=== PATIENT | female | born 1940 | race Caucasian/White ===

== ENCOUNTER 2018-03-22 09:54 | Day surgery (SDC) | payer MEDICARE, SELFPAY ==
--- NOTE | 2018-03-21 18:24 | POEE_ITS ---
History of Present Illness Chief Complaint: Progressive decreased vision, right eye Narrative: Patient is a 77-year-old lady with history of progressive decreased vision in both eyes at both distance and near. On examination she was noted to have significant bilateral nuclear cataracts, right eye worse than left. She also has a significant superior corneal pannus and scarring. The option of cataract surgery was offered to the patient and she wished to proceed. She has a significant amount of pre-existing corneal astigmatism, likely due to her corneal scarring. She understands that postoperative visual acuity would be limited by the presence of her pre-existing corneal astigmatism. NOTE: The Chief Complaint, HPI, Past Medical History, Past Surgical History, Family History, Social History, Medications, and complete Ophthalmic Exam with detailed Assessment and Plan have already been documented in the patient's outpatient ophthalmic record and are not covered again in detail here. [facility] Social History adopted: No marital status details: [place] 1966; moved from [place] 2007 lives independently: Yes number of children: 2 current occupation: Homemaker Smoking and Tabacco status: Never alcohol intake: current alcohol intake frequency: a few times a week substance use type: does not use Seatbelt use: always do you feel safe at home: Yes Meds Home Medications Medication Instructions Recorded Confirmed Type aspirin 81 mg CH DAILY 07/19/12 03/12/18 History Centrum Silver Tablet 1 ea PO DAILY tab 11/15/12 03/18/18 History magnesium gluconate 500 mg PO DAILY #90 tab-cap 10/18/14 03/18/18 History lancets #400 ea 01/17/15 03/12/18 History Blood Glucose Test #100 strip 07/27/17 03/12/18 History Proventil HFA 2 puff INHALATION TID PRN #1 07/27/17 03/18/18 History inhaler MDD 10 inh/24 hr omega-3 fatty acids-fish oil 300 1 cap PO DAILY #90 tab-cap 03/12/18 03/18/18 History mg-1,000 mg capsule cholecalciferol (vitamin D3) 2 - 6 tab PO DAILY 03/18/18 03/18/18 History [Vitamin D3] Allergies Allergy/AdvReac Type Severity Reaction Status Date / Time pantoprazole sodium AdvReac Mild FELT Unverified 03/12/18 14:50 [From Protonix] TERRIBLE Exam OCULAR EXAM:: Most recent ocular examination revealed directed visual acuity of 20/80 OD, 20/30 OS. Intraocular pressure is 10 OD, 11 OS. Slit-lamp examination reveals subepithelial haze superiorly OU involving the superior one third of the cornea. Pupils dilate to 5.5 mm. 3+ brunescent nuclear cataract is present OD. 2+ nuclear cataract is present OS. Dilated funduscopic examination shows disc cupping of 0.1 OU with normal vessels, macula, peripheral retina and vitreous. BRIGHTNESS ACUITY TESTING (BAT):: Brightness acuity testing of the right eye off is 20/80. Low is 20/60. Medium is 20/70. High is 20/125. Assessment and Plan (1) Nuclear sclerotic cataract of right eye: Current visit: No Status: Acute Assessment: Visually significant cataract, right eye. Plan: Cataract extraction with intraocular lens implantation, right eye Note: NOTE:: The details of the planned surgery, including the risks, indications,limitations,expectations,outcome and possible complications were explained to the patient. The patient understands the complications including, but not limited to: infection, hemorrhage, posterior dislocation of the lens or nuclear fragments which may require the intervention of a vitreoretinal surgeon, possible loss of the eye, or from anesthetic complications. The patient has been made aware of the option of not having surgery, that vision following surgery may not be equal to that prior to surgery, and that the planned surgery may not achieve the intended results. Following this discussion, which the patient appeared to understand, the patient wishes to proceed with cataract surgery with lens implantation of the affected eye to improve and maximize vision.
--- NOTE | 2018-03-21 18:32 | W.PM.DSUDISC ---
Discharge Plan Discharge Details Attending Provider: Cal Mc Primary Care Provider: Renetta Limon Home Meds and New Rx's Prescriptions: No Action CENTRUM SILVER TABLET 1 EACH tablet 1 ea PO DAILY RF: 0 magnesium gluconate 27 MG tablet 500 mg PO DAILY Qty: 90 RF: 0 lancets 1 EACH misc 1 ea Miscellaneous TID Qty: 400 RF: 3 Blood Glucose Test 1 EACH strip 1 ea Miscellaneous BID PRNQty: 100 RF: 3 Proventil HFA 6.7 GM HFA aerosol inhaler 2 puff Inhalation TID MDD 10 inh/24 hr PRNQty: 1 RF: 1 omega-3 fatty acids-fish oil [Fish Oil] 300-1,000 mg capsule 1 cap PO DAILY Qty: 90 RF: 3 aspirin 81 MG tablet,chewable 81 mg CH DAILY RF: 0 cholecalciferol (vitamin D3) [Vitamin D3] 2,000 unit Capsule 2 - 6 tab PO DAILY RF: 0 Discharge Instructions Stand Alone Forms: Post-op Topical Cataract, Janny Covington (DSU) DS: Diagnosis Discharge Diagnosis (1) Status post cataract extraction and insertion of intraocular lens of right eye: Status: Chronic
[2018-03-22 10:11] VITALS: BP 135/85; PULSE 73; RESP 18; TEMP 36; O2SAT 93
[2018-03-22] MEDS: Tetracaine 0.5% 4 ML BTL OD ×4 (10:20→12:10)
[2018-03-22] MEDS: Tropicam./Phenyleph. (1/2.5%) 5 ML BTL OD ×3 (10:21→10:30)
[2018-03-22] MEDS: Balanced Salt Soln.-PLUS 500 ML BAG (12:13)
[2018-03-22] MEDS: Lidocaine 2% Jelly 6 ML SYR (12:13)
[2018-03-22] MEDS: Lidocaine 1% Pres-Free 5 ML VIAL (12:13)
[2018-03-22] MEDS: Povidone-Iodine Ophth 30 ML BTL ×2 (12:13→12:46)
--- NOTE | 2018-03-22 12:54 | W.PM.OP ---
Date of service: 03/22/18 Time of Service: 12:54 Operative Note PRE-OP DIAGNOSIS: Cataract, right eye PROCEDURE: Cataract extraction using phacoemulsification with intraocular lens implant, right eye SURGEON: Cal Mc ANESTHESIA: MAC and local (sub-tenon's anesthetic infiltration) ESTIMATED BLOOD LOSS: 0 PATHOLOGY: none sent COMPLICATIONS: None Patient was transported to: same day Patient's condition: stable Implants: [employer] / [employer] Tecnis ZCB00 intraocular lens Indications: Progressive decreased vision due to cataract, right eye Procedure Description: CATARACT SURGERY OPERATIVE REPORT PREOPERATIVE DIAGNOSIS: 1. Nuclear cataract, right eye, symptomatic 2. Superior corneal scarring, right eye POSTOPERATIVE DIAGNOSIS: Same OPERATION: Cataract extraction using phacoemulsification with posterior chamber intraocular lens implant, right eye. IOL: IOL Photocopying Equipment Mechanic/Model: [employer] Vision / HIRAM Tecnis ZCB00 IOL Power: + 19.50 diopters IOL Serial Number: [id number] Optic Diameter: 6.0mm Haptic/Overall Diameter: 13.0mm PHACO INFO: Julio[employer]on Vision System with OZil and Active Fluidics Cumulative Dispersed Energy (CDE): 28.53 seconds SURGEON: Cal Mc MD, ADAM ANESTHESIA: Monitored Anesthesia Care (MAC), with local sub-tenon's anesthetic infiltration COMPLICATIONS: None SPECIMENS: None INDICATIONS FOR PROCEDURE: The patient is a 77-year old lady with history of moderately advanced nuclear cataract in the right eye, with slightly less cataract in the left eye. She notes significant diminished visual acuity. She is also noted to have superior corneal haze/scarring with significant a stigmatism. The option of cataract surgery was offered to the patient and she wished to proceed. PROCEDURE: The correct surgical eye was identified and marked as the right eye and the pupil was dilated in the preoperative area using mydriatics and cycloplegics. The dilated pupil size was 7.0 mm. Oral sedation was administered in the form of an Imprimis MKO Melt (midazolam 3mg/ketamine 25mg/ondansetron 2mg). The patient was brought to the operating room where cardiopulmonary monitoring was instituted and surgical time-out was performed, confirming the correct operative eye and IOL power. Topical anesthesia was administered and ophthalmic povidone-iodine 5% was instilled into the conjunctival fornices. Lidocaine gel was applied to the cornea and the valeria-ocular area was prepped with Betadine 10% solution and draped in the usual sterile fashion for intraocular surgery, including an aperture drape. A Tegaderm transparent film dressing was cut in half and used to cover the lashes and lid margins. Care was taken to sequester the lashes and lid margins under the Tegaderm dressing. A lid speculum was placed between the lids of the operative eye and the Tayler-Andrea operating microscope was maneuvered into position. Trent scissors were then used to make a conjunctival buttonhole approximately 6mm posterior to the limbus in the inferonasal quadrant. Blunt dissection was carried out to expose bare sclera, and a blunt-tipped sub-tenon?s anesthesia cannula was introduced and passed posteriorly along the globe where non-preserved plain lidocaine was injected into posterior sub-Tenon?s space. A sideport knife was used to make a paracentesis port inferiortemporally, and the anterior chamber was filled with Healon GV. A 2.4mm keratome knife was used to create a half-thickness groove at the limbus and then to construct a three-plane near-clear corneal tunnel extending 2.0mm into clear cornea in the superiortemporal position. . A flap was raised on the anterior capsule and capsulorhexis forceps were used to complete a continuous curvilinear capsulorhexis of 5.0 mm. Balanced salt solution was then used to perform cortical cleaving hydrodissection and nuclear hydrodelineation until the lens could be freely rotated within the capsular bag. The lens nucleus was then disassembled and removed within the capsular bag and iris plane using phacoemulsification. Residual cortical material was removed using the I/A handpiece. The posterior capsule was carefully polished to remove as much residual lens epithelial cells as safely possible. The capsular bag was then inflated and the anterior chamber deepened with viscoelastic. The lens implant described above was inserted into the capsular bag using the HIRAM Hamilton Injector. A Kuglen hook was used to dial the IOL into position. Residual viscoelastic was then removed first from posterior to the IOL, then from the anterior chamber using the I/A handpiece. The lens implant was noted to center nicely within the capsular bag. The incisions were stromally hydrated, and the anterior chamber was reformed using BSS. Then 0.4cc of moxifloxacin 1.5mg/ml were injected into the capsular bag and anterior chamber. The incisions were checked with a Weck spear and found to be secure. Several drops of ophthalmic povidone-iodine 5% were then applied to the eye followed by two drops of Imprimis combination moxifloxacin/dexamethasone solution. The drapes were removed and a clear plastic protective eye shield was placed over the eye. The patient was then returned to Same Day Surgery in stable condition.
--- NOTE | 2018-03-22 12:57 | ROE_ITS ---
Date of service: 03/22/18 Time of Service: 12:54 Operative Note PRE-OP DIAGNOSIS: Cataract, right eye PROCEDURE: Cataract extraction using phacoemulsification with intraocular lens implant, right eye SURGEON: Cal Mc ANESTHESIA: MAC and local (sub-tenon's anesthetic infiltration) ESTIMATED BLOOD LOSS: 0 PATHOLOGY: none sent COMPLICATIONS: None Patient was transported to: same day Patient's condition: stable Implants: [employer] / [employer] Tecnis ZCB00 intraocular lens Indications: Progressive decreased vision due to cataract, right eye Procedure Description: CATARACT SURGERY OPERATIVE REPORT PREOPERATIVE DIAGNOSIS: 1. Nuclear cataract, right eye, symptomatic 2. Superior corneal scarring, right eye POSTOPERATIVE DIAGNOSIS: Same OPERATION: Cataract extraction using phacoemulsification with posterior chamber intraocular lens implant, right eye. IOL: IOL Sterilizer Operator/Model: J[employer]J Vision / HIRAM Tecnis ZCB00 IOL Power: + 19.50 diopters IOL Serial Number: [id number] Optic Diameter: 6.0mm Haptic/Overall Diameter: 13.0mm PHACO INFO: Julio[employer] Sainton Vision System with OZil and Active Fluidics Cumulative Dispersed Energy (CDE): 28.53 seconds SURGEON: Cal Mc MD, ADAM ANESTHESIA: Monitored Anesthesia Care (MAC), with local sub-tenon's anesthetic infiltration COMPLICATIONS: None SPECIMENS: None INDICATIONS FOR PROCEDURE: The patient is a 77-year old lady with history of moderately advanced nuclear cataract in the right eye, with slightly less cataract in the left eye. She notes significant diminished visual acuity. She is also noted to have superior corneal haze/scarring with significant a stigmatism. The option of cataract surgery was offered to the patient and she wished to proceed. PROCEDURE: The correct surgical eye was identified and marked as the right eye and the pupil was dilated in the preoperative area using mydriatics and cycloplegics. The dilated pupil size was 7.0 mm. Oral sedation was administered in the form of an Imprimis MKO Melt (midazolam 3mg/ketamine 25mg/ondansetron 2mg). The patient was brought to the operating room where cardiopulmonary monitoring was instituted and surgical time-out was performed, confirming the correct operative eye and IOL power. Topical anesthesia was administered and ophthalmic povidone-iodine 5% was instilled into the conjunctival fornices. Lidocaine gel was applied to the cornea and the valeria-ocular area was prepped with Betadine 10% solution and draped in the usual sterile fashion for intraocular surgery, including an aperture drape. A Tegaderm transparent film dressing was cut in half and used to cover the lashes and lid margins. Care was taken to sequester the lashes and lid margins under the Tegaderm dressing. A lid speculum was placed between the lids of the operative eye and the Tayler-Andrea operating microscope was maneuvered into position. Trent scissors were then used to make a conjunctival buttonhole approximately 6mm posterior to the limbus in the inferonasal quadrant. Blunt dissection was carried out to expose bare sclera, and a blunt-tipped sub-tenon?s anesthesia cannula was introduced and passed posteriorly along the globe where non- preserved plain lidocaine was injected into posterior sub-Tenon?s space. A sideport knife was used to make a paracentesis port inferiortemporally, and the anterior chamber was filled with Healon GV. A 2.4mm keratome knife was used to create a half-thickness groove at the limbus and then to construct a three-plane near-clear corneal tunnel extending 2.0mm into clear cornea in the superiortemporal position. . A flap was raised on the anterior capsule and capsulorhexis forceps were used to complete a continuous curvilinear capsulorhexis of 5.0 mm. Balanced salt solution was then used to perform cortical cleaving hydrodissection and nuclear hydrodelineation until the lens could be freely rotated within the capsular bag. The lens nucleus was then disassembled and removed within the capsular bag and iris plane using phacoemulsification. Residual cortical material was removed using the I/A handpiece. The posterior capsule was carefully polished to remove as much residual lens epithelial cells as safely possible. The capsular bag was then inflated and the anterior chamber deepened with viscoelastic. The lens implant described above was inserted into the capsular bag using the HIRAM Garner Injector. A Kuglen hook was used to dial the IOL into position. Residual viscoelastic was then removed first from posterior to the IOL, then from the anterior chamber using the I/A handpiece. The lens implant was noted to center nicely within the capsular bag. The incisions were stromally hydrated, and the anterior chamber was reformed using BSS. Then 0.4cc of moxifloxacin 1.5mg/ml were injected into the capsular bag and anterior chamber. The incisions were checked with a Weck spear and found to be secure. Several drops of ophthalmic povidone-iodine 5% were then applied to the eye followed by two drops of Imprimis combination moxifloxacin/dexamethasone solution. The drapes were removed and a clear plastic protective eye shield was placed over the eye. The patient was then returned to Same Day Surgery in stable condition.
[2018-03-22 13:08] VITALS: BP 119/80; PULSE 66; RESP 18; TEMP 35.8; O2SAT 94
== END 2018-03-22 13:24 | disposition home or self-care (01) ==
LOC: SUR 09:55
PROVIDERS: PCP Nurse Practitioner Adult Health; Visit Provider Ophthalmology
PROC: (CPT 66984; principal; 2018-03-22 12:30)
DX: H25.11 Age-related nuclear cataract, right eye (principal); H17.9 Unspecified corneal scar and opacity; J44.9 Chronic obstructive pulmonary disease, unspecified; E11.9 Type 2 diabetes mellitus without complications
CPT/HCPCS: 66984; V2632

== ENCOUNTER 2018-04-05 06:30 | Day surgery (SDC) | payer MEDICARE, OTHER, SELFPAY ==
--- NOTE | 2018-04-04 15:47 | W.PIPPEYE ---
History of Present Illness Chief Complaint: Progressive decreased vision, left eye Narrative: Patient is a 77-year old lady with history of superior corneal haze/pannus, right eye worse than left. She has developed symptomatic bilateral nuclear cataracts, right eye greater than left. She underwent cataract surgery in the right eye on 03/22/2018. Postoperatively she has regained best corrected vision of 20/50 in the right eye. She now presents for cataract surgery in the left eye. NOTE: The Chief Complaint, HPI, Past Medical History, Past Surgical History, Family History, Social History, Medications, and complete Ophthalmic Exam with detailed Assessment and Plan have already been documented in the patient's outpatient ophthalmic record and are not covered again in detail here. 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) Vitamin D deficiency (Chronic 11/08/12) Nuclear sclerotic cataract of right eye (Resolved) Surgical History Status post cataract extraction and insertion of intraocular lens of right eye (Chronic 03/22/18) S/P trigger finger release (Resolved) History of tonsillectomy and adenoidectomy (Resolved) Social History adopted: No marital status details: [place] 1966; moved from [place] 2007 lives independently: Yes number of children: 2 current occupation: Homemaker Smoking and Tabacco status: Never alcohol intake: current alcohol intake frequency: a few times a week substance use type: does not use Seatbelt use: always do you feel safe at home: Yes Meds Home Medications Medication Instructions Recorded Confirmed Type aspirin 81 mg CH DAILY 07/19/12 03/22/18 History Centrum Silver Tablet 1 ea PO DAILY tab 11/15/12 03/22/18 History magnesium gluconate 500 mg PO DAILY #90 tab-cap 10/18/14 03/22/18 History lancets #400 ea 01/17/15 03/22/18 History Blood Glucose Test #100 strip 07/27/17 03/22/18 History Proventil HFA 2 puff INHALATION TID PRN #1 07/27/17 03/22/18 History inhaler MDD 10 inh/24 hr omega-3 fatty acids-fish oil 300 1 cap PO DAILY #90 tab-cap 03/12/18 03/22/18 History mg-1,000 mg capsule cholecalciferol (vitamin D3) 2 - 6 tab PO DAILY 03/18/18 03/22/18 History [Vitamin D3] Allergies Allergy/AdvReac Type Severity Reaction Status Date / Time pantoprazole sodium AdvReac Mild FELT Unverified 03/12/18 14:50 [From Protonix] TERRIBLE Exam OCULAR EXAM:: Most recent ocular examination revealed corrected visual acuity of 20/50 in the right eye, 20/25 in the left. Intraocular pressure is 10 OD, 11 OS. Extraocular motility is normal. Pupils equal, round, and reactive without afferent pupillary defect slit-lamp examination is significant for pupils dilating to 5.5 mm OU. In the right eye the superior third of the cornea shows subepithelial haze and pannus PA and NUS. In the left eye there is superior subepithelial haze, but not as large as the right eye. There is a well-positioned PCIOL OD with clear posterior capsule. A 2+ nuclear cataract is present OS. Dilated funduscopic examination shows disc cupping of 0.1 OU with good color. The optic nerves have good perfusion and normal color. The retinal vasculature is normal without significant tortuosity or abnormality. The maculas are normal in appearance with normal contour and foveal reflex appropriate for age. The peripheral retina and vitreous are normal. BRIGHTNESS ACUITY TESTING (BAT):: Brightness acuity testing of the left eye off is 20/20. Low is 20/40. Medium is 20/25. High is 20/40. Assessment and Plan (1) Nuclear sclerotic cataract of left eye: Current visit: No Status: Acute Assessment: Visually significant cataract, left eye. Plan: Cataract extraction with intraocular lens implantation, left eye Note: NOTE:: The details of the planned surgery, including the risks, indications,limitations,expectations,outcome and possible complications were explained to the patient. The patient understands the complications including, but not limited to: infection, hemorrhage, posterior dislocation of the lens or nuclear fragments which may require the intervention of a vitreoretinal surgeon, possible loss of the eye, or from anesthetic complications. The patient has been made aware of the option of not having surgery, that vision following surgery may not be equal to that prior to surgery, and that the planned surgery may not achieve the intended results. Following this discussion, which the patient appeared to understand, the patient wishes to proceed with cataract surgery with lens implantation of the affected eye to improve and maximize vision.
--- NOTE | 2018-04-04 17:18 | W.PM.DSUDISC ---
Discharge Plan Discharge Details Attending Provider: Cal Mc Primary Care Provider: Renetta Limon Home Meds and New Rx's Prescriptions: No Action CENTRUM SILVER TABLET 1 EACH tablet 1 ea PO DAILY RF: 0 magnesium gluconate 27 MG tablet 500 mg PO DAILY Qty: 90 RF: 0 lancets 1 EACH misc 1 ea Miscellaneous TID Qty: 400 RF: 3 Blood Glucose Test 1 EACH strip 1 ea Miscellaneous BID PRNQty: 100 RF: 3 Proventil HFA 6.7 GM HFA aerosol inhaler 2 puff Inhalation TID MDD 10 inh/24 hr PRNQty: 1 RF: 1 omega-3 fatty acids-fish oil [Fish Oil] 300-1,000 mg capsule 1 cap PO DAILY Qty: 90 RF: 3 aspirin 81 MG tablet,chewable 81 mg CH DAILY RF: 0 cholecalciferol (vitamin D3) [Vitamin D3] 2,000 unit Capsule 2 - 6 tab PO DAILY RF: 0 Discharge Instructions Stand Alone Forms: Post-op Topical Cataract, Janny Covington (DSU) DS: Diagnosis Discharge Diagnosis (1) Status post cataract extraction and insertion of intraocular lens of left eye: Status: Chronic
--- NOTE | 2018-04-04 17:19 | W.PM.OP ---
Date of service: 04/05/18 Time of Service: 08:14 Operative Note PRE-OP DIAGNOSIS: Cataract, left eye POST-OP DIAGNOSIS: same PROCEDURE: Cataract extraction using phacoemulsification with intraocular lens implant, left eye SURGEON: Cal Mc ANESTHESIA: MAC and local (sub-tenon's anesthetic infiltration) PATHOLOGY: none sent COMPLICATIONS: None Patient was transported to: same day Patient's condition: stable Implants: [employer] / [employer] Tecnis ZCB00 Indications: Progressive decreased vision due to cataract, left eye Procedure Description: CATARACT SURGERY OPERATIVE REPORT PREOPERATIVE DIAGNOSIS: Nuclear cataract, left eye POSTOPERATIVE DIAGNOSIS: Same OPERATION: Cataract extraction using phacoemulsification with posterior chamber intraocular lens implant, left eye. IOL: IOL Librarian Special Collections/Model: [employer] / HIRAM Tecnis ZCB00 IOL Power: + 17.0 diopters IOL Serial Number: [id number] Optic Diameter: 6.0mm Haptic/Overall Diameter: 13.0mm PHACO INFO: Julio Ge[employer] Vision System with OZil and Active Fluidics Cumulative Dispersed Energy (CDE): 18.76 seconds SURGEON: Cal Mc MD, ADAM ANESTHESIA: Monitored Anesthesia Care (MAC), with local sub-tenon's anesthetic infiltration COMPLICATIONS: None SPECIMENS: None INDICATIONS FOR PROCEDURE: The patient is a 77-year-old lady with history of significant bilateral nuclear cataracts as well as corneal scarring OU, right eye greater than left. She is become increasingly symptomatic from cataract and desires cataract surgery and attempt to improve and maximize her vision. She has already undergone cataract surgery in her right eye. She now presents for cataract surgery in the left eye. PROCEDURE: The correct surgical eye was identified and marked as the left eye and the pupil was dilated in the preoperative area using mydriatics and cycloplegics. The dilated pupil size was 6.5 mm. Oral sedation was administered in the form of an Imprimis MKO Melt (midazolam 3mg/ketamine 25mg/ondansetron 2mg). The patient was brought to the operating room where cardiopulmonary monitoring was instituted and surgical time-out was performed, confirming the correct operative eye and IOL power. Topical anesthesia was administered and ophthalmic povidone-iodine 5% was instilled into the conjunctival fornices. Lidocaine gel was applied to the cornea and the valeria-ocular area was prepped with Betadine 10% solution and draped in the usual sterile fashion for intraocular surgery, including an aperture drape. A Tegaderm transparent film dressing was cut in half and used to cover the lashes and lid margins. Care was taken to sequester the lashes and lid margins under the Tegaderm dressing. A lid speculum was placed between the lids of the operative eye and the Tayler-Andrea operating microscope was maneuvered into position. Trent scissors were then used to make a conjunctival buttonhole approximately 6mm posterior to the limbus in the inferonasal quadrant. Blunt dissection was carried out to expose bare sclera, and a blunt-tipped sub-tenon?s anesthesia cannula was introduced and passed posteriorly along the globe where non-preserved plain lidocaine was injected into posterior sub-Tenon?s space. A sideport knife was used to make a paracentesis port superior/superiortemporal, and the anterior chamber was filled with Healon GV. A 2.4mm keratome knife was used to create a half-thickness groove at the limbus and then to construct a three-plane near-clear corneal tunnel extending 2.0mm into clear cornea in the temporal position. . A flap was raised on the anterior capsule and capsulorhexis forceps were used to complete a continuous curvilinear capsulorhexis of 5.0 mm. Balanced salt solution was then used to perform cortical cleaving hydrodissection and nuclear hydrodelineation until the lens could be freely rotated within the capsular bag. The lens nucleus was then disassembled and removed within the capsular bag and iris plane using phacoemulsification. The pupil constricted to 3 mm during phacoemulsification, making visualization challenging. Residual cortical material was removed using the 45-degree angled silicone I/A tip with 0.3mm port. The posterior capsule was carefully polished to remove as much residual lens epithelial cells as safely possible. The capsular bag was then inflated and the anterior chamber deepened with viscoelastic. The lens implant described above was inserted into the capsular bag using the HIRAM [place] Injector. A Kuglen hook was used to dial the IOL into position. Residual viscoelastic was then removed first from posterior to the IOL, then from the anterior chamber using the I/A handpiece. The lens implant was noted to center nicely within the capsular bag. The incisions were stromally hydrated, and the anterior chamber was reformed using BSS. Then 0.4cc of moxifloxacin 1.5mg/ml were injected into the capsular bag and anterior chamber. The incisions were checked with a Weck spear and found to be secure. Several drops of ophthalmic povidone-iodine 5% were then applied to the eye followed by two drops of Imprimis combination moxifloxacin/dexamethasone solution. The drapes were removed and a clear plastic protective eye shield was placed over the eye. The patient was then returned to Same Day Surgery in stable condition.
[2018-04-05 06:41] VITALS: BP 128/71; PULSE 87; RESP 16; TEMP 36.7; O2SAT 93
[2018-04-05] MEDS: Tropicam./Phenyleph. (1/2.5%) 5 ML BTL OS ×3 (06:49→06:55)
[2018-04-05] MEDS: Tetracaine 0.5% 4 ML BTL OS ×4 (06:49→07:29)
[2018-04-05] MEDS: Lidocaine 2% Jelly 6 ML SYR (07:29)
[2018-04-05] MEDS: Balanced Salt Soln.-PLUS 500 ML BAG (07:35)
[2018-04-05] MEDS: Lidocaine 1% Pres-Free 5 ML VIAL (07:35)
[2018-04-05] MEDS: Povidone-Iodine Ophth 30 ML BTL (07:37)
[2018-04-05 08:35] VITALS: BP 114/72; PULSE 75; RESP 18; TEMP 36.5; O2SAT 92
== END 2018-04-05 08:45 | disposition home or self-care (01) ==
LOC: SUR 06:30
PROVIDERS: PCP Nurse Practitioner Adult Health; Visit Provider Ophthalmology
PROC: (CPT 66984; principal; 2018-04-05 07:30)
DX: H25.12 Age-related nuclear cataract, left eye (principal); H17.9 Unspecified corneal scar and opacity; Z98.41 Cataract extraction status, right eye; Z96.1 Presence of intraocular lens
CPT/HCPCS: 66984; V2632

== ENCOUNTER 2018-08-20 08:14 | Outpatient (CLI) | payer MEDICARE, OTHER, SELFPAY ==
[2018-08-20 09:32] LABS: Hemoglobin A1C 7.1 % (4.5-6.2)
[2018-08-20 09:45] LABS: Anion Gap 9.3 mmol/L (3-11); BUN 15 mg/dL (7-18); CO2 27.7 mmol/L (21.0-32.0); CREATININE 0.77 mg/dL (0.55-1.02); Calcium 9.1 mg/dL (8.5-10.1); Calculated LDL 114 mg/dL; Chloride 106 mmol/L (98-107); Cholesterol 179 mg/dL (50-200); Glucose 148 mg/dL (70-100); HDL Cholesterol 55 mg/dL (40-60); Potassium 4.5 mmol/L (3.5-5.1); Sodium 143 mmol/L (136-145); Triglyceride 54 mg/dL (30-150)
[2018-08-23 07:14] LABS: Vitamin D 25 Total 27.8 ng/ml (30-100)
== END 2018-08-20 08:34 ==
PROVIDERS: PCP Nurse Practitioner Adult Health; Visit Provider Nurse Practitioner Adult Health
DX: D12.6 Benign neoplasm of colon, unspecified (principal); E11.9 Type 2 diabetes mellitus without complications; M85.80 Other specified disorders of bone density and structure, unspecified site; Z13.6 Encounter for screening for cardiovascular disorders; Z80.3 Family history of malignant neoplasm of breast
CPT/HCPCS: 36415; 80048; 80061; 82306; 83721; 83036

== ENCOUNTER 2018-09-13 00:16 | Outpatient (CLI) | payer MEDICARE, OTHER, SELFPAY ==
--- NOTE | 2018-09-13 10:00 | DI.MAMMO_ITS ---
SYMPTOM/DIAGNOSIS: SCREENING MAMMOGRAMS: Mammograms were interpreted according to the usual protocol including computer analysis with CAD system, tomosynthesis and C view imaging. Comparison is made with exams from [id number]. The breasts are composed of scattered fibroglandular densities. Breast density, Category B. No suspicious masses or suspicious microcalcifications are seen. Benign appearing nodules are again noted bilaterally. IMPRESSION: Category 2, negative mammogram with benign findings. Yearly screening mammography is recommended. SA ASSESSMENT OF FINDINGS: Negative with benign findings. Category 2. Patient will receive a letter notifying them of these results. BI-RADS category B. There are scattered areas of fibroglandular density.
== END 2018-09-13 00:36 ==
PROVIDERS: PCP Nurse Practitioner Adult Health; Visit Provider Nurse Practitioner Adult Health
DX: Z12.31 Encounter for screening mammogram for malignant neoplasm of breast (principal)
CPT/HCPCS: 77063; 77067

== ENCOUNTER 2019-07-13 16:46 | Emergency (ER) | payer MEDICARE, OTHER, SELFPAY ==
[2019-07-13] VITALS (18 sets, daily range): BP systolic 118–167; BP diastolic 67–98; PULSE 65–109; RESP 11–21; TEMP 36.4–36.9; O2SAT 91–100
--- NOTE | 2019-07-13 17:04 | W.ED.GENAD ---
Discharge Plan Disposition Patient Disposition: HOME Condition: Improving Discharge Details Chief Complaint: Chest Pain Clinical Impression: Cervical radiculopathy Primary Care Provider: Renetta Limon ED Provider: Dylon Rodríguez Home Meds and New Rx's Prescriptions: New methocarbamol 500 mg tablet 500 mg PO Q6H PRN (Reason: Back pain or spasm) Qty: 14 RF: 0 prednisone 20 mg tablet 40 mg PO DAILY 5 Days Qty: 10 RF: 0 Continued albuterol sulfate [Proventil HFA] 90 mcg/actuation HFA aerosol inhaler 2 puff Inhalation Q4H PRN MDD 10 inh/24 hr Qty: 8.5 RF: 1 (DME) blood sugar diagnostic [Blood Glucose Test] strip 1 ea Miscellaneous BID Qty: 100 RF: 3 CENTRUM SILVER TABLET 1 EACH tablet 1 ea PO DAILY RF: 0 magnesium gluconate 27 MG tablet 500 mg PO DAILY Qty: 90 RF: 0 (DME) lancets 1 EACH misc 1 ea Miscellaneous TID Qty: 400 RF: 3 omega-3 fatty acids-fish oil [Fish Oil] 300-1,000 mg capsule 1 cap PO DAILY Qty: 90 RF: 3 cholecalciferol (vitamin D3) [Vitamin D3] 2,000 unit Capsule 2 - 6 tab PO DAILY RF: 0 Discharge Instructions Instructions: Cervical Radiculopathy (ED) Additional Instructions: Remove Lidoderm patch in 12 hours time. Additional patches are available [id number] and may be used once daily. May use methocarbamol, as prescribed, if needed for pain. Please follow-up with physical therapy as prescribed. Take prednisone as prescribed until finished. Return to the ER if you develop worsening pain, chest discomfort, difficulty breathing, or any other acute concerns. Medical Decision Making Pleasant and delightful 78-year-old female with a history of diabetes and mild COPD. She presents with left-sided neck and scapular pain that radiates down her arm began on July 06 after working in her garden. She denies significant injury or fall. She states the pain is mild to moderate today but given its persistence she seeks evaluation. She arrives with slightly elevated blood pressure, tenderness overlying the left paraspinous thoracic cage and infrascapular region. Differential also includes muscular strain, radiculopathy, must exclude underlying mass. Additionally, given the patient's age and diabetes she is at risk for atypical presentation of acute coronary syndrome. Patient had IV access established, given ketorolac, referred for radiographs of the chest and cervical spine. The patient has unremarkable chest x-ray, there are multilevel degenerative changes of the cervical spine. Laboratory obtained and reveals unremarkable CBC, chemistries reassuring with a negative troponin. Her pain did have some improvement with ketorolac and Lidoderm. I feel this is most consistent with cervical radiculopathy. Will treat with a short burst of prednisone, ongoing use of topical analgesia with Lidoderm patches, and a trial of methocarbamol if needed for discomfort. I will refer her to physical therapy. We discussed that I do not feel further risk stratification of coronary artery disease is indicated at this time. She understands return precautions to the ER. ECG Data Attestation: I personally reviewed and interpreted this ECG (s) as follows: Interpretation: Normal sinus rhythm with a rate of 94, the QRS is narrow, there is nonspecific ST segment flattening in lead aVL, no ST segment elevation, the QTC is 448. HPI General Mode of arrival: ambulatory. Date/Time Provider Initiated Documentation: 07/13/19 16:51. Limitations to Documentation: no limitations. Information obtained by: patient. History of Present Illness 78 year old F presents to the emergency department with the chief complaint of Left neck pain since July 06, described as moderate, Quality is described as dull, and is localized to the neck and left. Patient extremity. Patient started experiencing this day(s) and it has been intermittent. No relieving factors improve symptom(s), No exacerbating factors reported . Patient notes denies shortness of breath, syncope and weakness. Patient did receive the following treatments prior to arrival, none Related Data Home Medications Medication Instructions Recorded Confirmed Centrum Silver Tablet 1 ea PO DAILY tab 11/15/12 07/13/19 magnesium gluconate 500 mg PO DAILY #90 tab-cap 10/18/14 07/13/19 lancets #400 ea 01/17/15 07/13/19 omega-3 fatty acids-fish oil 300 1 cap PO DAILY #90 tab-cap 03/12/18 07/13/19 mg-1,000 mg capsule cholecalciferol (vitamin D3) 2 - 6 tab PO DAILY 03/18/18 07/13/19 [Vitamin D3] albuterol sulfate 90 mcg/actuation 2 puff INHALATION Q4H PRN #8.5 gm 08/16/18 07/13/19 aerosol inhaler MDD 10 inh/24 hr blood sugar diagnostic #100 strip 08/16/18 07/13/19 methocarbamol 500 mg PO Q6H PRN #14 tab 07/13/19 prednisone 40 mg PO DAILY 5 Days #10 tab 07/13/19 Previous Rx's Medication Instructions Recorded albuterol sulfate 90 mcg/actuation 2 puff INHALATION Q4H PRN #8.5 gm 08/16/18 aerosol inhaler MDD 10 inh/24 hr blood sugar diagnostic #100 strip 08/16/18 methocarbamol 500 mg PO Q6H PRN #14 tab 07/13/19 prednisone 40 mg PO DAILY 5 Days #10 tab 07/13/19 Allergies Allergy/AdvReac Type Severity Reaction Status Date / Time pantoprazole sodium AdvReac Mild FELT Verified 12/06/18 09:08 [From Protonix] TERRIBLE Review of Systems Narrative: Discomfort began after working in her garden. No fall or injury. No shortness of breath. No recent illness, no travel. No swelling of the extremities. 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; Dr Lan Turner Right corneal scar with opacity (Inactive) Type 2 diabetes mellitus without complication (Chronic 10/23/14) DX [facility] [place] Adm: A1c 6.5 X 2 in 2014; h/o impaired FBS 2010 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) Rx Mag Gluconate (Dr Oliva) Vitamin D deficiency (Chronic 11/08/12) Surgical History History of tonsillectomy and adenoidectomy (Resolved) S/P trigger finger release (Resolved) R third ~2010 Status post cataract extraction and insertion of intraocular lens of left eye (Inactive 04/05/18) Status post cataract extraction and insertion of intraocular lens of right eye (Inactive 03/22/18) Social History Smoking/Tobacco Use Status: Never Alcohol Intake: current Alcohol Intake frequency: a few times a week Drug use: Never Substance use type: does not use Adopted: No Number of Children: 2 current occupation: Homemaker What type of physical activity do you participate in: walking and other Details: hiking/walking/gardening Duration: 60-90 minutes/day Frequency: other Details: sporadic Seatbelt use: always Do you feel safe at home: Yes Do you feel safe in your relationship?: Yes Exam Narrative Exam Narrative: GEN: awake, alert, oriented 3. Pleasant, well groomed, interactive. HEAD: Normocephalic, atraumatic ENT: Mucous membranes moist, oropharynx unremarkable, External ear exam unremarkable EYES: PERRL, EOMI NECK: Full ROM, no SAMMY, no menigismus. Kyphosis present. No midline tenderness step-off or deformity. Left paraspinous/infrascapular tenderness to palpation. CHEST/RESP: Nontender, clear to auscultation bilateral, no wheeze/rhonchi/rales CARDIOVASCULAR: RRR, no murmur, rub mini. 2+ Rad pulse bilateral ABDOMEN: Soft, nontender, no mass. +Bowel sounds EXT: Full ROM, no edema, no rash. Motor graded 5 out of 5, sensation intact throughout. Neuro: Grossly normal neurologic exam, conversant, interactive. Psych: Speech fluent, thoughts congruent, affect normal
[2019-07-13 17:44] LABS: Absolute Basophil Count 0.01 k/cumm (0.0-0.2); Absolute Eosinophil Count 0.08 k/cumm (0.0-0.7); Absolute Lymphocyte Count 0.87 k/cumm (1.2-3.4); Absolute Monocyte Count 0.38 k/cumm (0.11-0.7); Absolute Neutrophil Count 3.21 k/cumm (1.2-6.7); Basophils % 0.2; Eosinophils % 1.8; HCT 44.6 % (36.0-46.0); HGB 15.2 g/dL (12.0-15.5); Lymphocytes % 19.1; Mean Corp. HGB Concentration 34.1 g/dL (32.0-36.0); Mean Corpuscular Hemoglobin 31.6 pg (27.0-33.0); Mean Corpuscular Volume 92.7 fL (80-95); Monocytes % 8.4; Neutrophils % 70.5; Platelet Count 209 x1000/uL (130-400); RBC 4.81 m/cumm (4.00-5.20); RBC Distribution Width 13.2 % (11.7-14.6); White Blood Cell Count 4.55 k/cumm (4.4-10.8)
[2019-07-13] MEDS: Ketorolac 15 MG/ML VIAL IVP (17:48)
--- NOTE | 2019-07-13 18:00 | DI.RAD_ITS ---
EXAM: XR CHEST 2V PA LATERAL CLINICAL HISTORY: L neck pain TECHNIQUE: COMPARISON: CR CHEST 2 VIEWS PA,LAT from 04/21/2016 FINDINGS: Heart is not enlarged. The lungs are clear and normally expanded. Mediastinal contour is unchanged from prior study. No pleural effusion. There is an old midthoracic vertebral body compression fracture. IMPRESSION: No evidence of acute process.
--- NOTE | 2019-07-13 18:08 | DI.RAD_ITS ---
EXAM: XR CERVICAL SPINE COMP 4-5V CLINICAL HISTORY: L neck pain TECHNIQUE: COMPARISON: No exams were available for comparison FINDINGS: Five views were obtained. There are very prominent hypertrophic changes of the vertebral endplates a nd facet joints through the mid and lower cervical spine. No evidence of acute fracture or dislocati on. Prevertebral soft tissues appear intact. Disc space narrowing noted at C5-6 and C6-7. Neural foramina on the left may be narrowed at C5-6 and C6-7. Neural foramina on the right appear fa irly well maintained. IMPRESSION: Degenerative changes, no acute process.
--- NOTE | 2019-07-13 18:11 | DI.VRAD_ITS ---
PROCEDURE INFORMATION: Exam: XR Chest, 2 Views Exam date and time: 07/13/2019 5:58 PM Age: 78 years old Clinical indication: Other: Left neck pain TECHNIQUE: Imaging protocol: XR of the chest Views: 2 views. COMPARISON: CR CHEST 2 VIEWS PA,LAT 04/21/2016 4:02 PM FINDINGS: Lungs: Clear lungs. Pleural space: No pneumothorax. No sizable pleural effusion. Heart/Mediastinum: No cardiomegaly. Bones/joints: Unremarkable. IMPRESSION: Clear lungs. Dictated and Authenticated by: Leobardo Stock MD. Ordering:JOSEPH Osborne MD
--- NOTE | 2019-07-13 18:13 | DI.VRAD_ITS ---
PROCEDURE INFORMATION: Exam: XR Spine, 1 view; Cervical Exam date and time: 07/13/2019 5:59 PM Age: 78 years old Clinical indication: Patient status: Other: Left sided neck pain TECHNIQUE: Imaging protocol: XR of the spine, 1 view. Exam focused on the cervical spine. COMPARISON: No relevant prior studies available. FINDINGS: Vertebrae: Multilevel degenerative changes of the cervical spine. No acute fracture. Normal alignment. Soft tissues: Normal. IMPRESSION: No acute findings. Dictated and Authenticated by: Leobardo Stock MD. Ordering:JOSEPH Osborne MD
[2019-07-13 18:19] LABS: ALT 25 U/L (14-59); AST 16 U/L (15-37); Albumin 3.7 g/dL (3.4-5.0); Alkaline Phosphatase 75 U/L (46-116); Anion Gap 7.9 mmol/L (3-11); BUN 22 mg/dL (7-18); Bilirubin, Total 0.7 mg/dL (0.2-1.0); CO2 25.1 mmol/L (21.0-32.0); CREATININE 0.89 mg/dL (0.55-1.02); Calcium 8.9 mg/dL (8.5-10.1); Chloride 106 mmol/L (98-107); Glucose 194 mg/dL (74-106); Potassium 3.6 mmol/L (3.5-5.1); Sodium 139 mmol/L (136-145)
[2019-07-13 18:41] LABS: Troponin I < 0.05 ng/mL (<0.06)
[2019-07-13] MEDS: Lidocaine 5% Patch 1 PATCH TP (19:15)
[2019-07-13] MEDS: predniSONE 20 MG TAB 40 MG PO (19:16)
[2019-07-13] MEDS: Methocarbamol 500 MG TAB PO (19:30)
== END 2019-07-13 19:24 | disposition home or self-care (01) ==
PROVIDERS: Emergency Provider Emergency Medicine; PCP Nurse Practitioner Adult Health
DX: M54.12 Radiculopathy, cervical region (principal); E11.9 Type 2 diabetes mellitus without complications; J44.9 Chronic obstructive pulmonary disease, unspecified
CPT/HCPCS: 36415; 80053; 93005; 96374; 99285; 71046; 72050; 84484; 85025; 93010; 99284; J1885; J7512

== ENCOUNTER 2019-10-04 10:19 | Emergency (ER) | payer MEDICARE, OTHER, SELFPAY ==
[2019-10-04] VITALS (30 sets, daily range): BP systolic 121–163; BP diastolic 67–94; PULSE 60–88; RESP 12–23; TEMP 36.5–36.8; O2SAT 91–96
--- NOTE | 2019-10-04 10:24 | RT.EKG_ITS ---
APPROVED REPORT Exam: Resting ECG Patient Location: E HR:84 bpm ECG Measurements Heart Rate 84 AXIS GA 220 P 36 QRSd 106 QRS -9 QT 382 T 32 QTc 455 Conclusion Sinus rhythm...normal P axis, V-rate 60- 99 Multiple ventricular premature complexes...V complexes w/ short R-R intervls Prolonged GA interval...GA >220, V-rate 50- 90
--- NOTE | 2019-10-04 10:30 | DI.RAD_ITS ---
EXAM: XR CHEST 2V PA LATERAL CLINICAL HISTORY: elev BP, back discomfort TECHNIQUE: 2D digital imaging was performed. COMPARISON: CR,XR XR CHEST 2V PA LATERAL from 07/13/2019 FINDINGS: The heart is not enlarged. The lungs are clear and well expanded. No pleural effusion seen. Mediastin al contours appear intact. IMPRESSION: Normal chest RADIATION DOSE DELIVERED: Total DLP
--- NOTE | 2019-10-04 10:40 | W.ED.GENAD ---
Discharge Plan Disposition Patient Disposition: HOME Condition: Improving Discharge Details Chief Complaint: GenMedical Clinical Impression: Elevated blood pressure reading Primary Care Provider: Renetta Limon ED Provider: Dylon Rodríguez Home Meds and New Rx's Prescriptions: Continued albuterol sulfate [Proventil HFA] 90 mcg/actuation HFA aerosol inhaler 2 puff Inhalation Q4H PRN MDD 10 inh/24 hr Qty: 8.5 RF: 1 magnesium gluconate 27 mg magnesium (500 mg) tablet 500 mg PO DAILY PRNQty: 90 RF: 0 cholecalciferol (vitamin D3) [Vitamin D3] 50 mcg (2,000 unit) capsule See Rx Instructions PO DAILY RF: 0 CENTRUM SILVER TABLET 1 EACH tablet 1 ea PO DAILY RF: 0 (DME) lancets 1 EACH misc 1 ea Miscellaneous TID Qty: 400 RF: 3 omega-3 fatty acids-fish oil [Fish Oil] 300-1,000 mg capsule 1 cap PO DAILY Qty: 90 RF: 3 (DME) Contour Test Strips Strip See Rx Instructions .ROUTE .MEDSUPPLY Qty: 100 RF: 3 Discharge Instructions Additional Instructions: Your potassium level slightly low today and you would benefit of increasing dietary potassium rich foods such as bananas, strawberries, almonds or tree nuts. We will ask our care management team to arrange an outpatient follow-up for you in clinic. Please check your blood pressure once or twice daily at the same time each day and record the readings for your office follow-up. Return develop a pounding headache, chest pain or pressure, difficulty breathing, or any other acute concerns. Medical Decision Making 78-year-old female presents from home with elevated blood pressures over weeks time that she is been tracking. They are increased to 150s to 160s last night associated with feeling lousy and some mild upper back tightness. No chest pain, no syncope, no headache. Patient's exam is reassuring. hall monitor, IV access established and screening blood work and chest x-ray obtained. Patient given clonidine 0.1 mg for moderate hypertension. Labs notes discrete hypo-kalemia of 3.3 which is supplemented in the ED. Otherwise reassuring laboratories. Troponin was obtained and negative x2 . Chest x-ray without acute findings. Lab Data Lab results reviewed: Yes I reviewed the patient's lab results. Labs: Laboratory Results - last 24 hr 10/04/19 10/04/19 10/04/19 10:30 10:30 13:35 WBC 4.93 RBC 4.98 Hgb 15.3 Hct 46.4 H MCV 93.2 MCH 30.7 MCHC 33.0 RDW 12.7 Plt Count 206 MPV 11.0 Immature Gran % 0.2 Neutrophils % 71.0 Lymphocytes % 18.1 Monocytes % 9.3 Eosinophils % 1.0 Basophils % 0.4 Nucleated RBC % 0 Absolute Neutrophils 3.50 Absolute Lymphocytes 0.89 L Absolute Monocytes 0.46 Absolute Eosinophils 0.05 Absolute Basophils 0.02 Sodium 141 Potassium 3.3 L Chloride 109 H Carbon Dioxide 29.4 Anion Gap 2.6 L BUN 16 Creatinine 0.73 Estimated GFR/1.73 m2 >= 60.00 Glucose 144 H Calcium 9.4 Magnesium 1.9 Total Bilirubin 1.0 AST 19 ALT 27 Alkaline Phosphatase 83 Troponin I < 0.05 < 0.05 Total Protein 7.2 Albumin 3.8 Urine Color Urine Clarity Urine pH Ur Specific [place] Urine Protein Urine Ketones Urine Blood Urine Nitrite Urine Bilirubin Urine Urobilinogen Ur Leukocyte Esterase Urine Glucose 10/04/19 13:35 WBC RBC Hgb Hct MCV MCH MCHC RDW Plt Count MPV Immature Gran % Neutrophils % Lymphocytes % Monocytes % Eosinophils % Basophils % Nucleated RBC % Absolute Neutrophils Absolute Lymphocytes Absolute Monocytes Absolute Eosinophils Absolute Basophils Sodium Potassium Chloride Carbon Dioxide Anion Gap BUN Creatinine Estimated GFR/1.73 m2 Glucose Calcium Magnesium Total Bilirubin AST ALT Alkaline Phosphatase Troponin I Total Protein Albumin Urine Color Yellow Urine Clarity Clear Urine pH 6.5 Ur Specific [place] 1.015 Urine Protein Negative Urine Ketones Negative Urine Blood Negative Urine Nitrite Negative Urine Bilirubin Negative Urine Urobilinogen 0.2 Ur Leukocyte Esterase Negative Urine Glucose Negative ECG Data Attestation: I personally reviewed and interpreted this ECG (s) as follows: Interpretation: Normal sinus rhythm with a rate of 84, the QRS is narrow and there is no ST segment elevation. HPI General Mode of arrival: ambulatory. Date/Time Provider Initiated Documentation: 10/04/19 10:23. Limitations to Documentation: no limitations. History of Present Illness 78 year old F presents to the emergency department with the chief complaint of Elevated blood pressure, feel lousy, described as moderate, Patient reports no radiation. Patient started experiencing this hour(s) and it has been constant. No relieving factors improve symptom(s), No exacerbating factors reported . Patient notes no other symptoms. and other (Mild back pain); denies chest pain, cough and syncope. Patient did receive the following treatments prior to arrival, none Related Data Home Medications Medication Instructions Recorded Confirmed Centrum Silver Tablet 1 ea PO DAILY tab 11/15/12 10/04/19 lancets #400 ea 01/17/15 07/13/19 omega-3 fatty acids-fish oil 300 1 cap PO DAILY #90 tab-cap 03/12/18 10/04/19 mg-1,000 mg capsule albuterol sulfate 90 mcg/actuation 2 puff INHALATION Q4H PRN #8.5 gm 08/16/18 10/04/19 aerosol inhaler MDD 10 inh/24 hr blood sugar diagnostic #100 each 07/19/19 cholecalciferol (vitamin D3) 50 See Rx Instructions PO DAILY 08/19/19 10/04/19 mcg (2,000 unit) capsule magnesium gluconate 27 mg 500 mg PO DAILY PRN #90 tab-cap 08/19/19 10/04/19 magnesium (500 mg) tablet Previous Rx's Medication Instructions Recorded albuterol sulfate 90 mcg/actuation 2 puff INHALATION Q4H PRN #8.5 gm 08/16/18 aerosol inhaler MDD 10 inh/24 hr blood sugar diagnostic #100 each 07/19/19 Allergies Allergy/AdvReac Type Severity Reaction Status Date / Time pantoprazole sodium AdvReac Mild FELT Verified 10/04/19 10:29 [From Protonix] TERRIBLE General Stated Complaint: GenMedical RHEA: 2 Review of Systems Narrative: 6 systems reviewed and otherwise negative, see HPI [facility] Medical History 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) several polyps (may not even be polyps!), but due to + FH mother colon cancer <60, rec 5 yr interval; 2019: Katie declines further colonoscopy COPD, 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) FEV1 2.07 (78%pred; 61% FVC), mild obstr, else normal 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) Elevated blood pressure reading without diagnosis of hypertension (Acute) Foraminal stenosis of cervical region (Resolved) +Radiculopathy; [place] 07/2019--prednisone + methocarbamol + PT = effective Nuclear sclerotic cataract of left eye (Resolved) Nuclear sclerotic cataract of right eye (Resolved) Osteopenia (Chronic 11/08/12) Declines DXA or treatments for osteoporosis 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; Dr Lan Turner Right corneal scar with opacity (Inactive) Type 2 diabetes mellitus without complication (Chronic 10/23/14) DX [facility] [place] Adm: A1c 6.5 X 2 in 2014; h/o impaired FBS 2010 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 Colon cancer Successfully treated Supranuclear palsy Diabetes Daughter Age: 50 Breast cancer Dx'ed ~44yo s/p mastectomy Hypertension Daughter Bone cancer Sister No problems noted. Father , COD unknown No problems noted. Maternal Grandmother Breast cancer Social History Smoking/Tobacco Use Status: Never Alcohol Intake: current Alcohol Intake frequency: holidays/special occasions only Drug use: Never Substance use type: does not use Adopted: No Number of Children: 2 current occupation: Homemaker What type of physical activity do you participate in: walking and other Details: hiking/walking/gardening Duration: 60-90 minutes/day Frequency: other Details: sporadic Seatbelt use: always Do you feel safe at home: Yes Do you feel safe in your relationship?: Yes Exam Narrative Exam Narrative: GEN: awake, alert, oriented 3. Pleasant, well groomed, interactive. HEAD: Normocephalic, atraumatic ENT: Mucous membranes moist, oropharynx unremarkable, External ear exam unremarkable EYES: PERRL, EOMI NECK: Full ROM, no SAMMY, no menigismus CHEST/RESP: Nontender, clear to auscultation bilateral, no wheeze/rhonchi/rales CARDIOVASCULAR: RRR, no murmur, rub mini. 2+ Rad pulse bilateral ABDOMEN: Soft, nontender, no mass. +Bowel sounds EXT: Full ROM, no edema, no rash Neuro: Grossly normal neurologic exam, conversant, interactive. Psych: Speech fluent, thoughts congruent, affect normal Course Vital Signs Vital signs: Vital Signs Temperature 36.8 C 10/04/19 10:25 Pulse 85 10/04/19 10:25 Respiratory Rate 20 10/04/19 10:25 Blood Pressure 163/94 H 10/04/19 10:25 Pulse Oximetry 96 10/04/19 10:25 Temperature 36.8 C 10/04/19 10:25 Temperature Source Skin 10/04/19 10:25 Pulse 85 10/04/19 10:25 Respiratory Rate 20 10/04/19 10:25 Respiratory Effort 10/04/19 10:30 Blood Pressure 163/94 H 10/04/19 10:25 Blood Pressure Position Sitting 10/04/19 10:25 Pulse Oximetry 96 10/04/19 10:25 Oxygen Delivery Method Room Air 10/04/19 10:25 Oxygen Flow Rate 0 10/04/19 10:25
[2019-10-04] MEDS: Normal Saline Flush 10 ML SYR IVP (10:48)
[2019-10-04] MEDS: cloNIDine 0.1 MG TAB PO (10:48)
[2019-10-04] MEDS: Normal Saline 1,000 ML 150 ML IV (10:50)
[2019-10-04 10:52] LABS: Abs Immature Grans 0.01 10^3/uL (0.0-0.06); Absolute Basophil Count 0.02 10^3/uL (0.0-0.2); Absolute Eosinophil Count 0.05 10^3/uL (0.0-0.7); Absolute Lymphocyte Count 0.89 10^3/uL (1.2-3.4); Absolute Monocyte Count 0.46 10^3/uL (0.1-0.8); Basophils % 0.4; HCT 46.4 % (36.0-46.0); HGB 15.3 g/dL (11.2-15.7); Immature Grans % 0.2; Lymphocytes % 18.1; MCH 30.7 pg (27.0-33.0); MCV 93.2 fL (80-95); Monocytes % 9.3; Nucleated RBC 0 %; Platelet Count 206 10^3/uL (130-400); RBC 4.98 10^6/uL (3.93-5.22); RDW 12.7 % (11.7-14.6); RDW-SD 43.8 fL; WBC 4.93 10^3/uL (4.4-10.8)
[2019-10-04 11:08] LABS: ALT 27 U/L (14-59); AST 19 U/L (15-37); Albumin 3.8 g/dL (3.4-5.0); Alkaline Phosphatase 83 U/L (46-116); Anion Gap 2.6 mmol/L (3-11); BUN 16 mg/dL (7-18); CO2 29.4 mmol/L (21.0-32.0); CREATININE 0.73 mg/dL (0.55-1.02); Calcium 9.4 mg/dL (8.5-10.1); Chloride 109 mmol/L (98-107); Glucose 144 mg/dL (74-106); Magnesium 1.9 mg/dL (1.8-2.4); Potassium 3.3 mmol/L (3.5-5.1); Sodium 141 mmol/L (136-145); Total Protein 7.2 g/dL (6.4-8.2)
[2019-10-04 11:09] LABS: Troponin I < 0.05 ng/mL (<0.06)
[2019-10-04] MEDS: Potassium Chloride 20 MEQ TABCR PO (12:11)
[2019-10-04 13:41] LABS: Bilirubin Negative (Negative); Blood Negative (Negative); Clarity Clear (Clear); Glucose Negative (Negative); Ketones Negative (Negative); Leukocyte Esterase Negative (Negative); Nitrite Negative (Negative); Specific Gravity 1.015 (1.005-1.025); Urobilinogen 0.2 EU/dL (Up TO 0.2); pH 6.5 (5-8)
[2019-10-04 13:59] LABS: Troponin I < 0.05 ng/mL (<0.06)
--- NOTE | 2019-10-04 14:03 | NUR.NOTE ---
Referral faxed to Renetta HERNANDEZ.Nursing Note:
== END 2019-10-04 14:25 | disposition home or self-care (01) ==
PROVIDERS: Emergency Provider Emergency Medicine; PCP Nurse Practitioner Adult Health
DX: R03.0 Elevated blood-pressure reading, without diagnosis of hypertension (principal); E87.6 Hypokalemia; E11.9 Type 2 diabetes mellitus without complications; J44.9 Chronic obstructive pulmonary disease, unspecified
CPT/HCPCS: 36415; 80053; 93005; 99284; 71046; 81003; 83735; 84484; 85025; 93010

== ENCOUNTER 2019-11-14 00:32 | Outpatient (CLI) | payer MEDICARE, OTHER, SELFPAY ==
--- NOTE | 2019-11-14 10:35 | DI.MAMMO_ITS ---
EXAM: MAMMO SCREENING CLINICAL HISTORY: screening,Z12.39 TECHNIQUE: Mammograms were interpreted according to the usual protocol including computer analysis w [employer] CAD system, tomosynthesis and C-view imaging. COMPARISON: FINDINGS: The breasts of moderate density with fairly symmetrical distribution of fibroglandular tissue. Previ ously noted well-circumscribed right breast masses are again seen consistent with stable fibroadenoma s or cysts. There is question of a new somewhat nodular area of focal asymmetric density projected in the central portion of the left breast on CC view measuring about 6 millimeters in diameter with question of irr egular margins. This was not visible on prior studies including September 2018. Additional mammographi c views of the left breast and left breast ultrasound requested to evaluate possible new irregular ma ss. No other significant change seen. IMPRESSION: Additional mammographic views of the left breast and left breast ultrasound requested to evaluate que stionable new irregular radiodensity in the central portion of the breast seen on CC view only. BI-RADS Category 0 - Assessment Incomplete: Need additional imaging evaluation Breast Density - Category B - Scattered areas of fibroglandular density
== END 2019-11-14 00:52 ==
PROVIDERS: PCP Nurse Practitioner Adult Health; Visit Provider Nurse Practitioner Adult Health
DX: Z12.31 Encounter for screening mammogram for malignant neoplasm of breast (principal); R92.8 Other abnormal and inconclusive findings on diagnostic imaging of breast
CPT/HCPCS: 77063; 77067

== ENCOUNTER 2019-11-15 01:29 | Outpatient (CLI) | payer MEDICARE, OTHER, SELFPAY ==
[2019-11-15 11:47] LABS: Anion Gap 6.6 mmol/L (3-11); BUN 14 mg/dL (7-18); CO2 30.4 mmol/L (21.0-32.0); CREATININE 0.83 mg/dL (0.55-1.02); Calcium 9.3 mg/dL (8.5-10.1); Chloride 106 mmol/L (98-107); Glucose 141 mg/dL (74-106); Potassium 4.1 mmol/L (3.5-5.1); Sodium 143 mmol/L (136-145)
== END 2019-11-15 01:49 ==
PROVIDERS: PCP Nurse Practitioner Adult Health; Visit Provider Nurse Practitioner Adult Health
DX: E87.6 Hypokalemia (principal); R03.0 Elevated blood-pressure reading, without diagnosis of hypertension
CPT/HCPCS: 36415; 80048

== ENCOUNTER 2019-11-16 00:44 | Outpatient (CLI) | payer MEDICARE, OTHER, SELFPAY ==
--- NOTE | 2019-11-16 | DI.US_ITS ---
EXAM: MG MAMMO SCREEN CALL BACK UNI CLINICAL HISTORY: NEW SOMEWHAT NODULAR AREA OF FOCAL ASYMMETRIC DENSITY PROJECTED IN CENTRAL TECHNIQUE: Mammograms were interpreted according to the usual protocol including computer analysis w [employer] CAD system, tomosynthesis and C-view imaging. COMPARISON: FINDINGS: Additional mammographic views of the left breast density/nodularity the central portion breast seen C C view of recent. Additional mammographic views fail to show a discrete mass. Breast ultrasound mack ws multiple small cysts in the central portion the breast, largest measuring 8 millimeters in diamete r, no solid mass identified. IMPRESSION: No specific evidence of malignancy at this time. Follow-up unilateral left breast mammogram recommen ded in 6 months. BI-RADS Category 3 - 6 month - Probably Benign Finding: Recommend follow-up mammography in 6 months Breast Density - Category B - Scattered areas of fibroglandular density
--- NOTE | 2019-11-16 14:50 | DI.MAMMO_ITS ---
EXAM: MG MAMMO SCREEN CALL BACK UNI CLINICAL HISTORY: NEW SOMEWHAT NODULAR AREA OF FOCAL ASYMMETRIC DENSITY PROJECTED IN CENTRAL TECHNIQUE: Mammograms were interpreted according to the usual protocol including computer analysis w [employer] CAD system, tomosynthesis and C-view imaging. COMPARISON: FINDINGS: Additional mammographic views of the left breast density/nodularity the central portion breast seen C C view of recent. Additional mammographic views fail to show a discrete mass. Breast ultrasound mack ws multiple small cysts in the central portion the breast, largest measuring 8 millimeters in diamete r, no solid mass identified. IMPRESSION: No specific evidence of malignancy at this time. Follow-up unilateral left breast mammogram recommen ded in 6 months. BI-RADS Category 3 - 6 month - Probably Benign Finding: Recommend follow-up mammography in 6 months Breast Density - Category B - Scattered areas of fibroglandular density
== END 2019-11-16 01:04 ==
PROVIDERS: PCP Nurse Practitioner Adult Health; Visit Provider Nurse Practitioner Adult Health
DX: R92.8 Other abnormal and inconclusive findings on diagnostic imaging of breast (principal); R92.2 Inconclusive mammogram
CPT/HCPCS: 76642; 77063; 77067

== ENCOUNTER 2019-11-29 19:56 | Emergency (ER) | payer MEDICARE, OTHER, SELFPAY ==
[2019-11-29 20:01] VITALS: BP 144/88; PULSE 105; RESP 16; TEMP 36.4; O2SAT 93
--- NOTE | 2019-11-29 20:21 | W.ED.GENAD ---
Discharge Plan Disposition Patient Disposition: HOME Condition: Stable Discharge Details Clinical Impression: Tick bite Primary Care Provider: Renetta Limon ED Provider: Tristen Ledesma Home Meds and New Rx's Prescriptions: New doxycycline hyclate 100 mg tablet 100 mg PO BID Qty: 28 RF: 0 Continued albuterol sulfate [Proventil HFA] 90 mcg/actuation HFA aerosol inhaler 2 puff Inhalation Q4H PRN MDD 10 inh/24 hr Qty: 8.5 RF: 1 magnesium gluconate 27 mg magnesium (500 mg) tablet 500 mg PO DAILY PRNQty: 90 RF: 0 cholecalciferol (vitamin D3) [Vitamin D3] 50 mcg (2,000 unit) capsule See Rx Instructions PO DAILY RF: 0 losartan 25 mg tablet 25 mg PO DAILY Qty: 90 RF: 3 CENTRUM SILVER TABLET 1 EACH tablet 1 ea PO DAILY RF: 0 (DME) lancets 1 EACH misc 1 ea Miscellaneous TID Qty: 400 RF: 3 omega-3 fatty acids-fish oil [Fish Oil] 300-1,000 mg capsule 1 cap PO DAILY Qty: 90 RF: 3 (DME) Contour Test Strips Strip See Rx Instructions .ROUTE .MEDSUPPLY Qty: 100 RF: 3 Discharge Instructions Instructions: Tick Bite (ED) Medical Decision Making 79 yo female comes in after she removed a tick from her left mid neck tonight and was on for at least 24 hours, denies any symptoms such as body aches, fevers, weakness, dyspnea. She has 3cm of surrounding erythema that is not tender and doesn't have appearance of a bulls eye. Head was still attached and removed part of it the rest I advised will fall off. Given the surrounding erythema concern for early possible EM. Will give 200mg doxy orally here and treat for possible early lyme with 2 weeks of doxy. She was advised to return if she develops fevers or feels more ill Differential Diagnosis Differential Diagnosis: tick bite, lyme, cellulitis HPI General Mode of arrival: ambulatory. Date/Time Provider Initiated Documentation: 11/29/19 20:06. Limitations to Documentation: no limitations. Information obtained by: patient. History of Present Illness 79 year old F presents to the emergency department with the chief complaint of tick bite, described as moderate, No relieving factors improve symptom(s), No exacerbating factors reported . Patient notes no other symptoms.. Related Data Home Medications Medication Instructions Recorded Confirmed Centrum Silver Tablet 1 ea PO DAILY tab 11/15/12 11/29/19 lancets #400 ea 01/17/15 11/16/19 omega-3 fatty acids-fish oil 300 1 cap PO DAILY #90 tab-cap 03/12/18 11/29/19 mg-1,000 mg capsule albuterol sulfate 90 mcg/actuation 2 puff INHALATION Q4H PRN #8.5 gm 08/16/18 11/29/19 aerosol inhaler MDD 10 inh/24 hr blood sugar diagnostic #100 each 07/19/19 11/16/19 cholecalciferol (vitamin D3) 50 See Rx Instructions PO DAILY 08/19/19 11/29/19 mcg (2,000 unit) capsule magnesium gluconate 27 mg 500 mg PO DAILY PRN #90 tab-cap 08/19/19 11/29/19 magnesium (500 mg) tablet losartan 25 mg tablet 25 mg PO DAILY #90 tab 11/16/19 11/29/19 doxycycline hyclate 100 mg PO BID #28 tab 11/29/19 Previous Rx's Medication Instructions Recorded albuterol sulfate 90 mcg/actuation 2 puff INHALATION Q4H PRN #8.5 gm 08/16/18 aerosol inhaler MDD 10 inh/24 hr blood sugar diagnostic #100 each 07/19/19 losartan 25 mg tablet 25 mg PO DAILY #90 tab 11/16/19 doxycycline hyclate 100 mg PO BID #28 tab 11/29/19 Allergies Allergy/AdvReac Type Severity Reaction Status Date / Time pantoprazole sodium AdvReac Mild FELT Verified 11/29/19 20:07 [From Protonix] TERRIBLE General Stated Complaint: AnimalBite RHEA: 5 Review of Systems All systems reviewed & are unremarkable except as noted in HPI and below Constitutional Constitutional: Denies chills, Denies fever(s) and Denies weakness Cardiovascular Cardiovascular: Denies chest pain and Denies dyspnea Respiratory Respiratory: Denies cough and Denies dyspnea Gastrointestinal Gastrointestinal: Denies abdominal pain, Denies nausea and Denies vomiting Musculoskeletal Musculoskeletal: Denies joint swelling Neurologic Neurologic: Denies weakness [facility] Medical History (Updated 11/29/19 @ 20:21 by Tristen Ledesma MD) 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 (may not even be polyps!), but due to + FH mother colon cancer <60, rec 5 yr interval; 2020: Katie declines further colonoscopy COPD, mild (05/08/15) FEV1 2.07 (78%pred; 61% FVC), mild obstr, else normal 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) Foraminal stenosis of cervical region +Radiculopathy; [place] ER 07/2019--prednisone + methocarbamol + PT = effective Hypokalemia Resolved with dietary supplementation (bananas, strawberries) Nuclear sclerotic cataract of left eye Nuclear sclerotic cataract of right eye Osteopenia (11/08/12) Declines DXA or treatments for osteoporosis 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; Dr Lan Turner Right corneal scar with opacity Type 2 diabetes mellitus without complication (10/23/14) [place] [facility] [place] Adm: A1c 6.5 X 2 in 2014; h/o impaired FBS 2010 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 Colon cancer Successfully treated Supranuclear palsy Diabetes Daughter Age: 50 Breast cancer Dx'ed ~44yo s/p mastectomy Hypertension Daughter Bone cancer Sister No problems noted. Father , COD unknown No problems noted. Maternal Grandmother Breast cancer Social History Smoking/Tobacco Use Status: Never Alcohol Intake: current Alcohol Intake frequency: 0-2 drinks per day Alcohol type: wine Drug use: Never Substance use type: does not use Adopted: No Number of Children: 2 current occupation: Homemaker What type of physical activity do you participate in: walking and other Details: hiking/walking/gardening Duration: 60-90 minutes/day Frequency: other Details: sporadic Seatbelt use: always Do you feel safe at home: Yes Do you feel safe in your relationship?: Yes Exam Const General: no acute distress Orientation: alert HENMT Head: normal to inspection Ears: external ears normal General nose exam: external nose normal Mouth: moist mucous membranes Eyes General: appearance normal, both eyes and all related structures Neck Neck: full ROM and no lymphadenopathy Resp Effort & Inspection: normal respiratory effort and able to speak in complete sentences Cardio Rate: regular rate Neuro General: patient alert and patient oriented x3 Extrem General: normal to inspection Psych Mental Status: mental status grossly normal Course Vital Signs Vital signs: Vital Signs Temperature 36.4 C L 11/29/19 20:01 Pulse 105 H 11/29/19 20:01 Respiratory Rate 16 11/29/19 20:01 Blood Pressure 144/88 H 11/29/19 20:01 Pulse Oximetry 93 11/29/19 20:01 Temperature 36.4 C L 11/29/19 20:01 Temperature Source Temporal Artery Scan 11/29/19 20:01 Pulse 105 H 11/29/19 20:01 Respiratory Rate 16 11/29/19 20:01 Respiratory Effort Non-Labored 11/29/19 20:05 Blood Pressure 144/88 H 11/29/19 20:01 Pulse Oximetry 93 11/29/19 20:01 Oxygen Delivery Method Room Air 11/29/19 20:01 Oxygen Flow Rate 0 11/29/19 20:01
[2019-11-29] MEDS: Doxycycline Hyclate 100 MG CAP 200 MG PO (20:25)
== END 2019-11-29 20:31 | disposition home or self-care (01) ==
PROVIDERS: Emergency Provider Emergency Medicine; PCP Nurse Practitioner Adult Health
DX: S10.86XA Insect bite of other specified part of neck, initial encounter (principal); W57.XXXA Bitten or stung by nonvenomous insect and other nonvenomous arthropods, initial encounter; E11.9 Type 2 diabetes mellitus without complications; J44.9 Chronic obstructive pulmonary disease, unspecified
CPT/HCPCS: 99283

== ENCOUNTER 2020-09-14 20:53 | Emergency (ER) | payer MEDICARE, OTHER, SELFPAY ==
[2020-09-14 21:04] VITALS: BP 141/70; PULSE 96; RESP 18; TEMP 37.1; O2SAT 93
--- NOTE | 2020-09-14 21:15 | DI.CT_ITS ---
Exam(s) CT ABDOMEN PELVIS W EXAM: CT ABDOMEN PELVIS W INDICATION: LUQ/ Mid epigastric pain. COMPARISON: CT CHEST FOR PULMONARY EMBOLUS from 04/21/2016 TECHNIQUE: FINDINGS: CT examination of the abdomen and pelvis was performed with a bolus infusion of 100 cc of Omnipaque 3 50. Images obtained through the lung bases are unremarkable. The liver is unremarkable in appearance. Gallbladder and bile ducts are CT normal. Pancreas shows fatty replacement, no discrete mass. Spleen is unremarkable in appearance. Adrenals appear normal. The kidneys are unremarkable with no evidence of hydronephrosis, nephrolithiasis, or renal mass excep t for a tiny incidental left renal cyst... Urinary bladder unremarkable. Abdominal aorta is of normal diameter and no major vascular abnormality is seen. No abdominal wall hernia. No abdominal or pelvic adenopathy. SWATCH CUTTER structures appear intact for age.. Appendix is not specifically visualized but there is no evidence of appendicitis or diverticulitis. No evidence of bowel obstruction. IMPRESSION: No evidence of acute intra-abdominal process. RADIATION DOSE DELIVERED: 1,202.79mGy.cm Total DLP 1,202.79mGy.cm Total DLP 21.27mGy CTDIvol RADIATION OPTIMIZATION: All CT scans at this facility use at least one of these dose optimization te chniques: automated exposure control; mA and/or kV adjustment per patient size (includes targeted exa ms where dose is matched to clinical indication); or iterative reconstruction.
--- NOTE | 2020-09-14 21:15 | RT.EKG_ITS ---
APPROVED REPORT Exam: Resting ECG Reason for Exam: Mid epigastic pain Patient Location: E HR:94 bpm ECG Measurements Heart Rate 94 AXIS [place] 224 P 60 QRSd 104 QRS 1 QT 339 T 42 QTc 424 Conclusion Sinus rhythm. Prolonged [place] interval.
--- NOTE | 2020-09-14 21:24 | W.ED.GENAD ---
Discharge Plan Disposition Patient Disposition: HOME Condition: Stable Discharge Details Clinical Impression: Abdominal pain, Schmorl's nodes of the thoracic region Primary Care Provider: Renetta Limon ED Provider: Lisa Elena Home Meds and New Rx's Prescriptions: No Action losartan 25 mg tablet 25 mg PO BID Qty: 180 RF: 3 albuterol sulfate [Proventil HFA] 90 mcg/actuation HFA aerosol inhaler 2 puff Inhalation Q4H PRN MDD 10 inh/24 hr Qty: 8.5 RF: 1 magnesium gluconate 27 mg magnesium (500 mg) tablet 500 mg PO DAILY PRNQty: 90 RF: 0 cholecalciferol (vitamin D3) [Vitamin D3] 50 mcg (2,000 unit) capsule See Rx Instructions PO DAILY RF: 0 CENTRUM SILVER TABLET 1 EACH tablet 1 ea PO DAILY RF: 0 (DME) lancets 1 EACH misc 1 ea Miscellaneous TID Qty: 400 RF: 3 omega-3 fatty acids-fish oil [Fish Oil] 300-1,000 mg capsule 1 cap PO DAILY Qty: 90 RF: 3 (DME) Contour Test Strips Strip See Rx Instructions .ROUTE .MEDSUPPLY Qty: 100 RF: 3 Discharge Instructions Instructions: Abdominal Pain (ED) Additional Instructions: Follow up with primary care provider in 3-5 days. Return to ED sooner if any worsening or concerns. Increase oral fluids. Take nausea medications as directed up to 3 times daily as needed for nausea vomiting. Please take Tylenol with food every 4-6 hours as needed for pain and swelling. Referrals: Renetta Limon, [employer] [Primary Care Provider] - Medical Decision Making 79-year-old female presents to the ER chief complaint of head fullness, nausea, left upper quadrant mid-epigastric abdominal pain which began Thursday night. At this time work-up ordered including basic labs, EKG, troponin CT abdomen pelvis with IV contrast. EKG was reviewed by Dr. Anne JUAREZ ER attending, old EKG available for review no significant change noted by me. CT ABD PELVIS WO CONTRAST 04/21/2016 3:39 PM FINDINGS: Lungs: Mild dependent scarring or atelectasis noted in the lung bases. Trace bilateral pleural effusions. Heart: Trace pericardial effusion. Mediastinal space: Mild hiatal hernia. Liver: Normal. No mass. Gallbladder and bile ducts: Normal. No calcified stones. No ductal dilation. Pancreas: Severe pancreatic atrophy. No inflammatory changes. Spleen: Normal. No splenomegaly. Adrenal glands: Normal. No mass. Kidneys and ureters: Negative for hydronephrosis or renal mass. Kidneys enhance symmetrically. Ureters are not dilated. Stomach and bowel: Small bowel is not dilated. Cecum is mobile and positioned in the right upper quadrant. There are no specific inflammatory changes around the colon. Appendix: The appendix is not well-visualized. Intraperitoneal space: Unremarkable. No free air. No significant fluid collection. Vasculature: Abdominal aorta is normal. Vascular calcifications in the iliac arteries are minimal. Inferior vena cava is patent. Lymph nodes: Unremarkable. No enlarged lymph nodes. Urinary bladder: Unremarkable as visualized. Reproductive: Uterus is unremarkable. Negative for gross adnexal mass or cyst. Large vessels are present in the parametrial/adnexal regions bilaterally. Both ovarian veins are dilated, left greater than right. Negative for ovarian vein thrombosis. Bones/joints: Multilevel degenerative disc disease and facet arthropathy noted in the spine. A large Schmorl's node is noted at the T12 inferior endplate. Soft tissues: Unremarkable. IMPRESSION: 1. Negative for bowel obstruction. No acute inflammatory abnormalities observed. Severe fatty replacement of the pancreas noted. 2. Dilated ovarian veins. Large parametrial venous plexus bilaterally. Correlate for pelvic congestion syndrome/ovarian vein reflux. Thank you for allowing us to participate in the care of your patient. Dictated and Authenticated by: Tristen Richards MD Patient reevaluation she reports that her nausea and pain has subsided at this time. Discussed labs and CT result with patient and who verbalized understanding. Instructed to follow-up with PCP discuss strict return instructions. Patient remained hemodynamically stable throughout stay. This text was generated using [employer] system, please disregard any oddities of phrase or misspellings. HPI General Mode of arrival: ambulatory. Date/Time Provider Initiated Documentation: 09/14/20 20:55. Limitations to Documentation: no limitations. Information obtained by: patient, RN notes reviewed and old records reviewed. HPI Narrative: 79-year-old female presents to the ER chief complaint of head fullness, nausea, left upper quadrant mid-epigastric abdominal pain which began Thursday night. Patient denies dizziness, no fever, no diarrhea. Patient does endorse nausea constipation for the last 4 days. She has a past medical history of hypertension, COPD, osteopenia, type 2 diabetes, hypokalemia. She does not have any history of abdominal surgery. Related Data Home Medications Medication Instructions Recorded Confirmed Centrum Silver Tablet 1 ea PO DAILY tab 11/15/12 09/14/20 lancets #400 ea 01/17/15 11/16/19 omega-3 fatty acids-fish oil 300 1 cap PO DAILY #90 tab-cap 03/12/18 09/14/20 mg-1,000 mg capsule albuterol sulfate 90 mcg/actuation 2 puff INHALATION Q4H PRN #8.5 gm 08/16/18 09/14/20 aerosol inhaler MDD 10 inh/24 hr blood sugar diagnostic #100 each 07/19/19 11/16/19 cholecalciferol (vitamin D3) 50 See Rx Instructions PO DAILY 08/19/19 09/14/20 mcg (2,000 unit) capsule magnesium gluconate 27 mg 500 mg PO DAILY PRN #90 tab-cap 08/19/19 09/14/20 magnesium (500 mg) tablet losartan 25 mg tablet 25 mg PO BID #180 tab 07/11/20 09/14/20 Previous Rx's Medication Instructions Recorded albuterol sulfate 90 mcg/actuation 2 puff INHALATION Q4H PRN #8.5 gm 08/16/18 aerosol inhaler MDD 10 inh/24 hr blood sugar diagnostic #100 each 07/19/19 losartan 25 mg tablet 25 mg PO BID #180 tab 07/11/20 Allergies Allergy/AdvReac Type Severity Reaction Status Date / Time pantoprazole sodium AdvReac Mild FELT Verified 09/14/20 21:09 [From Protonix] TERRIBLE General Stated Complaint: GenMedical RHEA: 3 Review of Systems Narrative: Constitutional: Negative for weight loss, alert and oriented, well groomed, normal body habitus, appears comfortable. HEENT: Denies trauma, headaches, blurry vision, nasal discharge, sore throat, trouble swallowing. She reports head fullness. Chest: Denies chest pain, palpitations, irregular rhythm, hypertension. Respiratory: Denies Shortness of breath, cough, hemoptysis. GI: Denies vomiting, diarrhea. Positive left upper quadrant abdominal pain, nausea, constipation x4 days. : Denies dysuria, hematuria, flank pain, rectal bleeding. Neuro: Denies dizziness, blurry vision, weakness, syncope, headache or facial numbness. Hematologic: Denies easy bruising, intolerance to heat or cold, hair loss. 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 +Radiculopathy; [facility] ER 07/2019--prednisone + methocarbamol + PT = effective Hypokalemia Resolved with dietary supplementation (bananas, strawberries) Nuclear sclerotic cataract of left eye Nuclear sclerotic cataract of right eye Osteopenia (11/08/12) Declines DXA or treatments for osteoporosis 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; Dr Lan Turner Right corneal scar with opacity Type 2 diabetes mellitus without complication (10/23/14) DX [facility]: A1c 6.5 X 2 in 2014; h/o impaired FBS 2010 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 Colon cancer Successfully treated Supranuclear palsy Diabetes Daughter Age: 51 Breast cancer Dx'ed ~44yo s/p mastectomy Hypertension Daughter Bone cancer Sister No problems noted. Father , COD unknown No problems noted. Maternal Grandmother Breast cancer Social History Smoking/Tobacco Use Status: Never Smoking risk assessment performed?: Yes Alcohol Intake: current Alcohol Intake frequency: a few times a week Alcohol type: wine Drug use: Never Substance use type: does not use Adopted: No Number of Children: 2 current occupation: Homemaker What type of physical activity do you participate in: walking and other Details: hiking/walking/gardening Duration: 60-90 minutes/day Frequency: other Details: sporadic Seatbelt use: always Do you feel safe at home: Yes Do you feel safe in your relationship?: Yes Exam Narrative Exam Narrative: Constitutional: Alert and oriented x3. Appears stated age. Normal body habitus. Head: Normocephalic, no trauma. Eyes: Pupils PERRLA, Red reflex noted, EOM's intact. Eyelids symmetrical without lesions, discharge, or swelling. ENT: Bilateral TM's WNL, External ear normal to inspection, no mastoid TTP, swelling, or erythema, Nasal turbinates WNL, no nasal discharge. Normal dentition, Posterior pharynx WNL, no exudate. Dry mucous membranes. Chest: RRR, Normal S1, S2, distal pulses intact. Resp: Lungs clear to auscultation bilaterally, no wheezes, rales, or rhonchi. Abdomen: Soft, nondistended tender to palpation midepigastrium, left upper quadrant. Musculoskeletal: Normal gait, 5/5 strength to all four extremities. Skin: No suspicious rashes or lesions. Capillary refill less than 2 sec. Neurologic: Cranial nerves II-XII intact. Alert and oriented x 3. DTR's intact. Hematologic/Lymphatic: No ecchymosis, no lymphadenopathy. Course Vital Signs Vital signs: Vital Signs Temperature 37.1 C 09/14/20 21:04 Pulse 96 H 09/14/20 21:04 Respiratory Rate 18 09/14/20 21:04 Blood Pressure 141/70 H 09/14/20 21:04 Pulse Oximetry 93 09/14/20 21:04 Temperature 37.1 C 09/14/20 21:04 Temperature Source Temporal Artery Scan 09/14/20 21:04 Pulse 96 H 09/14/20 21:04 Respiratory Rate 18 09/14/20 21:04 Respiratory Effort Non-Labored 09/14/20 21:08 Blood Pressure 141/70 H 09/14/20 21:04 Blood Pressure Position Supine 09/14/20 21:04 Pulse Oximetry 93 09/14/20 21:04 Oxygen Delivery Method Room Air 09/14/20 21:04 Oxygen Flow Rate 0 09/14/20 21:04 Pain Level 8 09/14/20 21:04
[2020-09-14 21:33] LABS: Bilirubin Small (Negative); Blood Trace-intact (Negative); Clarity Sl Cloudy (Clear); Glucose Negative (Negative); Ketones 80 mg/dL (Negative); Leukocyte Esterase Negative (Negative); Nitrite Negative (Negative); Specific Gravity 1.025 (1.005-1.025)
[2020-09-14 21:34] LABS: Abs Immature Grans 0.02 10^3/uL (0.0-0.06); Absolute Basophil Count 0.01 10^3/uL (0.0-0.2); Absolute Lymphocyte Count 0.19 10^3/uL (1.2-3.4); Absolute Monocyte Count 0.34 10^3/uL (0.1-0.8); Absolute Neutrophil Count 3.51 10^3/uL (1.2-6.7); Basophils % 0.2; HCT 46.3 % (36.0-46.0); HGB 15.7 g/dL (11.2-15.7); Immature Grans % 0.5; Lymphocytes % 4.7; MCH 31.3 pg (27.0-33.0); MCHC 33.9 % (32.0-36.0); MCV 92.4 fL (80-95); MPV 10.9 fL (8.0-11.0); Monocytes % 8.4; Neutrophils % 86.2; Nucleated RBC 0 %; Platelet Count 113 10^3/uL (130-400); RBC 5.01 10^6/uL (3.93-5.22); RDW 12.6 % (11.7-14.6); RDW-SD 42.6 fL; WBC 4.07 10^3/uL (4.4-10.8)
[2020-09-14 21:41] LABS: Epithelial Cells Moderate HPF (Negative); RBC 0-2 HPF (0-2)
[2020-09-14 21:42] LABS: Bacteria Few HPF (Negative); C & S Indicated? No/Sq. Contamination; Casts 3-5 Hyaline LPF (Negative); Crystals Negative HPF (Negative); Mucus Moderate (Negative)
[2020-09-14 21:50] LABS: ALT 48 U/L (14-59); AST 56 U/L (15-37); Albumin 3.7 g/dL (3.4-5.0); Alkaline Phosphatase 95 U/L (46-116); Anion Gap 9.2 mmol/L (3-11); BUN 14 mg/dL (7-18); Bilirubin, Total 0.9 mg/dL (0.2-1.0); CO2 25.8 mmol/L (21.0-32.0); CREATININE 0.9 mg/dL (0.55-1.02); Calcium 9.4 mg/dL (8.5-10.1); Chloride 104 mmol/L (98-107); Glucose 199 mg/dL (74-106); Lipase 41 U/L (73-393); Magnesium 1.9 mg/dL (1.8-2.4); Potassium 3.7 mmol/L (3.5-5.1); Sodium 139 mmol/L (136-145); Total Protein 7.4 g/dL (6.4-8.2)
[2020-09-14 21:55] LABS: Troponin I < 0.05 ng/mL (<0.06)
[2020-09-14 22:00] VITALS: BP 136/71; PULSE 92; RESP 18; O2SAT 93
[2020-09-14] MEDS: Omnipaque 350 MG/ML 100 ML BTL IJ (22:00)
[2020-09-14] MEDS: Normal Saline - Diluent 50 ML VIAL IV (22:01)
[2020-09-14] MEDS: Normal Saline Flush 10 ML SYR IVP (22:01)
[2020-09-14] MEDS: Normal Saline 250 ML IV (22:25)
[2020-09-14] MEDS: Ondansetron 4 MG/2 ML VIAL IVP (22:28)
[2020-09-14 22:30] VITALS: BP 136/70; PULSE 92; RESP 18; O2SAT 93
--- NOTE | 2020-09-14 22:55 | DI.VRAD_ITS ---
PROCEDURE INFORMATION: Exam: CT Abdomen And Pelvis With Contrast Exam date and time: 09/14/2020 9:24 PM Age: 79 years old Clinical indication: Abdominal pain; Epigastric TECHNIQUE: Imaging protocol: Computed tomography of the abdomen and pelvis with contrast. Radiation optimization: All CT scans at this facility use at least one of these dose optimization techniques: automated exposure control; mA and/or kV adjustment per patient size (includes targeted exams where dose is matched to clinical indication); or iterative reconstruction. Contrast material: OMNIPAQUE 350; Contrast volume: 100 ml; Contrast route: INTRAVENOUS (IV); COMPARISON: CT ABD PELVIS WO CONTRAST 04/21/2016 3:39 PM FINDINGS: Lungs: Mild dependent scarring or atelectasis noted in the lung bases. Trace bilateral pleural effusions. Heart: Trace pericardial effusion. Mediastinal space: Mild hiatal hernia. Liver: Normal. No mass. Gallbladder and bile ducts: Normal. No calcified stones. No ductal dilation. Pancreas: Severe pancreatic atrophy. No inflammatory changes. Spleen: Normal. No splenomegaly. Adrenal glands: Normal. No mass. Kidneys and ureters: Negative for hydronephrosis or renal mass. Kidneys enhance symmetrically. Ureters are not dilated. Stomach and bowel: Small bowel is not dilated. Cecum is mobile and positioned in the right upper quadrant. There are no specific inflammatory changes around the colon. Appendix: The appendix is not well-visualized. Intraperitoneal space: Unremarkable. No free air. No significant fluid collection. Vasculature: Abdominal aorta is normal. Vascular calcifications in the iliac arteries are minimal. Inferior vena cava is patent. Lymph nodes: Unremarkable. No enlarged lymph nodes. Urinary bladder: Unremarkable as visualized. Reproductive: Uterus is unremarkable. Negative for gross adnexal mass or cyst. Large vessels are present in the parametrial/adnexal regions bilaterally. Both ovarian veins are dilated, left greater than right. Negative for ovarian vein thrombosis. Bones/joints: Multilevel degenerative disc disease and facet arthropathy noted in the spine. A large Schmorl's node is noted at the T12 inferior endplate. Soft tissues: Unremarkable. IMPRESSION: 1. Negative for bowel obstruction. No acute inflammatory abnormalities observed. Severe fatty replacement of the pancreas noted. 2. Dilated ovarian veins. Large parametrial venous plexus bilaterally. Correlate for pelvic congestion syndrome/ovarian vein reflux. Dictated and Authenticated by: Tristen Richards MD. Ordering:STELLA Gonzalez MD
[2020-09-14 23:00] VITALS: BP 132/53; PULSE 85; RESP 16; O2SAT 92
[2020-09-14 23:30] VITALS: BP 126/54; PULSE 88; RESP 17; O2SAT 93
[2020-09-14] MEDS: Ondansetron O.D.T. 4 MG TABEF, 3 TABS/BTL PO (23:36)
== END 2020-09-14 23:45 | disposition home or self-care (01) ==
PROVIDERS: Emergency Provider Registered Nurse Emergency; PCP Nurse Practitioner Adult Health
DX: R10.12 Left upper quadrant pain (principal); R10.13 Epigastric pain; M51.44 Schmorl's nodes, thoracic region
CPT/HCPCS: 36415; 80053; 83690; 93005; 96361; 96374; 99285; 74177; 81003; 81015; 83735; 84484; 85025; 93010; 99284; J2405; J3490

== ENCOUNTER 2020-09-17 14:53 | Outpatient (CLI) | payer MEDICARE, OTHER, SELFPAY ==
[2020-09-17 13:10] LABS: Bilirubin Large (Negative); Blood Negative (Negative); Glucose 250 mg/dL (Negative); Ketones 15 mg/dL (Negative); Leukocyte Esterase Negative (Negative); Nitrite Positive (Negative); Specific Gravity >= 1.030 (1.005-1.025); pH 5.5 (5-8)
[2020-09-17 13:10] LABS: HCT 46.6 % (36.0-46.0); HGB 15.5 g/dL (11.2-15.7); MCH 30.9 pg (27.0-33.0); MCHC 33.3 % (32.0-36.0); MCV 92.8 fL (80-95); MPV 12.7 fL (8.0-11.0); Nucleated RBC 0 %; RBC 5.02 10^6/uL (3.93-5.22); RDW 12.7 % (11.7-14.6); RDW-SD 43.7 fL; WBC 2.41 10^3/uL (4.4-10.8)
[2020-09-17 13:12] LABS: ESR 15 mm/hr (0-30)
[2020-09-17 13:21] LABS: Clarity Cloudy (Clear)
[2020-09-17 13:23] LABS: Bacteria Negative HPF (Negative); C & S Indicated? No; Crystals Moderate Amorphous HPF (Negative); Epithelial Cells Moderate HPF (Negative); Mucus Moderate (Negative); WBC 0-2 HPF (0-5)
[2020-09-17 13:28] LABS: Absolute Lymphocyte Count 0.34 10^3/uL (1.2-3.4); Absolute Monocyte Count 0.07 10^3/uL (0.1-0.8); Atypical Lymphocytes % 4; Bands % 6; Diff Comment Manual Differential; Platelet Count 37 10^3/uL (130-400); RBC Morphology Normal
[2020-09-17 13:33] LABS: ALT 142 U/L (14-59); AST 130 U/L (15-37); Albumin 3.5 g/dL (3.4-5.0); Alkaline Phosphatase 240 U/L (46-116); BUN 20 mg/dL (7-18); Bilirubin, Total 1.8 mg/dL (0.2-1.0); C-Reactive Protein 11.91 mg/dL (0.0-0.3); CREATININE 1.5 mg/dL (0.55-1.02); Calcium 9.1 mg/dL (8.5-10.1); Chloride 99 mmol/L (98-107); Glucose 243 mg/dL (74-106); Potassium 3.6 mmol/L (3.5-5.1); Sodium 137 mmol/L (136-145); Total Protein 6.7 g/dL (6.4-8.2)
[2020-09-18 10:43] LABS: Lyme Ab w Rflx to Lyme Confirm Negative (Negative)
[2020-09-19 22:08] LABS: B. miyamotoi PCR Negative (Negative); Babesia divergens/MO-1 Negative (Negative); Babesia duncani Negative (Negative); Babesia microti Negative (Negative); Ehrlichia chaffeensis Negative (Negative); Ehrlichia ewingii/canis Negative (Negative); Ehrlichia muris eauclairensis Negative (Negative)
[2020-09-20 09:34] LABS: Anaplasma phagocytophilum Positive (Negative)
== END 2020-09-17 14:54 | disposition home or self-care (01) ==
LOC: LBO 14:56
PROVIDERS: PCP Nurse Practitioner Adult Health; Visit Provider Nurse Practitioner Adult Health
DX: D69.6 Thrombocytopenia, unspecified (principal); R11.0 Nausea; R29.898 Other symptoms and signs involving the musculoskeletal system; R53.81 Other malaise; R53.83 Other fatigue; R51.9 Headache, unspecified; R63.0 Anorexia; E55.9 Vitamin D deficiency, unspecified; R74.01 Elevation of levels of liver transaminase levels; E11.9 Type 2 diabetes mellitus without complications; R82.998 Other abnormal findings in urine
CPT/HCPCS: 36415; 80053; 85652; 87798; 81003; 81015; 85025; 86140; 86618

== ENCOUNTER 2020-10-02 05:08 | Outpatient (CLI) | payer MEDICARE, OTHER, SELFPAY ==
[2020-10-02 10:53] LABS: ESR 17 mm/hr (0-30)
[2020-10-02 10:54] LABS: Abs Immature Grans 0.01 10^3/uL (0.0-0.06); Absolute Basophil Count 0.05 10^3/uL (0.0-0.2); Absolute Eosinophil Count 0.03 10^3/uL (0.0-0.7); Absolute Lymphocyte Count 2.11 10^3/uL (1.2-3.4); Absolute Monocyte Count 0.48 10^3/uL (0.1-0.8); Absolute Neutrophil Count 2.35 10^3/uL (1.2-6.7); Eosinophils % 0.6; HCT 41.7 % (36.0-46.0); HGB 13.6 g/dL (11.2-15.7); Immature Grans % 0.2; Lymphocytes % 41.9; MCH 30.8 pg (27.0-33.0); MCHC 32.6 % (32.0-36.0); MCV 94.3 fL (80-95); MPV 10.2 fL (8.0-11.0); Monocytes % 9.5; Neutrophils % 46.8; Nucleated RBC 0 %; RBC 4.42 10^6/uL (3.93-5.22); RDW 12.7 % (11.7-14.6); RDW-SD 43.9 fL; WBC 5.03 10^3/uL (4.4-10.8)
[2020-10-02 11:03] LABS: Platelet Count 247 10^3/uL (130-400)
[2020-10-02 12:19] LABS: ALT 34 U/L (14-59); AST 20 U/L (15-37); Albumin 3.5 g/dL (3.4-5.0); Alkaline Phosphatase 123 U/L (46-116); Anion Gap 6.7 mmol/L (3-11); BUN 15 mg/dL (7-18); Bilirubin, Total 0.9 mg/dL (0.2-1.0); C-Reactive Protein 0.26 mg/dL (0.0-0.3); CO2 28.3 mmol/L (21.0-32.0); CREATININE 0.9 mg/dL (0.55-1.02); Calcium 8.9 mg/dL (8.5-10.1); Chloride 106 mmol/L (98-107); Glucose 143 mg/dL (74-106); Potassium 4.1 mmol/L (3.5-5.1); Sodium 141 mmol/L (136-145); Total Protein 6.8 g/dL (6.4-8.2)
== END 2020-10-02 05:09 | disposition home or self-care (01) ==
LOC: LBO 05:08
PROVIDERS: PCP Nurse Practitioner Adult Health; Visit Provider Nurse Practitioner Adult Health
DX: R11.0 Nausea (principal); D69.6 Thrombocytopenia, unspecified; A77.49 Other ehrlichiosis; R63.0 Anorexia; R74.01 Elevation of levels of liver transaminase levels; R79.89 Other specified abnormal findings of blood chemistry
CPT/HCPCS: 36415; 80053; 85652; 85025; 86140

== ENCOUNTER 2020-11-22 02:00 | Outpatient (CLI) | payer MEDICARE, OTHER, SELFPAY ==
--- NOTE | 2020-11-22 08:00 | DI.MAMMO_ITS ---
Exam(s) MAMMO SCREENING EXAM: MAMMO SCREENING CLINICAL HISTORY: screening,Z12.39 TECHNIQUE: Mammograms were interpreted according to the usual protocol including computer analysis w [employer] CAD system, tomosynthesis and C-view imaging. COMPARISON: FINDINGS: The breasts moderate density with fairly symmetrical distribution of fibroglandular tissue. 12 heather meter well-circumscribed mass is seen in the central portion of the right breast, unchanged from prio r studies including November 2019. No new mass or clumped microcalcification seen. No additional juliette nges noted. IMPRESSION: No specific evidence of malignancy at this time. Routine screening examinations are suggested at yea rly intervals due to the family history of breast carcinoma. BI-RADS Category 2 - Benign Findings Breast Density - Category B - Scattered areas of fibroglandular density
== END 2020-11-22 02:20 ==
PROVIDERS: PCP Nurse Practitioner Adult Health; Visit Provider Nurse Practitioner Adult Health
DX: Z12.31 Encounter for screening mammogram for malignant neoplasm of breast (principal); Z80.3 Family history of malignant neoplasm of breast
CPT/HCPCS: 77063; 77067

== ENCOUNTER 2021-06-22 12:08 | Emergency (ER) | payer MEDICARE, SELFPAY ==
[2021-06-22 12:14] VITALS: BP 132/79; PULSE 107; RESP 16; TEMP 36.1; O2SAT 95
--- NOTE | 2021-06-22 12:45 | W.ED.GENAD ---
Discharge Plan Disposition Patient Disposition: HOME Condition: Stable Discharge Details Clinical Impression: Tick bite Primary Care Provider: Renetta Limon ED Provider: Elen Glass Home Meds and New Rx's Prescriptions: New doxycycline hyclate 100 mg tablet 100 mg PO BID 21 Days Qty: 42 0RF Continued magnesium gluconate 27 mg magnesium (500 mg) tablet 500 mg PO DAILY PRNQty: 90 Label Comments: PRN chest palpitations cholecalciferol (vitamin D3) [Vitamin D3] 50 mcg (2,000 unit) capsule See Rx Instructions PO DAILY PRN Label Comments: Vit D deficiency & bone health Rx Instructions: 2-6 caps PO daily PRN; occuvite 1 tab PO DAILY losartan 25 mg tablet See Rx Instructions PO BID Qty: 270 3RF Rx Instructions: 50mg AM, 25mg PM PO twice a day; For blood pressure (may increase to 100mg daily for goal BP <140/90) CENTRUM SILVER TABLET 1 EACH tablet 1 ea PO DAILY (DME) lancets 1 EACH misc 1 ea Miscellaneous TID Qty: 400 Label Comments: pt .checked blood sugar this AM 125 Rx Instructions: FOR METER. PT USES INSULIN. DIAGNOSIS CODE 250.0__ (DME) Contour Test Strips Strip See Rx Instructions .ROUTE .MEDSUPPLY Qty: 100 3RF Rx Instructions: Test daily to maintain A1C less than 7 dx code E11.9 albuterol sulfate [Proventil HFA] 90 mcg/actuation HFA aerosol inhaler 2 puff Inhalation Q4H PRN MDD 10 inh/24 hr PRN Discharge Instructions Instructions: Tick Bite (ED) Additional Instructions: You can wash the wound area with soap and water and apply topical antibiotic ointment 1-2 times daily if you notice any worsening redness, swelling or pain. A prescription for the antibiotic doxycycline has been sent electronically to [facility]. The prescription duration is for 3 weeks. You can take a prophylactic dose today which would be 200 mg (2 tabs) once today. If you notice any fever, body aches, bull's-eye rash, start the prescription and take as directed until finished. Follow-up with your primary care doctor in 1 week. Return to the emergency department with any worsening or new concerning symptoms. Discharge Data Discharge Physician: Elen Glass Medical Decision Making 80yo F who presents to the ED w/ a c/o tick bite to her right posterior thigh yesterday now presents with area of bruising and redness. Patient appears comfortable and nontoxic. There is a 3 x 5 mm area of ecchymosis with surrounding erythema but no evidence of abscess, drainage or bleeding. There is no evidence of bull's-eye rash. 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 Discussed that as the tick was only present for a short period of time yesterday, was not engorged and she has no other symptoms, can likely hold on treatment for Lyme disease but can provide with prophylactic dose if indicated. Patient states she is very concerned with her history of Anaplasmosis and would rather have a prescription if needed. A prescription for doxycycline was sent electronically to her pharmacy. She was advised to take 200 mg prophylactic doxycycline dose today and if she develops any fever, body aches or bull's-eye rash, to start the prescription. She declined a tick and Lyme panel here. Advised to follow up with the primary care doctor for re-evaluation. Usual and customary return precautions given prior to discharge. Medical Records Medical records reviewed: Yes I reviewed the patient's medical records. HPI General Mode of arrival: ambulatory. Date/Time Provider Initiated Documentation: 06/22/21 12:34. Limitations to Documentation: no limitations. Information obtained by: patient. HPI Narrative: Pt is an 80-year-old female who presents to the emergency department with a complaint of tick bite to her right thigh which she noticed yesterday. Patient states she thinks the tick was present for only a short time yesterday when she noticed it. She states she was able to remove it herself intact. She states the tick was not engorged but was very small consistent with a deer tick. She states since then she has noticed some bruising and swelling and redness around the area. She denies any known bull's-eye rash, fever, body aches or chills. Patient states she is concerned about Lyme disease as she was treated for anaplasmosis related to a tick bite last year. Related Data Home Medications Medication Instructions Recorded Confirmed Centrum Silver Tablet 1 ea PO DAILY 11/15/12 06/22/21 lancets 28 gauge #400 ea 01/17/15 05/13/21 blood sugar diagnostic (Contour #100 ea 07/19/19 05/13/21 Test Strips) magnesium gluconate 27 mg 500 mg PO DAILY PRN #90 tab-caps 08/19/19 06/22/21 magnesium (500 mg) tablet cholecalciferol (vitamin D3) 50 See Rx Instructions PO DAILY PRN 09/17/20 06/22/21 mcg (2,000 unit) capsule (Vitamin D3) losartan 25 mg tablet See Rx Instructions PO BID #270 05/13/21 06/22/21 tabs occuvite 1 tab PO DAILY 05/13/21 06/22/21 albuterol sulfate 90 mcg/actuation 2 puff inhalation Q4H PRN PRN 06/22/21 06/22/21 aerosol inhaler (Proventil HFA) doxycycline hyclate 100 mg tablet 100 mg PO BID 21 days #42 tabs 06/22/21 Previous Rx's Medication Instructions Recorded blood sugar diagnostic (Contour #100 ea 07/19/19 Test Strips) losartan 25 mg tablet See Rx Instructions PO BID #270 05/13/21 tabs doxycycline hyclate 100 mg tablet 100 mg PO BID 21 days #42 tabs 06/22/21 Allergies Allergy/AdvReac Type Severity Reaction Status Date / Time pantoprazole sodium AdvReac Mild FELT Verified 06/22/21 12:20 [From Protonix] TERRIBLE General Stated Complaint: RashLesion RHEA: 4 Review of Systems All systems reviewed & are unremarkable except as noted in HPI and below Constitutional Constitutional: Denies chills, Denies excessive sweating, Denies fatigue, Denies fever(s), Denies weakness and Denies weight loss Eyes Eyes: Reports system reviewed and no additional complaints, except as documented and Denies blurry vision ENT Ears, Nose, Mouth, and Throat: Denies vertigo, Denies dizziness, Denies otalgia, Denies nasal congestion, Denies sore throat and Denies throat swelling Cardiovascular Cardiovascular: Denies chest pain, Denies syncope, Denies rapid heart rate and Denies dyspnea Respiratory Respiratory: Denies chest congestion, Denies cough, Denies pain on inspiration and Denies dyspnea Gastrointestinal Gastrointestinal: Denies abdominal pain, Denies diarrhea and Denies vomiting Genitourinary Genitourinary: Denies hematuria, Denies dysuria and Denies flank pain Musculoskeletal Musculoskeletal: Denies back pain and Denies joint swelling Integumentary/Breasts Skin/Breast: Reports lesions and Denies rash Neurologic Neurologic: Denies behavioral changes, Denies confusion, Denies vertigo, Denies dizziness, Denies syncope, Denies localized weakness and Denies weakness Psychiatric Psychiatric: Denies behavioral changes, Denies confusion and Denies depression Endocrine Endocrine: Denies excessive sweating and Denies fatigue Hematologic/Lymphatic Hematologic/Lymphatic: Denies easy bruising and Denies lymphadenopathy Allergic/Immunologic Allergic/Immunologic: Denies throat swelling PFSH All Active Problems (Updated 06/22/21 @ 12:47 by Elen Glass, ) Tick bite (Acute) Schmorl's nodes of the thoracic region (Acute) Category 3 mammography result with short follow-up interval suggested for probably benign finding (Acute) [facility] second read cat 2, but [facility] cat 3 with repeat imaging in 6 month recommended Hypertension (Chronic ~10/2019) Dx'ed 10/2019--RX Losartan; goal <130/80 ideally (but 140/90 acceptable) Family history of breast cancer (Chronic) Daughter Obesity (Chronic 11/08/12) 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) several polyps (may not even be polyps!), but due to + FH mother colon cancer <60, rec 5 yr interval; 2020: Katie declines further colonoscopy 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, 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) FEV1 2.07 (78%pred; 61% FVC), mild obstr, else normal Osteopenia (Chronic 11/08/12) Declines DXA or treatments for osteoporosis 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; Dr Lan Turner Type 2 diabetes mellitus without complication (Chronic 10/23/14) DX [facility] Adm: A1c 6.5 X 2 in 2015; h/o impaired FBS 2010 Vitamin D deficiency (Chronic 11/08/12) 2014 Medical History 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 Colon cancer Successfully treated Supranuclear palsy Diabetes Daughter Age: 52 Breast cancer Dx'ed ~44yo s/p mastectomy Hypertension Daughter Bone cancer Sister No problems noted. Father , COD unknown No problems noted. Maternal Grandmother Breast cancer Social History Smoking/Tobacco Use Status: Never Smoking risk assessment performed?: Yes Alcohol Intake: current Alcohol Intake frequency: a few times a week Alcohol type: wine Drug use: Never Substance use type: does not use Adopted: No Household members: none Housing: house Number of Children: 2 current occupation: Homemaker What is your relationship status?: Panel score (0-1 are the most socially isolated patients): 0 What type of physical activity do you participate in: walking and other Details: hiking/walking/gardening Duration: 60-90 minutes/day Frequency: other Details: sporadic Seatbelt use: always Do you feel safe at home: Yes Do you feel safe in your relationship?: Yes Exam Const General: cooperative and healthy appearing Orientation: alert and awake [facility] Head: normal to inspection Ears: hearing grossly normal bilaterally, external ears normal and TM's normal bilaterally General nose exam: external nose normal Face and sinus: normal facial exam Mouth: oral mucosae normal Teeth and gingiva: dentition normal Throat: posterior oropharynx normal Eyes General: appearance normal, both eyes and all related structures Eyelids: eyelids normal Pupils: PERRL EOM: EOM intact bilaterally Neck Neck: normal visual inspection Lymphatic: no lymphadenopathy noted Chest Chest: normal inspection of the chest Resp Effort & Inspection: normal respiratory effort and able to speak in complete sentences Auscultation: clear to auscultation bilaterally Cardio Rate: regular rate Rhythm: regular rhythm GI Inspection: normal to inspection Palpation: soft, not firm, no guarding, no hepatosplenomegaly, no masses and nontender Auscultation: normal bowel sounds Back/Spine/Pelvis Back: no CVA tenderness Neuro General: patient alert and patient awake Cognition: normal cognition Speech: speech normal Gait: normal gait Motor: muscle tone normal throughout Sensory Exam: no sensory deficits noted Extrem Upper/lower leg/hip images: 1. [id number] area of ecchymoses surrounded by a 2mm area of erythema noted to R posterior mid thigh. No circular clearing or evidence of bull's-eye rash. There is no significant induration or fluctuance. No drainage or bleeding. Psych Appearance: grossly normal Mental Status: mental status grossly normal Speech and Movement: speech and movement normal Affect: normal affect Thought Process: normal Course Vital Signs Vital signs: Vital Signs Temperature 97.0 F L 06/22/21 12:14 Pulse 107 H 06/22/21 12:14 Respiratory Rate 16 06/22/21 12:14 Blood Pressure 132/79 06/22/21 12:14 Pulse Oximetry 95 06/22/21 12:14 Temperature 97.0 F L 06/22/21 12:14 Temperature Source Skin 06/22/21 12:14 Pulse 107 H 06/22/21 12:14 Respiratory Rate 16 06/22/21 12:14 Respiratory Effort 06/22/21 12:21 Blood Pressure 132/79 06/22/21 12:14 Blood Pressure Position Sitting 06/22/21 12:14 Pulse Oximetry 95 06/22/21 12:14 Oxygen Delivery Method Room Air 06/22/21 12:14 Oxygen Flow Rate 0 06/22/21 12:14 Pain Level 0 06/22/21 12:14
== END 2021-06-22 12:57 | disposition home or self-care (01) ==
PROVIDERS: Emergency Provider Physician Assistant; PCP Nurse Practitioner Adult Health
DX: S70.361A Insect bite (nonvenomous), right thigh, initial encounter (principal); W57.XXXA Bitten or stung by nonvenomous insect and other nonvenomous arthropods, initial encounter
CPT/HCPCS: 99283

== ENCOUNTER 2021-08-02 04:37 | Inpatient (IN) | payer MEDICARE, SELFPAY ==
[2021-08-02] VITALS (80 sets, daily range): BP systolic 116–180; BP diastolic 60–95; PULSE 68–110; RESP 10–27; TEMP 35.9–37.2; O2SAT 82–99
--- NOTE | 2021-08-02 04:45 | DI.CT_ITS ---
Exam(s) CT ABDOMEN PELVIS WO EXAM: CT ABDOMEN PELVIS WO CLINICAL HISTORY: abdominal pain, n/v. TECHNIQUE: Imaging Protocol: Axial computed tomography images with coronal and sagittal reformatted images were created and reviewed. COMPARISON: CT CT ABDOMEN PELVIS W from 09/14/2020 FINDINGS: ABDOMEN: Lung Bases: Normal where visualized. There is a small hiatal hernia. Liver: Normal density. No measurable mass. Gallbladder and biliary tract: No radiodense calculus or biliary ductal dilation. Pancreas: There is diffuse fatty atrophy of the pancreas. Spleen: Normal. Kidneys: Normal size, contour and axis.No radiodense stones or obstructive uropathy. There are stable hepatic cysts. Adrenal glands: No mass is seen. Lymph nodes: Within normal limits. Abdominal Aorta: Abdominal portion non-dilated. Mild atherosclerosis. PELVIS: Bladder:Symmetric distention, no gross wall thickening. Bowel: There are dilated loops of small bowel proximally with a transition seen in the mid abdomen. There is infiltration in the mesentery centrally. The distal small bowel is of normal caliber. No e vidence of appendicitis. Peritoneal cavity: There is a tiny amount of fluid seen in both pericolic gutters and the dependent p ortion of the pelvis. No free air. Reproductive organs: Within normal limits. Bones: Within normal limits. Soft Tissues: There is a fat containing umbilical hernia. IMPRESSION: Findings of a small-bowel obstruction. Transition point is not definitely visualized but the distal half of the small bowel is of normal caliber. RADIATION DOSE DELIVERED: 994.68mGy.cm Total DLP DATA REPOSITORY: All CT scans at this facility are submitted to the National Radiology Data Registry (NRDR) Dose Index Registry (DIR) with the [employer] (A[employer]). RADIATION OPTIMIZATION: All CT scans at this facility use at least one of these dose optimization te chniques: automated exposure control; mA and/or kV adjustment per patient size (includes targeted exa ms where dose is matched to clinical indication); or iterative reconstruction.
--- NOTE | 2021-08-02 05:00 | ED.GENADUL_ITS ---
Discharge Plan Disposition Patient Disposition: [facility] INPATIENT Condition: Stable Discharge Details Clinical Impression: SBO (small bowel obstruction) Primary Care Provider: Renetta Limon ED Provider: Tristen Ledesma Home Meds and New Rx's Prescriptions: No Action magnesium gluconate 27 mg magnesium (500 mg) tablet 500 mg PO DAILY PRNQty: 90 Label Comments: PRN chest palpitations cholecalciferol (vitamin D3) [Vitamin D3] 50 mcg (2,000 unit) capsule See Rx Instructions PO DAILY PRN Label Comments: Vit D deficiency & bone health Rx Instructions: 2-6 caps PO daily PRN; occuvite 1 tab PO DAILY losartan 25 mg tablet See Rx Instructions PO BID Qty: 270 3RF Rx Instructions: 50mg AM, 25mg PM PO twice a day; For blood pressure (may increase to 100mg daily for goal BP <140/90) CENTRUM SILVER TABLET 1 EACH tablet 1 ea PO DAILY (DME) lancets 1 EACH misc 1 ea Miscellaneous TID Qty: 400 Label Comments: pt .checked blood sugar this AM 125 Rx Instructions: FOR METER. PT USES INSULIN. DIAGNOSIS CODE 250.0__ (DME) Contour Test Strips Strip See Rx Instructions .ROUTE .MEDSUPPLY Qty: 100 3RF Rx Instructions: Test daily to maintain A1C less than 7 dx code E11.9 albuterol sulfate [Proventil HFA] 90 mcg/actuation HFA aerosol inhaler 2 puff Inhalation Q4H PRN MDD 10 inh/24 hr PRN Medical Decision Making 80 yo female with hx of t2dm, copd, htn, who comes in with ems with abdominal pain. She states she went to bed feeling well and felt well all day yesterday. She woke up from sleep with severe abdomen pain and has been dry heaving. She denies fevers, chills, chest pain, dyspnea. She has never had pain like this in the past and denies prior surgeries and states has had normal colonoscopies in the past. She appears uncomfortable on exam with stable vitals. She localizes the pain to the mid abdomen and feels distended with tenderness to the mid to lower abdomen. Concern for sbo, pancreatitis, pneumoperitoneum. Will obtain labs and ct without contrast to further evaluate. Given the national IV contrast shortage will defer IV contrast at this time. If negative wokup and continues to have pain will consider cta pt stable, ct confirms sbo. Will consult with general surgery about admission. Pt is still distended and dry heaving, will have nursing place NG tube spoke with Dr. Miguel from general surgery who accepts for admission. Pt updated on plan and is in agreement Differential Diagnosis Differential Diagnosis: sbo, pancreatitis, pneumoperitoneum Medical Records Medical records reviewed: Yes I reviewed the patient's medical records. Imaging Data Radiologic Study: Attestation: I personally reviewed and interpreted this imaging study as follows: Imaging: CT Scan Radiologist's impression: IMPRESSION: 1. Small bowel obstruction. 2. Small hiatal hernia. 3. Anemia suspected. 4. Small pericardial effusion. Lab Data Lab results reviewed: Yes I reviewed the patient's lab results. HPI General Mode of arrival: EMS . Date/Time Provider Initiated Documentation: 08/02/21 04:52 . Limitations to Documentation: no limitations . Information obtained by: patient . History of Present Illness 80 year old F presents to the emergency department with the chief complaint of abdominal pain, described as severe, Quality is described as stabbing, and is localized to the abdomen. Patient reports no radiation. Patient started experiencing this hour(s) (3) and it has been constant. No relieving factors improve symptom(s), No exacerbating factors reported . Patient notes denies chest pain and fever/chills. Related Data Home Medications Medication Instructions Recorded Confirmed Centrum Silver Tablet 1 ea PO DAILY 11/15/12 06/22/21 lancets 28 gauge #400 ea 01/17/15 05/13/21 blood sugar diagnostic (Contour #100 ea 07/19/19 05/13/21 Test Strips) magnesium gluconate 27 mg 500 mg PO DAILY PRN #90 tab-caps 08/19/19 06/22/21 magnesium (500 mg) tablet cholecalciferol (vitamin D3) 50 See Rx Instructions PO DAILY PRN 09/17/20 06/22/21 mcg (2,000 unit) capsule (Vitamin D3) losartan 25 mg tablet See Rx Instructions PO BID #270 05/13/21 06/22/21 tabs occuvite 1 tab PO DAILY 05/13/21 06/22/21 albuterol sulfate 90 mcg/actuation 2 puff inhalation Q4H PRN PRN 06/22/21 06/22/21 aerosol inhaler (Proventil HFA) Previous Rx's Medication Instructions Recorded blood sugar diagnostic (Contour #100 ea 07/19/19 Test Strips) losartan 25 mg tablet See Rx Instructions PO BID #270 05/13/21 tabs Allergies Allergy/AdvReac Type Severity Reaction Status Date / Time pantoprazole sodium AdvReac Mild FELT Verified 08/02/21 04:47 [From Protonix] TERRIBLE General Stated Complaint: Abd Prob RHEA: 2 Review of Systems All systems reviewed & are unremarkable except as noted in HPI and below Constitutional Constitutional: Denies chills, Denies fever(s) and Denies weakness Cardiovascular Cardiovascular: Denies chest pain and Denies dyspnea Respiratory Respiratory: Denies cough and Denies dyspnea Genitourinary Genitourinary: Denies dysuria Musculoskeletal Musculoskeletal: Denies joint swelling Integumentary/Breasts Skin/Breast: Denies rash Neurologic Neurologic: Denies weakness PFSH All Active Problems (Updated 08/02/21 @ 06:19 by Tristen Ledesma MD) SBO (small bowel obstruction) (Acute) Schmorl's nodes of the thoracic region (Acute) Category 3 mammography result with short follow-up interval suggested for probably benign finding (Acute) [facility] second read cat 2, but [facility] cat 3 with repeat imaging in 6 month recommended Hypertension (Chronic ~10/2019) Dx'ed 10/2019--RX Losartan; goal <130/80 ideally (but 140/90 acceptable) Family history of breast cancer (Chronic) Daughter Obesity (Chronic 11/08/12) 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) several polyps (may not even be polyps!), but due to + FH mother colon cancer <60, rec 5 yr interval; 2020: Katie declines further colonoscopy 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, 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) FEV1 2.07 (78%pred; 61% FVC), mild obstr, else normal Osteopenia (Chronic 11/08/12) Declines DXA or treatments for osteoporosis 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; Dr Lan Turner Type 2 diabetes mellitus without complication (Chronic 10/23/14) DX [facility] Adm: A1c 6.5 X 2 in 2014; h/o impaired FBS 2010 Vitamin D deficiency (Chronic 11/08/12) 2015 Medical History 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 Colon cancer Successfully treated Supranuclear palsy Diabetes Daughter Age: 52 Breast cancer Dx'ed ~44yo s/p mastectomy Hypertension Daughter Bone cancer Sister No problems noted. Father , COD unknown No problems noted. Maternal Grandmother Breast cancer Social History Smoking/Tobacco Use Status: Never Smoking risk assessment performed?: Yes Alcohol Intake: current Alcohol Intake frequency: a few times a week Alcohol type: wine Drug use: Never Substance use type: does not use Adopted: No Household members: none Housing: house Number of Children: 2 current occupation: Homemaker What is your relationship status?: Panel score (0-1 are the most socially isolated patients): 0 What type of physical activity do you participate in: walking and other Details: hiking/walking/gardening Duration: 60-90 minutes/day Frequency: other Details: sporadic Seatbelt use: always Do you feel safe at home: Yes Do you feel safe in your relationship?: Yes Exam Const General: other (appears in pain) Orientation: alert HENMT Head: normal to inspection Ears: external ears normal General nose exam: external nose normal Mouth: moist mucous membranes Eyes General: appearance normal, both eyes and all related structures Neck Neck: normal visual inspection Resp Effort & Inspection: normal respiratory effort and able to speak in complete sentences Cardio Rate: regular rate GI Palpation: tender Skin General skin exam: no rashes or lesions noted Neuro General: patient alert and patient oriented x3 Extrem General: normal to inspection Psych Mental Status: mental status grossly normal Course Vital Signs Vital signs: Vital Signs Temperature 36.5 C 08/02/21 04:41 Pulse 82 08/02/21 04:41 Respiratory Rate 17 08/02/21 04:41 Blood Pressure 164/78 H 08/02/21 04:41 Pulse Oximetry 97 08/02/21 04:41 Temperature 36.5 C 08/02/21 04:41 Pulse 82 08/02/21 04:41 Respiratory Rate 17 08/02/21 04:41 Respiratory Effort 08/02/21 04:46 Blood Pressure 164/78 H 08/02/21 04:41 Blood Pressure Position Sitting 08/02/21 04:41 Pulse Oximetry 97 08/02/21 04:41 Oxygen Delivery Method Room Air 08/02/21 04:41 Oxygen Flow Rate 0 08/02/21 04:41 Pain Level 10 08/02/21 04:41 PAWSS Have you Been Recently Intoxicated or Drunk Within the Last 30 days?: No Have you Ever Experienced Previous Episodes of Alcohol Withdrawal?: No Have you ever Experienced Withdrawal Seizures?: No Have you ever Experienced Delirium Tremens(DT)s?: No Have you ever undergone Alcohol Rehabilitation Treatment (i.e, inpt ot outpatient treatment programs)?: No Have you ever Experienced Blackouts?: No Have you ever Combined Alcohol with other Downers within the last 90 days?: No Have you ever Combined Alcohol with any other Substance of Abuse during the last 90 days?: No Positive Blood Alcohol level on Presentation? [PCS.BAL]: No Evidence of Increased Autonomic Activity (i.e. HR>120, tremor, sweating, agitation, nausea)?: No Result: 0
[2021-08-02 05:08] LABS: Source Nasal/Nares
[2021-08-02 05:09] LABS: BE (Venous) 2 mmol/L (-2-3); HCO3 (Venous) 26 mmol/L (23-28); O2 Sat (Venous) 91 %; TCO2 (Venous) 22 mmol/L (24-29); pCO2 (Venous) 33 mmHg (41-51); pO2 (Venous) 53 mmHg
[2021-08-02] MEDS: HYDROmorphone 2 MG/ML VIAL 0.5 MG IVP ×2 (05:09→06:35)
[2021-08-02 05:10] LABS: Abs Immature Grans 0.03 10^3/uL (0.0-0.06); Absolute Basophil Count 0.04 10^3/uL (0.0-0.2); Absolute Lymphocyte Count 1.38 10^3/uL (1.2-3.4); Absolute Monocyte Count 0.57 10^3/uL (0.1-0.8); Absolute Neutrophil Count 10.95 10^3/uL (1.2-6.7); Basophils % 0.3; Eosinophils % 0.2; HCT 44.3 % (36.0-46.0); HGB 14.9 g/dL (11.2-15.7); Immature Grans % 0.2; Lymphocytes % 10.6; MCHC 33.6 % (32.0-36.0); MCV 92 fL (80-95); MPV 10.7 fL (8.0-11.0); Monocytes % 4.4; Neutrophils % 84.3; Platelet Count 196 10^3/uL (130-400); RBC 4.81 10^6/uL (3.93-5.22); RDW 12.5 % (11.7-14.6); RDW-SD 42.5 fL; WBC 12.99 10^3/uL (4.4-10.8)
[2021-08-02] MEDS: Normal Saline 1,000 ML 1000 ML IV (05:10)
[2021-08-02 05:15] LABS: Absolute Eosinophil Count 0.03 10^3/uL (0.0-0.7)
[2021-08-02 05:26] LABS: ALT 21 U/L (14-59); AST 18 U/L (15-37); Albumin 3.7 g/dL (3.4-5.0); Alkaline Phosphatase 90 U/L (46-116); BUN 26 mg/dL (7-18); Bilirubin, Total 0.8 mg/dL (0.2-1.0); CREATININE 1.1 mg/dL (0.55-1.02); Calcium 9.7 mg/dL (8.5-10.1); Chloride 104 mmol/L (98-107); Estimated GFR 47.79 (mL/min/1.73m2); Glucose 254 mg/dL (74-106); Magnesium 1.9 mg/dL (1.8-2.4); Sodium 140 mmol/L (136-145); Total Protein 7.3 g/dL (6.4-8.2); Troponin I < 50 ng/L (<or=60)
[2021-08-02 05:36] LABS: Bilirubin, Direct 0.2 mg/dL (0.0-0.2); Lipase 43 U/L (73-393)
[2021-08-02 05:59] LABS: COVID-19 PCR Negative (Negative)
--- NOTE | 2021-08-02 06:15 | DI.VRAD_ITS ---
PROCEDURE INFORMATION: Exam: CT Abdomen And Pelvis Without Contrast Exam date and time: 08/02/2021 5:39 AM Age: 80 years old Clinical indication: Nausea and vomiting; Abdominal pain; Localized; Lower; Additional info: Abd pain, n/v TECHNIQUE: Imaging protocol: Computed tomography of the abdomen and pelvis without contrast. Radiation optimization: All CT scans at this facility use at least one of these dose optimization techniques: automated exposure control; mA and/or kV adjustment per patient size (includes targeted exams where dose is matched to clinical indication); or iterative reconstruction. COMPARISON: CT ABDOMEN PELVIS W 09/14/2020 10:06 PM FINDINGS: Heart: Small pericardial effusion. Diminished attenuation of cardiac chambers in comparison to myocardium which can be seen with anemia. Correlate clinically. Heart normal in size. Diaphragm: Small hiatal hernia. Liver: Normal. No mass. Gallbladder and bile ducts: Normal. No calcified stones. No ductal dilation. Pancreas: Fatty infiltration of pancreas. No ductal dilatation. Spleen: Normal. No splenomegaly. Adrenal glands: Normal. No mass. Kidneys and ureters: 12 mm simple cyst left kidney. No hydronephrosis. Too small to characterize approximately 11 mm lesion extends exophytically from right interpolar cortex, increased in size from 2020 and favored to be a complex cyst. Stomach and bowel: Multiple dilated loops of small bowel with air-fluid levels. Transition point to normal caliber small bowel not demonstrated with certainty. No colonic dilatation. Appendix: Normal appendix. Intraperitoneal space: No free intraperitoneal gas. Trace abdominopelvic ascites. Vasculature: Unremarkable. No abdominal aortic aneurysm. Lymph nodes: Unremarkable. No enlarged lymph nodes. Urinary bladder: Unremarkable as visualized. Reproductive: Anteverted uterus. Bones/joints: The spine demonstrates mild degenerative changes at multiple levels. Soft tissues: There is an uncomplicated fat-containing umbilical hernia. IMPRESSION: 1. Small bowel obstruction. 2. Small hiatal hernia. 3. Anemia suspected. 4. Small pericardial effusion. Dictated and Authenticated by: Gopi Segundo MD. Ordering:CORNELIO Ramon MD
--- NOTE | 2021-08-02 06:49 | HPE_ITS ---
Date of service: 08/02/21 Time of Service: Assessment and Plan Assessment and plan (1) SBO (small bowel obstruction): Status: Acute Assessment and plan: -Conservative management, will check TSH -NG tube, NPO, bowel rest, IVF -PRN analgesics -Lovenox for DVT ppx -Encouraged ambulation (2) Hypertension: Status: Chronic Qualifiers: Hypertension type: essential hypertension Qualified Code(s): I10 - Essential (primary) hypertension (3) Benign neoplasm of colon: Status: Chronic (4) COPD, mild: Status: Chronic (5) Osteopenia: Status: Chronic (6) Vitamin D deficiency: Status: Chronic History of Present Illness Narrative: 80 year old female with no previous abdominal surgeries presented to the ER complaining of abdominal pain that woke her up from sleep with associated nausea and vomiting. CT done in the ER showed proximal small bowel obstruction. An NG tube was placed in the ER and I was asked to see the patient based on the above findings. Her last bowel movement was this morning. Review of Systems All systems reviewed & are unremarkable except as noted in HPI and below Gastrointestinal Gastrointestinal: Reports bloating, Reports nausea and Reports vomiting PFSH All Active Problems (Updated 08/02/21 @ 06:19 by Tristen Ledesma MD) SBO (small bowel obstruction) (Acute) Schmorl's nodes of the thoracic region (Acute) Category 3 mammography result with short follow-up interval suggested for probably benign finding (Acute) [facility] second read cat 2, but [facility] cat 3 with repeat imaging in 6 month recommended Hypertension (Chronic ~10/2019) Dx'ed 10/2019--RX Losartan; goal <130/80 ideally (but 140/90 acceptable) Family history of breast cancer (Chronic) Daughter Obesity (Chronic 11/08/12) 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) several polyps (may not even be polyps!), but due to + FH mother colon cancer <60, rec 5 yr interval; 2020: Katie declines further colonoscopy 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, 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) FEV1 2.07 (78%pred; 61% FVC), mild obstr, else normal Osteopenia (Chronic 11/08/12) Declines DXA or treatments for osteoporosis 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; Dr Lan Turner Type 2 diabetes mellitus without complication (Chronic 10/23/14) DX [facility] Adm: A1c 6.5 X 2 in 2014; h/o impaired FBS 2010 Vitamin D deficiency (Chronic 11/08/12) 2014 Medical History 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 Colon cancer Successfully treated Supranuclear palsy Diabetes Daughter Age: 52 Breast cancer Dx'ed ~44yo s/p mastectomy Hypertension Daughter Bone cancer Sister No problems noted. Father , COD unknown No problems noted. Maternal Grandmother Breast cancer Social History Smoking/Tobacco Use Status: Never Smoking risk assessment performed?: Yes Alcohol Intake: current Alcohol Intake frequency: a few times a week Alcohol type: wine Drug use: Never Substance use type: does not use Adopted: No Household members: none Housing: house Number of Children: 2 current occupation: Homemaker What is your relationship status?: Panel score (0-1 are the most socially isolated patients): 0 What type of physical activity do you participate in: walking and other Details: hiking/walking/gardening Duration: 60-90 minutes/day Frequency: other Details: sporadic Seatbelt use: always Do you feel safe at home: Yes Do you feel safe in your relationship?: Yes Meds Allergies and Home Medications Allergies Allergy/AdvReac Type Severity Reaction Status Date / Time pantoprazole sodium AdvReac Mild FELT Verified 08/02/21 04:47 [From Protonix] TERRIBLE Home Medications Medication Instructions Recorded Confirmed Type Centrum Silver Tablet 1 ea PO DAILY 11/15/12 08/02/21 History lancets 28 gauge #400 ea 01/17/15 05/13/21 History blood sugar diagnostic (Contour #100 ea 07/19/19 05/13/21 Rx Test Strips) magnesium gluconate 27 mg 500 mg PO DAILY PRN #90 tab-caps 08/19/19 08/02/21 History magnesium (500 mg) tablet cholecalciferol (vitamin D3) 50 See Rx Instructions PO DAILY PRN 09/17/20 08/02/21 History mcg (2,000 unit) capsule (Vitamin D3) occuvite 1 tab PO DAILY 05/13/21 08/02/21 History albuterol sulfate 90 mcg/actuation 2 puff inhalation Q4H PRN PRN 06/22/2107/11 History aerosol inhaler (Proventil HFA) losartan 25 mg tablet 50 mg PO DAILY 08/02/21 08/02/21 History losartan 25 mg tablet PO DAILY 08/02/21 History Exam Const General: cooperative, healthy appearing and acute distress mild Nutritional Appearance: average body habitus Resp Effort & Inspection: normal respiratory effort, able to speak in complete sentences, no audible wheezes, not labored and no respiratory distress Cardio Rate: regular rate and tachycardic Rhythm: regular rhythm GI Inspection: normal to inspection and distended Palpation: soft, not firm, no guarding, not rigid and tender in the LLQ and in the RLQ Percussion: tympanic to percussion Skin General skin exam: no rashes or lesions noted Results Labs Result diagrams: 08/02/21 05:00 08/02/21 05:00 Labs: Laboratory Results - last 24 hr 08/02/21 08/02/21 08/02/21 05:00 05:00 05:00 WBC 12.99 H RBC 4.81 Hgb 14.9 Hct 44.3 MCV 92 MCH 31.0 MCHC 33.6 RDW 12.5 Plt Count 196 MPV 10.7 Immature Gran % 0.2 Neutrophils % 84.3 Lymphocytes % 10.6 Monocytes % 4.4 Eosinophils % 0.2 Basophils % 0.3 Nucleated RBC % 0.0 Absolute Neutrophils 10.95 H Absolute Lymphocytes 1.38 Absolute Monocytes 0.57 Absolute Eosinophils 0.03 Absolute Basophils 0.04 VBG pH VBG pCO2 VBG pO2 VBG HCO3 VBG Total CO2 VBG O2 Saturation VBG Base Excess Sodium 140 Potassium 4.0 Chloride 104 Carbon Dioxide 27.0 Anion Gap 9.0 BUN 26 H Creatinine 1.1 H Estimated GFR/1.73 m2 47.79 Glucose 254 H Calcium 9.7 Magnesium 1.9 Total Bilirubin 0.8 Conjugated Bilirubin 0.2 AST 18 ALT 21 Alkaline Phosphatase 90 Troponin I < 50 Total Protein 7.3 Albumin 3.7 Lipase 43 COVID-19 Source Nasal/Nares SARS-CoV-2 (PCR) Negative 08/02/21 05:00 WBC RBC Hgb Hct MCV MCH MCHC RDW Plt Count MPV Immature Gran % Neutrophils % Lymphocytes % Monocytes % Eosinophils % Basophils % Nucleated RBC % Absolute Neutrophils Absolute Lymphocytes Absolute Monocytes Absolute Eosinophils Absolute Basophils VBG pH 7.50 H VBG pCO2 33 L VBG pO2 53 VBG HCO3 26 VBG Total CO2 22 L VBG O2 Saturation 91 VBG Base Excess 2 Sodium Potassium Chloride Carbon Dioxide Anion Gap BUN Creatinine Estimated GFR/1.73 m2 Glucose Calcium Magnesium Total Bilirubin Conjugated Bilirubin AST ALT Alkaline Phosphatase Troponin I Total Protein Albumin Lipase COVID-19 Source SARS-CoV-2 (PCR) Last Vital Signs Temp 97.7 F 08/02/21 04:41 Pulse 78 08/02/21 05:31 Resp 14 08/02/21 06:06 BP 160/81 H 08/02/21 05:31 Pulse Ox 92 08/02/21 06:24 PAWSS Have you Been Recently Intoxicated or Drunk Within the Last 30 days?: No Have you Ever Experienced Previous Episodes of Alcohol Withdrawal?: No Have you ever Experienced Withdrawal Seizures?: No Have you ever Experienced Delirium Tremens(DT)s?: No Have you ever undergone Alcohol Rehabilitation Treatment (i.e, inpt ot outpatient treatment programs)?: No Have you ever Experienced Blackouts?: No Have you ever Combined Alcohol with other Downers within the last 90 days?: No Have you ever Combined Alcohol with any other Substance of Abuse during the last 90 days?: No Positive Blood Alcohol level on Presentation? [PCS.BAL]: No Evidence of Increased Autonomic Activity (i.e. HR>120, tremor, sweating, agitation, nausea)?: No Result: 0
[2021-08-02 07:34] LABS: Bilirubin Negative (Negative); Blood Negative (Negative); Clarity Clear (Clear); Glucose 250 mg/dL (Negative); Ketones 40 mg/dL (Negative); Leukocyte Esterase Negative (Negative); Nitrite Negative (Negative); Specific Gravity >= 1.030 (1.005-1.025); Urobilinogen 0.2 EU/dL (Up TO 0.2)
[2021-08-02] MEDS: Ondansetron 4 MG/2 ML VIAL IVP (07:52)
--- NOTE | 2021-08-02 08:09 | NUR.NOTE ---
Nursing Note: Assumed care for patient at 0700, 20 gauge IV placed in the left anticubital, patient states EMS placed this.
[2021-08-02] MEDS: MORPHine 4 MG/ML SYR 2 MG IVP (08:24)
--- NOTE | 2021-08-02 08:30 | DI.RAD_ITS ---
Exam(s) XR PORTABLE CHEST AP EXAM: XR PORTABLE CHEST AP CLINICAL HISTORY: confirm NG tube placement TECHNIQUE: 2D digital imaging was performed of the chest. One image was obtained. An AP view was ob tained. COMPARISON: No exams were available for comparison FINDINGS: MEDIASTINUM: Normal. HEART: Normal. PULMONARY VASCULATURE: Normal. LUNGS: Clear. PLEURAL SPACE: No pleural effusion or pneumothorax. BONE:Within normal limits for the patient's age. OTHER FINDINGS:The tip of the nasogastric tube is in the stomach. IMPRESSION: The tip of the nasogastric tube is in position in the stomach. DATA REPOSITORY: RADIATION DOSE DELIVERED:
[2021-08-02] MEDS: Normal Saline 1,000 ML 75 ML IV ×2 (09:22→23:47)
[2021-08-02] MEDS: Enoxaparin 40 MG/0.4 ML SYR SC (09:48)
[2021-08-02] MEDS: ACETAMINOPHEN 1,000 MG/100 ML BTL 400 MG IVPB ×2 (09:48→19:25)
--- NOTE | 2021-08-02 10:48 | DI.RAD_ITS ---
Exam(s) XR ABDOMEN FLAT UPRIGHT EXAM: 2D digital imaging was performed. CLINICAL HISTORY: SBO. COMPARISON: No exams were available for comparison TECHNIQUE: Supine and upright views of the abdomen was performed. Three images were obtained. FINDINGS: LUNG BASES: Clear. BOWEL GAS PATTERN: Mildly dilated loops of small bowel in the central abdomen on the supine views. N onspecific air-fluid levels are seen on the upright views. There is a small amount of stool in the c olon, predominantly the right colon. FREE AIR: None. CALCIFICATIONS: No radiopaque calcifications. OSSEOUS STRUCTURES: Normal for age. Mild left convex scoliosis of the lumbar spine. OTHER FINDINGS: The tip of the nasogastric tube is in the stomach. The side port is just distal to t he gastroesophageal junction. IMPRESSION: Mildly dilated loops of small bowel in the central abdomen. Small bowel obstruction versus ileus.. DATA REPOSITORY: RADIATION DOSE DELIVERED:
[2021-08-02 13:20] LABS: Troponin I < 50 ng/L (<or=60)
[2021-08-02] MEDS: Metoclopramide 10 MG/2 ML VIAL 5 MG IVP (15:02)
[2021-08-02] MEDS: Ketorolac 15 MG/ML VIAL IVP ×2 (15:03→21:47)
[2021-08-02] MEDS: HYDROmorphone 2 MG/ML SYR 0.5 MG IVP (19:24)
[2021-08-02] MEDS: Normal Saline Flush 10 ML SYR IVP (21:48)
[2021-08-02] MEDS: HYDROmorphone 2 MG/ML SYR 1 MG IVP (23:20)
[2021-08-03] MEDS: HYDROmorphone 2 MG/ML SYR 1 MG IVP ×3 (06:10→23:20)
[2021-08-03 06:18] LABS: Abs Immature Grans 0.06 10^3/uL (0.0-0.06); Absolute Basophil Count 0.02 10^3/uL (0.0-0.2); Absolute Lymphocyte Count 1.09 10^3/uL (1.2-3.4); Basophils % 0.1; Eosinophils % 0.1; HCT 46.9 % (36.0-46.0); HGB 15.5 g/dL (11.2-15.7); Immature Grans % 0.4; Lymphocytes % 7.1; MCH 30.9 pg (27.0-33.0); MCV 94 fL (80-95); MPV 10.7 fL (8.0-11.0); Monocytes % 9.1; Neutrophils % 83.2; Platelet Count 216 10^3/uL (130-400); RBC 5.01 10^6/uL (3.93-5.22); RDW 13.5 % (11.7-14.6); RDW-SD 46.5 fL; WBC 15.31 10^3/uL (4.4-10.8)
[2021-08-03 06:20] LABS: Absolute Eosinophil Count 0.02 10^3/uL (0.0-0.7); Absolute Monocyte Count 1.39 10^3/uL (0.1-0.8); Absolute Neutrophil Count 12.74 10^3/uL (1.2-6.7)
[2021-08-03 06:58] LABS: ALT 18 U/L (14-59); AST 14 U/L (15-37); Albumin 2.9 g/dL (3.4-5.0); Alkaline Phosphatase 72 U/L (46-116); BUN 36 mg/dL (7-18); Bilirubin, Total 1.1 mg/dL (0.2-1.0); CREATININE 1.5 mg/dL (0.55-1.02); Calcium 8.8 mg/dL (8.5-10.1); Chloride 108 mmol/L (98-107); Estimated GFR 33.41 (mL/min/1.73m2); Glucose 208 mg/dL (74-106); Lipase 29 U/L (73-393); Magnesium 1.9 mg/dL (1.8-2.4); PHOSPHORUS 4.3 mg/dL (2.6-4.7); Sodium 140 mmol/L (136-145); TSH (W/Ref FT4) 1.58 uIU/mL (0.36-3.74); Total Protein 6.1 g/dL (6.4-8.2)
[2021-08-03] MEDS: Metoclopramide 10 MG/2 ML VIAL 5 MG IVP ×2 (07:52→17:01)
[2021-08-03] MEDS: Ketorolac 15 MG/ML VIAL IVP (07:53)
[2021-08-03] MEDS: Normal Saline Flush 10 ML SYR IVP (07:53)
[2021-08-03 07:56] VITALS: BP 111/60; PULSE 95; RESP 18; TEMP 36.3; O2SAT 92
--- NOTE | 2021-08-03 09:25 | W.PM.PROGNOT ---
Date of Service Date of service: 08/03/21 Time of Service: 09:25 Assessment and Plan Assessment and plan (1) SBO (small bowel obstruction): Status: Acute Assessment and plan: -Continue conservative management with NG tube, NPO, bowel rest, increase IVF to 125cc/hr given slight rise in Cr -PRN analgesics, d/c toradol -Lovenox for DVT ppx -Encourage ambulation, sitting at the side of the bed and in the chair -Abdominal x-ray and chest x-ray pending (2) Hypertension: Status: Chronic Qualifiers: Hypertension type: essential hypertension Qualified Code(s): I10 - Essential (primary) hypertension (3) Benign neoplasm of colon: Status: Chronic (4) COPD, mild: Status: Chronic (5) Osteopenia: Status: Chronic (6) Vitamin D deficiency: Status: Chronic Subjective Subjective Patient reports: no new complaints, feels better, no flatus, no bowel movement and afebrile; denies nausea or vomiting Exam Const General: cooperative, healthy appearing and acute distress mild Nutritional Appearance: average body habitus Resp Effort & Inspection: normal respiratory effort, able to speak in complete sentences, no audible wheezes, not labored and no respiratory distress Cardio Rate: regular rate and tachycardic Rhythm: regular rhythm GI Inspection: normal to inspection and distended Palpation: soft, not firm, no guarding, not rigid and tender (mild, improved) Percussion: tympanic to percussion (improved) Skin General skin exam: no rashes or lesions noted Objective Last Vital Signs Temp 97.3 F L 08/03/21 07:56 Pulse 95 H 08/03/21 07:56 Resp 18 08/03/21 07:56 BP 111/60 08/03/21 07:56 Pulse Ox 92 08/03/21 07:56 Laboratory Results - last 24 hr 08/02/21 08/03/21 08/03/21 12:55 06:02 06:02 WBC 15.31 H RBC 5.01 Hgb 15.5 Hct 46.9 H MCV 94 MCH 30.9 MCHC 33.0 RDW 13.5 Plt Count 216 MPV 10.7 Immature Gran % 0.4 Neutrophils % 83.2 Lymphocytes % 7.1 Monocytes % 9.1 Eosinophils % 0.1 Basophils % 0.1 Nucleated RBC % 0.0 Absolute Neutrophils 12.74 H Absolute Lymphocytes 1.09 L Absolute Monocytes 1.39 H Absolute Eosinophils 0.02 Absolute Basophils 0.02 Sodium 140 Potassium 5.0 D Chloride 108 H Carbon Dioxide 26.0 Anion Gap 6.0 BUN 36 H Creatinine 1.5 H Estimated GFR/1.73 m2 33.41 Glucose 208 H Calcium 8.8 Phosphorus 4.3 Magnesium 1.9 Total Bilirubin 1.1 H AST 14 L ALT 18 Alkaline Phosphatase 72 Troponin I < 50 Total Protein 6.1 L Albumin 2.9 L Lipase 29 TSH 1.58 PAWSS Have you Been Recently Intoxicated or Drunk Within the Last 30 days?: No Have you Ever Experienced Previous Episodes of Alcohol Withdrawal?: No Have you ever Experienced Withdrawal Seizures?: No Have you ever Experienced Delirium Tremens(DT)s?: No Have you ever undergone Alcohol Rehabilitation Treatment (i.e, inpt ot outpatient treatment programs)?: No Have you ever Experienced Blackouts?: No Have you ever Combined Alcohol with other Downers within the last 90 days?: No Have you ever Combined Alcohol with any other Substance of Abuse during the last 90 days?: No Positive Blood Alcohol level on Presentation? [PCS.BAL]: No Evidence of Increased Autonomic Activity (i.e. HR>120, tremor, sweating, agitation, nausea)?: No Result: 0
--- NOTE | 2021-08-03 09:30 | PDOC.CMIN ---
- If Service Date Differs Date of service: 08/03/21 Time of Service: 09:30 Care Management Initial Assess REASON FOR HOSPITALIZATION:: Small bowel obstruction PAST MEDICAL HISTORY/PAST SURGICAL HISTORY:: All Active Problems: SBO (small bowel obstruction) (Acute), Schmorl's nodes of the thoracic region (Acute), Category 3 mammography result with short follow-up interval suggested for probably benign finding (Acute) - [facility] second read cat 2, but [facility] cat 3 with repeat imaging in 6 month recommended, Hypertension (Chronic ~10/2019) - Dx'ed 10/2019--RX Losartan; goal <130/80 ideally (but 140/90 acceptable), Family history of breast cancer (Chronic) - Daughter, Obesity (Chronic 11/08/12), 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) - several polyps (may not even be polyps!), but due to + FH mother colon cancer <60, rec 5 yr interval; 2020: Katie declines further colonoscopy, 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 Rx Mag Gluconate (Dr Oliva). Surgical History: History of tonsillectomy and adenoidectomy, S/P trigger finger release - R third ~2009, Status post cataract extraction and insertion of intraocular lens of left eye (04/05/18), and Status post cataract extraction and insertion of intraocular lens of right eye (03/22/18). PREVIOUS FUNCTIONAL STATUS/SOCIAL/FAMILY SUPPORTS:: Katie lives alone in [place], [place]. She has 2 daughters, both of whom are supportive but reside out of state ([place], [place] and [place], [place]). 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 She enjoys gardening, rug hooking, knitting, and swimming. Katie is independent with her ADLs at baseline. CURRENT FUNCTIONAL STATUS:: Katie is lying down when CM enters her room. She has an NG tube in place and is visibly uncomfortable, rubbing her abdomen with one hand and fidgeting in the bed. She shares she is feeling a little bit better but is still having some pain. Katie states her nurse is taking good care of her and is ensuring she gets pain medication as ordered. ADVANCE DIRECTIVES:: None on file at [facility] but Katie states she has Advance Directives and her daughters are appointed as Health Care Agents. Has patient been provided with info about the portal/API?: Yes Did the patient sign up for the portal?: Yes (Previously enrolled) CODE STATUS:: Full Code INSURANCE COVERAGE / FINANCIAL ISSUES:: Medicare. CURRENT HOME/COMMUNITY SERVICES/EQUIPMENT:: No services. Katie has a cane and a walker available but does not use either. PRIMARY CARE PHYSICIAN:: LETICIA Lai ([facility]). POTENTIAL DISCHARGE NEEDS:: Follow up appointments with PCP and surgeon. PATIENT/FAMILY EDUCATION NEEDS:: Review of discharge instructions and discuss Ask Me Three. ANTICIPATED BARRIERS TO DISCHARGE:: No anticipated barriers to discharge at this time. TRANSPORTATION:: Via private vehicle with daughter or friend. PLAN:: Katie will likely return home with no new services when medically cleared by provider. She will follow up with her PCP, surgeon, and discharge plan of care as prescribed. She will be driven home via private vehicle by either one of her daughters or a friend when ready. CM will continue to follow.
[2021-08-03] MEDS: Normal Saline 1,000 ML 125 ML IV ×3 (10:41→19:56)
[2021-08-03] MEDS: Enoxaparin 40 MG/0.4 ML SYR SC (11:20)
[2021-08-03] MEDS: ACETAMINOPHEN 1,000 MG/100 ML BTL 400 MG IVPB (11:21)
--- NOTE | 2021-08-03 11:45 | DI.RAD_ITS ---
Exam(s) XR ABDOMEN FLAT UPRIGHT EXAM: XR ABDOMEN FLAT UPRIGHT CLINICAL HISTORY: SBO. TECHNIQUE: 2D digital imaging was performed. COMPARISON: CR XR ABDOMEN FLAT UPRIGHT from 08/02/2021 FINDINGS: 3 views NG tube is in the stomach and the stomach appears decompressed. However, there air-filled dilated sm all bowel loops consistent with significant small-bowel obstruction, this despite some air seen in th e right-side of the colon. There is no free air seen on the upright view. IMPRESSION: Significant small-bowel obstruction. Appearance is worse than yesterday (08/02/2021). DATA REPOSITORY: RADIATION DOSE DELIVERED:
--- NOTE | 2021-08-03 11:50 | DI.RAD_ITS ---
Exam(s) XR CHEST 1V IN DI DEPT EXAM: XR CHEST 1V IN DI DEPT CLINICAL HISTORY: SBO, pleuritic chest pain. TECHNIQUE: 2D digital imaging was performed. COMPARISON: CR XR PORTABLE CHEST AP from 08/02/[address] ABDOMEN PELVIS WO from 08/02/2021 FINDINGS: Single AP portable view. Heart size is upper normal. The mediastinum is not widened. Right lung is clear. Mild increased markings in left lower lobe retrocardiac region but these may be vascular. There are no obvious pleural effusions. NG tube is noted in the stomach. Dilated air-fi lled small bowel loops noted in the left upper quadrant of the abdomen consistent with element of sma ll bowel obstruction, as evident on yesterday's CT scan. IMPRESSION: NG tube in place. Mild increased markings in the left lower lobe. These may represent vascular mabel ings. Small bowel obstruction. DATA REPOSITORY: RADIATION DOSE DELIVERED: All CT scans at this facility use at least one of these dose optimization techniques: automated exposure control; mA and/or kV adjustment per patient size (includes targeted e xams where dose is matched to clinical indication); or iterative reconstruction.
--- NOTE | 2021-08-03 12:32 | DI.VRAD_ITS ---
PROCEDURE INFORMATION: Exam: XR Abdomen Exam date and time: 08/03/2021 11:41 AM Age: 80 years old Clinical indication: Abdominal pain; Other: Sbo TECHNIQUE: Imaging protocol: Radiologic exam of the abdomen. Views: 2 Views. Upright and supine views. COMPARISON: CR XR ABDOMEN FLAT UPRIGHT 08/02/2021 10:31 AM FINDINGS: Tubes, catheters and devices: An enteric feeding tube is present, with its tip located in the stomach in good position. Gastrointestinal tract: Multiple loops of dilated small bowel most consistent with significant small bowel obstruction. Overall exacerbation of the appearance of the abdomen since the prior study.. Intraperitoneal space: See Gastrointestinal tract finding. Bones/joints: Unremarkable for age. IMPRESSION: Multiple loops of dilated small bowel most consistent with significant small bowel obstruction. Overall exacerbation of the appearance of the abdomen since the prior study.. Dictated and Authenticated by: Rohan Daigle MD. Ordering:TAMI Laird MD
--- NOTE | 2021-08-03 12:33 | DI.VRAD_ITS ---
PROCEDURE INFORMATION: Exam: XR Chest Exam date and time: 08/03/2021 11:40 AM Age: 80 years old Clinical indication: Other: Sbo, pleurtic chest pain TECHNIQUE: Imaging protocol: Radiologic exam of the chest. Views: 1 view. COMPARISON: CR XR PORTABLE CHEST AP 08/02/2021 8:25 AM FINDINGS: Tubes, catheters and devices: An enteric feeding tube is present, with its tip located in the stomach in good position. Lungs: Mild opacities in the left base may represent atelectasis or pneumonia.. Pleural spaces: Unremarkable. No pleural effusion. No pneumothorax. Heart/Mediastinum: Unremarkable. No cardiomegaly. Bones/joints: Unremarkable. Gastrointestinal tract: Dilated loops of bowel in the upper abdomen may reflect small bowel obstruction IMPRESSION: Mild opacities in the left base may represent atelectasis or pneumonia.. Dictated and Authenticated by: Rohan Daigle MD. Ordering:TAMI Laird MD
[2021-08-03 15:32] VITALS: BP 110/71; PULSE 96; RESP 20; TEMP 37.2; O2SAT 92
[2021-08-03] MEDS: Ondansetron 4 MG/2 ML VIAL IVP ×2 (17:20→23:19)
[2021-08-03 19:55] VITALS: O2SAT 92
[2021-08-03 23:18] VITALS: BP 136/77; PULSE 100; RESP 16; TEMP 37.5; O2SAT 94
[2021-08-04] MEDS: Normal Saline 1,000 ML 125 ML IV ×2 (03:51→21:00)
[2021-08-04 06:57] LABS: Abs Immature Grans 0.03 10^3/uL (0.0-0.06); Absolute Basophil Count 0.03 10^3/uL (0.0-0.2); Absolute Lymphocyte Count 0.77 10^3/uL (1.2-3.4); Absolute Monocyte Count 1.02 10^3/uL (0.1-0.8); Absolute Neutrophil Count 7.83 10^3/uL (1.2-6.7); Basophils % 0.3; HCT 43.7 % (36.0-46.0); HGB 14.6 g/dL (11.2-15.7); Immature Grans % 0.3; MCH 31.5 pg (27.0-33.0); MCHC 33.4 % (32.0-36.0); MCV 94 fL (80-95); MPV 10.9 fL (8.0-11.0); Monocytes % 10.5; Neutrophils % 80.9; Platelet Count 187 10^3/uL (130-400); RBC 4.63 10^6/uL (3.93-5.22); RDW 13.7 % (11.7-14.6); RDW-SD 47.4 fL; WBC 9.68 10^3/uL (4.4-10.8)
[2021-08-04 07:11] LABS: Anion Gap 5.6 mmol/L (3-11); BUN 28 mg/dL (7-18); CO2 26.4 mmol/L (21.0-32.0); Calcium 8.4 mg/dL (8.5-10.1); Chloride 110 mmol/L (98-107); Estimated GFR 53.35 (mL/min/1.73m2); Glucose 184 mg/dL (74-106); Potassium 4.8 mmol/L (3.5-5.1); Sodium 142 mmol/L (136-145)
--- NOTE | 2021-08-04 07:19 | W.PM.PROGNOT ---
Date of Service Date of service: 08/04/21 Time of Service: 07:37 Assessment and Plan Assessment and plan (1) SBO (small bowel obstruction): Status: Acute Assessment and plan: -Continue conservative management with NG tube, NPO, bowel rest -Labs improved today -PRN analgesics, d/c toradol -Lovenox for DVT ppx -Encourage ambulation, sitting at the side of the bed and in the chair -Abdominal x-ray and chest x-ray pending (2) Hypertension: Status: Chronic Qualifiers: Hypertension type: essential hypertension Qualified Code(s): I10 - Essential (primary) hypertension (3) Benign neoplasm of colon: Status: Chronic (4) COPD, mild: Status: Chronic (5) Osteopenia: Status: Chronic (6) Vitamin D deficiency: Status: Chronic (7) Anaplasmosis: Status: Acute Assessment and plan: -Hx of; patient is concerned her symptoms may be related to the infection she had last year -Will check PCR and Ab titers -Check tick & lyme panel as well Subjective Subjective Patient reports: no new complaints, feels better, no flatus, no bowel movement and afebrile; denies nausea or vomiting Interval history since last seen: Patient is concerned this is related to the anaplasmosis she had last year where she suffered similar problems Exam Const General: cooperative, healthy appearing and acute distress mild Nutritional Appearance: average body habitus Resp Effort & Inspection: normal respiratory effort, able to speak in complete sentences, no audible wheezes, not labored and no respiratory distress Cardio Rate: regular rate and tachycardic Rhythm: regular rhythm GI Inspection: normal to inspection and distended (slightly worse than yesterday) Palpation: soft, not firm, no guarding, not rigid and nontender Percussion: tympanic to percussion (improved) Skin General skin exam: no rashes or lesions noted Objective Last Vital Signs Temp 99.5 F 08/03/21 23:18 Pulse 100 H 08/03/21 23:18 Resp 16 08/03/21 23:18 BP 136/77 08/03/21 23:18 Pulse Ox 94 08/03/21 23:18 Laboratory Results - last 24 hr 08/04/21 08/04/21 06:22 06:22 WBC 9.68 RBC 4.63 Hgb 14.6 Hct 43.7 MCV 94 MCH 31.5 MCHC 33.4 RDW 13.7 Plt Count 187 MPV 10.9 Immature Gran % 0.3 Neutrophils % 80.9 Lymphocytes % 8.0 Monocytes % 10.5 Eosinophils % 0.0 Basophils % 0.3 Nucleated RBC % 0.0 Absolute Neutrophils 7.83 H Absolute Lymphocytes 0.77 L Absolute Monocytes 1.02 H Absolute Eosinophils 0.00 Absolute Basophils 0.03 Sodium 142 Potassium 4.8 Chloride 110 H Carbon Dioxide 26.4 Anion Gap 5.6 BUN 28 H Creatinine 1.0 Estimated GFR/1.73 m2 53.35 Glucose 184 H Calcium 8.4 L PAWSS Have you Been Recently Intoxicated or Drunk Within the Last 30 days?: No Have you Ever Experienced Previous Episodes of Alcohol Withdrawal?: No Have you ever Experienced Withdrawal Seizures?: No Have you ever Experienced Delirium Tremens(DT)s?: No Have you ever undergone Alcohol Rehabilitation Treatment (i.e, inpt ot outpatient treatment programs)?: No Have you ever Experienced Blackouts?: No Have you ever Combined Alcohol with other Downers within the last 90 days?: No Have you ever Combined Alcohol with any other Substance of Abuse during the last 90 days?: No Positive Blood Alcohol level on Presentation? [PCS.BAL]: No Evidence of Increased Autonomic Activity (i.e. HR>120, tremor, sweating, agitation, nausea)?: No Result: 0
[2021-08-04 07:50] VITALS: BP 124/74; PULSE 95; RESP 16; TEMP 37.3; O2SAT 94
[2021-08-04] MEDS: Enoxaparin 40 MG/0.4 ML SYR SC (09:34)
[2021-08-04] MEDS: Normal Saline Flush 10 ML SYR IVP (09:34)
[2021-08-04] MEDS: Ondansetron 4 MG/2 ML VIAL IVP (09:36)
[2021-08-04] MEDS: Metoclopramide 10 MG/2 ML VIAL 5 MG IVP (09:36)
[2021-08-04] MEDS: HYDROmorphone 2 MG/ML SYR 1 MG IVP ×2 (10:02→21:22)
[2021-08-04 15:48] VITALS: BP 124/63; PULSE 108; RESP 19; TEMP 37.7; O2SAT 90
[2021-08-04] MEDS: ACETAMINOPHEN 1,000 MG/100 ML BTL 400 MG IVPB (16:27)
[2021-08-04 20:45] VITALS: O2SAT 90
[2021-08-04 23:16] VITALS: BP 124/68; PULSE 84; RESP 15; TEMP 37.2; O2SAT 94
[2021-08-05] VITALS (14 sets, daily range): BP systolic 108–170; BP diastolic 61–84; PULSE 86–91; RESP 12–27; TEMP 36.4–37.3; O2SAT 89–95; BMI 31.9
--- NOTE | 2021-08-05 | DI.RAD_ITS ---
Exam(s) XR ABDOMEN FLAT UPRIGHT EXAM: XR ABDOMEN FLAT UPRIGHT CLINICAL HISTORY: SBO. TECHNIQUE: 2D digital imaging was performed. COMPARISON: CR,XR XR ABDOMEN FLAT UPRIGHT from 08/03/2021 FINDINGS: 3 views NG tube remains in the proximal stomach and the stomach is not distended.. However, there is still air-filled dilated small bowel loops with multiple air-fluid levels noted, co nsistent with significant obstructive pattern. No improvement. No obvious free air although the upp ermost aspect of the right hemidiaphragm on the upright view is not included in the field of view of this study. IMPRESSION: Mild worsening of the small distal small bowel obstruction. DATA REPOSITORY: RADIATION DOSE DELIVERED:
[2021-08-05] MEDS: Normal Saline 1,000 ML 125 ML IV ×2 (03:49→12:17)
[2021-08-05 07:02] LABS: Abs Immature Grans 0.02 10^3/uL (0.0-0.06); Absolute Basophil Count 0.02 10^3/uL (0.0-0.2); Absolute Eosinophil Count 0.01 10^3/uL (0.0-0.7); Absolute Lymphocyte Count 0.65 10^3/uL (1.2-3.4); Absolute Monocyte Count 0.61 10^3/uL (0.1-0.8); Absolute Neutrophil Count 4.31 10^3/uL (1.2-6.7); Basophils % 0.4; Eosinophils % 0.2; HCT 40.8 % (36.0-46.0); HGB 13.6 g/dL (11.2-15.7); Immature Grans % 0.4; Lymphocytes % 11.6; MCH 31.6 pg (27.0-33.0); MCHC 33.3 % (32.0-36.0); MCV 95 fL (80-95); Monocytes % 10.9; Neutrophils % 76.5; Platelet Count 166 10^3/uL (130-400); RBC 4.31 10^6/uL (3.93-5.22); RDW 13.2 % (11.7-14.6); RDW-SD 46.5 fL; WBC 5.62 10^3/uL (4.4-10.8)
[2021-08-05 07:14] LABS: Anion Gap 6.1 mmol/L (3-11); BUN 18 mg/dL (7-18); CO2 27.9 mmol/L (21.0-32.0); CREATININE 0.8 mg/dL (0.55-1.02); Calcium 8.3 mg/dL (8.5-10.1); Chloride 111 mmol/L (98-107); Glucose 161 mg/dL (74-106); Magnesium 1.9 mg/dL (1.8-2.4); PHOSPHORUS 2.5 mg/dL (2.6-4.7); Sodium 145 mmol/L (136-145)
[2021-08-05] MEDS: Ondansetron 4 MG/2 ML VIAL IVP (07:15)
[2021-08-05] MEDS: HYDROmorphone 2 MG/ML SYR 1 MG IVP ×2 (07:15→22:10)
[2021-08-05] MEDS: Normal Saline Flush 10 ML SYR IVP ×4 (07:16→23:48)
--- NOTE | 2021-08-05 08:05 | W.PM.PROGNOT ---
Date of Service Date of service: 08/05/21 Time of Service: 13:04 Assessment and Plan Assessment and plan (1) SBO (small bowel obstruction): Status: Acute Assessment and plan: Continue NPO status, NG tube in place. This was checked to ensure this is working properly. 350cc's out from NG Abdominal is distented and tender, no bowel sounds Will order abdominal xray Continue IV fluids Await Abdominal Xray results and labs. Given the lack of improvement, patient may require exploratory laparotomy. (2) Anaplasmosis: Status: Acute Subjective Subjective Interval history since last seen: Arrived with patient laying in bed comfortably visiting with her daughter. Patient states that her pain has been well controlled since admission. However she has not passing any flatus or bowel movements. She states that they had some issues and challenges with the NG tube over the weekend. Both the patient and her daughter are eager to find answers for they feel there has been no change in her symptoms. Exam Const General: cooperative, healthy appearing and comfortable Orientation: alert and oriented x3 Resp Effort & Inspection: normal respiratory effort, no audible wheezes and no cough GI Inspection: distended Palpation: soft, no guarding and tender with no rebound tenderness Percussion: tympanic to percussion Auscultation: absent bowel sounds Objective Last Vital Signs Temp 37.0 C 08/05/21 07:05 Pulse 87 08/05/21 07:05 Resp 14 08/05/21 07:05 BP 143/73 H 08/05/21 07:05 Pulse Ox 93 08/05/21 08:00 Laboratory Results - last 24 hr 08/05/21 08/05/21 06:28 06:28 WBC 5.62 RBC 4.31 Hgb 13.6 Hct 40.8 MCV 95 MCH 31.6 MCHC 33.3 RDW 13.2 Plt Count 166 MPV 11.0 Immature Gran % 0.4 Neutrophils % 76.5 Lymphocytes % 11.6 Monocytes % 10.9 Eosinophils % 0.2 Basophils % 0.4 Nucleated RBC % 0.0 Absolute Neutrophils 4.31 Absolute Lymphocytes 0.65 L Absolute Monocytes 0.61 Absolute Eosinophils 0.01 Absolute Basophils 0.02 Sodium 145 Potassium 4.0 Chloride 111 H Carbon Dioxide 27.9 Anion Gap 6.1 BUN 18 Creatinine 0.8 Estimated GFR/1.73 m2 >= 60.00 Glucose 161 H Calcium 8.3 L Phosphorus 2.5 L Magnesium 1.9 PAWSS Have you Been Recently Intoxicated or Drunk Within the Last 30 days?: No Have you Ever Experienced Previous Episodes of Alcohol Withdrawal?: No Have you ever Experienced Withdrawal Seizures?: No Have you ever Experienced Delirium Tremens(DT)s?: No Have you ever undergone Alcohol Rehabilitation Treatment (i.e, inpt ot outpatient treatment programs)?: No Have you ever Experienced Blackouts?: No Have you ever Combined Alcohol with other Downers within the last 90 days?: No Have you ever Combined Alcohol with any other Substance of Abuse during the last 90 days?: No Positive Blood Alcohol level on Presentation? [PCS.BAL]: No Evidence of Increased Autonomic Activity (i.e. HR>120, tremor, sweating, agitation, nausea)?: No Result: 0
[2021-08-05] MEDS: Enoxaparin 40 MG/0.4 ML SYR SC (10:27)
--- NOTE | 2021-08-05 15:18 | ANES.PREOP_ITS ---
General Info Date of Service Date Performed: 08/05/21 Height: 5 ft 8 in Weight: 95.254 kg Body Mass Index (BMI): 31.9 Surgical Procedure: Operation Date: 08/05/21 15:35 Proposed Procedure Side Surgeon p Exploratory Laparotomy possible Small Bowel Chanell Nails MD Meds Allergies and Home Medications Allergies Allergy/AdvReac Type Severity Reaction Status Date / Time pantoprazole sodium AdvReac Mild FELT Verified 08/02/21 04:47 [From Protonix] TERRIBLE Home Medication Medication Instructions Recorded Centrum Silver Tablet 1 ea PO DAILY 11/15/12 lancets 28 gauge #400 ea 01/17/15 blood sugar diagnostic (Contour #100 ea 07/19/19 Test Strips) magnesium gluconate 27 mg 500 mg PO DAILY PRN #90 tab-caps 08/19/19 magnesium (500 mg) tablet cholecalciferol (vitamin D3) 50 See Rx Instructions PO DAILY PRN 09/17/20 mcg (2,000 unit) capsule (Vitamin D3) occuvite 1 tab PO DAILY 05/13/21 albuterol sulfate 90 mcg/actuation 2 puff inhalation Q4H PRN PRN 06/22/21 aerosol inhaler (Proventil HFA) losartan 25 mg tablet 50 mg PO DAILY 08/02/21 losartan 25 mg tablet PO DAILY 08/02/21 Current Visit Medications: Current Medications Generic Name Dose Route Start Last Admin Trade Name Freq PRN Reason Stop Dose Admin Albuterol Sulfate 2 puff 08/03/21 10:04 Albuterol Hfa 8 Gm 60 Puff Inh IH Q4H PRN PRN Device 1 each 08/03/21 11:00 Inhaler, Assist Device DIRECTED SERGE Enoxaparin Sodium 40 mg 08/02/21 10:00 08/05/21 10:27 Enoxaparin 40 Mg/0.4 Ml Syr SC 40 mg Q24H SERGE Administration Hydromorphone HCl 1 mg 08/02/21 21:54 08/05/21 07:15 Hydromorphone 2 Mg/Ml Syr IVP 1 mg Q4H PRN PRN Administration Sodium Chloride 500 mls @ 0 mls/hr 08/02/21 06:49 Saline 500ml Bag IV PRN PRN As Directed Sodium Chloride 1,000 mls @ 125 mls/hr 08/02/21 07:00 08/05/21 12:17 Saline 1000ml Bag IV 125 mls/hr INFUSION SERGE Administration Acetaminophen 1,000 mg in 100 mls @ 400 mls/hr 08/02/21 06:51 08/04/21 16:42 Ofirmev IVPB Infused Q8H PRN PRN Infusion IV Miscellaneous Supplies 1 each 08/02/21 05:00 Iv Access IV DIRECTED SERGE Metoclopramide HCl 5 mg 08/02/21 14:48 08/04/21 09:36 Metoclopramide 10 Mg/2 Ml Vial IVP 5 mg Q6H PRN PRN Administration Ondansetron HCl 4 mg 08/02/21 06:49 08/05/21 07:15 Ondansetron 4 Mg/2 Ml Vial IVP 4 mg Q4H PRN PRN Administration Sodium Chloride 0 ml 08/02/21 04:53 08/05/21 07:16 Normal Saline Flush 10 Ml Syr IVP 20 ml PRN PRN Administration PFSH Active Problems Active Problems: Problem Status Onset Code Anaplasmosis A77.49 SBO (small bowel obstruction) K56.609 Schmorl's nodes of the thoracic region M51.44 Category 3 mammography result with short follow-up interval suggested for pr obably benign finding R92.8 Hypertension ~10/2019 I10 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 Family history of breast cancer Z80.3 Obesity 11/08/12 E66.9 Benign neoplasm of colon 11/08/13 D12.6 Degenerative joint disease of hand 11/08/12 COPD, mild 05/08/15 J44.9 Osteopenia 11/08/12 M85.80 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 Type 2 diabetes mellitus without complication 10/23/14 E11.9 Vitamin D deficiency 11/08/12 E55.9 Medical History Medical History 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 Hypokalemia Resolved with dietary supplementation (bananas, strawberries) Nuclear sclerotic cataract of left eye Nuclear sclerotic cataract of right eye 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/12) Rx Mag Gluconate (Dr Oliva) Surgical History Surgical History History of tonsillectomy and adenoidectomy S/P trigger finger release R third ~2010 Status post cataract extraction and insertion of intraocular lens of left eye (04/05/18) Status post cataract extraction and insertion of intraocular lens of right eye (03/22/18) Tobacco Smoking/Tobacco Use Status: Never Alcohol Alcohol Intake: current Alcohol intake frequency: a few times a week Alcohol type: wine Substance Use Substance use: Never Substance use type: does not use Vital Signs and Lab Results Vital Signs Most Recent Vital Signs in EMR: Most Recent Vital Signs Temp Pulse Resp BP Pulse Ox 37.2 C 90 18 108/75 92 08/05/21 14:56 08/05/21 14:56 08/05/21 14:56 08/05/21 14:56 08/05/21 14:56 Lab Results Result Diagrams: 08/05/21 06:28 08/05/21 06:28 Blood Type / Crossmatch: No Data to Display Complete Blood Count: White Blood Count 5.62 10^3/uL (4.4-10.8) 08/05/21 06:28 Red Blood Count 4.31 10^6/uL (3.93-5.22) 08/05/21 06:28 Hemoglobin 13.6 g/dL (11.2-15.7) 08/05/21 06:28 Hematocrit 40.8 % (36.0-46.0) 08/05/21 06:28 Platelet Count 166 10^3/uL (130-400) 08/05/21 06:28 Complete Metabolic Panel: Sodium Level 145 mmol/L (136-145) 08/05/21 06:28 Potassium Level 4.0 mmol/L (3.5-5.1) 08/05/21 06:28 Chloride Level 111 mmol/L (98-107) H 08/05/21 06:28 Carbon Dioxide Level 27.9 mmol/L (21.0-32.0) 08/05/21 06:28 Blood Urea Nitrogen 18 mg/dL (7-18) 08/05/21 06:28 Creatinine 0.8 mg/dL (0.55-1.02) 08/05/21 06:28 Estimated GFR/1.73 m2 >= 60.00 (mL/min/1.73m2) 08/05/21 06:28 Magnesium Level 1.9 mg/dL (1.8-2.4) 08/05/21 06:28 Calcium Level 8.3 mg/dL (8.5-10.1) L 08/05/21 06:28 Albumin 2.9 g/dL (3.4-5.0) L 08/03/21 06:02 Glucose Level 161 mg/dL (74-106) H 08/05/21 06:28 Liver Function Panel: Alanine Aminotransferase (ALT/SGPT) 18 U/L (14-59) 08/03/21 06: 02 Aspartate Amino Transf (AST/SGOT) 14 U/L (15-37) L 08/03/21 06: 02 Coagulation Panel: No Data to Display Cardiac Panel: Troponin I < 50 ng/L (<or=60) 08/02/21 Arterial Blood Gas: No Data to Display Venous Blood Gas: Venous Blood pH 7.50 (7.31-7.41) H 08/02/21 05:00 Venous Blood Partial Pressure O2 53 mmHg 08/02/21 05:00 Venous Blood Partial Pressure CO2 33 mmHg (41-51) L 08/02/21 05 :00 Venous Blood Oxygen Saturation 91 % 08/02/21 05:00 Venous Blood HCO3 26 mmol/L (23-28) 08/02/21 05:00 Venous Blood Base Excess 2 mmol/L (-2-3) 08/02/21 05:00 Venous Blood Total Carbon Dioxide 22 mmol/L (24-29) L 08/02/21 05:00 Pancreas Panel: Lipase 29 U/L (73-393) 08/03/21 06:02 Thyroid Panel: Thyroid Stimulating Hormone (TSH) 1.58 uIU/mL (0.36-3.74) 08/03 06:02 Infectious Disease: Coronavirus (COVID-19)(PCR) Negative (Negative) 08/02/21 05:00 Coronavirus 2019 Source Nasal/Nares 08/02/21 05:00 Blood Cultures: No Data to Display Toxicology Panel: No Data to Display Imaging and Studies Imaging and Studies Study information below may be from another EMR and interpreted by another provider. Please see original notes in EMR for more complete details. EKG Summary: Sinus rhythm. Prolonged MD interval. 09/14/20 Pulmonary Function Summary: IMPRESSION: Overall mild obstructive airway disease with no significant bronchodilator response. Clinical correlation recommended. 04/27/15 Anesthesia Assessment and Plan Anesthesia History Personal History: No History of Anesthesia Complications Family History: No Family History of Anesthesia Complications Exercise Tolerance Exercise Tolerance: Metabolic Equivalents>4 Pertinent Negatives Pertinent Negatives: No Symptoms of GERD, No Major Cardiovascular Symptoms or Complaints, No Major Pulmonary Symptoms or Complaints and No History of CVA/TIA Cardiac & Pulmonary Exam Cardiac Exam: Normal S1/S2 Heart Sounds Pulmonary Exam: Clear Bilateral Breath Sounds Implantable Cardiac Device Does patient have a Pacemaker or an ICD?: No Airway Exam Known Difficult Airway: No Mallampati Class: 3 Mouth Opening: Normal (> 3cm) Thyromental Distance: Greater than 3 cm Neck Range of Motion: Full ROM Neck Circumference: Normal Teeth Condition: Loose or Chipped (Chipped in half 14 ) ASA Classification ASA Score: ASA 2 Emergency Case?: Yes NPO Status NPO Status: NPO Clears >2 hours, Solids >8 hours Anesthesia Plan Resuscitation Status: Full Code Anesthesia Technique: General Anesthesia Airway Planned: Endotracheal Tube Monitors Used: Standard Monitors
[2021-08-05] MEDS: Lactated Ringers 1,000 ML 125 ML IV ×2 (16:00→21:26)
--- NOTE | 2021-08-05 16:14 | PDOC.CMPRO ---
- If Service Date Differs Date of service: 08/05/21 Time of Service: 16:14 Care Management Progress Note S/O: Katie remains inpatient, no change to overall plan. CM continues to follow. A: 80 year old female admitted to [facility] 07/30/21 SBO P: Katie will likely return home with no new services when medically cleared by provider. She will follow up with her PCP, surgeon, and discharge plan of care as prescribed. She will be driven home via private vehicle by either one of her daughters or a friend when ready. CM will continue to follow.
[2021-08-05] MEDS: Lidocaine 2% Multi-Dose 50 ML VIAL (17:00)
[2021-08-05] MEDS: fentaNYL 100 MCG/2 ML VIAL IVP ×2 (17:37→17:44)
--- NOTE | 2021-08-05 17:41 | W.PM.OP ---
Date of service: 08/05/21 Time of Service: 17:41 Operative Note Operative Note DATE OF PROCEDURE: 08/05/21 PRE-OP DIAGNOSIS: small bowel obstruction POST-OP DIAGNOSIS: same PROCEDURE: Exploratory laparotomy and lysis of band SURGEON: Chanell Nails [employer]URAL [employer] ASSOCIATE: Veronica Landa ANESTHESIA TYPE: Local By Surgeon and General LMA/ETT Refer to Anesthesia Record ESTIMATED BLOOD LOSS: 50 PATHOLOGY: none sent COMPLICATIONS: None Patient was transported to: PACU Patient's condition: stable Implants: None Indications: Patient seen and examined prior to surgery ABDO: soft, distended and tender to palpation. No BS XRAY mild worsening of the small bowel dilatation A: 80 year old female PAD #4 with SBO. Therre was been no improvement in her symptoms and her XRAY has shown worsening diilatation. I am worried that she may end up perforatioing or with bowel necrosis. ? ? Explained to patient my worries and that I would recommend surgery to releave the obstruction ?? ? Risks, benefits and complications, including ID, Stroke and were reviwed.? Her questions were answered to her satisfaction and she wished to proceed. P: Ex-lap, possible bowel resection Findings: small band of tissue which was tethering the small bowel in 2 areas. This created a closed loop obstruction. There was marked edema and venous stasis in the mesentery. The bowel did pink up once the band was severed. Large intesting with soft stool throughout Procedure Description: After informed consent was obtained the patient was taken to the Operating room and placed in a supine position on the operating room table. Monitors were applied and the patient was placed under anesthesia and intubated without complications. A lanza catheter was placed in a standard fashion. Next her abdomen was prepped and draped in a standard fashion. A time out was done and the patient's name, date of , procedure to be done, site, allergies to medications, antibiotics given and DVT prophilaxis were reviewed. Fire risk was assessed. 2 % Lidocaine was injected in the midline dermis and subcutaneous tissue from just below the xiphoid process to just above the umbilicus. Using a 10 blade an incision was made. Dissection was done with cautery down to the fascia. The fascia was carefully opened. Blunt dissection with my finger was done to get through the peritoneum. Once in the abdominal cavity the peritoneum was opened with cautery the entire length of the skin incision. There was serosanguinous fluid noted within the abdomen which was suctioned. Next the small intestine was inspected at the ligament of treitz and followed all the way to the distal jejunum. There was fluid and air within the bowel. I the reached my hand down into the pelvis and felt some thickening. I then lengthened my midline incision to below the umbilicus with a ten blade. The subcutaneous tissue and fascia were cut using cautery. I was then able to gently bring up the dilated small bowel and noted venous congestion of the mesentary. The bowel looked dark purple. A band of tissue was noted to be laying over the small bowel acting like a tourniquet. The band was cut. I waited for a few minutes. While waiting the air and fluid was gently massaged to the stomach to be evacuated by the NG tube. Once the small bowel was decompressed I took another look at the small intestine. The bowel was now pink. There was peristalsis noted. The small intestine was placed back into her abdomen and the abdomen was irrigated with 3 L of warm saline. At the end the effluent was clear. The oemntum was placed back over the small bowel and 2 sheets of interseed were placed under the incision. At this point the midline incision was closed with 0 looped PDS. The fascia was infiltrated with 40 cc of exparel and 0.25% Bupivocaine plain. The skin was then closed with shaina. The skin was cleaned and dried and a ANGELINA dressing (35 cm long) was placed over the midline incision. Sponge instrument and needle counts were correct at the end of the case. The patient was woken up, extubated and taken back to [facility] in stable condition. There were no immediate complications.
[2021-08-05] MEDS: fentaNYL 100 MCG/2 ML VIAL (17:43)
[2021-08-05] MEDS: HYDROmorphone 2 MG/ML VIAL IVP ×3 (17:56→18:17)
[2021-08-05] MEDS: Ketorolac 15 MG/ML VIAL IVP ×2 (18:29→23:48)
--- NOTE | 2021-08-05 18:56 | W.ANESPOSTOP ---
Postoperative Evaluation Date, Time and Location Date Performed: 08/05/21 Time Performed: 18:30 Patient Location: PACU Vital Signs Most Recent Imported Vital Signs: Most Recent Vital Signs Temp Pulse Resp BP Pulse Ox 36.4 C L 87 19 159/67 H 93 08/05/21 17:49 08/05/21 18:31 08/05/21 18:31 08/05/21 18:31 08/05/21 18:31 Pain Score Most Recent Pain Score: Most Recent Pain Score Pain Level 5 08/05/21 18:31 Assessment Mental Status: Awake (Alert & Oriented to Patient Baseline) Airway and Respiratory Function: Patent airway with normal (patient baseline) respiratory exam Cardiovascular Function: Hemodynamically Stable Hydration Status: Adequately Hydrated Nausea & Vomiting: No Nausea or Vomiting Pain: Pain is Moderate or Severe Postoperative Pain Management: Ongoing pain, patient will be managed as an inpatient Peripheral Nerve Block: Patient did not receive a nerve block
[2021-08-05] MEDS: ACETAMINOPHEN 1,000 MG/100 ML BTL 400 MG IVPB (20:26)
--- NOTE | 2021-08-05 20:42 | NUR.NOTE ---
Nursing Note: Pt brought down to OR/PACU by this [facility]IE[facility]NT at 1530. Patient arrived back from PACU to her room in 211 and arrived at 1850. Patient had an open exploratory abdominal surgery. Anesthesia reports poor post op pain control, pt now reporting pain at a 2-3/10 while she is not moving. Patient has IV access x2 in the left wrist. ANGELINA dressing/vac to midline abdomen, minimal bloody drainage noted. Vital signs stable.
[2021-08-05] MEDS: Nystatin CREAM 15 GM TUBE TP (22:12)
[2021-08-06] VITALS (7 sets, daily range): BP systolic 124–156; BP diastolic 64–78; PULSE 77–94; RESP 18–19; TEMP 36.9–37.6; O2SAT 90–95
[2021-08-06] MEDS: ACETAMINOPHEN 1,000 MG/100 ML BTL 400 MG IVPB ×3 (04:25→20:13)
[2021-08-06] MEDS: Lactated Ringers 1,000 ML 125 ML IV ×3 (05:16→21:12)
[2021-08-06] MEDS: Ketorolac 15 MG/ML VIAL IVP ×3 (05:56→17:54)
--- NOTE | 2021-08-06 06:36 | W.PM.PROGNOT ---
Date of Service Date of service: 08/06/21 Time of Service: 06:36 Assessment and Plan Assessment and plan (1) SBO (small bowel obstruction): Status: Acute Assessment and plan: POD #1 s/p ex-lap and resection of band causing SBO. P: 1. continue with ice chips and popsicles 2. OOB walking and to chair at least TID 3. Continue with NG to suction 4. Await return of GI function before advancing to a clear liquid diet 5. Pain seems well controlled. Continue with Dilauded, Tylenol and Toradol (2) COPD, mild: Status: Chronic Subjective Subjective Interval history since last seen: Madi is doing well this morning. She only required Dilauded once last night. She has not passed any flatus. Patient states she has heard some grumbling in her belly. NG is in place. She had >800 cc out since surgery. It still looks dark brown. Nursing staff had no concerns this am Exam Const General: comfortable and no acute distress HENMT Head: normocephalic and atraumatic Resp Effort & Inspection: normal respiratory effort Auscultation: clear to auscultation bilaterally Cardio Rate: regular rate Rhythm: regular rhythm GI Palpation: soft, no hepatosplenomegaly and tender (appropriatly tender aloing the incision) Auscultation: hypoactive bowel sounds Objective Last Vital Signs Temp 98.8 F 08/06/21 04:23 Pulse 77 08/06/21 04:23 Resp 19 08/06/21 04:23 BP 124/66 08/06/21 04:23 Pulse Ox 94 08/06/21 04:23 Laboratory Results - last 24 hr 08/05/21 08/05/21 06:28 06:28 WBC 5.62 RBC 4.31 Hgb 13.6 Hct 40.8 MCV 95 MCH 31.6 MCHC 33.3 RDW 13.2 Plt Count 166 MPV 11.0 Immature Gran % 0.4 Neutrophils % 76.5 Lymphocytes % 11.6 Monocytes % 10.9 Eosinophils % 0.2 Basophils % 0.4 Nucleated RBC % 0.0 Absolute Neutrophils 4.31 Absolute Lymphocytes 0.65 L Absolute Monocytes 0.61 Absolute Eosinophils 0.01 Absolute Basophils 0.02 Sodium 145 Potassium 4.0 Chloride 111 H Carbon Dioxide 27.9 Anion Gap 6.1 BUN 18 Creatinine 0.8 Estimated GFR/1.73 m2 >= 60.00 Glucose 161 H Calcium 8.3 L Phosphorus 2.5 L Magnesium 1.9 PAWSS Have you Been Recently Intoxicated or Drunk Within the Last 30 days?: No Have you Ever Experienced Previous Episodes of Alcohol Withdrawal?: No Have you ever Experienced Withdrawal Seizures?: No Have you ever Experienced Delirium Tremens(DT)s?: No Have you ever undergone Alcohol Rehabilitation Treatment (i.e, inpt ot outpatient treatment programs)?: No Have you ever Experienced Blackouts?: No Have you ever Combined Alcohol with other Downers within the last 90 days?: No Have you ever Combined Alcohol with any other Substance of Abuse during the last 90 days?: No Positive Blood Alcohol level on Presentation? [PCS.BAL]: No Evidence of Increased Autonomic Activity (i.e. HR>120, tremor, sweating, agitation, nausea)?: No Result: 0
--- NOTE | 2021-08-06 07:07 | W.ANESPOSTOP ---
Postoperative Evaluation Date, Time and Location Date Performed: 08/06/21 Time Performed: 07:07 Patient Location: Med/Surg Vital Signs Most Recent Imported Vital Signs: Most Recent Vital Signs Temp Pulse Resp BP Pulse Ox 37.1 C 77 19 124/66 94 08/06/21 04:23 08/06/21 04:23 08/06/21 04:23 08/06/21 04:23 08/06/21 04:23 Most Recent Vital Signs Temp Pulse Resp BP Pulse Ox 36.4 C L 87 19 159/67 H 93 08/05/21 17:49 08/05/21 18:31 08/05/21 18:31 08/05/21 18:31 08/05/21 18:31 Pain Score Most Recent Pain Score: Most Recent Pain Score Pain Level 0 08/06/21 05:56 Assessment Mental Status: Awake (Alert & Oriented to Patient Baseline) Airway and Respiratory Function: Patent airway with normal (patient baseline) respiratory exam Cardiovascular Function: Hemodynamically Stable Hydration Status: Adequately Hydrated Nausea & Vomiting: No Nausea or Vomiting Pain: Pain is tolerable per patient Peripheral Nerve Block: Patient did not receive a nerve block
[2021-08-06 07:22] LABS: Abs Immature Grans 0.02 10^3/uL (0.0-0.06); Absolute Basophil Count 0.02 10^3/uL (0.0-0.2); Absolute Eosinophil Count 0.01 10^3/uL (0.0-0.7); Absolute Lymphocyte Count 0.71 10^3/uL (1.2-3.4); Absolute Monocyte Count 0.86 10^3/uL (0.1-0.8); Absolute Neutrophil Count 5.51 10^3/uL (1.2-6.7); Basophils % 0.3; Eosinophils % 0.1; HCT 37.1 % (36.0-46.0); HGB 12.5 g/dL (11.2-15.7); Immature Grans % 0.3; MCH 31.5 pg (27.0-33.0); MCHC 33.7 % (32.0-36.0); MCV 94 fL (80-95); MPV 10.8 fL (8.0-11.0); Monocytes % 12.1; Neutrophils % 77.2; Platelet Count 163 10^3/uL (130-400); RBC 3.97 10^6/uL (3.93-5.22); RDW 12.8 % (11.7-14.6); RDW-SD 44.1 fL; WBC 7.13 10^3/uL (4.4-10.8)
[2021-08-06 07:34] LABS: Anion Gap 6.5 mmol/L (3-11); BUN 22 mg/dL (7-18); CO2 28.5 mmol/L (21.0-32.0); CREATININE 0.9 mg/dL (0.55-1.02); Calcium 8.6 mg/dL (8.5-10.1); Chloride 110 mmol/L (98-107); Glucose 142 mg/dL (74-106); Potassium 3.9 mmol/L (3.5-5.1); Sodium 145 mmol/L (136-145)
[2021-08-06] MEDS: Nystatin CREAM 15 GM TUBE TP (09:10)
[2021-08-06 11:33] LABS: Lyme Ab w Rflx to Lyme Confirm Negative (Negative)
[2021-08-06] MEDS: Normal Saline 500 ML IV (16:20)
--- NOTE | 2021-08-06 16:27 | PDOC.CMPRO ---
- If Service Date Differs Date of service: 08/06/21 Time of Service: 16:27 Care Management Progress Note S/O: Katie continues to be closely monitored and treated; her pain is currently controlled and she is ambulating in the hallways. CM continues to follow. A: 80 year old female admitted to [facility] 07/30/21 SBO P: Katie will likely return home with no new services when medically cleared by provider. She will follow up with her PCP, surgeon, and discharge plan of care as prescribed. She will be driven home via private vehicle by either one of her daughters or a friend when ready. CM will continue to follow.
[2021-08-06] MEDS: Normal Saline Flush 10 ML SYR IVP (17:54)
--- NOTE | 2021-08-06 20:11 | PGE_ITS ---
Date of Service Date of service: 08/06/21 Time of Service: 20:12 Assessment and Plan Assessment and plan (1) SBO (small bowel obstruction): Status: Acute Assessment and plan: POD#1 Ex lap and lysis of adhesions cont ngt to LIS walk pulm toilet fluid bolus local wound care/supportive care (2) Hypertension: Status: Chronic Qualifiers: Hypertension type: essential hypertension Qualified Code(s): I10 - Essential (primary) hypertension (3) Foraminal stenosis of cervical region: Status: Resolved (4) COPD, mild: Status: Chronic (5) Osteopenia: Status: Chronic (6) Type 2 diabetes mellitus without complication: Status: Chronic Qualifiers: Diabetes mellitus marine oil terminal superintendent insulin use: without marine oil terminal superintendent use Qualified Code(s): E11.9 - Type 2 diabetes mellitus without complications Subjective Subjective Interval history since last seen: pt has been up walking. Pain is controlled. She notes it is significantly better today. Urine output has been low over the afternoon. Not passing any flatus. 600cc output in the last 4hrs. Exam Resp Effort & Inspection: normal respiratory effort and able to speak in complete sentences Auscultation: clear to auscultation bilaterally Cardio Rate: regular rate Rhythm: regular rhythm GI Other: no BS. nl postOp pain. Extrem General: no clubbing, cyanosis or edema Objective Last Vital Signs Temp 37.6 C H 08/06/21 19:00 Pulse 84 08/06/21 19:00 Resp 19 08/06/21 19:00 BP 151/78 H 08/06/21 19:00 Pulse Ox 92 08/06/21 19:00 Laboratory Results - last 24 hr 08/05/21 08/06/21 08/06/21 06:28 07:05 07:05 WBC 7.13 RBC 3.97 Hgb 12.5 Hct 37.1 MCV 94 MCH 31.5 MCHC 33.7 RDW 12.8 Plt Count 163 MPV 10.8 Immature Gran % 0.3 Neutrophils % 77.2 Lymphocytes % 10.0 Monocytes % 12.1 Eosinophils % 0.1 Basophils % 0.3 Nucleated RBC % 0.0 Absolute Neutrophils 5.51 Absolute Lymphocytes 0.71 L Absolute Monocytes 0.86 H Absolute Eosinophils 0.01 Absolute Basophils 0.02 Sodium 145 Potassium 3.9 Chloride 110 H Carbon Dioxide 28.5 Anion Gap 6.5 BUN 22 H Creatinine 0.9 Estimated GFR/1.73 m2 >= 60.00 Glucose 142 H Calcium 8.6 Magnesium 2.0 Lyme Disease Antibody Negative PAWSS Have you Been Recently Intoxicated or Drunk Within the Last 30 days?: No Have you Ever Experienced Previous Episodes of Alcohol Withdrawal?: No Have you ever Experienced Withdrawal Seizures?: No Have you ever Experienced Delirium Tremens(DT)s?: No Have you ever undergone Alcohol Rehabilitation Treatment (i.e, inpt ot outpatient treatment programs)?: No Have you ever Experienced Blackouts?: No Have you ever Combined Alcohol with other Downers within the last 90 days?: No Have you ever Combined Alcohol with any other Substance of Abuse during the last 90 days?: No Positive Blood Alcohol level on Presentation? [PCS.BAL]: No Evidence of Increased Autonomic Activity (i.e. HR>120, tremor, sweating, agitation, nausea)?: No Result: 0
[2021-08-07] VITALS (11 sets, daily range): BP systolic 131–154; BP diastolic 61–78; PULSE 71–87; RESP 16–20; TEMP 37–37.7; O2SAT 88–92
[2021-08-07] MEDS: Normal Saline Flush 10 ML SYR IVP ×4 (00:58→17:42)
[2021-08-07] MEDS: Ketorolac 15 MG/ML VIAL IVP ×4 (00:58→17:42)
[2021-08-07] MEDS: ACETAMINOPHEN 1,000 MG/100 ML BTL 400 MG IVPB ×3 (03:45→20:01)
[2021-08-07 07:49] LABS: BUN 23 mg/dL (7-18); CREATININE 0.7 mg/dL (0.55-1.02); Calcium 8.3 mg/dL (8.5-10.1); Chloride 107 mmol/L (98-107); Glucose 104 mg/dL (74-106); Magnesium 1.9 mg/dL (1.8-2.4); Potassium 3.3 mmol/L (3.5-5.1); Sodium 145 mmol/L (136-145)
--- NOTE | 2021-08-07 09:02 | PDOC.CMPRO ---
- If Service Date Differs Date of service: 08/07/21 Time of Service: 09:02 Care Management Progress Note S/O: Katie was sitting up in a chair when CM met with her. She has an NG tube and admits to being uncomfortable but stated she is much improved from admission. Katie lives alone but has 2 daughters who have come to help her and will stay with her when she is discharged. She verbalized that she does not believe that she will need any services at home.Per Dr. Quinones, Katie will likely be discharged by the end of the week. She has good bowel soubnds but has not had a BM yet. A: 80 year old female admitted to [facility] 07/30/21 with a SBO P: Katie will likely return home with no new services when medically cleared by provider. She will follow up with her PCP, surgeon, and discharge plan of care as prescribed. She will be driven home via private vehicle by either one of her daughters or a friend when ready. CM will continue to follow.
--- NOTE | 2021-08-07 09:24 | W.PM.PROGNOT ---
Date of Service Date of service: 08/07/21 Time of Service: 07:01 Assessment and Plan Assessment and plan (1) SBO (small bowel obstruction): Status: Acute Assessment and plan: POD #2 s/p ex-lap and resection of band causing SBO. Continue with ice chips and popsicles. Will track I&Os closely OOB walking and to chair at least TID Continue with NG to suction (+) Bowel sounds, no flatus or BM. Last BM was 08/02 Pain Continues to be well controlled. Continue with Dilauded, Tylenol and Toradol Ordered replacement for potassium. Benzocaine lozenges for throat irritation. (2) COPD, mild: Status: Chronic Subjective Subjective Interval history since last seen: Arrived with patient resting comfortably in bed. Patient reports that she continues to have muscle soreness and tightness postoperatively. She denies any nausea or vomiting. She has not passed any flatus or stool. She states that she is hungry and daydreaming about food. Exam Const General: cooperative and comfortable Nutritional Appearance: average body habitus Orientation: alert and oriented x3 Resp Effort & Inspection: normal respiratory effort, no audible wheezes and no cough GI Inspection: distended Palpation: soft, no guarding and tender Auscultation: normal bowel sounds Other: ANGELINA dressing in place. No change in drainage. No surrounding erythema, swelling or induration noted on exam. Objective Last Vital Signs Temp 37.3 C 08/07/21 07:00 Pulse 71 08/07/21 07:00 Resp 19 08/07/21 07:00 BP 138/71 08/07/21 07:00 Pulse Ox 92 08/07/21 07:00 Laboratory Results - last 24 hr 08/05/21 08/07/21 06:28 06:35 Sodium 145 Potassium 3.3 L Chloride 107 Carbon Dioxide 33.0 H Anion Gap 5.0 BUN 23 H Creatinine 0.7 Estimated GFR/1.73 m2 >= 60.00 Glucose 104 Calcium 8.3 L Magnesium 1.9 Lyme Disease Antibody Negative PAWSS Have you Been Recently Intoxicated or Drunk Within the Last 30 days?: No Have you Ever Experienced Previous Episodes of Alcohol Withdrawal?: No Have you ever Experienced Withdrawal Seizures?: No Have you ever Experienced Delirium Tremens(DT)s?: No Have you ever undergone Alcohol Rehabilitation Treatment (i.e, inpt ot outpatient treatment programs)?: No Have you ever Experienced Blackouts?: No Have you ever Combined Alcohol with other Downers within the last 90 days?: No Have you ever Combined Alcohol with any other Substance of Abuse during the last 90 days?: No Positive Blood Alcohol level on Presentation? [PCS.BAL]: No Evidence of Increased Autonomic Activity (i.e. HR>120, tremor, sweating, agitation, nausea)?: No Result: 0
[2021-08-07] MEDS: POTASSIUM CHLORIDE 10 MEQ/100 ML BAG 100 MEQ IVPB (10:03)
[2021-08-07] MEDS: Normal Saline 500 ML 30 ML IV (13:18)
[2021-08-07] MEDS: Lactated Ringers 1,000 ML 125 ML IV (14:40)
[2021-08-07 17:04] LABS: Anaplasma phagocytophilum Ab <1:64 titer (<1:64)
[2021-08-07] MEDS: Metoclopramide 10 MG/2 ML VIAL IVP (17:41)
[2021-08-07] MEDS: Bisacodyl 10 MG SUPP PR (18:05)
[2021-08-07] MEDS: Metoprolol 5 MG/5 ML VIAL 2.5 MG IVP (20:01)
[2021-08-08] VITALS (14 sets, daily range): BP systolic 117–143; BP diastolic 47–82; PULSE 58–92; RESP 14–19; TEMP 36.8–37.7; O2SAT 90–98
[2021-08-08] MEDS: Metoprolol 5 MG/5 ML VIAL 2.5 MG IVP ×3 (00:57→12:28)
[2021-08-08] MEDS: Ketorolac 15 MG/ML VIAL IVP ×3 (00:57→12:27)
[2021-08-08] MEDS: Metoclopramide 10 MG/2 ML VIAL IVP ×5 (00:57→23:57)
[2021-08-08] MEDS: ACETAMINOPHEN 1,000 MG/100 ML BTL 400 MG IVPB ×2 (04:34→12:27)
[2021-08-08 06:10] LABS: Anaplasma phagocytophilum Negative (Negative); Ehrlichia chaffeensis Negative (Negative); Ehrlichia ewingii/canis Negative (Negative); Ehrlichia muris eauclairensis Negative (Negative)
[2021-08-08 06:54] LABS: Anion Gap 10.6 mmol/L (3-11); BUN 18 mg/dL (7-18); CO2 29.4 mmol/L (21.0-32.0); CREATININE 0.8 mg/dL (0.55-1.02); Calcium 8.4 mg/dL (8.5-10.1); Chloride 105 mmol/L (98-107); Glucose 97 mg/dL (74-106); Magnesium 1.8 mg/dL (1.8-2.4); Potassium 3.2 mmol/L (3.5-5.1); Sodium 145 mmol/L (136-145)
--- NOTE | 2021-08-08 08:27 | DI.RAD_ITS ---
Exam(s) XR ABDOMEN FLAT UPRIGHT EXAM: 2D digital imaging was performed. CLINICAL HISTORY: check NG tube placement. COMPARISON: CR,XR XR CHEST 1V IN DI DEPT from 08/03/2021 CR XR ABDOMEN FLAT UPRIGHT from 08/05/2021 TECHNIQUE: Supine and upright views of the abdomen was performed. Four images were obtained. FINDINGS: LUNG BASES: There are small bilateral pleural effusions. BOWEL GAS PATTERN: There are persistent dilated loops of small bowel with air-fluid levels consistent with small-bowel obstruction. It does not appear to be significantly changed compared to the prior examination. FREE AIR: None. CALCIFICATIONS: No radiopaque calcifications. OSSEOUS STRUCTURES: Normal for age. OTHER FINDINGS: The tip of the nasogastric tube is again seen in the body of the stomach. Surgical s taples are seen in the midline of the abdomen. IMPRESSION: 1. Stable small-bowel obstruction. 2. Tip of the NG tube is seen in the body of the stomach. DATA REPOSITORY: RADIATION DOSE DELIVERED:
[2021-08-08] MEDS: Nystatin CREAM 15 GM TUBE TP ×2 (08:42→20:28)
--- NOTE | 2021-08-08 10:18 | CMPROGNOTE_ITS ---
- If Service Date Differs Date of service: 08/08/21 Time of Service: 10:19 Care Management Progress Note S/O: Katie continues to be closely monitored and treated: NG tube removed and Katie encouraged to ambulate. CM continues to follow. A: 80 year old female admitted to [facility] 07/30/21 with a SBO P: Katie will likely return home with no new services when medically cleared by provider, she has two supportive daughters to help her at home. She will follow up with her PCP, surgeon, and discharge plan of care as prescribed. She will be driven home via private vehicle by either one of her daughters or a friend when ready. CM will continue to follow.
--- NOTE | 2021-08-08 12:05 | W.NUTCONSULT ---
Date of service: 08/08/21 Time of Service: 12:05 Nutritional Consult ASSESSMENT: 80 year old female admitted on 08/02/21 with SBO, s/p ex lap with lysis of adhensions on 08/05/21. Has been NPO x 7 days. Katie was well nourished prior to hospitalization with BMI indicating class 1 obesity. Estimated Needs: 6896-7080 kcal, 75-85 g protein At high nutritional risk in view of extended NPO status. Continues to tolerate ice chips, receiving IV fluids, awaiting flatus to advance diet. NUTRITIONAL DIAGNOSIS: Inadequate macronutrient intake due to extended NPO status INTERVENTION: consider TPN if unable to advance diet in next 48 hours. MONITORING AND EVALUATION: diet, po intake, labs Time Spent in Nutritional Counseling and Treatment: 5
[2021-08-08] MEDS: Normal Saline Flush 10 ML SYR IVP ×3 (12:33→23:57)
--- NOTE | 2021-08-08 17:54 | W.PM.PROGNOT ---
Date of Service Date of service: 08/08/21 Time of Service: 17:54 Assessment and Plan Assessment and plan (1) SBO (small bowel obstruction): Status: Acute Assessment and plan: POD #3 s/p ex-lap and resection of band causing SBO. Clear liquids OOB walking and to chair at least TID Pain Continues to be well controlled. Continue with Dilauded, Tylenol and Toradol Ordered replacement for potassium. Benzocaine lozenges for throat irritation. (2) COPD, mild: Status: Chronic Subjective Subjective Interval history since last seen: Katie is doing well. The NG tube is out. She has had no N/V. She has had 3 BM's. She is passing flatus. Exam Resp Effort & Inspection: normal respiratory effort Auscultation: clear to auscultation bilaterally Cardio Rate: regular rate Rhythm: regular rhythm GI Palpation: soft and tender (appropriatly tender along the midline incision) Auscultation: normal bowel sounds Objective Last Vital Signs Temp 98.2 F 08/08/21 16:47 Pulse 62 08/08/21 16:47 Resp 18 08/08/21 16:47 BP 117/75 08/08/21 16:47 Pulse Ox 92 08/08/21 16:47 Laboratory Results - last 24 hr 08/05/21 08/05/21 08/08/21 06:28 06:28 06:23 Sodium 145 Potassium 3.2 L Chloride 105 Carbon Dioxide 29.4 Anion Gap 10.6 BUN 18 Creatinine 0.8 Estimated GFR/1.73 m2 >= 60.00 Glucose 97 Calcium 8.4 L Magnesium 1.8 A. phagocytophilum IgG <1:64 A.phagocytophil DNA PCR Negative E.chaffeensis DNA (PCR) Negative E.ewingii/canis DNA PCR Negative E. muris-like DNA (PCR) Negative PAWSS Have you Been Recently Intoxicated or Drunk Within the Last 30 days?: No Have you Ever Experienced Previous Episodes of Alcohol Withdrawal?: No Have you ever Experienced Withdrawal Seizures?: No Have you ever Experienced Delirium Tremens(DT)s?: No Have you ever undergone Alcohol Rehabilitation Treatment (i.e, inpt ot outpatient treatment programs)?: No Have you ever Experienced Blackouts?: No Have you ever Combined Alcohol with other Downers within the last 90 days?: No Have you ever Combined Alcohol with any other Substance of Abuse during the last 90 days?: No Positive Blood Alcohol level on Presentation? [PCS.BAL]: No Evidence of Increased Autonomic Activity (i.e. HR>120, tremor, sweating, agitation, nausea)?: No Result: 0
[2021-08-08] MEDS: Potassium Chloride Liquid 20 MEQ PKT PO (18:46)
[2021-08-08] MEDS: Losartan 25 MG TAB PO (21:23)
[2021-08-08 23:01] LABS: Anaplasma phagocytophilum Negative (Negative); B. miyamotoi PCR Negative (Negative); Babesia divergens/MO-1 Negative (Negative); Babesia duncani Negative (Negative); Babesia microti Negative (Negative); Ehrlichia chaffeensis Negative (Negative); Ehrlichia ewingii/canis Negative (Negative); Ehrlichia muris eauclairensis Negative (Negative)
[2021-08-09] MEDS: Metoclopramide 10 MG/2 ML VIAL IVP ×3 (05:42→18:02)
[2021-08-09] MEDS: Normal Saline Flush 10 ML SYR IVP ×4 (05:43→18:03)
[2021-08-09 06:28] LABS: HCT 38.8 % (36.0-46.0); HGB 12.8 g/dL (11.2-15.7); MCH 30.9 pg (27.0-33.0); MCV 94 fL (80-95); MPV 10.5 fL (8.0-11.0); Platelet Count 181 10^3/uL (130-400); RBC 4.14 10^6/uL (3.93-5.22); RDW 12.5 % (11.7-14.6); RDW-SD 43.5 fL; WBC 5.34 10^3/uL (4.4-10.8)
[2021-08-09 06:46] LABS: Anion Gap 11.9 mmol/L (3-11); BUN 13 mg/dL (7-18); CO2 26.1 mmol/L (21.0-32.0); CREATININE 0.8 mg/dL (0.55-1.02); Calcium 8.4 mg/dL (8.5-10.1); Chloride 103 mmol/L (98-107); Glucose 104 mg/dL (74-106); Magnesium 1.7 mg/dL (1.8-2.4); Potassium 3.4 mmol/L (3.5-5.1); Sodium 141 mmol/L (136-145)
[2021-08-09 07:00] VITALS: PULSE 83
[2021-08-09 07:32] VITALS: BP 131/67; PULSE 85; RESP 18; TEMP 37.5; O2SAT 90
[2021-08-09] MEDS: Losartan 25 MG TAB 50 MG PO (08:18)
[2021-08-09] MEDS: Nystatin CREAM 15 GM TUBE TP (08:39)
[2021-08-09] MEDS: Enoxaparin 40 MG/0.4 ML SYR SC (10:19)
[2021-08-09 10:49] VITALS: BP 161/81; PULSE 73; RESP 16; TEMP 36.8; O2SAT 93
[2021-08-09] MEDS: Acetaminophen 325 MG TAB 650 MG PO ×2 (15:31→23:01)
[2021-08-09 15:35] VITALS: BP 162/87; PULSE 85; RESP 18; TEMP 37.4; O2SAT 92
--- NOTE | 2021-08-09 17:34 | CMPROGNOTE_ITS ---
- If Service Date Differs Date of service: 08/09/21 Time of Service: 17:34 Care Management Progress Note S/O: Katie was sitting up in a chair when CM met with her. She had been napping earlier and shared that she did not get much sleep last night. Katie stated that she is feeling much better. Her NG tube was removed yesterday and she has been able to move her bowels. She indicated that she anticipates being discharged tomorrow. A: 80 year old female admitted to [facility] 07/30/21 with a SBO P: Katie will likely return home with no new services when medically cleared by provider, she has two supportive daughters to help her at home. She will follow up with her PCP, surgeon, and discharge plan of care as prescribed. She will be driven home via private vehicle by either one of her daughters or a friend when ready. CM will continue to follow.
[2021-08-09 20:10] VITALS: BP 157/70; PULSE 75; RESP 20; TEMP 37.6; O2SAT 91
[2021-08-09] MEDS: Losartan 25 MG TAB PO (20:10)
--- NOTE | 2021-08-09 21:21 | W.PM.PROGNOT ---
Date of Service Date of service: 08/09/21 Time of Service: 08:00 Assessment and Plan Assessment and plan (1) S/P laparotomy: Status: Acute Assessment and plan: POD #4 tolerated clears. advance to fulls -We will change PICOS in a.m. -DC telemetry -Change meds to oral -Continue walking -I discussed with the patient diet, wound care, and expectations for home. Hopefully DC home on Thursday. (2) Hypertension: Status: Chronic Qualifiers: Hypertension type: essential hypertension Qualified Code(s): I10 - Essential (primary) hypertension (3) COPD, mild: Status: Chronic (4) Osteopenia: Status: Chronic Subjective Subjective Interval history since last seen: Pt is doing well. no headaches. No CP or SOB. no productive cough. no dysuria. no leg pain or swelling. She is tolerating clears. She is having small liquid bowel movements. She has control. There is no blood. She still feels very bloated. She still is belching. She has a very small appetite. I assured her obviously is a very normal. Her appetite is going to be small for a while. There was extensive swelling at the time of surgery which she is going to limit her bowel activity for a while. And she will need to be on a soft diet for the next 10 days. She did get a good night sleep last night and feels much better. Exam Narrative Exam Narrative: PHYSICAL EXAM GENERAL APPEARANCE: Alert, healthy appearance, oriented, in no acute distress SKIN: No rashes.? No breakdown HYDRATION: Well hydrated HEAD, EYES, EARS, NECK, AND THROAT: Head is normocephalic, pupils equal, round, reactive to light and accommodation, ocular movement intact, sclera clear Yes [place] and no jaundice. Dentition intact.? No thrush NECK: Supple,? Trachea midline.? No JVD LUNGS: normal respiration, clear to auscultation HEART: Regular rate and rhythm, EXTREMITY: No edema or cyanosis? no redness or calf pain ABDOMEN: Normal bowel sounds this in place with minimal strikethrough. NEURO: no focal neuro deficits. Objective Last Vital Signs Temp 37.4 C 08/09/21 15:35 Pulse 85 08/09/21 15:35 Resp 18 08/09/21 15:35 BP 162/87 H 08/09/21 15:35 Pulse Ox 92 08/09/21 15:35 Laboratory Results - last 24 hr 08/05/21 08/09/21 08/09/21 06:28 06:12 06:12 WBC 5.34 RBC 4.14 Hgb 12.8 Hct 38.8 MCV 94 MCH 30.9 MCHC 33.0 D RDW 12.5 Plt Count 181 MPV 10.5 Sodium 141 Potassium 3.4 L Chloride 103 Carbon Dioxide 26.1 Anion Gap 11.9 H BUN 13 Creatinine 0.8 Estimated GFR/1.73 m2 >= 60.00 Glucose 104 Calcium 8.4 L Magnesium 1.7 L A.phagocytophil DNA PCR Negative B. divergens/MO-1 PCR Negative Babesia duncani (PCR) Negative Babesia microti DNA PCR Negative Borrelia (PCR) Negative E.chaffeensis DNA (PCR) Negative E.ewingii/canis DNA PCR Negative E. muris-like DNA (PCR) Negative PAWSS Have you Been Recently Intoxicated or Drunk Within the Last 30 days?: No Have you Ever Experienced Previous Episodes of Alcohol Withdrawal?: No Have you ever Experienced Withdrawal Seizures?: No Have you ever Experienced Delirium Tremens(DT)s?: No Have you ever undergone Alcohol Rehabilitation Treatment (i.e, inpt ot outpatient treatment programs)?: No Have you ever Experienced Blackouts?: No Have you ever Combined Alcohol with other Downers within the last 90 days?: No Have you ever Combined Alcohol with any other Substance of Abuse during the last 90 days?: No Positive Blood Alcohol level on Presentation? [PCS.BAL]: No Evidence of Increased Autonomic Activity (i.e. HR>120, tremor, sweating, agitation, nausea)?: No Result: 0
[2021-08-09 23:15] VITALS: BP 160/83; PULSE 83; RESP 20; TEMP 37; O2SAT 91
[2021-08-10] VITALS (10 sets, daily range): BP systolic 126–171; BP diastolic 60–82; PULSE 77–102; RESP 16–20; TEMP 37.1–37.7; O2SAT 91–94
[2021-08-10] MEDS: Normal Saline Flush 10 ML SYR IVP ×4 (02:35→20:07)
[2021-08-10] MEDS: Ondansetron 4 MG/2 ML VIAL IVP (02:36)
[2021-08-10] MEDS: Losartan 25 MG TAB 50 MG PO (08:36)
[2021-08-10] MEDS: Nystatin CREAM 15 GM TUBE TP (08:37)
[2021-08-10] MEDS: Enoxaparin 40 MG/0.4 ML SYR SC (11:00)
--- NOTE | 2021-08-10 14:06 | W.PM.PROGNOT ---
Date of Service Date of service: 08/10/21 Time of Service: 14:06 Assessment and Plan Assessment and plan (1) S/P laparotomy: Status: Acute (2) Ileus following gastrointestinal surgery: Status: Acute Assessment and plan: Ileus versus re- obstruction I do feel that it is going to take several days for the ileus or obstruction to resolve. She has not been eating for over a week now. We will have the PICC team place a line and probably start TPN on Thursday. PCOS was changed and the incision looks good. Continue to monitor. Electrolyte Patient is urged to continue walking Continue supportive care No signs of any ischemia or need for repeat operation at this time Subjective Subjective Interval history since last seen: PT feels very bloated and full today She did have a BM today. Liquid. no headaches. No CP or SOB. no productive cough. no dysuria. no leg pain or swelling. Exam HENMT Other: No jaundice. No eye pain or swelling. Hearing intact. No depression. No dental issues. No sinus pain. No pain or difficulty swallowing. Resp Effort & Inspection: normal respiratory effort and able to speak in complete sentences Auscultation: clear to auscultation bilaterally Cardio Rate: regular rate Rhythm: regular rhythm GI Auscultation: high-pitched sounds and hyperactive bowel sounds Other: Incision is clean dry and intact. Abdomen is diffusely distended. Extrem General: no clubbing, cyanosis or edema Objective Last Vital Signs Temp 37.3 C 08/10/21 12:00 Pulse 85 08/10/21 12:00 Resp 18 08/10/21 12:00 BP 161/81 H 08/10/21 12:00 Pulse Ox 93 08/10/21 12:00 PAWSS Have you Been Recently Intoxicated or Drunk Within the Last 30 days?: No Have you Ever Experienced Previous Episodes of Alcohol Withdrawal?: No Have you ever Experienced Withdrawal Seizures?: No Have you ever Experienced Delirium Tremens(DT)s?: No Have you ever undergone Alcohol Rehabilitation Treatment (i.e, inpt ot outpatient treatment programs)?: No Have you ever Experienced Blackouts?: No Have you ever Combined Alcohol with other Downers within the last 90 days?: No Have you ever Combined Alcohol with any other Substance of Abuse during the last 90 days?: No Positive Blood Alcohol level on Presentation? [PCS.BAL]: No Evidence of Increased Autonomic Activity (i.e. HR>120, tremor, sweating, agitation, nausea)?: No Result: 0
[2021-08-10] MEDS: Metoprolol 5 MG/5 ML VIAL IVP ×2 (15:22→19:54)
[2021-08-10] MEDS: Metoclopramide 10 MG/2 ML VIAL 5 MG IVP ×2 (15:23→20:06)
[2021-08-10] MEDS: Lactated Ringers 1,000 ML 80 ML IV (15:23)
[2021-08-10] MEDS: Simethicone 80 MG CHEW PO ×2 (16:06→20:01)
[2021-08-10] MEDS: ACETAMINOPHEN 1,000 MG/100 ML BTL 400 MG IVPB (20:16)
[2021-08-11] VITALS (15 sets, daily range): BP systolic 130–166; BP diastolic 60–85; PULSE 35–93; RESP 18; TEMP 36.6–37.5; O2SAT 92–95
[2021-08-11] MEDS: Normal Saline Flush 10 ML SYR IVP ×3 (02:09→13:37)
[2021-08-11] MEDS: Metoprolol 5 MG/5 ML VIAL IVP ×3 (02:09→13:36)
[2021-08-11] MEDS: Metoclopramide 10 MG/2 ML VIAL 5 MG IVP ×4 (02:12→20:20)
[2021-08-11] MEDS: Lactated Ringers 1,000 ML 80 ML IV (05:05)
[2021-08-11 06:36] LABS: HCT 35.2 % (36.0-46.0); HGB 11.8 g/dL (11.2-15.7); MCH 31.1 pg (27.0-33.0); MCHC 33.5 % (32.0-36.0); MCV 93 fL (80-95); MPV 10.4 fL (8.0-11.0); Platelet Count 213 10^3/uL (130-400); RBC 3.79 10^6/uL (3.93-5.22); RDW 12.4 % (11.7-14.6); RDW-SD 42.1 fL
[2021-08-11 07:01] LABS: BUN 9 mg/dL (7-18); CREATININE 0.6 mg/dL (0.55-1.02); Calcium 8.2 mg/dL (8.5-10.1); Chloride 104 mmol/L (98-107); Ferritin 375 ng/mL (8-252); Glucose 106 mg/dL (74-106); Magnesium 1.6 mg/dL (1.8-2.4); Potassium 3.2 mmol/L (3.5-5.1); Sodium 139 mmol/L (136-145)
[2021-08-11 07:08] LABS: C-Reactive Protein 6.26 mg/dL (0.0-0.3)
--- NOTE | 2021-08-11 08:00 | DI.RAD_ITS ---
Exam(s) XR ABDOMEN FLAT UPRIGHT EXAM: XR ABDOMEN FLAT UPRIGHT CLINICAL HISTORY: SBO. TECHNIQUE: 2D digital imaging was performed. COMPARISON: CR XR ABDOMEN FLAT UPRIGHT from 08/08/2021 FINDINGS: Two views-supine and upright: Compared to 08/08/2021 the NG tube is been removed. However, there is still air-filled dilated small bowel loops with air-fluid levels consistent with persistent small-bowel obstruction. No obvious fr ee air. There is, however, some air seen with in the left side of the colon. IMPRESSION: Persistent small-bowel obstruction. There is, however, some air seen in the left side of the colon o n the present study. NG tube has been removed. DATA REPOSITORY: RADIATION DOSE DELIVERED:
--- NOTE | 2021-08-11 08:52 | DI.VRAD_ITS ---
PROCEDURE INFORMATION: Exam: XR Abdomen Exam date and time: 08/11/2021 8:22 AM Age: 80 years old Clinical indication: Condition or disease; Intestinal condition; Obstruction; Patient HX: Sbo TECHNIQUE: Imaging protocol: Radiologic exam of the abdomen. Views: 2 Views. Upright and supine views. COMPARISON: CR XR ABDOMEN FLAT UPRIGHT 08/08/2021 8:11 AM FINDINGS: Gastrointestinal tract: There is re-demonstration of multiple dilated segments of small bowel as also seen on the prior study. There are multiple air-fluid levels on the upright view. Mild scattered gas is noted in the colon. No evidence of free intraperitoneal air. No obvious mass effect is seen. Surgical skin shaina are again seen along the midline of the abdomen. Intraperitoneal space: No free air. Bones/joints: No significant osseous abnormality. IMPRESSION: Findings compatible with small-bowel obstruction, similar since the recent study. Dictated and Authenticated by: Vincent Medina MD. Ordering:JACQUI Hines MD
[2021-08-11] MEDS: Simethicone 80 MG CHEW PO ×4 (08:57→20:20)
[2021-08-11] MEDS: Enoxaparin 40 MG/0.4 ML SYR SC (09:48)
--- NOTE | 2021-08-11 09:55 | W.NUTCONSULT ---
Date of service: 08/11/21 Time of Service: 09:55 Nutritional Consult ASSESSMENT: Ms. Garcia has had poor PO intake for over one week. Per surgeon is not anticipated that she will resume adequate nutritional intake within the next few days. She was 95.5 kg on 08/05/21. She has maintained her weight steadily over the past two years looking back at her weight history. TPN recommendations to follow in the intervention section. Estimated energy needs: 1600 kcal-1750 kcal/day (REE x 1.1-1.2) Estimated protein needs: 95 g/day (1.0g/kg/day) Estimated fluid needs: 1800 ml/day (1.0 ml/kcal provided per day) NUTRITIONAL DIAGNOSIS: Inadequate intake of oral foods and fluids related to prolonged ileus as evidenced by percent meal consumed documentation in flowsheets. INTERVENTION: Would recommend the following TPN regiment: 1.8L/day of Clinimix 5/15 to provide 1278 kcal/day (run continuously at 75 ml/hr). In addition, run 250 ml of 20% lipid solution daily over 8 hours to provide 500 kcal/day. This regimen in total will provide 1920 kcals and 90 grams of protein per day which meets 100% of her estimated energy and protein needs. MVI, trace minerals, electrolytes and other additives per MD. Would recommend continuing to encourage regular clear liquids to pt. along with TPN. Would suggest Ensure Clear supplements at the very least. MONITORING AND EVALUATION: 1. Will monitor weight, any advance of PO, tolerance to TPN. 2. Will evaluate nutrition care plan ongoing and adjust as needed. Time Spent in Nutritional Counseling and Treatment: 0
[2021-08-11 12:37] LABS: Anion Gap 8.3 mmol/L (3-11); BUN 8 mg/dL (7-18); CO2 27.7 mmol/L (21.0-32.0); CREATININE 0.6 mg/dL (0.55-1.02); Calcium 8.4 mg/dL (8.5-10.1); Chloride 103 mmol/L (98-107); Glucose 105 mg/dL (74-106); Potassium 3.2 mmol/L (3.5-5.1); Sodium 139 mmol/L (136-145)
--- NOTE | 2021-08-11 12:44 | W.PM.PROGNOT ---
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 Patient still has an ongoing ileus versus obstruction. Her x-rays look unchanged. However clinically she feels much better she is tolerating clears she is passing gas and had a bowel movement last evening. Reglan restarted Continue clears Continue walking Start TPN and check blood sugars Electrolyte replacement (2) S/P laparotomy: Status: Acute (3) Hypertension: Status: Chronic Qualifiers: Hypertension type: essential hypertension Qualified Code(s): I10 - Essential (primary) hypertension (4) Family history of breast cancer: Status: Chronic (5) COPD, mild: Status: Chronic (6) Type 2 diabetes mellitus without complication: Status: Chronic Qualifiers: Diabetes mellitus penitentiary insulin use: without penitentiary use Qualified Code(s): E11.9 - Type 2 diabetes mellitus without complications Subjective Subjective Interval history since last seen: Patient notes she feels significant really better than yesterday. She is passing gas and had a bowel movement last p.m. She is up walking around. Tolerating clears no headaches. No CP or SOB. no productive cough. no dysuria. no leg pain or swelling. Exam HENMT Other: No jaundice/eye pain/pressure Resp Effort & Inspection: normal respiratory effort and able to speak in complete sentences Auscultation: clear to auscultation bilaterally Other: No rales rhonchi or wheezing No productive cough No shortness of breath Cardio Rate: regular rate Rhythm: regular rhythm Other: No chest pain GI Other: Incision is clean dry and intact. She still is somewhat distended. But not to the to the degree she was yesterday. I do not hear any bowel sounds today. She does not feel tender today except immediately under the incision Extrem General: no clubbing, cyanosis or edema Other: Skin integrity is intact without breakdown. PICC site is clean dry and intact Objective Last Vital Signs Temp 37.4 C 08/11/21 11:37 Pulse 79 08/11/21 11:37 Resp 18 08/11/21 11:37 BP 153/85 H 08/11/21 11:37 Pulse Ox 93 08/11/21 11:37 Laboratory Results - last 24 hr 08/11/21 08/11/21 08/11/21 06:04 06:04 12:15 WBC 5.90 RBC 3.79 L Hgb 11.8 Hct 35.2 L MCV 93 MCH 31.1 MCHC 33.5 RDW 12.4 Plt Count 213 MPV 10.4 Sodium 139 139 Potassium 3.2 L 3.2 L Chloride 104 103 Carbon Dioxide 28.0 27.7 Anion Gap 7.0 8.3 BUN 9 8 Creatinine 0.6 0.6 Estimated GFR/1.73 m2 >= 60.00 >= 60.00 Glucose 106 105 Calcium 8.2 L 8.4 L Magnesium 1.6 L Ferritin 375 H C-Reactive Protein 6.26 H PAWSS Have you Been Recently Intoxicated or Drunk Within the Last 30 days?: No Have you Ever Experienced Previous Episodes of Alcohol Withdrawal?: No Have you ever Experienced Withdrawal Seizures?: No Have you ever Experienced Delirium Tremens(DT)s?: No Have you ever undergone Alcohol Rehabilitation Treatment (i.e, inpt ot outpatient treatment programs)?: No Have you ever Experienced Blackouts?: No Have you ever Combined Alcohol with other Downers within the last 90 days?: No Have you ever Combined Alcohol with any other Substance of Abuse during the last 90 days?: No Positive Blood Alcohol level on Presentation? [PCS.BAL]: No Evidence of Increased Autonomic Activity (i.e. HR>120, tremor, sweating, agitation, nausea)?: No Result: 0
[2021-08-11] MEDS: POTASSIUM CHLORIDE 10 MEQ/100 ML BAG 100 MEQ IVPB ×2 (13:36→14:55)
[2021-08-11] MEDS: MAGNESIUM SULFATE 2 GM/50 ML BAG IVPB (13:36)
[2021-08-11] MEDS: ACETAMINOPHEN 1,000 MG/100 ML BTL 400 MG IVPB (21:14)
[2021-08-12] VITALS (11 sets, daily range): BP systolic 132–139; BP diastolic 73–82; PULSE 76–885; RESP 18–19; TEMP 36.8–37.6; O2SAT 92–94
--- NOTE | 2021-08-12 | DI.RAD_ITS ---
Exam(s) XR ABDOMEN FLAT PLATE EXAM: XR ABDOMEN FLAT PLATE CLINICAL HISTORY: SBO- 4 HR IMAGE. TECHNIQUE: 2D digital imaging was performed. COMPARISON: CR,XR XR ABDOMEN FLAT PLATE from 08/12/2021 FINDINGS: Four views Continue dilated bowel loops. Previously present Gastrografin appears to have progressed somewhat mo re distally but there is still known to small-bowel obstruction here. IMPRESSION: DATA REPOSITORY: RADIATION DOSE DELIVERED:
--- NOTE | 2021-08-12 | DI.RAD_ITS ---
Exam(s) XR ABDOMEN FLAT PLATE EXAM: XR ABDOMEN FLAT PLATE CLINICAL HISTORY: sbo. TECHNIQUE: 2D digital imaging was performed. COMPARISON: CR,XR XR ABDOMEN FLAT UPRIGHT from 08/11/2021 FINDINGS: Views from the Gastrografin challenge study continue to reveal dilated small bowel loops consistent w ith element of bowel obstruction. IMPRESSION: DATA REPOSITORY: RADIATION DOSE DELIVERED:
[2021-08-12] MEDS: Insulin Aspart 300 UNITS/3 ML PEN SC ×4 (00:21→17:59)
[2021-08-12] MEDS: Metoclopramide 10 MG/2 ML VIAL 5 MG IVP ×2 (02:35→07:48)
[2021-08-12 06:50] LABS: HCT 39.1 % (36.0-46.0); HGB 13.2 g/dL (11.2-15.7); MCH 31.2 pg (27.0-33.0); MCHC 33.8 % (32.0-36.0); MCV 92 fL (80-95); MPV 11.9 fL (8.0-11.0); Platelet Count 189 10^3/uL (130-400); RBC 4.23 10^6/uL (3.93-5.22); RDW 12.5 % (11.7-14.6); RDW-SD 42.6 fL; WBC 6.88 10^3/uL (4.4-10.8)
[2021-08-12 07:01] LABS: INR 1.1 (0.9-1.1); Prothrombin Time 11.4 sec (9.3-11.0)
[2021-08-12 07:07] LABS: PHOSPHORUS 2.2 mg/dL (2.6-4.7)
[2021-08-12 07:09] LABS: ALT 31 U/L (14-59); AST 19 U/L (15-37); Albumin 2.8 g/dL (3.4-5.0); Alkaline Phosphatase 58 U/L (46-116); Anion Gap 6.4 mmol/L (3-11); BUN 9 mg/dL (7-18); Bilirubin, Total 0.6 mg/dL (0.2-1.0); CO2 29.6 mmol/L (21.0-32.0); CREATININE 0.6 mg/dL (0.55-1.02); Calcium 8.5 mg/dL (8.5-10.1); Chloride 103 mmol/L (98-107); Glucose 197 mg/dL (74-106); Sodium 139 mmol/L (136-145); Total Protein 6.1 g/dL (6.4-8.2)
[2021-08-12] MEDS: Simethicone 80 MG CHEW PO ×3 (07:48→20:00)
[2021-08-12] MEDS: Normal Saline Flush 10 ML SYR IVP ×3 (07:49→20:04)
[2021-08-12] MEDS: Enoxaparin 40 MG/0.4 ML SYR SC (09:54)
--- NOTE | 2021-08-12 11:05 | W.PM.PROGNOT ---
Date of Service Date of service: 08/12/21 Time of Service: 11:05 Assessment and Plan Assessment and plan (1) Ileus following gastrointestinal surgery: Status: Acute (2) S/P laparotomy: Status: Acute Assessment and plan: pod#7 continued ileus. Tolerating clears cont TPN try some gastrografin nad plain films increase reglan cont supportive care (3) Hypertension: Status: Chronic Qualifiers: Hypertension type: essential hypertension Qualified Code(s): I10 - Essential (primary) hypertension (4) Hypokalemia: Subjective Subjective Interval history since last seen: Pt is doing ok. no headaches. No CP or SOB. no productive cough. no dysuria. no leg pain or swelling. She is tolerating clears and passing gas. She is still sore and feels blaoted. She is tolerating clears. Exam Resp Effort & Inspection: normal respiratory effort and able to speak in complete sentences Auscultation: clear to auscultation bilaterally Cardio Rate: regular rate Rhythm: regular rhythm GI Other: + distention. incision is dressed. BS are present but diminished. Extrem General: no clubbing, cyanosis or edema Other: line site is c/d/i. no breakdown Objective Last Vital Signs Temp 37.4 C 08/12/21 07:53 Pulse 78 08/12/21 08:03 Resp 18 08/12/21 07:53 BP 132/73 08/12/21 07:53 Pulse Ox 92 08/12/21 07:53 Laboratory Results - last 24 hr 08/11/21 08/12/21 08/12/21 12:15 06:05 06:05 WBC RBC Hgb Hct MCV MCH MCHC RDW Plt Count MPV PT INR Sodium 139 Cancelled Potassium 3.2 L Cancelled Chloride 103 Cancelled Carbon Dioxide 27.7 Cancelled Anion Gap 8.3 Cancelled BUN 8 Cancelled Creatinine 0.6 Cancelled Estimated GFR/1.73 m2 >= 60.00 Cancelled Glucose 105 Cancelled Calcium 8.4 L Cancelled Phosphorus 2.2 L Magnesium 2.0 Total Bilirubin AST ALT Alkaline Phosphatase C-Reactive Protein 5.80 H Total Protein Albumin 08/12/21 08/12/21 08/12/21 06:05 06:05 06:05 WBC 6.88 RBC 4.23 Hgb 13.2 Hct 39.1 MCV 92 MCH 31.2 MCHC 33.8 RDW 12.5 Plt Count 189 MPV 11.9 H PT 11.4 H INR 1.1 Sodium 139 Potassium 3.0 L Chloride 103 Carbon Dioxide 29.6 Anion Gap 6.4 BUN 9 Creatinine 0.6 Estimated GFR/1.73 m2 >= 60.00 Glucose 197 H Calcium 8.5 Phosphorus Magnesium Total Bilirubin 0.6 AST 19 ALT 31 Alkaline Phosphatase 58 C-Reactive Protein Total Protein 6.1 L Albumin 2.8 L PAWSS Have you Been Recently Intoxicated or Drunk Within the Last 30 days?: No Have you Ever Experienced Previous Episodes of Alcohol Withdrawal?: No Have you ever Experienced Withdrawal Seizures?: No Have you ever Experienced Delirium Tremens(DT)s?: No Have you ever undergone Alcohol Rehabilitation Treatment (i.e, inpt ot outpatient treatment programs)?: No Have you ever Experienced Blackouts?: No Have you ever Combined Alcohol with other Downers within the last 90 days?: No Have you ever Combined Alcohol with any other Substance of Abuse during the last 90 days?: No Positive Blood Alcohol level on Presentation? [PCS.BAL]: No Evidence of Increased Autonomic Activity (i.e. HR>120, tremor, sweating, agitation, nausea)?: No Result: 0
[2021-08-12] MEDS: Metoclopramide 10 MG/2 ML VIAL IVP ×2 (12:01→16:59)
[2021-08-12] MEDS: Gastrografin 120 ML BTL PO (12:01)
[2021-08-12] MEDS: Metoprolol 5 MG/5 ML VIAL IVP ×2 (13:13→20:01)
--- NOTE | 2021-08-12 14:44 | DI.VRAD_ITS ---
PROCEDURE INFORMATION: Exam: XR Abdomen Exam date and time: 08/12/2021 2:01 PM Age: 80 years old Clinical indication: Condition or disease; Other: Sbo; Prior surgery; Surgery date: 3-7 days post-operative TECHNIQUE: Imaging protocol: Radiologic exam of the abdomen. Views: Frontal supine view of the abdomen. 1 View. COMPARISON: CR XR ABDOMEN FLAT UPRIGHT 08/11/2021 8:22 AM FINDINGS: Gastrointestinal tract: Markedly dilated fluid and contrast opacified small bowel loops. The contrast present within the stomach. No definite contrast within the colon. Bones/joints: Unremarkable. Soft tissues: Midline skin shaina. IMPRESSION: Findings consistent with small bowel obstruction. No significant change from prior study. Dictated and Authenticated by: Fredrick Mosher MD. Ordering:JACQUI Hines MD
--- NOTE | 2021-08-12 16:58 | DI.VRAD_ITS ---
PROCEDURE INFORMATION: Exam: XR Abdomen Exam date and time: 08/12/2021 4:49 PM Age: 80 years old Clinical indication: Patient HX: Sbo- PT drank 25 ml gastrograffin-4 hr film 1650 TECHNIQUE: Imaging protocol: Radiologic exam of the abdomen. Views: Frontal supine view of the abdomen. 1 View. COMPARISON: CR XR ABDOMEN FLAT PLATE 08/12/2021 2:01 PM FINDINGS: Gastrointestinal tract: Contrast remains in dilated loops of small bowel. Contrast has extended into the ascending , transverse and descending colon. Bones/joints: Unremarkable. IMPRESSION: Findings consistent with either severe postoperative ileus or partial small bowel obstruction. Dictated and Authenticated by: Fredrick Mosher MD. Ordering:JACQUI Hines MD
[2021-08-13] VITALS (14 sets, daily range): BP systolic 130–154; BP diastolic 67–88; PULSE 72–94; RESP 16–19; TEMP 36–37.7; O2SAT 91–96
[2021-08-13] MEDS: Insulin Aspart 300 UNITS/3 ML PEN SC ×5 (00:12→23:45)
[2021-08-13] MEDS: Metoclopramide 10 MG/2 ML VIAL IVP ×5 (00:12→23:46)
[2021-08-13] MEDS: Normal Saline Flush 10 ML SYR IVP ×10 (00:12→23:46)
[2021-08-13] MEDS: Metoprolol 5 MG/5 ML VIAL IVP ×4 (01:27→19:22)
[2021-08-13 06:31] LABS: Abs Immature Grans 0.05 10^3/uL (0.0-0.06); Absolute Basophil Count 0.03 10^3/uL (0.0-0.2); Absolute Eosinophil Count 0.13 10^3/uL (0.0-0.7); Absolute Lymphocyte Count 0.97 10^3/uL (1.2-3.4); Absolute Monocyte Count 0.79 10^3/uL (0.1-0.8); Absolute Neutrophil Count 4.96 10^3/uL (1.2-6.7); Basophils % 0.4; Eosinophils % 1.9; HCT 36.9 % (36.0-46.0); Immature Grans % 0.7; MCH 30.6 pg (27.0-33.0); MCHC 32.5 % (32.0-36.0); MCV 94 fL (80-95); MPV 11.1 fL (8.0-11.0); Monocytes % 11.4; Neutrophils % 71.6; Platelet Count 223 10^3/uL (130-400); RBC 3.92 10^6/uL (3.93-5.22); RDW 12.7 % (11.7-14.6); RDW-SD 43.3 fL; WBC 6.93 10^3/uL (4.4-10.8)
[2021-08-13 06:46] LABS: Anion Gap 6.8 mmol/L (3-11); BUN 11 mg/dL (7-18); CO2 28.2 mmol/L (21.0-32.0); CREATININE 0.7 mg/dL (0.55-1.02); Calcium 8.3 mg/dL (8.5-10.1); Chloride 106 mmol/L (98-107); Glucose 168 mg/dL (74-106); Potassium 3.4 mmol/L (3.5-5.1); Sodium 141 mmol/L (136-145)
[2021-08-13 06:49] LABS: PHOSPHORUS < 2.0 mg/dL (2.6-4.7)
[2021-08-13] MEDS: Simethicone 80 MG CHEW PO ×4 (07:48→19:22)
--- NOTE | 2021-08-13 08:00 | DI.RAD_ITS ---
Exam(s) XR ABDOMEN FLAT PLATE EXAM: XR ABDOMEN FLAT PLATE CLINICAL HISTORY: sbo. TECHNIQUE: 2D digital imaging was performed. COMPARISON: CR,XR XR ABDOMEN FLAT PLATE from 08/12/2021 FINDINGS: Single view There are persistent dilated abnormal appearing bowel loops consistent with small-bowel obstruction. Some air seen in the transverse colon. Stomach is mildly distended. IMPRESSION: DATA REPOSITORY: RADIATION DOSE DELIVERED:
[2021-08-13] MEDS: Enoxaparin 40 MG/0.4 ML SYR SC (10:05)
--- NOTE | 2021-08-13 11:03 | W.PM.PROGNOT ---
Date of Service Date of service: 08/13/21 Time of Service: 11:03 Assessment and Plan Assessment and plan (1) Ileus following gastrointestinal surgery: Status: Acute (2) S/P laparotomy: Status: Acute Assessment and plan: pod#8 Tolerating clear liquid diet (+) BMs cont TPN Continue reglan Encouraged continued ambulation and activity OOB as tolerated. Continue supportive care (3) Hypertension: Status: Chronic Qualifiers: Hypertension type: essential hypertension Qualified Code(s): I10 - Essential (primary) hypertension (4) Hypokalemia: Subjective Subjective Interval history since last seen: Arrived with the patient sleeping soundly in bed. Upon waking patient states she feels about the same, very bloated and sore. He denies any nausea or vomiting. Patient reports she had numerous bowel movements yesterday. Exam Const General: cooperative, healthy appearing and comfortable Orientation: oriented x3 Resp Effort & Inspection: normal respiratory effort, no audible wheezes and no cough GI Inspection: distended Palpation: soft, no guarding and nontender Percussion: tympanic to percussion Objective Last Vital Signs Temp 36.0 C L 08/13/21 07:40 Pulse 88 08/13/21 07:51 Resp 16 08/13/21 07:40 BP 130/77 08/13/21 07:51 Pulse Ox 96 08/13/21 07:40 Laboratory Results - last 24 hr 08/12/21 08/13/21 08/13/21 13:57 07:15 07:15 WBC RBC Hgb Hct MCV MCH MCHC RDW Plt Count MPV Immature Gran % Neutrophils % Lymphocytes % Monocytes % Eosinophils % Basophils % Nucleated RBC % Absolute Neutrophils Absolute Lymphocytes Absolute Monocytes Absolute Eosinophils Absolute Basophils PT Cancelled INR Cancelled Sodium 141 Potassium 3.4 L Chloride 106 Carbon Dioxide 28.2 Anion Gap 6.8 BUN 11 Creatinine 0.7 Estimated GFR/1.73 m2 >= 60.00 Glucose 168 H Calcium 8.3 L Phosphorus < 2.0 L Magnesium 2.0 C-Reactive Protein 4.00 H 08/13/21 07:15 WBC 6.93 RBC 3.92 L Hgb 12.0 Hct 36.9 MCV 94 MCH 30.6 MCHC 32.5 D RDW 12.7 Plt Count 223 MPV 11.1 H Immature Gran % 0.7 Neutrophils % 71.6 Lymphocytes % 14.0 Monocytes % 11.4 Eosinophils % 1.9 Basophils % 0.4 Nucleated RBC % 0.0 Absolute Neutrophils 4.96 Absolute Lymphocytes 0.97 L Absolute Monocytes 0.79 Absolute Eosinophils 0.13 Absolute Basophils 0.03 PT INR Sodium Potassium Chloride Carbon Dioxide Anion Gap BUN Creatinine Estimated GFR/1.73 m2 Glucose Calcium Phosphorus Magnesium C-Reactive Protein PAWSS Have you Been Recently Intoxicated or Drunk Within the Last 30 days?: No Have you Ever Experienced Previous Episodes of Alcohol Withdrawal?: No Have you ever Experienced Withdrawal Seizures?: No Have you ever Experienced Delirium Tremens(DT)s?: No Have you ever undergone Alcohol Rehabilitation Treatment (i.e, inpt ot outpatient treatment programs)?: No Have you ever Experienced Blackouts?: No Have you ever Combined Alcohol with other Downers within the last 90 days?: No Have you ever Combined Alcohol with any other Substance of Abuse during the last 90 days?: No Positive Blood Alcohol level on Presentation? [PCS.BAL]: No Evidence of Increased Autonomic Activity (i.e. HR>120, tremor, sweating, agitation, nausea)?: No Result: 0
--- NOTE | 2021-08-13 12:33 | CMPROGNOTE_ITS ---
- If Service Date Differs Date of service: 08/13/21 Time of Service: 12:33 Care Management Progress Note S/O: Katie was sitting up in a chair when CM met with her. She stated that she is fine and denied the need for any assistance. Katie's abdomen remains distended, although she is passing flatus and having BMs. She is tolerating a clear liquid diet but has not advanced to full liquids or solid food yet. She ambulates frequently in the hallways and visited with one of her daughters this afternoon. A: 80 year old female admitted to [facility] 07/30/21 with a SBO P: Katie will likely return home with no new services when medically cleared by provider, she has two supportive daughters to help her at home. She will follow up with her PCP, surgeon, and discharge plan of care as prescribed. She will be driven home via private vehicle by either one of her daughters or a friend when ready. CM will continue to follow and assess for discharge concerns.
[2021-08-13] MEDS: POTASSIUM CHLORIDE 10 MEQ/100 ML BAG 100 MEQ IVPB (16:11)
[2021-08-13] MEDS: Normal Saline 500 ML 30 ML IV (20:25)
[2021-08-13] MEDS: ACETAMINOPHEN 1,000 MG/100 ML BTL 400 MG IVPB (20:25)
[2021-08-14] VITALS (15 sets, daily range): BP systolic 138–165; BP diastolic 77–90; PULSE 74–102; RESP 18–19; TEMP 36.4–37.5; O2SAT 92–99
[2021-08-14] MEDS: Normal Saline Flush 10 ML SYR IVP ×6 (02:20→23:55)
[2021-08-14] MEDS: Metoprolol 5 MG/5 ML VIAL IVP ×4 (02:20→19:45)
[2021-08-14] MEDS: Metoclopramide 10 MG/2 ML VIAL IVP ×4 (05:10→23:55)
[2021-08-14] MEDS: Insulin Aspart 300 UNITS/3 ML PEN SC ×4 (05:26→23:55)
[2021-08-14 06:00] LABS: Abs Immature Grans 0.06 10^3/uL (0.0-0.06); Absolute Basophil Count 0.02 10^3/uL (0.0-0.2); Absolute Eosinophil Count 0.14 10^3/uL (0.0-0.7); Absolute Lymphocyte Count 0.98 10^3/uL (1.2-3.4); Absolute Monocyte Count 0.72 10^3/uL (0.1-0.8); Absolute Neutrophil Count 5.28 10^3/uL (1.2-6.7); Basophils % 0.3; Eosinophils % 1.9; HCT 39.4 % (36.0-46.0); HGB 12.8 g/dL (11.2-15.7); Immature Grans % 0.8; Lymphocytes % 13.6; MCH 30.7 pg (27.0-33.0); MCHC 32.5 % (32.0-36.0); MCV 95 fL (80-95); MPV 11.2 fL (8.0-11.0); Neutrophils % 73.4; Platelet Count 201 10^3/uL (130-400); RBC 4.17 10^6/uL (3.93-5.22); RDW 12.7 % (11.7-14.6); RDW-SD 43.6 fL
[2021-08-14 06:18] LABS: Anion Gap 6.4 mmol/L (3-11); BUN 12 mg/dL (7-18); CO2 27.6 mmol/L (21.0-32.0); CREATININE 0.6 mg/dL (0.55-1.02); Calcium 8.5 mg/dL (8.5-10.1); Chloride 106 mmol/L (98-107); Glucose 166 mg/dL (74-106); PHOSPHORUS 2.3 mg/dL (2.6-4.7); Potassium 3.8 mmol/L (3.5-5.1); Sodium 140 mmol/L (136-145)
[2021-08-14] MEDS: Simethicone 80 MG CHEW PO ×4 (08:18→19:43)
--- NOTE | 2021-08-14 08:36 | W.PM.PROGNOT ---
Date of Service Date of service: 08/14/21 Time of Service: 08:37 Assessment and Plan Assessment and plan (1) Ileus following gastrointestinal surgery: Status: Acute (2) S/P laparotomy: Status: Acute Assessment and plan: POD #9 s/p exploratory laparotomy. Tolerating clear liquid diet (+) BMs cont TPN Continue reglan Encouraged continued ambulation and activity OOB as tolerated. Order PT for exercise recommendations Continue supportive care Addendum by Pj Garcia: She did well through the early portion of the afternoon, and was ambulating with physical therapy. She said she had another small bowel movement. She says her abdomen feels a little better. But on exam, she does seem a little more distended to me. She is not tender. The wound looks clean. Hopefully, in the next day or so, we can work towards removing the TPN and slowly advancing her diet. (3) Hypertension: Status: Chronic Qualifiers: Hypertension type: essential hypertension Qualified Code(s): I10 - Essential (primary) hypertension (4) Hypokalemia: Subjective Subjective Interval history since last seen: Patient reports she is feeling better today. She states she has been ambulating intermittently throughout the day. Denies any nausea or vomiting. Exam Const General: cooperative and comfortable Orientation: alert and oriented x3 Resp Effort & Inspection: normal respiratory effort, no audible wheezes and no cough GI Inspection: distended Palpation: soft, no guarding and nontender Percussion: tympanic to percussion Other: ANGELINA dressing was removed. Midline incision is well approximated, shaina in place. Mild ecchymosis noted along the incision site. No erythema, swelling or induration noted. Objective Last Vital Signs Temp 36.4 C L 08/14/21 02:36 Pulse 79 08/14/21 08:18 Resp 18 08/14/21 02:36 BP 149/79 H 08/14/21 08:18 Pulse Ox 94 08/14/21 02:36 Laboratory Results - last 24 hr 08/14/21 08/14/21 05:00 05:00 WBC 7.20 RBC 4.17 Hgb 12.8 Hct 39.4 MCV 95 MCH 30.7 MCHC 32.5 RDW 12.7 Plt Count 201 MPV 11.2 H Immature Gran % 0.8 Neutrophils % 73.4 Lymphocytes % 13.6 Monocytes % 10.0 Eosinophils % 1.9 Basophils % 0.3 Nucleated RBC % 0.0 Absolute Neutrophils 5.28 Absolute Lymphocytes 0.98 L Absolute Monocytes 0.72 Absolute Eosinophils 0.14 Absolute Basophils 0.02 Sodium 140 Potassium 3.8 Chloride 106 Carbon Dioxide 27.6 Anion Gap 6.4 BUN 12 Creatinine 0.6 Estimated GFR/1.73 m2 >= 60.00 Glucose 166 H Calcium 8.5 Phosphorus 2.3 L Magnesium 2.0 PAWSS Have you Been Recently Intoxicated or Drunk Within the Last 30 days?: No Have you Ever Experienced Previous Episodes of Alcohol Withdrawal?: No Have you ever Experienced Withdrawal Seizures?: No Have you ever Experienced Delirium Tremens(DT)s?: No Have you ever undergone Alcohol Rehabilitation Treatment (i.e, inpt ot outpatient treatment programs)?: No Have you ever Experienced Blackouts?: No Have you ever Combined Alcohol with other Downers within the last 90 days?: No Have you ever Combined Alcohol with any other Substance of Abuse during the last 90 days?: No Positive Blood Alcohol level on Presentation? [PCS.BAL]: No Evidence of Increased Autonomic Activity (i.e. HR>120, tremor, sweating, agitation, nausea)?: No Result: 0
--- NOTE | 2021-08-14 08:46 | CMPROGNOTE_ITS ---
- If Service Date Differs Date of service: 08/14/21 Time of Service: 08:46 Care Management Progress Note S/O: Katie was sitting up in a chair when CM met with her. She was polite but was disinclined to converse at this time. Katie explained that her protracted hospital stay is a challenge and she prefers not to have any social interactions. The only people she wishes to speak with are her daughters. She has requested that friends and other family not call or visit. She also asked CM not to visit until she is closer to discharge. This was all explained in a very respectful manner. CM will honor her wishes. Katie has not made significant progress. She is 9 days post-op and has an u nresolving ileus. She remains on TPN and is only having sips of clears which she has tolerated. Her incision appears to be healing well. The wound vac was removed this morning and her incision is open to the air without redness, swelling or drainage. Thirty three shaina remain in place. A: 80 year old female admitted to [facility] 07/30/21 with a SBO P: Katie will likely return home with no new services when medically cleared by provider. She has two supportive daughters to help her at home. She will follow up with her PCP, surgeon, and discharge plan of care as prescribed. She will be driven home via private vehicle by either one of her daughters or a friend when ready. CM will continue to follow and assess for discharge concerns.
[2021-08-14] MEDS: Enoxaparin 40 MG/0.4 ML SYR SC (09:36)
--- NOTE | 2021-08-14 09:40 | IN_ITS ---
PT Notes Visit Reasons: Small Bowel Obstruction Inpatient Physical Therapy Evaluation Date: 08/14/2021 Referring Doctor: Veronica Landa PT Orders: PT CONSULT: Extended Stay?weakness Precautions: Fall Patient Profile/Admitting Diagnosis: 80-year-old female who was recently admitted with small bowel obstruction status post laparotomy postop day #9 PMHX: All Active Problems?(Updated 08/02/21 @ 06:19 by Tristen Ledesma MD) SBO (small bowel obstruction) (Acute) Schmorl's nodes of the thoracic region (Acute) Category 3 mammography result with short follow-up interval suggested for probably benign finding (Acute) [facility] [place] read cat 2, but NV cat 3 with repeat imaging in 6 month recommendedHypertension (Chronic ~10/2019) Dx'ed 10/2019--RX Losartan; goal <130/80 ideally (but 140/90 acceptable)Family history of breast cancer (Chronic) DaughterObesity (Chronic 11/08/12) 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) several polyps (may not even be polyps!), but due to + FH mother colon cancer <60, rec 5 yr interval; 2020: Katie declines further colonoscopy 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 History of tonsillectomy and adenoidectomy S/P trigger finger release R third ~2009Status post cataract extraction and insertion of intraocular lens of left eye (04/05/18) Status post cataract extraction and insertion of intraocular lens of right eye (03/22/18) Social History/Home Situation: Lives in a two-story home in [place] with no steps entering the home but 14 steps to the second floor where her bedroom is located. She is a walk-in shower in the first floor with shower chair, grab bars and flexible hose. She is retired and lost her this past November Current Functional Limitations: Independent with all ADLs Equipment Owned/DME: Adaptive bathroom equipment Subjective: Pleasant and cooperative complaining of being bloated with occasional abdominal discomfort Objective: General Observation: Talkative, and anxious to remain active Mental Status: Alert and oriented x3 Pain: 3/10 on a VAS Vital Signs: Her O2 sat and pulse are unchanged activity which consist of the examination. ROM: She is nonpainful functional range of motion throughout her articular structures without pain on movement Strength: Her strength is generally rated -5/5 throughout Neuro: Has full motor control, sensations intact to light touch as well as proprioception. Fingertips to nose is accurate without ataxia, and rapid repetitive arm movements are unimpaired Bed Mobility/Transfers: Independent with assuming a supine to sitting to standing positions with minimal effort Gait: Ambulated into room holding onto the IV pole with a stable gait. She is able to walk on her heels and toes without weakness or loss of balance Balance: Dudley balance test was performed and she scored a 55/56. Score 45 or less indicates a fall risk and need for an assistive device Static Sitting: Stable Dynamic Sitting: Stable Static Standing: Stable Dynamic Standing: Stable, her unilateral standing balance is greater than 10 seconds Special Tests: Mobility Limitations Standardized Measure [facility] AM-PAC 6 clicks Basic Mobility Inpatient Short Form: Raw Score: 23 standardized Score: 6.22 CMS Score: 11.2% Informed Consent/Education: Patient instructed in purpose of PT consult and plan of care. Assessment: Patient is a 80year old female referred to physical therapy services with the diagnosis of small bowel obstruction status post laparotomy. Patient presents with clinical signs and symptoms consistent with this diagnosis, as demonstrated by the following impairment level findings: Generalized weakness from immobilization. Impairments are contributing to the following functional limitations: Decreased exercise tolerance Patient is assessed as a Moderate 31360 complexity based on the following: History: See comorbidities and social history Examination: See above for functional limitations and impairments Presentation: Evolving Decision Making: Moderate complexity based on her medical and surgical history Goals: Goals X1 week Improve exercise tolerance to minimize deconditioning, unable to climb 14 steps independently Plan of Care/Treatment Plan: 1-2x/day, 7 days/week x 1 week. Plan of care has been reviewed with the W[employer]LE TENDER providing the service under Physical Therapy direction. Initiate Physical Therapy intervention for strengthening, , stairs, cardiopulmonary conditioning exercises on the NuStep, etc. while monitoring her vitals DISCHARGE RECOMMENDATIONS: Home with no services TREATMENT CODE/TIME: 9716 2/30 minutes Disclaimer: This note was created using [employer] voice recognition software. It was reviewed for major content. However, there may be multiple small discrepancies and errors due to the voice recognition aspects of the software.
--- NOTE | 2021-08-14 15:08 | CHAPLAIN ---
Katie was up in the chair when I visited. She said things were moving along slowly. I introduced myself and explained my role. Katie was polite but not interested in further conversation. According to Care Management notes Katie has asked that she not have visitors except her daughters at this point.
[2021-08-15] VITALS (18 sets, daily range): BP systolic 124–152; BP diastolic 68–87; PULSE 74–96; RESP 17–24; TEMP 36.1–37.6; O2SAT 90–94
[2021-08-15] MEDS: Metoprolol 5 MG/5 ML VIAL IVP ×4 (02:33→21:11)
[2021-08-15] MEDS: Normal Saline Flush 10 ML SYR IVP ×6 (02:33→21:12)
[2021-08-15] MEDS: Metoclopramide 10 MG/2 ML VIAL IVP ×3 (05:32→17:47)
[2021-08-15] MEDS: Insulin Aspart 300 UNITS/3 ML PEN SC ×3 (05:33→18:10)
[2021-08-15 06:46] LABS: Abs Immature Grans 0.06 10^3/uL (0.0-0.06); Absolute Basophil Count 0.02 10^3/uL (0.0-0.2); Absolute Eosinophil Count 0.11 10^3/uL (0.0-0.7); Absolute Monocyte Count 0.69 10^3/uL (0.1-0.8); Absolute Neutrophil Count 5.55 10^3/uL (1.2-6.7); Basophils % 0.3; Eosinophils % 1.5; HCT 38.4 % (36.0-46.0); HGB 12.7 g/dL (11.2-15.7); Immature Grans % 0.8; Lymphocytes % 13.5; MCHC 33.1 % (32.0-36.0); MCV 94 fL (80-95); Monocytes % 9.3; Neutrophils % 74.6; Platelet Count 245 10^3/uL (130-400); RDW-SD 44.3 fL; WBC 7.43 10^3/uL (4.4-10.8)
[2021-08-15 06:58] LABS: Anion Gap 4.6 mmol/L (3-11); BUN 14 mg/dL (7-18); CO2 28.4 mmol/L (21.0-32.0); CREATININE 0.7 mg/dL (0.55-1.02); Calcium 8.6 mg/dL (8.5-10.1); Chloride 105 mmol/L (98-107); Glucose 155 mg/dL (74-106); PHOSPHORUS 2.3 mg/dL (2.6-4.7); Potassium 3.8 mmol/L (3.5-5.1); Sodium 138 mmol/L (136-145)
[2021-08-15] MEDS: Simethicone 80 MG CHEW PO ×3 (08:02→17:46)
--- NOTE | 2021-08-15 08:58 | PDOC.CMPRO ---
- If Service Date Differs Date of service: 08/15/21 Time of Service: 08:58 Care Management Progress Note S/O: Katie has started on a clear liquid diet and, so far, seems to be tolerating it well. She will advance to soft later today. When she is able to consume 50% of her meals, the liquor store manager has recommended that TPN be discontinued. Katie has been ambulating in the halls frequently and is passing flatus and having bowel movements. She remains afebrile and has no signs of infection. A: 80 year old female admitted to [facility] 07/30/21 with a SBO P: Katie will likely return home with no new services when medically cleared by provider. She has two supportive daughters to help her at home. She will follow up with her PCP, surgeon, and discharge plan of care as prescribed. She will be driven home via private vehicle by either one of her daughters or a friend when ready. CM will continue to follow and assess for discharge concerns.
--- NOTE | 2021-08-15 09:27 | PGE_ITS ---
Date of Service Date of service: 08/15/21 Time of Service: 07:01 Assessment and Plan Assessment and plan (1) Ileus following gastrointestinal surgery: Status: Acute (2) S/P laparotomy: Status: Acute Assessment and plan: POD #10 s/p exploratory laparotomy. Tolerating clear liquid diet, will advance to soft, regular diet (+) BMs cont TPN Continue reglan Encouraged continued ambulation and activity OOB as tolerated. PT eval has been ordered. Addendum by Pj Garcia: She did quite well this morning, and has been working with physical therapy. She is tolerated a regular diet without any new abdominal complaints. She does still feel distended, but not much different than yesterday. She has had a bowel movement overnight. Her abdomen soft, still a bit distended, and nontender. The midline incision is clean, there is no erythema, and there is no tenderness. I do not appreciate any hernias. I think we can continue the TPN through tonight and reassess her dietary consumption tomorrow morning. Hopefully, we can transition away from parenteral nutrition and work towards getting her discharged home. (3) Hypertension: Status: Chronic Qualifiers: Hypertension type: essential hypertension Qualified Code(s): I10 - Essential (primary) hypertension (4) Hypokalemia: Subjective Subjective Interval history since last seen: Arrived with patient sitting in her chair, she reports that she is feeling about the same compared to yesterday and the day prior. Patient states she is feeling hungry. She continues to loose stools. She denies any fevers, chills or night sweats. Exam Const General: cooperative and comfortable Orientation: alert and oriented x3 Resp Effort & Inspection: normal respiratory effort, no audible wheezes and no cough GI Inspection: normal to inspection and non-distended Palpation: soft, no guarding and nontender Objective Last Vital Signs Temp 37.0 C 08/15/21 07:45 Pulse 81 08/15/21 08:03 Resp 18 08/15/21 07:45 BP 134/77 08/15/21 08:03 Pulse Ox 92 08/15/21 07:45 Laboratory Results - last 24 hr 08/15/21 08/15/21 05:30 05:30 WBC 7.43 RBC 4.10 Hgb 12.7 Hct 38.4 MCV 94 MCH 31.0 MCHC 33.1 RDW 13.0 Plt Count 245 MPV 11.0 Immature Gran % 0.8 Neutrophils % 74.6 Lymphocytes % 13.5 Monocytes % 9.3 Eosinophils % 1.5 Basophils % 0.3 Nucleated RBC % 0.0 Absolute Neutrophils 5.55 Absolute Lymphocytes 1.00 L Absolute Monocytes 0.69 Absolute Eosinophils 0.11 Absolute Basophils 0.02 Sodium 138 Potassium 3.8 Chloride 105 Carbon Dioxide 28.4 Anion Gap 4.6 BUN 14 Creatinine 0.7 Estimated GFR/1.73 m2 >= 60.00 Glucose 155 H Calcium 8.6 Phosphorus 2.3 L Magnesium 2.0 PAWSS Have you Been Recently Intoxicated or Drunk Within the Last 30 days?: No Have you Ever Experienced Previous Episodes of Alcohol Withdrawal?: No Have you ever Experienced Withdrawal Seizures?: No Have you ever Experienced Delirium Tremens(DT)s?: No Have you ever undergone Alcohol Rehabilitation Treatment (i.e, inpt ot outpatient treatment programs)?: No Have you ever Experienced Blackouts?: No Have you ever Combined Alcohol with other Downers within the last 90 days?: No Have you ever Combined Alcohol with any other Substance of Abuse during the last 90 days?: No Positive Blood Alcohol level on Presentation? [PCS.BAL]: No Evidence of Increased Autonomic Activity (i.e. HR>120, tremor, sweating, agitati on, nausea)?: No Result: 0
[2021-08-15] MEDS: Enoxaparin 40 MG/0.4 ML SYR SC (10:33)
--- NOTE | 2021-08-15 12:17 | W.NUTRFU ---
Date of service: 08/15/21 Time of Service: 12:17 Nutrition Note NOTE: Katie is tolerating clear liquid diet and passing stool. Diet advanced to soft with ensure clears in between meals. Recommend d/c TPN when able to consume at least 50% of meals. WIll continue to follow. Time Spent in Nutritional Counseling and Treatment: 5
--- NOTE | 2021-08-15 13:34 | PT.INTREAT ---
Date of service: 08/15/21 Time of Service: 09:58 PT Notes Visit Reasons: Small Bowel Obstruction Inpatient Physical Therapy Treatment Note [facility] Date: 08/15/2021 SUBJECTIVE: Katie is pleasant and agreeable to participating in PT. She reports that she has been independently ambulating in the hallways and within her room without an assitive device. She states that she does not feel that she requires PT while in the hospital, but that she is hoping to get a HEP to keep her moving while she is here. OBJECTIVE: PAIN: No c/o pain BED MOBILITY/TRANSFERS Supine-sit: I Sit-supine: I Sit-stand: I Stand-sit: I Bed-Chair: I Chair-bed: I GAIT Assistive Device: No AD Weight bearing: Full Assist: I Distance: 400' Deviation: None THEREX: Patient was issued and instructed in a global strengthening HEP, to include: unilateral heel raises, hip flexion, hip abduction, hip extension, squats, lunges, lateral lunges, 6 step ups, all completed in a standing position, with good understanding and exercise mechanics. Patient also completes NuStep biking x8 minutes on with close supervision. ASSESSMENT: Patient tolerated session well, with some c/o increased fatigue following ther ex completion. She demonstrates good exercise mechanics and good understanding of her I HEP. She demonstrates independence with all gait, transfers, and bed mobility at this time. PLAN: Follow up with patient on Thursday, progress HEP as tolerated. Recommend OP PT follow up once discharged to home. TREATMENT CODE/TIME: 38 minutes; [id number] x3 (09:58)
--- NOTE | 2021-08-15 18:30 | PT.INDS ---
Date of service: 08/15/21 PT Notes Visit Reasons: Small Bowel Obstruction Physical Therapy Inpatient Discharge Summary Date: 08/15/2021 Dates of Service: 08/14/2021 through 08/15/2021 This is a clinical summary of care provided for the duration of dates listed above. No charge was made in the completion of this documentation. Referring Doctor: Veronica Landa PT Orders: PT CONSULT: Extended Stay?weakness Precautions: Fall Patient Profile/Admitting Diagnosis: 80-year-old female?who was recently admitted with small bowel obstruction status post laparotomy postop day 10. PMHX:? All Active Problems?(Updated 08/02/21 @ 06:19 by Tristen Ledesma MD) SBO (small bowel obstruction) (Acute) Schmorl's nodes of the thoracic region (Acute) Category 3 mammography result with short follow-up interval suggested for probably benign finding (Acute[place] [facility] [place], but [place] cat 3 with repeat imaging in 6 month recommendedHypertension (Chronic ~10/2019) Dx'ed 10/2019--RX Losartan; goal <130/80 ideally (but 140/90 acceptable) Family history of breast cancer (Chronic) Daughter Obesity (Chronic 11/08/12) 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) several polyps (may not even be polyps!), but due to + FH mother colon cancer <60, rec 5 yr interval; 2020: Katie declines further colonoscopy 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 History of tonsillectomy and adenoidectomy S/P trigger finger release R third ~2010 Status post cataract extraction and insertion of intraocular lens of left eye (04/05/18) Status post cataract extraction and insertion of intraocular lens of right eye (03/22/18) Social History/Home Situation: Lives in a two-story home in [place] with no steps entering the home but 14 steps to the second floor where her bedroom is located.? She is a walk-in shower in the first floor with shower chair, grab bars and flexible hose.? She is retired and lost her this past November Current Functional Limitations: Independent with all ADLs Equipment Owned/DME: Adaptive bathroom equipment Subjective:?NT. See most recent [employer] notes. Objective:? General Observation: NT. See most recent [employer] notes. Mental Status: NT. See most recent [employer] notes. Pain: NT. See most recent [employer] notes. Vital Signs: NT. See most recent [employer] notes. ROM: Not re-assessed Strength: Not re-assessed Bed Mobility/Transfers:? Rolling independent Supine to sit independent Sit to supine independent Sit to stand independent Stand to sit independent Bed to chair independent Gait:? Chair to bed up to 400 feet of level surface ambulation without an assistive device independently. Balance:? Static Sitting: Normal Dynamic Sitting: Normal Static Standing: Normal Dynamic Standing: Good Assessment:?? Patient is made independent as of 08/15/2021 using no assistive device and is therefore discharged from PT services at highest functional level. Goals: Goals X1 week Improve exercise tolerance to minimize deconditioning, unable to climb 14 steps independently MET DISCHARGE RECOMMENDATIONS: Home with no services Thank you for the opportunity to participate in the care of this patient. Radha Ledbetter PT, DPT, CLT [facility] [place], [place]
[2021-08-15] MEDS: traMADol 50 MG TAB PO (18:56)
[2021-08-15] MEDS: Ondansetron 4 MG/2 ML VIAL IVP (18:56)
[2021-08-16] VITALS (24 sets, daily range): BP systolic 109–159; BP diastolic 65–81; PULSE 73–111; RESP 16–29; TEMP 36.7–37.3; O2SAT 89–99; BMI 31.9
--- NOTE | 2021-08-16 00:45 | DI.RAD_ITS ---
Exam(s) XR ABDOMEN FLAT PLATE EXAM: 2D digital imaging was performed. CLINICAL HISTORY: NG Placement. COMPARISON: CR XR ABDOMEN FLAT PLATE from 08/13/2021 TECHNIQUE: Upright views of the upper abdomen performed. FINDINGS: A nasogastric tube has been inserted which projects in the region of the stomach. Midline surgical s kin shaina are again noted. There has been no significant change of bowel dilatation. IMPRESSION: Satisfactory placement of NG tube. DATA REPOSITORY: RADIATION DOSE DELIVERED:
[2021-08-16] MEDS: Insulin Aspart 300 UNITS/3 ML PEN SC ×5 (01:16→23:50)
[2021-08-16] MEDS: Metoprolol 5 MG/5 ML VIAL IVP ×4 (01:17→20:25)
--- NOTE | 2021-08-16 02:26 | DI.VRAD_ITS ---
PROCEDURE INFORMATION: Exam: XR Abdomen Exam date and time: 08/16/2021 12:49 AM Age: 80 years old Clinical indication: Device placement; Gi device; Nasogastric tube; Additional info: Ng tube placement TECHNIQUE: Imaging protocol: Radiologic exam of the abdomen. Views: Frontal supine view of the abdomen. 1 View. COMPARISON: CR XR ABDOMEN FLAT PLATE 08/13/2021 8:37 AM FINDINGS: Tubes, catheters and devices: Distal portion of enteric tube projects over left upper quadrant Gastrointestinal tract: Multiple dilated loops of bowel with air-fluid levels again demonstrated. Bones/joints: Unremarkable. Soft tissues: Multiple skin shaina project over abdomen just to the left of midline. IMPRESSION: Distal portion of NG tube in gastric lumen. Dictated and Authenticated by: Gopi Segundo MD. Ordering:GERHARD Jade MD
[2021-08-16] MEDS: Normal Saline Flush 10 ML SYR IVP ×7 (05:26→21:03)
[2021-08-16 06:55] LABS: Abs Immature Grans 0.05 10^3/uL (0.0-0.06); Absolute Basophil Count 0.02 10^3/uL (0.0-0.2); Absolute Eosinophil Count 0.08 10^3/uL (0.0-0.7); Absolute Lymphocyte Count 0.99 10^3/uL (1.2-3.4); Absolute Monocyte Count 0.63 10^3/uL (0.1-0.8); Absolute Neutrophil Count 6.59 10^3/uL (1.2-6.7); Basophils % 0.2; HCT 38.4 % (36.0-46.0); HGB 12.7 g/dL (11.2-15.7); Immature Grans % 0.6; Lymphocytes % 11.8; MCH 31.1 pg (27.0-33.0); MCHC 33.1 % (32.0-36.0); MCV 94 fL (80-95); Monocytes % 7.5; Neutrophils % 78.9; Platelet Count 209 10^3/uL (130-400); RBC 4.08 10^6/uL (3.93-5.22); RDW 12.9 % (11.7-14.6); RDW-SD 44.2 fL; WBC 8.36 10^3/uL (4.4-10.8)
[2021-08-16 07:10] LABS: INR 1.1 (0.9-1.1)
[2021-08-16 07:20] LABS: ALT 24 U/L (14-59); AST 19 U/L (15-37); Albumin 2.9 g/dL (3.4-5.0); Alkaline Phosphatase 67 U/L (46-116); Anion Gap 5.9 mmol/L (3-11); BUN 18 mg/dL (7-18); Bilirubin, Total 0.6 mg/dL (0.2-1.0); CO2 31.1 mmol/L (21.0-32.0); CREATININE 0.7 mg/dL (0.55-1.02); Chloride 103 mmol/L (98-107); Glucose 185 mg/dL (74-106); Magnesium 2.2 mg/dL (1.8-2.4); Potassium 4.3 mmol/L (3.5-5.1); Sodium 140 mmol/L (136-145); Total Protein 6.5 g/dL (6.4-8.2)
--- NOTE | 2021-08-16 10:51 | PDOC.CMPRO ---
- If Service Date Differs Date of service: 08/16/21 Time of Service: 10:51 Care Management Progress Note S/O: Last evening Katie began vomiting again and the NG tube was re-inserted. She has gone to the OR today for an exploratory laparotomy with a possible small bowel resection. She is afebrile and her vital signs are stable. Her oxygen saturation levels have been in the low to mid 90's, unchanged from previous days. CM will continue to follow. A: 80 year old female admitted to [facility] 07/30/21 with a SBO P: Katie will likely return home with no new services when medically cleared by provider. She has two supportive daughters to help her at home. She will follow up with her PCP, surgeon, and discharge plan of care as prescribed. She will be driven home via private vehicle by either one of her daughters or a friend when ready. CM will continue to follow and assess for discharge concerns.
--- NOTE | 2021-08-16 11:44 | ANES.PREOP_ITS ---
General Info Date of Service Date Performed: 08/16/21 Height: 5 ft 8 in Weight: 95.254 kg Body Mass Index (BMI): 31.9 Surgical Procedure: Operation Date: 08/05/21 15:35 Proposed Procedure Side Surgeon p Exploratory Laparotomy possible Small Bowel Chanell Nails MD Actual Procedure Side Surgeon p Exploratory Laparotomy Not Applicable Chanell Nails MD Pre-Op Diagnosis Post-Op Diagnosis SMALL BOWEL OBSTRUCTION SMALL BOWEL OBSTRUCTION Operation Date: 08/16/21 10:20 Proposed Procedure Side Surgeon p Exploratory Laparotomy possible small bowel Pj Garcia MD Meds Allergies and Home Medications Allergies Allergy/AdvReac Type Severity Reaction Status Date / Time pantoprazole sodium AdvReac Mild FELT Verified 08/02/21 04:47 [From Protonix] TERRIBLE Home Medication Medication Instructions Recorded Centrum Silver Tablet 1 ea PO DAILY 11/15/12 lancets 28 gauge #400 ea 01/17/15 blood sugar diagnostic (Contour #100 ea 07/19/19 Test Strips) magnesium gluconate 27 mg 500 mg PO DAILY PRN #90 tab-caps 08/19/19 magnesium (500 mg) tablet cholecalciferol (vitamin D3) 50 See Rx Instructions PO DAILY PRN 09/17/20 mcg (2,000 unit) capsule (Vitamin D3) occuvite 1 tab PO DAILY 05/13/21 albuterol sulfate 90 mcg/actuation 2 puff inhalation Q4H PRN PRN 06/22/21 aerosol inhaler (Proventil HFA) losartan 25 mg tablet 50 mg PO DAILY 08/02/21 losartan 25 mg tablet PO DAILY 08/02/21 Current Visit Medications: Current Medications Generic Name Dose Route Start Last Admin Trade Name Freq PRN Reason Stop Dose Admin Albuterol Sulfate 2 puff 08/03/21 10:04 Albuterol Hfa 8 Gm 60 Puff Inh IH Q4H PRN PRN Benzocaine/Menthol 0 each 08/07/21 09:16 08/16/21 01:35 Benzocaine/Menthol Lozg 18/Box SUC 1 each Q6H PRN PRN Administration Device 1 each 08/03/21 11:00 Inhaler, Assist Device MC DIRECTED SERGE Dextrose 0 gm 08/11/21 12:36 Glucose 40% Oral Solution 15 Gm/37.5 Gm Tube PO DIRECTED PRN Dextrose/Water 0 gm 08/11/21 12:36 Dextrose 50%-Water 25 Gm/50 Ml Syr IVP DIRECTED PRN Enoxaparin Sodium 40 mg 08/02/21 10:00 08/16/21 08:54 Enoxaparin 40 Mg/0.4 Ml Syr SC Not Given Q24H [facility] Hydromorphone HCl 1 mg 08/05/21 18:33 08/05/21 22:10 Hydromorphone 2 Mg/Ml Syr IVP 1 mg Q3H PRN PRN Administration Sodium Chloride 500 mls @ 0 mls/hr 08/02/21 06:49 08/13/21 21:14 Saline 500ml Bag IV 0 mls/hr PRN PRN Infusion As Directed Acetaminophen 1,000 mg in 100 mls @ 400 mls/hr 08/10/21 14:16 08/13/21 21:13 Ofirmev IVPB Infused Q8H PRN PRN Infusion Fat Emulsion 50 gm in 250 mls @ 31.25 mls/hr 08/12/21 08:30 08/16/21 08:26 Intralipid 20% IVPB 31.25 mls/hr DAILY SERGE Administration Sodium/Potass/Mag/Jerel/Chlor/ 1,046 mls @ 85.917 mls/hr 08/13/21 17:00 08/16/21 05:36 Acetate 20 ml/ Multivitamins IV 08/13/22 16:59 0 mls/hr 10 ml/ Zinc/Copper/Manganese/ .BY DURATION SERGE Infusion Selenium 1 ml/ Potassium Chloride 30 meq/ Amino Acids/ Dextrose Sodium/Potass/Mag/Jerel/Chlor/ 1,020 mls @ 85 mls/hr 08/13/21 17:00 08/16/21 05:24 Acetate 20 ml/ Amino Acids/ IV 08/13/22 16:59 85 mls/hr Dextrose .BY DURATION SERGE Administration IV Miscellaneous Supplies 1 each 08/02/21 05:00 Iv Access IV DIRECTED [facility] Insulin Aspart 0 units 08/11/21 18:00 08/16/21 06:33 Insulin Aspart 300 Units/3 Ml Pen SC 1 unit Q6H SERGE Administration Protocol Metoclopramide HCl 10 mg 08/12/21 12:00 08/16/21 05:37 Metoclopramide 10 Mg/2 Ml Vial IVP Not Given Q6H [facility] Metoprolol Tartrate 5 mg 08/10/21 14:00 08/16/21 08:26 Metoprolol 5 Mg/5 Ml Vial IVP 5 mg Q6H SERGE Administration Nystatin 0 gm 08/05/21 20:00 08/16/21 08:53 Nystatin Cream 15 Gm Tube TP Not Given BID SERGE Ondansetron HCl 4 mg 08/02/21 06:49 08/15/21 18:56 Ondansetron 4 Mg/2 Ml Vial IVP 4 mg Q4H PRN PRN Administration Simethicone 80 mg 08/10/21 16:00 08/16/21 08:54 Simethicone 80 Mg Chew PO Not Given QID SERGE Sodium Chloride 0 ml 08/02/21 04:53 08/16/21 08:52 Normal Saline Flush 10 Ml Syr IVP 30 ml PRN PRN Administration Tramadol HCl 50 mg 08/08/21 18:00 08/15/21 18:56 Tramadol 50 Mg Tab PO 50 mg Q6H PRN PRN Administration Vit C/Vit E/Zinc/Copper/Lutein 1 tab 08/09/21 08:30 08/16/21 08:54 Preservision Tablet PO Not Given DAILY SERGE PFSH Active Problems Active Problems: Problem Status Onset Code Ileus following gastrointestinal surgery K91.89, K56.7 S/P laparotomy Z98.890 Anaplasmosis A77.49 Schmorl's nodes of the thoracic region M51.44 Category 3 mammography result with short follow-up interval suggested for probably benign finding R92.8 Hypertension ~10/2019 I10 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 Family history of breast cancer Z80.3 Obesity 11/08/12 E66.9 Benign neoplasm of colon 11/08/13 D12.6 Degenerative joint disease of hand 11/08/12 COPD, mild 05/08/15 J44.9 Osteopenia 11/08/12 M85.80 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 Type 2 diabetes mellitus without complication 10/23/14 E11.9 Vitamin D deficiency 11/08/12 E55.9 Medical History Medical History 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 Hypokalemia Resolved with dietary supplementation (bananas, strawberries) Nuclear sclerotic cataract of left eye Nuclear sclerotic cataract of right eye 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/12) Rx Mag Gluconate (Dr Oliva) Surgical History Surgical History History of tonsillectomy and adenoidectomy S/P trigger finger release R third ~2010 Status post cataract extraction and insertion of intraocular lens of left eye (04/05/18) Status post cataract extraction and insertion of intraocular lens of right eye (03/22/18) Tobacco Smoking/Tobacco Use Status: Never Alcohol Alcohol Intake: current Alcohol intake frequency: a few times a week Alcohol type: wine Substance Use Substance use: Never Substance use type: does not use Vital Signs and Lab Results Vital Signs Most Recent Vital Signs in EMR: Most Recent Vital Signs Temp Pulse Resp BP Pulse Ox 37.1 C 78 18 120/70 91 L 08/16/21 11:29 08/16/21 11:29 08/16/21 11:29 08/16/21 11:29 08/16/21 11:29 Point of Care Results Point of Care Results: Finger Stick Blood Glucose 198 08/16/21 11:40 Lab Results Result Diagrams: 08/16/21 06:30 08/16/21 06:30 Blood Type / Crossmatch: Patient ABO/Rh O Positive 08/16/21 Antibody Screen NEGATIVE 08/16/21 Complete Blood Count: White Blood Count 8.36 10^3/uL (4.4-10.8) 08/16/21 06:30 Red Blood Count 4.08 10^6/uL (3.93-5.22) 08/16/21 06:30 Hemoglobin 12.7 g/dL (11.2-15.7) 08/16/21 06:30 Hematocrit 38.4 % (36.0-46.0) 08/16/21 06:30 Platelet Count 209 10^3/uL (130-400) 08/16/21 06:30 Complete Metabolic Panel: Sodium Level 140 mmol/L (136-145) 08/16/21 06:30 Potassium Level 4.3 mmol/L (3.5-5.1) 08/16/21 06:30 Chloride Level 103 mmol/L (98-107) 08/16/21 06:30 Carbon Dioxide Level 31.1 mmol/L (21.0-32.0) 08/16/21 06:30 Blood Urea Nitrogen 18 mg/dL (7-18) 08/16/21 06:30 Creatinine 0.7 mg/dL (0.55-1.02) 08/16/21 06:30 Estimated GFR/1.73 m2 >= 60.00 (mL/min/1.73m2) 08/16/21 06:30 Magnesium Level 2.2 mg/dL (1.8-2.4) 08/16/21 06:30 Calcium Level 9.0 mg/dL (8.5-10.1) 08/16/21 06:30 Albumin 2.9 g/dL (3.4-5.0) L 08/16/21 06:30 Glucose Level 185 mg/dL (74-106) H 08/16/21 06:30 C-Reactive Protein 4.00 mg/dL (0.0-0.3) H 08/13/21 07:15 Liver Function Panel: Alanine Aminotransferase (ALT/SGPT) 24 U/L (14-59) 08/16/21 06: 30 Aspartate Amino Transf (AST/SGOT) 19 U/L (15-37) 08/16/21 06:30 Coagulation Panel: INR International Normalized Ratio 1.1 (0.9-1.1) 08/16/21 06:3 0 Prothrombin Time 11.0 sec (9.3-11.0) 08/16/21 06:30 Cardiac Panel: Troponin I < 50 ng/L (<or=60) 08/02/21 Arterial Blood Gas: No Data to Display Venous Blood Gas: Venous Blood pH 7.50 (7.31-7.41) H 08/02/21 05:00 Venous Blood Partial Pressure O2 53 mmHg 08/02/21 05:00 Venous Blood Partial Pressure CO2 33 mmHg (41-51) L 08/02/21 05 :00 Venous Blood Oxygen Saturation 91 % 08/02/21 05:00 Venous Blood HCO3 26 mmol/L (23-28) 08/02/21 05:00 Venous Blood Base Excess 2 mmol/L (-2-3) 08/02/21 05:00 Venous Blood Total Carbon Dioxide 22 mmol/L (24-29) L 08/02/21 05:00 Pancreas Panel: Lipase 29 U/L (73-393) 08/03/21 06:02 Thyroid Panel: Thyroid Stimulating Hormone (TSH) 1.58 uIU/mL (0.36-3.74) 08/03 06:02 Infectious Disease: Coronavirus (COVID-19)(PCR) Negative (Negative) 08/02/21 05:00 Coronavirus 2019 Source Nasal/Nares 08/02/21 05:00 Blood Cultures: No Data to Display Toxicology Panel: No Data to Display Imaging and Studies Imaging and Studies Study information below may be from another EMR and interpreted by another provider. Please see original notes in EMR for more complete details. EKG Summary: 09/14/20: Sinus rhythm. Prolonged SC interval. Pulmonary Function Summary: IMPRESSION: Overall mild obstructive airway disease with no significant bronchodilator response. Clinical correlation recommended. 04/27/15 Anesthesia Assessment and Plan Anesthesia History Personal History: No History of Anesthesia Complications Family History: No Family History of Anesthesia Complications Exercise Tolerance Exercise Tolerance: Metabolic Equivalents>4 Cardiac & Pulmonary Exam Cardiac Exam: Normal S1/S2 Heart Sounds Pulmonary Exam: Clear Bilateral Breath Sounds Implantable Cardiac Device Does patient have a Pacemaker or an ICD?: No Airway Exam Known Difficult Airway: No Mallampati Class: 3 Mouth Opening: Normal (> 3cm) Thyromental Distance: Greater than 3 cm Neck Range of Motion: Full ROM Neck Circumference: Normal Teeth Condition: Loose or Chipped (Chipped in half 14 ) ASA Classification ASA Score: ASA 2 Emergency Case?: No NPO Status NPO Status: Full Stomach Anesthesia Plan Resuscitation Status: Full Code Anesthesia Technique: General Anesthesia Airway Planned: Endotracheal Tube Pain Management: Surgeon and patient request nerve block Monitors Used: Standard Monitors Preoperative Comments:: 80 yo female with bowel obstruction. was operated on 08/05/21, but has not been getting better. Sig PMHx: COPD, DM2, neck pain, Previous Anes: glide 3 grade 1, intermittent phenyl bolus/gtt.
[2021-08-16] MEDS: ceFAZolin 1,000 MG VIAL 1000 MG (12:40)
[2021-08-16] MEDS: Bupivacaine LIPOSOME/PF 133 MG/10 ML VIAL IJ (13:20)
[2021-08-16] MEDS: Bupivacaine 0.25% Pres-Free 30 ML VIAL (13:20)
[2021-08-16] MEDS: fentaNYL 100 MCG/2 ML VIAL IVP ×2 (13:55→14:00)
[2021-08-16] MEDS: HYDROmorphone 2 MG/ML SYR IVP ×2 (14:15→14:55)
[2021-08-16] MEDS: ACETAMINOPHEN 1,000 MG/100 ML BTL 400 MG IVPB (14:39)
--- NOTE | 2021-08-16 14:51 | W.ANESPOSTOP ---
Postoperative Evaluation Date, Time and Location Date Performed: 08/16/21 Time Performed: 14:51 Patient Location: PACU Vital Signs Most Recent Imported Vital Signs: Most Recent Vital Signs Temp Pulse Resp BP Pulse Ox 36.7 C 86 21 159/67 H 98 08/16/21 14:40 08/16/21 14:40 08/16/21 14:40 08/16/21 14:40 08/16/21 14:40 Most Recent Vital Signs Temp Pulse Resp BP Pulse Ox 37.1 C 77 19 124/66 94 08/06/21 04:23 08/06/21 04:23 08/06/21 04:23 08/06/21 04:23 08/06/21 04:23 Most Recent Vital Signs Temp Pulse Resp BP Pulse Ox 36.4 C L 87 19 159/67 H 93 08/05/21 17:49 08/05/21 18:31 08/05/21 18:31 08/05/21 18:31 08/05/21 18:31 Pain Score Most Recent Pain Score: Most Recent Pain Score Pain Level 0 08/16/21 11:29 Assessment Mental Status: Awake (Alert & Oriented to Patient Baseline) Airway and Respiratory Function: Patent airway with normal (patient baseline) respiratory exam Cardiovascular Function: Hemodynamically Stable Hydration Status: Adequately Hydrated Nausea & Vomiting: No Nausea or Vomiting Pain: Pain is Moderate or Severe Postoperative Pain Management: Pain being addressed with medication Peripheral Nerve Block: Patient did not receive a nerve block
[2021-08-16] MEDS: Normal Saline 10 ML VIAL (14:57)
--- NOTE | 2021-08-16 15:03 | PHA.REVIEW ---
Pharmacy Admission Review - Admission Clinical Review (Last Reviewed 05/13/21 @ 09:54 by Renetta Limon NP) Ileus following gastrointestinal surgery (Acute) S/P laparotomy (Acute) Anaplasmosis (Acute) pantoprazole sodium [From Protonix] Adverse Reaction (Mild, Verified 08/02/21 04:47) FELT TERRIBLE Resuscitation Status Full Code Height 5 ft 8 in Weight 95.254 kg - Renal Dosing Renal Dosing: BUN 18 mg/dL (7-18) 08/16/21 06:30 Creatinine 0.7 mg/dL (0.55-1.02) 08/16/21 06:30 Medications needing adjustments: Reviewed (Crcl ~77.4 mL/min current meds okay) - Anticoagulation Anticoagulation: Hgb 12.7 g/dL (11.2-15.7) 08/16/21 06:30 Hct 38.4 % (36.0-46.0) 08/16/21 06:30 Plt Count 209 10^3/uL (130-400) 08/16/21 06:30 INR 1.1 (0.9-1.1) 08/16/21 06:30 Creatinine 0.7 mg/dL (0.55-1.02) 08/16/21 06:30 DVT Prophylaxis: Reviewed Medications: Enoxaparin Therapeutic Anticoagulation: N/A - Opiate Usage Evaluate Pain Scale/Pains Meds: Reviewed Scheduled Bowel Reg ordered if on Opiates?: No (pt has SBO) - Relevant Labs Sodium 140 mmol/L (136-145) 08/16/21 06:30 Potassium 4.3 mmol/L (3.5-5.1) 08/16/21 06:30 Chloride 103 mmol/L (98-107) 08/16/21 06:30 Phosphorus 3.0 mg/dL (2.6-4.7) 08/16/21 06:30 Magnesium 2.2 mg/dL (1.8-2.4) 08/16/21 06:30 C-Reactive Protein 4.00 mg/dL (0.0-0.3) H 08/13/21 07:15 Electrolytes, C-Reactive P, ESR: Intervened (K+ up to 4.3. Additional potassium was added to the TPN when the pt's K+ was low, mentioned this to the provider and she said to stop adding the additional potassium.) - DM Control DM Control: Glucose 185 mg/dL (74-106) H 08/16/21 06:30 Finger Stick Blood Glucose 198 Finger Stick Blood Glucose 198 Finger Stick Blood Glucose 198 Insulin Dosing: Reviewed (sliding scale asparted ordered Q6H) - Heart Failure/MN Heart Failure/MN: Troponin I < 50 ng/L (<or=60) 08/02/21 12:55 EF%, CAMDEN's, B-Blockers, Diuretics: Reviewed - BP Control BP Control: Blood Pressure 138/73 Blood Pressure 159/67 Blood Pressure 150/75 Blood Pressure 150/75 Blood Pressure 148/73 Blood Pressure 141/80 Blood Pressure 149/78 Blood Pressure 120/70 Blood Pressure 123/70 Blood Pressure 125/71 If elevated: Reviewed (BP has been normal to high so far this admission; IV metoprolol order Q6H scheduled.) - Qtc Review If Elevated: N/A - IV to PO Switch IV Medications: Reviewed (pt currently NPO) - Home Meds Home Med List reviewed: Reviewed Relevent Home Meds Not ordered & why?: pt's PO home meds not currently ordered as pt is NPO - Current meds Current Medication Order Review: Reviewed - Comments Comments/Follow Ups: Watch BP, BG, SCr, labs and for med changes (IV to PO and home meds once no longer NPO).
--- NOTE | 2021-08-16 16:47 | W.PM.OP ---
Date of service: 08/16/21 Time of Service: 12:30 Operative Note Operative Note DATE OF PROCEDURE: 08/05/21 PRE-OP DIAGNOSIS: SBO/Ileus POST-OP DIAGNOSIS: other (partial SBO) PROCEDURE: Exploratory Laparotomy with small bowel resection SURGEON: Chanell Nails ASSISTING SURGEON: Pj Garcia ENGINEERING GROUP MANAGER: Veronica Landa ANESTHESIA TYPE: General LMA/ETT Refer to Anesthesia Record ESTIMATED BLOOD LOSS: 50 PATHOLOGY: none sent COMPLICATIONS: None Patient was transported to: PACU Patient's condition: stable Implants: None Findings: Katie is 11 days s/p exploratory laparotomy with lysis of adhesions for a small bowel obstruction due to a band of tissue. POst-operatively she seemed to be doing OK but then started to develop distention and nausea once we attempted to advance her diet. Her XRays continued to show marketly dilated small bowel. At this point it was recommended to Katie that we go back to surgery to see what was going on. Discussed risks and benefits and complications and she wished to proceed. Procedure Description: After informed consent was obtained the patient was taken to the Operating room and placed in a supine position on the operating room table. Monitors were applied and the patient was placed under anesthesia and intubated without complications. A lanza catheter was placed in a standard fashion. ? The shaina were removed from her incision. Next her abdomen was prepped and draped in a standard fashion.? A time out was done and the patient's name, date of , procedure to be done, site, allergies to medications, antibiotics given and DVT prophilaxis were reviewed. Fire risk was assessed. 0.5 % Lidocaine was injected along her scar into the dermis and subcutaneous tissue ? Using a 10 blade an incision was made along the healing scar. Dissection was done with cautery down to the fascia.? The proline sutures were removed sharply and the fascia was carefully opened.? ?Next the small intestine was inspected from the ligament of treitz and followed all the way to the distal jejunum. There was fluid and air within the bowel.?At the distal ileum, were the band had been in her first surgery, there was circumferential scarring noted. There was partial obstruction of the small intestine at this time. There was no necrosis. A window was created in the mesentery just distal and proximal to the narrowed section with a hemostst. The small intestine was transected with 80 KEEGAN stapler distal and proximal to the narrowing. The mesentery was then clamped cut and suture ligated. The resected small bowel was removed from the operating field. The 2 stapled ends were placed side to side and using the 80 KEEGAN an anastamosis was created between the two bowel ends. The enterotomy was then closed with 2-0 vicryl. A second layer was applied over the vicryl with interrupted silk sutures. The mesenteric defect was then closed with 2-0 silk suture. There was peristalsis observed of the small intestine both proximal and distal to the resection. The small intestine was placed back into her abdomen and the abdomen was irrigated with 1 L of warm saline. At the end the effluent was clear.? The omentum was placed back over the small bowel and 4 sheets of interseed were placed under the incision. At this point the midline incision was closed with 0 looped PDS.?? The skin was then closed with shaina. The skin was cleaned and dried and a ANGELINA dressing (25 cm long) was placed over the midline incision.? Sponge, instrument and needle counts were correct at the end of the case. The patient was woken up, extubated and taken back to [facility] in stable condition.? There were no immediate complications.
[2021-08-16] MEDS: Ketorolac 15 MG/ML VIAL IVP ×2 (18:15→23:49)
[2021-08-16] MEDS: HYDROmorphone 2 MG/ML SYR 1 MG IVP (21:02)
[2021-08-17] VITALS (16 sets, daily range): BP systolic 94–139; BP diastolic 55–77; PULSE 64–100; RESP 16–18; TEMP 36.9–37.6; O2SAT 91–95
[2021-08-17] MEDS: Metoprolol 5 MG/5 ML VIAL IVP ×4 (03:09→21:00)
[2021-08-17] MEDS: Ketorolac 15 MG/ML VIAL IVP ×4 (06:14→23:22)
[2021-08-17] MEDS: Insulin Aspart 300 UNITS/3 ML PEN SC ×4 (06:14→23:23)
[2021-08-17 06:53] LABS: Abs Immature Grans 0.07 10^3/uL (0.0-0.06); Absolute Eosinophil Count 0.01 10^3/uL (0.0-0.7); Absolute Lymphocyte Count 0.85 10^3/uL (1.2-3.4); Absolute Monocyte Count 1.09 10^3/uL (0.1-0.8); Basophils % 0.2; Eosinophils % 0.1; HCT 38.2 % (36.0-46.0); HGB 12.7 g/dL (11.2-15.7); Immature Grans % 0.6; MCH 31.2 pg (27.0-33.0); MCHC 33.2 % (32.0-36.0); MCV 94 fL (80-95); MPV 11.7 fL (8.0-11.0); Neutrophils % 83.1; Platelet Count 206 10^3/uL (130-400); RBC 4.07 10^6/uL (3.93-5.22); RDW 13.1 % (11.7-14.6); RDW-SD 44.2 fL
[2021-08-17 06:56] LABS: Absolute Basophil Count 0.02 10^3/uL (0.0-0.2); Absolute Neutrophil Count 10.06 10^3/uL (1.2-6.7)
[2021-08-17 07:19] LABS: Anion Gap 4.5 mmol/L (3-11); BUN 26 mg/dL (7-18); CO2 29.5 mmol/L (21.0-32.0); CREATININE 0.8 mg/dL (0.55-1.02); Calcium 8.8 mg/dL (8.5-10.1); Chloride 102 mmol/L (98-107); Glucose 198 mg/dL (74-106); PHOSPHORUS 2.7 mg/dL (2.6-4.7); Potassium 4.3 mmol/L (3.5-5.1); Sodium 136 mmol/L (136-145)
[2021-08-17] MEDS: Simethicone 80 MG CHEW PO ×2 (07:58→11:30)
[2021-08-17] MEDS: Normal Saline Flush 10 ML SYR IVP ×6 (08:02→21:00)
[2021-08-17] MEDS: Enoxaparin 40 MG/0.4 ML SYR SC (09:56)
[2021-08-17] MEDS: HYDROmorphone 2 MG/ML SYR 1 MG IVP ×3 (10:43→23:23)
--- NOTE | 2021-08-17 11:03 | W.PM.PROGNOT ---
Date of Service Date of service: 08/17/21 Time of Service: 11:03 Assessment and Plan Assessment and plan (1) Ileus following gastrointestinal surgery: Status: Acute (2) S/P laparotomy: Status: Acute Assessment and plan: POD #12 and 1 s/p exploratory laparotomy. Plan: cont TPN Continue reglan Encouraged continued ambulation and activity OOB as tolerated. PT eval has been ordered. Monitor WBC count (3) Hypertension: Status: Chronic Qualifiers: Hypertension type: essential hypertension Qualified Code(s): I10 - Essential (primary) hypertension (4) Hypokalemia: Assessment and plan: resolved Subjective Subjective Interval history since last seen: Katie is having some pain in her upper abdomen this am. She feels like she has a lot of gas trapped. No flatus yet. Low grade fever at 8 am. Tachycardia this am which improved with pain medications. Exam Const General: cooperative, in distress and frail appearing HENMT Head: normocephalic and atraumatic Eyes Pupils: PERRL Resp Auscultation: clear to auscultation bilaterally Cardio Rate: regular rate Rhythm: regular rhythm GI Inspection: incision (ANGELINA in place) Palpation: soft and tender (along the incision. Appropriately tender) Auscultation: hypoactive bowel sounds Objective Last Vital Signs Temp 99.7 F H 08/17/21 08:20 Pulse 64 08/17/21 08:25 Resp 17 08/17/21 08:20 BP 139/73 08/17/21 08:25 Pulse Ox 94 08/17/21 08:20 Laboratory Results - last 24 hr 08/17/21 08/17/21 06:00 06:00 WBC 12.10 H RBC 4.07 Hgb 12.7 Hct 38.2 MCV 94 MCH 31.2 MCHC 33.2 RDW 13.1 Plt Count 206 MPV 11.7 H Immature Gran % 0.6 Neutrophils % 83.1 Lymphocytes % 7.0 Monocytes % 9.0 Eosinophils % 0.1 Basophils % 0.2 Nucleated RBC % 0.0 Absolute Neutrophils 10.06 H Absolute Lymphocytes 0.85 L Absolute Monocytes 1.09 H Absolute Eosinophils 0.01 Absolute Basophils 0.02 Sodium 136 Potassium 4.3 Chloride 102 Carbon Dioxide 29.5 Anion Gap 4.5 BUN 26 H Creatinine 0.8 Estimated GFR/1.73 m2 >= 60.00 Glucose 198 H Calcium 8.8 Phosphorus 2.7 Magnesium 2.0 PAWSS Have you Been Recently Intoxicated or Drunk Within the Last 30 days?: No Have you Ever Experienced Previous Episodes of Alcohol Withdrawal?: No Have you ever Experienced Withdrawal Seizures?: No Have you ever Experienced Delirium Tremens(DT)s?: No Have you ever undergone Alcohol Rehabilitation Treatment (i.e, inpt ot outpatient treatment programs)?: No Have you ever Experienced Blackouts?: No Have you ever Combined Alcohol with other Downers within the last 90 days?: No Have you ever Combined Alcohol with any other Substance of Abuse during the last 90 days?: No Positive Blood Alcohol level on Presentation? [PCS.BAL]: No Evidence of Increased Autonomic Activity (i.e. HR>120, tremor, sweating, agitation, nausea)?: No Result: 0
[2021-08-17] MEDS: Metoclopramide 10 MG/2 ML VIAL IVP ×2 (11:30→17:43)
[2021-08-18] VITALS (18 sets, daily range): BP systolic 97–130; BP diastolic 60–70; PULSE 80–102; RESP 16–24; TEMP 36.6–37.6; O2SAT 92–93
--- NOTE | 2021-08-18 | DI.RAD_ITS ---
Exam(s) XR ABDOMEN FLAT PLATE EXAM: 2D digital imaging was performed. CLINICAL HISTORY: NG tube placement. COMPARISON: CR,XR XR ABDOMEN FLAT PLATE from 08/16/2021 TECHNIQUE: Supine views of the abdomen performed. One view is obtained. FINDINGS: BOWEL GAS PATTERN: There are dilated loops of small bowel present. The findings are suspicious small -bowel obstruction versus ileus. CALCIFICATIONS: No radiopaque calcifications. OSSEOUS STRUCTURES: Normal for age. OTHER FINDINGS: Skin shaina are seen in the midline. IMPRESSION: Small-bowel obstruction versus ileus. DATA REPOSITORY: RADIATION DOSE DELIVERED:
[2021-08-18] MEDS: Normal Saline Flush 10 ML SYR IVP ×9 (02:04→19:44)
[2021-08-18] MEDS: Metoprolol 5 MG/5 ML VIAL IVP ×3 (02:04→19:44)
[2021-08-18] MEDS: HYDROmorphone 2 MG/ML SYR 1 MG IVP ×3 (05:34→21:55)
[2021-08-18] MEDS: Insulin Aspart 300 UNITS/3 ML PEN SC ×3 (06:10→17:46)
[2021-08-18 07:03] LABS: Anion Gap 4.9 mmol/L (3-11); BUN 37 mg/dL (7-18); CO2 31.1 mmol/L (21.0-32.0); Calcium 8.9 mg/dL (8.5-10.1); Chloride 102 mmol/L (98-107); Estimated GFR 53.35 (mL/min/1.73m2); Glucose 203 mg/dL (74-106); Magnesium 2.2 mg/dL (1.8-2.4); PHOSPHORUS 3.5 mg/dL (2.6-4.7); Potassium 4.2 mmol/L (3.5-5.1); Sodium 138 mmol/L (136-145)
[2021-08-18] MEDS: Simethicone 80 MG CHEW PO ×3 (08:12→15:46)
[2021-08-18 08:19] LABS: Abs Immature Grans 0.07 10^3/uL (0.0-0.06); Absolute Basophil Count 0.02 10^3/uL (0.0-0.2); Absolute Eosinophil Count 0.15 10^3/uL (0.0-0.7); Absolute Lymphocyte Count 0.86 10^3/uL (1.2-3.4); Basophils % 0.2; Eosinophils % 1.6; HCT 36.2 % (36.0-46.0); HGB 11.7 g/dL (11.2-15.7); Immature Grans % 0.7; Lymphocytes % 9.1; MCHC 32.3 % (32.0-36.0); MCV 96 fL (80-95); Monocytes % 11.6; Neutrophils % 76.8; RBC 3.77 10^6/uL (3.93-5.22); RDW 13.2 % (11.7-14.6); RDW-SD 46.7 fL
[2021-08-18 09:10] LABS: Basophilic Stippling Present; Diff Comment Diff Reviewed; Polychromasia Present
[2021-08-18] MEDS: Enoxaparin 40 MG/0.4 ML SYR SC (09:32)
[2021-08-18] MEDS: Ketorolac 15 MG/ML VIAL IVP ×2 (10:38→16:34)
--- NOTE | 2021-08-18 11:15 | DI.RAD_ITS ---
Exam(s) XR PORTABLE CHEST AP EXAM: XR PORTABLE CHEST AP CLINICAL HISTORY: NG placement TECHNIQUE: 2D digital imaging was performed of the chest. Two images were obtained. AP views were obtained. COMPARISON: CR XR PORTABLE CHEST AP from 08/02/2021 FINDINGS: MEDIASTINUM: Normal. HEART: Normal. PULMONARY VASCULATURE: Normal. LUNGS: Clear. PLEURAL SPACE: No pleural effusion or pneumothorax. BONE:Within normal limits for the patient's age. OTHER FINDINGS:There is unchanged elevation of the right hemidiaphragm. The tip of the orogastric tu be is in the stomach. The tip of the left PICC line is in good position in the superior vena cava. IMPRESSION: The tip of the nasogastric tube is in good position within the body of the stomach. DATA REPOSITORY: RADIATION DOSE DELIVERED:
[2021-08-18] MEDS: Metoclopramide 10 MG/2 ML VIAL IVP ×2 (11:51→17:46)
--- NOTE | 2021-08-18 12:56 | W.PM.PROGNOT ---
Date of Service Date of service: 08/18/21 Time of Service: 12:56 Assessment and Plan Assessment and plan (1) Ileus following gastrointestinal surgery: Status: Acute (2) S/P laparotomy: Status: Acute Assessment and plan: POD #13 and 2 s/p exploratory laparotomy and isha and ex-lap and small bowel resection Continues with an ileus. CXR showed NG tube just barely in the stomach- advanced 5 cm ABDO XRay- dialted loops of bowel but improved from prior to surgery. Plan: cont TPN Continue reglan Encouraged continued ambulation and activity OOB as tolerated. PT eval has been ordered. Leukocytosis has resolved Electrolytes are normal (3) Hypertension: Status: Chronic Assessment and plan: controlled Qualifiers: Hypertension type: essential hypertension Qualified Code(s): I10 - Essential (primary) hypertension (4) Hypokalemia: Assessment and plan: resolved Subjective Subjective Interval history since last seen: Katie is doing OK. Having some gas pain. No flatus. Had 700 cc out of her NG tube overnight. Only 100 cc since 6 am. Its bilious. She is discouraged but still trying to be positive. Exam Const General: cooperative, comfortable and no acute distress HENMT Head: normocephalic and atraumatic Resp Effort & Inspection: normal respiratory effort Auscultation: clear to auscultation bilaterally Cardio Rate: regular rate Rhythm: regular rhythm GI Inspection: incision (ANGELINA is in place) Palpation: soft and nontender Auscultation: hypoactive bowel sounds Objective Last Vital Signs Temp 98.1 F 08/18/21 11:42 Pulse 97 H 08/18/21 11:42 Resp 18 08/18/21 11:42 BP 104/67 08/18/21 11:42 Pulse Ox 93 08/18/21 11:42 Laboratory Results - last 24 hr 08/18/21 08/18/21 06:15 06:15 WBC 9.50 RBC 3.77 L Hgb 11.7 Hct 36.2 MCV 96 H MCH 31.0 MCHC 32.3 RDW 13.2 Plt Count MPV Immature Gran % 0.7 Neutrophils % 76.8 Lymphocytes % 9.1 Monocytes % 11.6 Eosinophils % 1.6 Basophils % 0.2 Nucleated RBC % 0.0 Absolute Neutrophils 7.30 H Absolute Lymphocytes 0.86 L Absolute Monocytes 1.10 H Absolute Eosinophils 0.15 Absolute Basophils 0.02 RBC Morphology See Below Polychromasia Present Basophilic Stippling Present Sodium 138 Potassium 4.2 Chloride 102 Carbon Dioxide 31.1 Anion Gap 4.9 BUN 37 H Creatinine 1.0 Estimated GFR/1.73 m2 53.35 Glucose 203 H Calcium 8.9 Phosphorus 3.5 Magnesium 2.2 PAWSS Have you Been Recently Intoxicated or Drunk Within the Last 30 days?: No Have you Ever Experienced Previous Episodes of Alcohol Withdrawal?: No Have you ever Experienced Withdrawal Seizures?: No Have you ever Experienced Delirium Tremens(DT)s?: No Have you ever undergone Alcohol Rehabilitation Treatment (i.e, inpt ot outpatient treatment programs)?: No Have you ever Experienced Blackouts?: No Have you ever Combined Alcohol with other Downers within the last 90 days?: No Have you ever Combined Alcohol with any other Substance of Abuse during the last 90 days?: No Positive Blood Alcohol level on Presentation? [PCS.BAL]: No Evidence of Increased Autonomic Activity (i.e. HR>120, tremor, sweating, agitation, nausea)?: No Result: 0
--- NOTE | 2021-08-18 13:25 | DI.VRAD_ITS ---
PROCEDURE INFORMATION: Exam: XR Chest Exam date and time: 08/18/2021 12:22 PM Age: 80 years old Clinical indication: Other: Ng tube placement TECHNIQUE: Imaging protocol: Radiologic exam of the chest. Views: 1 view. COMPARISON: XR CHEST 1V IN DI DEPT 08/03/2021 11:40 AM FINDINGS: Tubes, catheters and devices: left-sided PICC terminates over the SVC. esophagogastric tube terminates over an expected location of the gastric lumen. Lungs: no consolidation. Pleural spaces: no pneumothorax. suspected small left-sided pleural effusion. Heart/Mediastinum: cardiomediastinal silhouette within normal limits allowing for rotation. Bones/joints: No acute displaced fracture or dislocation. Other findings: redemonstrated right hemidiaphragmatic elevation. IMPRESSION: Esophagogastric tube terminates over an expected location of the gastric lumen. Dictated and Authenticated by: Don Silva MD. Ordering:JONE Lua MD
--- NOTE | 2021-08-18 13:35 | DI.VRAD_ITS ---
PROCEDURE INFORMATION: Exam: XR Abdomen Exam date and time: 08/18/2021 12:32 PM Age: 80 years old Clinical indication: Other: Sbo TECHNIQUE: Imaging protocol: Radiologic exam of the abdomen. Views: Frontal supine view of the abdomen. 1 View. COMPARISON: XR ABDOMEN FLAT PLATE 08/16/2021 12:49 AM FINDINGS: Gastrointestinal tract: Dilated loops of bowel redemonstrated. Increased in prominence compared to prior examination. Bones/joints: no acute displaced fracture. Soft tissues: Midline skin shaina. IMPRESSION: Increased prominence of dilated loops of bowel compatible with obstruction and/or ileus. Dictated and Authenticated by: Don Silva MD. Ordering:JONE Lua MD
[2021-08-18] MEDS: Bisacodyl 10 MG SUPP PR (13:40)
[2021-08-19] VITALS (17 sets, daily range): BP systolic 111–142; BP diastolic 63–78; PULSE 68–92; RESP 12–18; TEMP 36.6–37.7; O2SAT 92–98
[2021-08-19] MEDS: Metoclopramide 10 MG/2 ML VIAL IVP ×3 (00:41→18:06)
[2021-08-19] MEDS: Insulin Aspart 300 UNITS/3 ML PEN SC ×4 (00:41→18:27)
[2021-08-19] MEDS: Ketorolac 15 MG/ML VIAL IVP ×4 (00:41→18:05)
[2021-08-19] MEDS: Metoprolol 5 MG/5 ML VIAL IVP ×4 (02:31→20:38)
[2021-08-19 07:24] LABS: HCT 35.5 % (36.0-46.0); HGB 11.8 g/dL (11.2-15.7); MCH 31.6 pg (27.0-33.0); MCHC 33.2 % (32.0-36.0); MCV 95 fL (80-95); MPV 11.6 fL (8.0-11.0); Platelet Count 261 10^3/uL (130-400); RBC 3.74 10^6/uL (3.93-5.22); RDW 12.8 % (11.7-14.6); RDW-SD 44.3 fL; WBC 8.87 10^3/uL (4.4-10.8)
[2021-08-19 07:39] LABS: ALT 23 U/L (14-59); AST 24 U/L (15-37); Albumin 2.7 g/dL (3.4-5.0); Alkaline Phosphatase 95 U/L (46-116); Anion Gap 6.9 mmol/L (3-11); BUN 36 mg/dL (7-18); Bilirubin, Total 1.5 mg/dL (0.2-1.0); CO2 30.1 mmol/L (21.0-32.0); CREATININE 0.9 mg/dL (0.55-1.02); Calcium 9.2 mg/dL (8.5-10.1); Chloride 102 mmol/L (98-107); Glucose 155 mg/dL (74-106); Sodium 139 mmol/L (136-145); Total Protein 6.4 g/dL (6.4-8.2)
--- NOTE | 2021-08-19 08:07 | PGE_ITS ---
Date of Service Date of service: 08/19/21 Time of Service: 08:07 Assessment and Plan Assessment and plan (1) Ileus following gastrointestinal surgery: Status: Acute (2) S/P laparotomy: Status: Acute Assessment and plan: POD #14 and 3 s/p exploratory laparotomy and isha and ex-lap and small bowel resection Continues with an ileus. Patient denies having pain, however appears uncomfortable. Plan: cont TPN Continue reglan Encouraged continued ambulation and activity OOB as tolerated. Encouraged use of benzocaine lozenges to reduce NG tube discomfort. clamp NGT. return to Low continuos suction if nausea and bloating. hopefully d/c NGT in am pt seen and examined. Agree w/ above findings. (3) Hypertension: Status: Chronic Assessment and plan: controlled Qualifiers: Hypertension type: essential hypertension Qualified Code(s): I10 - Essential (primary) hypertension (4) Hypokalemia: Assessment and plan: resolved Subjective Subjective Interval history since last seen: Arrived with patient resting comfortably in chair. Patient states she is feeling slightly better than preop. She denies any pain at this time however describes significant discomfort associated with NG tube placement. She states that this is really causing nose discomfort. She denies any fevers, chills or night sweats. She reports that she had a BM this morning. pt reports more pain than w/ last surgery. +passing flatus. no headaches. No CP or SOB. no productive cough. no dysuria. no leg pain or swelling. Exam Const General: cooperative, healthy appearing and comfortable Orientation: alert and oriented x3 Resp Effort & Inspection: normal respiratory effort, no audible wheezes and no cough GI Inspection: normal to inspection Palpation: soft, no guarding and nontender Auscultation: hypoactive bowel sounds Objective Last Vital Signs Temp 37.7 C H 08/19/21 00:04 Pulse 80 08/19/21 02:37 Resp 17 08/19/21 00:04 BP 111/65 08/19/21 02:37 Pulse Ox 94 08/19/21 00:04 Laboratory Results - last 24 hr 08/18/21 08/19/21 08/19/21 06:15 06:50 06:50 WBC 9.50 8.87 RBC 3.77 L 3.74 L Hgb 11.7 11.8 Hct 36.2 35.5 L MCV 96 H 95 MCH 31.0 31.6 MCHC 32.3 33.2 RDW 13.2 12.8 Plt Count 261 MPV 11.6 H Immature Gran % 0.7 Neutrophils % 76.8 Lymphocytes % 9.1 Monocytes % 11.6 Eosinophils % 1.6 Basophils % 0.2 Nucleated RBC % 0.0 Absolute Neutrophils 7.30 H Absolute Lymphocytes 0.86 L Absolute Monocytes 1.10 H Absolute Eosinophils 0.15 Absolute Basophils 0.02 RBC Morphology See Below Polychromasia Present Basophilic Stippling Present Sodium 139 Potassium 4.0 Chloride 102 Carbon Dioxide 30.1 Anion Gap 6.9 BUN 36 H Creatinine 0.9 Estimated GFR/1.73 m2 >= 60.00 Glucose 155 H Calcium 9.2 Total Bilirubin 1.5 H AST 24 ALT 23 Alkaline Phosphatase 95 Total Protein 6.4 Albumin 2.7 L PAWSS Have you Been Recently Intoxicated or Drunk Within the Last 30 days?: No Have you Ever Experienced Previous Episodes of Alcohol Withdrawal?: No Have you ever Experienced Withdrawal Seizures?: No Have you ever Experienced Delirium Tremens(DT)s?: No Have you ever undergone Alcohol Rehabilitation Treatment (i.e, inpt ot outpatient treatment programs)?: No Have you ever Experienced Blackouts?: No Have you ever Combined Alcohol with other Downers within the last 90 days?: No Have you ever Combined Alcohol with any other Substance of Abuse during the last 90 days?: No Positive Blood Alcohol level on Presentation? [PCS.BAL]: No Evidence of Increased Autonomic Activity (i.e. HR>120, tremor, sweating, agitat ion, nausea)?: No Result: 0
[2021-08-19] MEDS: Normal Saline Flush 10 ML SYR IVP ×7 (08:18→20:38)
[2021-08-19 08:32] LABS: Magnesium 2.3 mg/dL (1.8-2.4)
[2021-08-19 08:35] LABS: PHOSPHORUS 3.9 mg/dL (2.6-4.7)
[2021-08-19 08:47] LABS: INR 1.1 (0.9-1.1); Prothrombin Time 10.7 sec (9.3-11.0)
[2021-08-19] MEDS: Water,Injection,Sterile 10 ML VIAL (08:48)
[2021-08-19] MEDS: Alteplase 2 MG VIAL (08:49)
[2021-08-19] MEDS: HYDROmorphone 2 MG/ML SYR 1 MG IVP ×2 (10:16→20:38)
--- NOTE | 2021-08-19 10:20 | W.NUTRFU ---
Date of service: 08/19/21 Time of Service: 10:21 Nutrition Note NOTE: Katie did not tolerate diet advancement on 08/15/21. Back NPO, s/p ex lap 08/16/21 with SBO resection and ileus. Continues on TPN as ordered and meeting 100% nutrients via picc line. Will continue to follow. Time Spent in Nutritional Counseling and Treatment: 0
[2021-08-19] MEDS: Enoxaparin 40 MG/0.4 ML SYR SC (10:41)
--- NOTE | 2021-08-19 10:56 | PDOC.CMPRO ---
- If Service Date Differs Date of service: 08/19/21 Time of Service: 10:56 Care Management Progress Note S/O:Katie went to the OR on Thursday for an exploratory lap and bowel resection. She still has an NG tube and remains NPO. Per radiology reports, Katie still has an intestinal obstruction vs ileus.She is afebrile and her vital signs are stable. Katie continues to ambulate frequently in the hallways but otherwise tends to remain alone in her room with the door closed. A: 80 year old female admitted to [facility] 07/30/21 with a SBO P: Katie will likely return home with no new services when medically cleared by provider. She has two supportive daughters to help her at home. She will follow up with her PCP, surgeon, and discharge plan of care as prescribed. She will be driven home via private vehicle by either one of her daughters or a friend when ready. CM will continue to follow and assess for discharge concerns.
[2021-08-19] MEDS: Simethicone 80 MG CHEW PO (18:28)
[2021-08-20] VITALS (14 sets, daily range): BP systolic 112–154; BP diastolic 67–86; PULSE 75–88; RESP 14–19; TEMP 36.9–37.3; O2SAT 91–94
[2021-08-20] MEDS: Metoclopramide 10 MG/2 ML VIAL IVP ×4 (00:45→18:24)
[2021-08-20] MEDS: Ketorolac 15 MG/ML VIAL IVP ×4 (00:45→16:44)
[2021-08-20] MEDS: Insulin Aspart 300 UNITS/3 ML PEN SC ×4 (00:45→18:24)
[2021-08-20] MEDS: Metoprolol 5 MG/5 ML VIAL IVP ×4 (02:56→20:03)
[2021-08-20] MEDS: Normal Saline Flush 10 ML SYR IVP ×9 (02:57→21:52)
[2021-08-20] MEDS: Simethicone 80 MG CHEW PO ×5 (03:36→20:07)
[2021-08-20] MEDS: HYDROmorphone 2 MG/ML SYR 1 MG IVP ×2 (07:17→21:51)
--- NOTE | 2021-08-20 07:20 | W.PM.PROGNOT ---
Date of Service Date of service: 08/20/21 Time of Service: 07:20 Assessment and Plan Assessment and plan (1) Ileus following gastrointestinal surgery: Status: Acute (2) S/P laparotomy: Status: Acute Assessment and plan: POD #15 and 4 s/p exploratory laparotomy and isha and ex-lap and small bowel resection NG tube clamped over night. No nausea and vomiting. Causing the patient discomfort. D/C NG tube this morning. cont TPN Continue reglan, discussed the rationale for the GI motility benefits. Patient is agreeable to continue with it's use Encouraged continued ambulation and activity OOB as tolerated. Encouraged use of benzocaine lozenges to reduce NG tube discomfort. Patient seen and examined. Agree with above. NG tube has been removed and patient is tolerating clear liquids. She is passing flatus for stool. no headaches. No CP or SOB. no productive cough. no dysuria. no leg pain or swelling. Advanced to full dose for breakfast on Thursday. Hopefully start TPN weaning and DC home Thursday. She will need her phuc's dressing change prior to discharge (3) Hypertension: Status: Chronic Assessment and plan: controlled Qualifiers: Hypertension type: essential hypertension Qualified Code(s): I10 - Essential (primary) hypertension (4) Hypokalemia: Assessment and plan: resolved Subjective Subjective Interval history since last seen: Patient reports that she did not have any nausea or vomiting through the night with the NG tube clamped. She states the NG tube continues to by extremely painful 5-6/10PL. She would like to have this removed. She states that she has been declining the [place], for she wanted to be aware if she was nauseous with the NG tube clamped. Denies any abdominal pain at this time. (+) BM this morning, which was loose. Exam Const General: cooperative, healthy appearing and comfortable Orientation: alert and oriented x3 Resp Effort & Inspection: normal respiratory effort, no audible wheezes and no cough GI Inspection: normal to inspection Palpation: soft, no guarding and nontender Objective Last Vital Signs Temp 36.9 C 08/19/21 22:51 Pulse 83 08/20/21 02:56 Resp 18 08/20/21 02:55 BP 137/76 08/20/21 02:56 Pulse Ox 92 08/20/21 02:55 Laboratory Results - last 24 hr 08/19/21 08/19/21 08/19/21 06:50 06:50 06:50 WBC 8.87 RBC 3.74 L Hgb 11.8 Hct 35.5 L MCV 95 MCH 31.6 MCHC 33.2 RDW 12.8 Plt Count 261 MPV 11.6 H PT INR Sodium 139 Potassium 4.0 Chloride 102 Carbon Dioxide 30.1 Anion Gap 6.9 BUN 36 H Creatinine 0.9 Estimated GFR/1.73 m2 >= 60.00 Glucose 155 H Calcium 9.2 Phosphorus 3.9 Magnesium Total Bilirubin 1.5 H AST 24 ALT 23 Alkaline Phosphatase 95 Total Protein 6.4 Albumin 2.7 L 08/19/21 08/19/21 06:50 08:32 WBC RBC Hgb Hct MCV MCH MCHC RDW Plt Count MPV PT 10.7 INR 1.1 Sodium Potassium Chloride Carbon Dioxide Anion Gap BUN Creatinine Estimated GFR/1.73 m2 Glucose Calcium Phosphorus Magnesium 2.3 Total Bilirubin AST ALT Alkaline Phosphatase Total Protein Albumin PAWSS Have you Been Recently Intoxicated or Drunk Within the Last 30 days?: No Have you Ever Experienced Previous Episodes of Alcohol Withdrawal?: No Have you ever Experienced Withdrawal Seizures?: No Have you ever Experienced Delirium Tremens(DT)s?: No Have you ever undergone Alcohol Rehabilitation Treatment (i.e, inpt ot outpatient treatment programs)?: No Have you ever Experienced Blackouts?: No Have you ever Combined Alcohol with other Downers within the last 90 days?: No Have you ever Combined Alcohol with any other Substance of Abuse during the last 90 days?: No Positive Blood Alcohol level on Presentation? [PCS.BAL]: No Evidence of Increased Autonomic Activity (i.e. HR>120, tremor, sweating, agitation, nausea)?: No Result: 0
--- NOTE | 2021-08-20 10:55 | CMPROGNOTE_ITS ---
- If Service Date Differs Date of service: 08/20/21 Time of Service: 10:56 Care Management Progress Note S/O:Katie was sitting up in a chair visiting with her daughter when CM met with her. She was smiling and volunteered that she is feeling much better today. She was able to have her NG tube removed and is much more comfortable. Katie has been ambulating in the halls independently. She again assured CM that she will need no services at discharge as she has two daughters who will provide all of the support she needs. A: 80 year old female admitted to [facility] 07/30/21 with a SBO P: Katie will likely return home with no new services when medically cleared by provider. She has two supportive daughters to help her at home. She will follow up with her PCP, surgeon, and discharge plan of care as prescribed. She will be driven home via private vehicle by either one of her daughters or a friend when ready. CM will continue to follow and assess for discharge concerns.
[2021-08-20] MEDS: Enoxaparin 40 MG/0.4 ML SYR SC (11:03)
[2021-08-20] MEDS: Ondansetron 4 MG/2 ML VIAL IVP (21:45)
[2021-08-21] VITALS (10 sets, daily range): BP systolic 138–159; BP diastolic 72–81; PULSE 68–88; RESP 14–18; TEMP 36.6–37.6; O2SAT 92–95
[2021-08-21] MEDS: Normal Saline Flush 10 ML SYR IVP ×4 (00:22→19:33)
[2021-08-21] MEDS: Metoclopramide 10 MG/2 ML VIAL IVP ×4 (00:22→17:33)
[2021-08-21] MEDS: Ketorolac 15 MG/ML VIAL IVP ×3 (00:22→11:40)
[2021-08-21] MEDS: Insulin Aspart 300 UNITS/3 ML PEN SC ×4 (00:25→18:36)
[2021-08-21] MEDS: Metoprolol 5 MG/5 ML VIAL IVP (02:31)
[2021-08-21 06:02] LABS: Anion Gap 5.1 mmol/L (3-11); BUN 23 mg/dL (7-18); CO2 28.9 mmol/L (21.0-32.0); CREATININE 0.8 mg/dL (0.55-1.02); Calcium 8.8 mg/dL (8.5-10.1); Chloride 105 mmol/L (98-107); Glucose 148 mg/dL (74-106); PHOSPHORUS 4.4 mg/dL (2.6-4.7); Potassium 4.4 mmol/L (3.5-5.1); Sodium 139 mmol/L (136-145)
[2021-08-21 06:33] LABS: HCT 33.4 % (36.0-46.0); MCHC 32.9 % (32.0-36.0); MCV 94 fL (80-95); MPV 10.9 fL (8.0-11.0); Platelet Count 260 10^3/uL (130-400); RBC 3.55 10^6/uL (3.93-5.22); RDW 12.4 % (11.7-14.6); RDW-SD 43.2 fL; WBC 5.72 10^3/uL (4.4-10.8)
[2021-08-21] MEDS: Metoprolol 12.5 MG TAB PO ×2 (07:44→19:33)
[2021-08-21] MEDS: Simethicone 80 MG CHEW PO ×4 (07:44→19:33)
--- NOTE | 2021-08-21 08:57 | CMPROGNOTE_ITS ---
- If Service Date Differs Date of service: 08/21/21 Time of Service: 08:57 Care Management Progress Note S/O Katie was sitting up in bed visiting with her daughter when CM met with her. She is alert, oriented and easy to engage in conversation. Katie has been in the hospital for 19 days and is looking forward to being medically ready for discharge at some point. Until then, Katie shares that she is keeping herself busy with activity books and looks forward to her daily visits from her daughter. Per patient, she will need no services at discharge as she has two daughters who will provide all of the support she needs. A: 80 year old female admitted to [facility] 07/30/21 with a SBO P: Katie will likely return home with no new services when medically cleared by provider. She has two supportive daughters to help her at home. She will follow up with her PCP, surgeon, and discharge plan of care as prescribed. She will be driven home via private vehicle by either one of her daughters or a friend when ready. CM will continue to follow and assess for discharge concerns.
--- NOTE | 2021-08-21 09:34 | W.NUTRFU ---
Date of service: 08/21/21 Time of Service: 09:34 Nutrition Note NOTE: Diet advanced to Post op soft diet yesterday for dinner. Tolerating well as of last night. Recommend d/c TPN once able to complete > 50% of meals x24 hours. Will continue to follow. Time Spent in Nutritional Counseling and Treatment: 10
[2021-08-21] MEDS: Enoxaparin 40 MG/0.4 ML SYR SC (09:49)
[2021-08-21] MEDS: HYDROmorphone 2 MG/ML SYR 1 MG IVP (21:05)
[2021-08-22] VITALS (9 sets, daily range): BP systolic 132–154; BP diastolic 74–84; PULSE 74–87; RESP 14–20; TEMP 37.1–38; O2SAT 93–95
[2021-08-22] MEDS: Metoclopramide 10 MG/2 ML VIAL IVP ×4 (02:39→23:22)
[2021-08-22] MEDS: Insulin Aspart 300 UNITS/3 ML PEN SC ×5 (02:39→23:20)
[2021-08-22] MEDS: Normal Saline Flush 10 ML SYR IVP ×8 (02:40→23:22)
[2021-08-22 06:51] LABS: HCT 34.5 % (36.0-46.0); HGB 11.2 g/dL (11.2-15.7); MCH 30.8 pg (27.0-33.0); MCHC 32.5 % (32.0-36.0); MCV 95 fL (80-95); MPV 11.1 fL (8.0-11.0); Platelet Count 242 10^3/uL (130-400); RBC 3.64 10^6/uL (3.93-5.22); RDW 12.4 % (11.7-14.6); RDW-SD 43.4 fL; WBC 6.73 10^3/uL (4.4-10.8)
--- NOTE | 2021-08-22 06:59 | W.PM.PROGNOT ---
Date of Service Date of service: 08/21/21 Time of Service: 07:01 Assessment and Plan Assessment and plan (1) Ileus following gastrointestinal surgery: Status: Acute (2) S/P laparotomy: Status: Acute Assessment and plan: POD #16 and 5 s/p exploratory laparotomy and isha and ex-lap and small bowel resection Will start weaning off TPN Patient tolerating regular diet Encouraged continued ambulation and activity OOB as tolerated. Denies having any pain (3) Hypertension: Status: Chronic Assessment and plan: controlled Qualifiers: Hypertension type: essential hypertension Qualified Code(s): I10 - Essential (primary) hypertension (4) Hypokalemia: Assessment and plan: resolved Subjective Subjective Interval history since last seen: Patient was resting comfortably in the chair. She expresses she continues to feel tired. But denies any pain. Exam Const General: cooperative, healthy appearing and comfortable Orientation: alert and oriented x3 Resp Effort & Inspection: normal respiratory effort, no audible wheezes and no cough GI Inspection: normal to inspection Palpation: soft, no guarding and nontender Objective Last Vital Signs Temp 37.3 C 08/22/21 02:58 Pulse 74 08/22/21 02:58 Resp 16 08/22/21 02:58 BP 132/75 08/22/21 02:58 Pulse Ox 93 08/22/21 02:58 Laboratory Results - last 24 hr 08/22/21 06:45 WBC 6.73 RBC 3.64 L Hgb 11.2 Hct 34.5 L MCV 95 MCH 30.8 MCHC 32.5 RDW 12.4 Plt Count 242 MPV 11.1 H PAWSS Have you Been Recently Intoxicated or Drunk Within the Last 30 days?: No Have you Ever Experienced Previous Episodes of Alcohol Withdrawal?: No Have you ever Experienced Withdrawal Seizures?: No Have you ever Experienced Delirium Tremens(DT)s?: No Have you ever undergone Alcohol Rehabilitation Treatment (i.e, inpt ot outpatient treatment programs)?: No Have you ever Experienced Blackouts?: No Have you ever Combined Alcohol with other Downers within the last 90 days?: No Have you ever Combined Alcohol with any other Substance of Abuse during the last 90 days?: No Positive Blood Alcohol level on Presentation? [PCS.BAL]: No Evidence of Increased Autonomic Activity (i.e. HR>120, tremor, sweating, agitation, nausea)?: No Result: 0
[2021-08-22 07:03] LABS: Anion Gap 7.4 mmol/L (3-11); BUN 19 mg/dL (7-18); CO2 28.6 mmol/L (21.0-32.0); CREATININE 0.7 mg/dL (0.55-1.02); Calcium 8.7 mg/dL (8.5-10.1); Chloride 104 mmol/L (98-107); Glucose 166 mg/dL (74-106); Magnesium 1.9 mg/dL (1.8-2.4); PHOSPHORUS 3.6 mg/dL (2.6-4.7); Potassium 4.3 mmol/L (3.5-5.1); Sodium 140 mmol/L (136-145)
[2021-08-22] MEDS: Metoprolol 12.5 MG TAB PO ×2 (08:24→19:31)
[2021-08-22] MEDS: Simethicone 80 MG CHEW PO ×4 (08:25→19:32)
--- NOTE | 2021-08-22 08:29 | PDOC.CMPRO ---
- If Service Date Differs Date of service: 08/22/21 Time of Service: 08:29 Care Management Progress Note S/O: Katie is being followed by Gen. Surgery and is POD #17 and 6 s/p exploratory laparotomy and ex-lap and small bowel resection. She is tolerating a regular diet, and her TPN is being weaned. Anticipate she will discharge home on Thursday. At this time, Katie does not feel that she will need Home Health services. A: 80 year old female admitted to [facility] 07/30/21 with a SBO P: Katie will likely return home with no new services when medically cleared by provider. She has two supportive daughters to help her at home. She will follow up with her PCP, surgeon, and discharge plan of care as prescribed. She will be driven home via private vehicle by either one of her daughters or a friend when ready. CM will continue to follow and assess for discharge concerns.
--- NOTE | 2021-08-22 09:26 | W.PM.PROGNOT ---
Date of Service Date of service: 08/22/21 Time of Service: 09:26 Assessment and Plan Assessment and plan (1) Ileus following gastrointestinal surgery: Status: Resolved (2) S/P laparotomy: Status: Acute Assessment and plan: POD #17 and 6 s/p exploratory laparotomy and isha and ex-lap and small bowel resection Will start weaning off TPN: Discussed with pharmacy, will cut rate in half. then d/c TPN Patient tolerating regular diet Encouraged continued ambulation and activity OOB as tolerated. Denies having any pain (3) Hypertension: Status: Chronic Assessment and plan: controlled Qualifiers: Hypertension type: essential hypertension Qualified Code(s): I10 - Essential (primary) hypertension (4) Hypokalemia: Assessment and plan: resolved (5) S/P small bowel resection: Status: Acute Assessment and plan: pt seen and examined. agree w/ above wean TPN. stopped glucose checks and insulin coverage probiotcs walk oral pain meds plan d/c Thursday protein supplements Subjective Subjective Interval history since last seen: Patient reports that he went for a walk this morning. She is feeling well. She is tolerating a regular diet. She denies any nausea or vomiting. She states that she continues to have bowel movements and already has had 2 this morning. Exam Const General: cooperative, healthy appearing and comfortable Orientation: alert and oriented x3 Resp Effort & Inspection: normal respiratory effort, no audible wheezes and no cough GI Inspection: normal to inspection Palpation: soft, no guarding and nontender Objective Last Vital Signs Temp 37.5 C 08/22/21 07:26 Pulse 80 08/22/21 07:26 Resp 14 08/22/21 07:26 BP 151/79 H 08/22/21 07:26 Pulse Ox 95 08/22/21 07:26 Laboratory Results - last 24 hr 08/22/21 08/22/21 06:45 06:45 WBC 6.73 RBC 3.64 L Hgb 11.2 Hct 34.5 L MCV 95 MCH 30.8 MCHC 32.5 RDW 12.4 Plt Count 242 MPV 11.1 H Sodium 140 Potassium 4.3 Chloride 104 Carbon Dioxide 28.6 Anion Gap 7.4 BUN 19 H Creatinine 0.7 Estimated GFR/1.73 m2 >= 60.00 Glucose 166 H Calcium 8.7 Phosphorus 3.6 Magnesium 1.9 PAWSS Have you Been Recently Intoxicated or Drunk Within the Last 30 days?: No Have you Ever Experienced Previous Episodes of Alcohol Withdrawal?: No Have you ever Experienced Withdrawal Seizures?: No Have you ever Experienced Delirium Tremens(DT)s?: No Have you ever undergone Alcohol Rehabilitation Treatment (i.e, inpt ot outpatient treatment programs)?: No Have you ever Experienced Blackouts?: No Have you ever Combined Alcohol with other Downers within the last 90 days?: No Have you ever Combined Alcohol with any other Substance of Abuse during the last 90 days?: No Positive Blood Alcohol level on Presentation? [PCS.BAL]: No Evidence of Increased Autonomic Activity (i.e. HR>120, tremor, sweating, agitation, nausea)?: No Result: 0
[2021-08-22] MEDS: Enoxaparin 40 MG/0.4 ML SYR SC (10:32)
[2021-08-22] MEDS: Acetaminophen 500 MG TAB 1000 MG PO (19:32)
[2021-08-22] MEDS: Melatonin 3 MG TAB 6 MG PO (22:14)
[2021-08-22] MEDS: HYDROmorphone 2 MG/ML SYR 1 MG IVP (23:22)
[2021-08-23 03:15] VITALS: BP 114/66; PULSE 75; RESP 18; TEMP 36.9; O2SAT 92
[2021-08-23] MEDS: Metoclopramide 10 MG/2 ML VIAL IVP ×3 (06:08→17:19)
[2021-08-23] MEDS: Normal Saline Flush 10 ML SYR IVP ×4 (06:16→17:19)
[2021-08-23 07:01] LABS: HGB 11.8 g/dL (11.2-15.7); MCHC 32.8 % (32.0-36.0); MCV 95 fL (80-95); MPV 11.3 fL (8.0-11.0); Platelet Count 243 10^3/uL (130-400); RBC 3.81 10^6/uL (3.93-5.22); RDW 12.6 % (11.7-14.6); RDW-SD 43.7 fL; WBC 6.62 10^3/uL (4.4-10.8)
[2021-08-23 07:16] LABS: Anion Gap 8.6 mmol/L (3-11); BUN 17 mg/dL (7-18); CO2 27.4 mmol/L (21.0-32.0); CREATININE 0.7 mg/dL (0.55-1.02); Calcium 9.2 mg/dL (8.5-10.1); Chloride 104 mmol/L (98-107); Glucose 127 mg/dL (74-106); Magnesium 1.9 mg/dL (1.8-2.4); Potassium 4.2 mmol/L (3.5-5.1); Sodium 140 mmol/L (136-145)
[2021-08-23 07:22] VITALS: BP 106/46; PULSE 76; RESP 18; TEMP 36.7; O2SAT 91
--- NOTE | 2021-08-23 07:51 | W.PM.PROGNOT ---
Date of Service Date of service: 08/23/21 Time of Service: 07:51 Assessment and Plan Assessment and plan (1) Ileus following gastrointestinal surgery: Status: Resolved (2) S/P laparotomy: Status: Acute Assessment and plan: POD #18 and 7 s/p exploratory laparotomy and isha and ex-lap and small bowel resection TPN has been d/c'd Patient tolerating regular diet Encouraged continued ambulation and activity OOB as tolerated. Denies pain D/C home Thursday Addendum by Pj Garcia: She is up in the chair again and looks very good. Appetite is increased mildly. She still lacks any desire for sweet foods. Otherwise, she seems to be feeling fine. Her abdomen is soft and nondistended. I removed the phuc dressing. The incision looks great. I do not see any erythema. I do not appreciate any fascial defects. We will wean the TPN off tonight, and plan to discharge her home tomorrow. She would like to try a low-dose of Benadryl to help initiate sleep at night. Since she will be here in the hospital I think that is a safe plan. (3) Hypertension: Status: Chronic Assessment and plan: controlled Qualifiers: Hypertension type: essential hypertension Qualified Code(s): I10 - Essential (primary) hypertension (4) Hypokalemia: Assessment and plan: resolved (5) S/P small bowel resection: Status: Acute Subjective Subjective Interval history since last seen: Patient reports that she slept very well last night. She is feeling well and getting very eager to discharge home. She denies any abdominal pain. Exam Const General: cooperative, healthy appearing and comfortable Orientation: alert and oriented x3 Resp Effort & Inspection: normal respiratory effort, no audible wheezes and no cough GI Inspection: normal to inspection Palpation: soft, no guarding and nontender Objective Last Vital Signs Temp 36.7 C 08/23/21 07:22 Pulse 76 08/23/21 07:22 Resp 18 08/23/21 07:22 BP 106/46 L 08/23/21 07:22 Pulse Ox 91 L 08/23/21 07:22 Laboratory Results - last 24 hr 08/23/21 08/23/21 06:05 06:05 WBC 6.62 RBC 3.81 L Hgb 11.8 Hct 36.0 MCV 95 MCH 31.0 MCHC 32.8 RDW 12.6 Plt Count 243 MPV 11.3 H Sodium 140 Potassium 4.2 Chloride 104 Carbon Dioxide 27.4 Anion Gap 8.6 BUN 17 Creatinine 0.7 Estimated GFR/1.73 m2 >= 60.00 Glucose 127 H Calcium 9.2 Phosphorus 5.0 H Magnesium 1.9 PAWSS Have you Been Recently Intoxicated or Drunk Within the Last 30 days?: No Have you Ever Experienced Previous Episodes of Alcohol Withdrawal?: No Have you ever Experienced Withdrawal Seizures?: No Have you ever Experienced Delirium Tremens(DT)s?: No Have you ever undergone Alcohol Rehabilitation Treatment (i.e, inpt ot outpatient treatment programs)?: No Have you ever Experienced Blackouts?: No Have you ever Combined Alcohol with other Downers within the last 90 days?: No Have you ever Combined Alcohol with any other Substance of Abuse during the last 90 days?: No Positive Blood Alcohol level on Presentation? [PCS.BAL]: No Evidence of Increased Autonomic Activity (i.e. HR>120, tremor, sweating, agitation, nausea)?: No Result: 0
[2021-08-23] MEDS: Metoprolol 12.5 MG TAB PO ×2 (08:07→20:47)
[2021-08-23] MEDS: Simethicone 80 MG CHEW PO ×4 (08:07→20:47)
--- NOTE | 2021-08-23 09:39 | PDOC.CMPRO ---
- If Service Date Differs Date of service: 08/23/21 Time of Service: 09:39 Care Management Progress Note S/O: Katie was sitting up in her chair when CM met with her. She is alert, oriented and easy to engage in conversation. She is anticipating discharging home tomorrow. She continues to decline [facility] services, stating that her daughters are going to be staying with her for awhile. Katie is being followed by Gen. Surgery and is POD #18 and 7 s/p exploratory laparotomy and ex-lap and small bowel resection. Katie is tolerating a regular diet. TPN is D/C'd. A: 80 year old female admitted to [facility] 07/30/21 with a SBO P: Katie will likely return home with no new H services (per pt) when medically cleared by provider. She has two supportive daughters to help her at home. She will follow up with her PCP, surgeon, and discharge plan of care as prescribed. She will be driven home via private vehicle by either one of her daughters or a friend when ready. CM will continue to follow and assess for discharge concerns.
[2021-08-23] MEDS: Enoxaparin 40 MG/0.4 ML SYR SC (10:25)
[2021-08-23 11:20] VITALS: BP 115/71; PULSE 85; RESP 18; TEMP 37.3; O2SAT 91
[2021-08-23] MEDS: Insulin Aspart 300 UNITS/3 ML PEN SC (11:58)
[2021-08-23 14:27] VITALS: BP 124/74; PULSE 83; RESP 18; TEMP 37.7; O2SAT 94
[2021-08-23 19:20] VITALS: BP 134/71; PULSE 91; RESP 18; TEMP 37.6; O2SAT 92
[2021-08-23 20:47] VITALS: BP 142/70; PULSE 89; RESP 18; TEMP 37.2; O2SAT 92
[2021-08-23] MEDS: diphenhydrAMINE 25 MG CAP PO (22:08)
[2021-08-23] MEDS: Melatonin 3 MG TAB 6 MG PO (22:08)
[2021-08-24] MEDS: Metoclopramide 10 MG/2 ML VIAL IVP ×2 (00:57→05:29)
[2021-08-24] MEDS: Normal Saline Flush 10 ML SYR IVP (00:58)
[2021-08-24 05:36] VITALS: BP 150/80; PULSE 96; RESP 18; TEMP 36.9; O2SAT 91
[2021-08-24 06:25] LABS: Abs Immature Grans 0.05 10^3/uL (0.0-0.06); Absolute Basophil Count 0.04 10^3/uL (0.0-0.2); Absolute Eosinophil Count 0.11 10^3/uL (0.0-0.7); Absolute Lymphocyte Count 1.04 10^3/uL (1.2-3.4); Absolute Neutrophil Count 5.83 10^3/uL (1.2-6.7); Basophils % 0.5; Eosinophils % 1.4; HCT 36.6 % (36.0-46.0); Immature Grans % 0.6; Lymphocytes % 13.4; MCH 30.5 pg (27.0-33.0); MCHC 32.8 % (32.0-36.0); MCV 93 fL (80-95); MPV 11.2 fL (8.0-11.0); Neutrophils % 75.1; Platelet Count 285 10^3/uL (130-400); RBC 3.94 10^6/uL (3.93-5.22); RDW 12.5 % (11.7-14.6); RDW-SD 42.6 fL; WBC 7.77 10^3/uL (4.4-10.8)
[2021-08-24 06:47] LABS: Anion Gap 9.6 mmol/L (3-11); BUN 16 mg/dL (7-18); CO2 27.4 mmol/L (21.0-32.0); CREATININE 0.8 mg/dL (0.55-1.02); Calcium 9.6 mg/dL (8.5-10.1); Chloride 103 mmol/L (98-107); Glucose 140 mg/dL (74-106); Magnesium 1.9 mg/dL (1.8-2.4); PHOSPHORUS 4.6 mg/dL (2.6-4.7); Potassium 4.1 mmol/L (3.5-5.1); Sodium 140 mmol/L (136-145)
[2021-08-24 07:53] VITALS: BP 115/67; PULSE 88; RESP 16; TEMP 36.6; O2SAT 92
[2021-08-24] MEDS: Metoprolol 12.5 MG TAB PO (07:55)
[2021-08-24] MEDS: Simethicone 80 MG CHEW PO (07:55)
[2021-08-24] MEDS: Enoxaparin 40 MG/0.4 ML SYR SC (09:54)
--- NOTE | 2021-08-24 09:58 | W.PM.DS.N ---
DS: Diagnosis Discharge Diagnosis (1) S/P small bowel resection: Status: Acute Asessment and Plan: She is done quite well since her last laparotomy with enteroenterostomy. Tolerating most foods today. Labs are normal. The wound is clean. There is no erythema or dehiscence. (2) Ileus following gastrointestinal surgery: Status: Resolved Asessment and Plan: She is having bowel function and tolerating a diet and this seems to be resolved. Discharge Plan Disposition Patient Disposition: HOME Condition: Stable Discharge Details Reason For Visit: Small Bowel Obstruction Admit Date/Time: 08/02/21 06:50 Admit Provider: Sisi Morillo Attending Provider: Sisi Morillo Primary Care Provider: Renetta Limon Hospital Course Hospital Course: Katie Garcia is an 80-year-old woman who presented to the hospital on August 02, 2021 with a chief complaint of abdominal pain with nausea and vomiting. She underwent a CAT scan of the abdomen and pelvis that demonstrated a small bowel obstruction. Nasogastric tube was placed, however she had no improvement of her symptoms by her fourth hospital day. Therefore, she was brought to the operating room for an exploratory laparotomy. Adhesiolysis was performed. In the acute obstruction was released. Generally, the bowel appeared perfused and there was evidence of peristalsis. There was an area of narrowing associated with the adhesive band that did not require resection at that time. She was recovered on the floor, and despite several days of nasogastric tube decompression she never regained appropriate bowel function. Furthermore, her obstructive symptoms increased during her postoperative recovery up until August 16 when she had worsening nausea and vomiting. At that time, we brought her back to the operating room for repeat laparotomy. We performed a small segmental enterectomy with a primary enteroenterostomy. By August 24, she was tolerating a regular diet with no pain. Her complete blood count and basic metabolic panel had normalized. She was able to tolerate most types of food, I discharged her home with follow-up instructions. Home Meds and New Rx's Prescriptions: No Action magnesium gluconate 27 mg magnesium (500 mg) tablet 500 mg PO DAILY PRNQty: 90 Label Comments: PRN chest palpitations cholecalciferol (vitamin D3) [Vitamin D3] 50 mcg (2,000 unit) capsule See Rx Instructions PO DAILY PRN Label Comments: Vit D deficiency & bone health Rx Instructions: 2-6 caps PO daily PRN; occuvite 1 tab PO DAILY CENTRUM SILVER TABLET 1 EACH tablet 1 ea PO DAILY (DME) lancets 1 EACH misc 1 ea Miscellaneous TID Qty: 400 Label Comments: pt .checked blood sugar this AM 125 Rx Instructions: FOR METER. PT USES INSULIN. DIAGNOSIS CODE 250.0__ (DME) Contour Test Strips Strip See Rx Instructions .ROUTE .MEDSUPPLY Qty: 100 3RF Rx Instructions: Test daily to maintain A1C less than 7 dx code E11.9 albuterol sulfate [Proventil HFA] 90 mcg/actuation HFA aerosol inhaler 2 puff Inhalation Q4H PRN MDD 10 inh/24 hr PRN losartan 25 mg tablet 50 mg PO DAILY Label Comments: TAKE 2 TABLETS IN THE MORNING AND 1 TABLET IN THE EVENING. MAY INCREASE TO 100 MG DAILY FOR GOAL BLOOD PRESSURE LESS THAN 140/90 Discharge Instructions Instructions: Bowel Obstruction (GEN), Ileus (GEN), Exploratory Laparotomy (DC) Additional Instructions: 1. Schedule visit with [facility] in 2 weeks. 2. No lifting greater than 10 pounds until seen in the office. 3. Wash surgical incision with warm soapy water every day. It is okay to shower. No soaking or tub baths. 4. Notify the office (or on-call surgeon for after hours) for any fevers, nausea or vomiting, redness at the surgical site, or general worsening in symptoms. 5. Okay to eat or drink any kind of food that you desire. I would expect some general loss of appetite or disinterest in some food groups for the next week or 2. Referrals: Pj Garcia MD [ [facility] STAFF PHYSICIAN] - Activity:: Go for a short walk at Equipment/Supplies:: No Equipment Needed Diet:: As Tolerated Discharge Data Discharge Comment: Please schedule visit with Surgery 2 weeks DS: Summary Time Spent with Patient providing and/or coordinating discharge services: Greater than 30 minutes Status at Discharge Functional status at discharge: independent ambulation Overall status at discharge: patient is progressing back to baseline Mental Status: mental status grossly normal Speech and Movement: speech and movement normal Mood: congruent mood Affect: normal affect Exam Const General: cooperative, healthy appearing and comfortable Nutritional Appearance: overweight Orientation: alert, awake and oriented x3 HENMT Head: normal to inspection Eyes General: appearance normal, both eyes and all related structures Neck Neck: full ROM and supple Resp Effort & Inspection: normal respiratory effort Auscultation: clear to auscultation bilaterally and diminished lung sounds Cardio Rate: regular rate Rhythm: regular rhythm Heart Sounds: S1 normal and S2 normal GI Inspection: distended Palpation: soft and nontender Percussion: normal to percussion Auscultation: normal bowel sounds Skin General skin exam: no rashes or lesions noted Neuro General: patient alert, patient awake and patient oriented x3 Psych Mental Status: mental status grossly normal Speech and Movement: speech and movement normal Mood: congruent mood Affect: normal affect DS: Data Vitals/I&O Vitals and I&O: Vital Signs Temperature 97.9 F 08/24/21 07:53 Temperature Source Tympanic 08/24/21 07:53 Pulse 88 08/24/21 07:53 Pulse Rhythm Regular 08/23/21 22:01 Pulse 86 08/02/21 08:30 Respiratory Rate 16 08/24/21 07:53 Respiratory Effort 08/23/21 22:01 Respiratory Depth Normal 08/23/21 22:01 Respiratory Pattern Normal 08/23/21 22:01 Blood Pressure 115/67 08/24/21 07:53 Blood Pressure Mean 97 08/02/21 07:53 Blood Pressure Position Sitting 08/02/21 04:41 Pulse Oximetry 92 08/24/21 07:53 Respiratory End-tidal CO2 16 08/05/21 18:31 Oxygen Delivery Method Room Air 08/24/21 07:53 Oxygen Flow Rate 0 08/24/21 07:53 Pain Level 0 08/24/21 07:53 Comment 08/23/21 19:20 Intake & Output 08/23/21 08/23/21 08/24/21 11:59 23:59 11:59 Intake Total 640.333 / 760.333 120 / 760.333 Balance 640.333 / 760.333 120 / 760.333 Intake: IV 640.333 / 640.333 Oral 120 / 120 Other: Comment pT used bathroom before washing hair. pT uses the bathroom independently. Voiding Methods Toilet Toilet Data Completed and Pending Labs on day of discharge: Labs from last 24 hours 08/24/21 08/24/21 05:25 05:25 WBC 7.77 RBC 3.94 Hgb 12.0 Hct 36.6 MCV 93 MCH 30.5 MCHC 32.8 RDW 12.5 Plt Count 285 MPV 11.2 H Immature Gran % 0.6 Neutrophils % 75.1 Lymphocytes % 13.4 Monocytes % 9.0 Eosinophils % 1.4 Basophils % 0.5 Nucleated RBC % 0.0 Absolute Neutrophils 5.83 Absolute Lymphocytes 1.04 L Absolute Monocytes 0.70 Absolute Eosinophils 0.11 Absolute Basophils 0.04 Sodium 140 Potassium 4.1 Chloride 103 Carbon Dioxide 27.4 Anion Gap 9.6 BUN 16 Creatinine 0.8 Estimated GFR/1.73 m2 >= 60.00 Glucose 140 H Calcium 9.6 Phosphorus 4.6 Magnesium 1.9 PFSH All Active Problems S/P small bowel resection (Acute) S/P laparotomy (Acute) 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 (Acute) Category 3 mammography result with short follow-up interval suggested for probably benign finding (Acute) [facility] second read cat 2, but NV cat 3 with repeat imaging in 6 month recommended Hypertension (Chronic ~10/2019) Dx'ed 10/2019--RX Losartan; goal <130/80 ideally (but 140/90 acceptable) Family history of breast cancer (Chronic) Daughter Obesity (Chronic 11/08/12) 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) several polyps (may not even be polyps!), but due to + FH mother colon cancer <60, rec 5 yr interval; 2020: Katie declines further colonoscopy 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, 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) FEV1 2.07 (78%pred; 61% FVC), mild obstr, else normal Osteopenia (Chronic 11/08/12) Declines DXA or treatments for osteoporosis 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; Dr Lan Turner Type 2 diabetes mellitus without complication (Chronic 10/23/14) DX [facility] Adm: A1c 6.5 X 2 in 2014; h/o impaired FBS 2010 Vitamin D deficiency (Chronic 11/08/12) 2014 Medical History 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 Colon cancer Successfully treated Supranuclear palsy Diabetes Daughter Age: 52 Breast cancer Dx'ed ~44yo s/p mastectomy Hypertension Daughter Bone cancer Sister No problems noted. Father , COD unknown No problems noted. Maternal Grandmother Breast cancer Social History Smoking/Tobacco Use Status: Never Smoking risk assessment performed?: Yes Alcohol Intake: current Alcohol Intake frequency: a few times a week Alcohol type: wine Drug use: Never Substance use type: does not use Adopted: No Household members: none Housing: house Number of Children: 2 current occupation: Homemaker What is your relationship status?: Panel score (0-1 are the most socially isolated patients): 0 What type of physical activity do you participate in: walking and other Details: hiking/walking/gardening Duration: 60-90 minutes/day Frequency: other Details: sporadic Seatbelt use: always Do you feel safe at home: Yes Do you feel safe in your relationship?: Yes
[2021-08-24 11:26] VITALS: BP 125/68; PULSE 79; RESP 16; TEMP 37.5; O2SAT 92
[2021-08-24] MEDS: Bacitracin 1 PACKET TP (12:10)
--- NOTE | 2021-08-24 13:50 | PDOC.CMDIS ---
- If Service Date Differs Date of service: 08/24/21 Time of Service: 11:40 LACE Index Scoring Tool - Questions: Length of Stay (in days): 14 or more Acuity (Admit via E.D.?): Yes Comorbidities: Diabetes w/o Complication, Chronic Pulmonary Disease E.D. Visits: 3 - Answers: Total Score: 16 Risk of Readmission: High Risk Care Management Discharge Reason for Hospitalization: Small bowel obstruction Discharge Plan: Katie is discharged home via private vehicle with family. No new [facility] services are ordered at the time of Katie's discharge, at her request. Katie will call the PCP and Surgical Office's on Thursday to schedule follow up appointments, in the next 2 weeks. Katie will follow up with community providers and discharge plan of care as prescribed. Patient/Family Education Needs: Review discharge instructions, limitations, medications and plan to follow up with community providers. ask me three.
== END 2021-08-24 13:04 | disposition home or self-care (01) | DRG 330 ==
LOC: ER 06:22 → MS 09:16
PROVIDERS: Surgery; Admitting Provider Surgery; Emergency Provider Emergency Medicine; PCP Nurse Practitioner Adult Health; Visit Provider Surgery
PROC: 0DNB0ZZ Release Ileum, Open Approach (ICD-10-PCS; CPT 49000; principal; 2021-08-05 15:15)
PROC: 0DBB0ZZ Excision of Ileum, Open Approach (ICD-10-PCS; CPT 49000; principal; 2021-08-16 10:00)
DX: K56.609 Unspecified intestinal obstruction, unspecified as to partial versus complete obstruction (principal); K91.89 Other postprocedural complications and disorders of digestive system; I10 Essential (primary) hypertension; J44.9 Chronic obstructive pulmonary disease, unspecified; E11.9 Type 2 diabetes mellitus without complications; E55.9 Vitamin D deficiency, unspecified; M48.02 Spinal stenosis, cervical region; M54.12 Radiculopathy, cervical region; E66.9 Obesity, unspecified; J38.7 Other diseases of larynx; Z80.0 Family history of malignant neoplasm of digestive organs; Z86.010 Personal history of colon polyps; Z80.3 Family history of malignant neoplasm of breast; Z68.31 Body mass index [BMI] 31.0-31.9, adult; M85.80 Other specified disorders of bone density and structure, unspecified site; M51.44 Schmorl's nodes, thoracic region; K56.7 Ileus, unspecified; E87.6 Hypokalemia
CPT/HCPCS: 44005; 44120; 36415; 36569; 80048; 80053; 82805; 83690; 85027; 86666; 86850; 86900; 86901; 87635; 87798; 96374; 97110; 97162; 99222; 99232; 99285; J1650; 71045; 74018; 74019; 74176; 81003; 82248; 82728; 83735; 84100; 84443; 84484; 85025; 85610; 86140; 86618; J0131; J0690; J1100; J1170; J1885; J2270; J2370; J2405; J2704; J2765; J2997; J3010; J3480; J3490

== ENCOUNTER → 2021-09-02 10:43 | Outpatient (BNVA) | payer MEDICARE, SELFPAY | PROVIDERS: PCP Nurse Practitioner Adult Health; Referring Provider Nurse Practitioner Adult Health; Visit Provider Surgery | DX: Z98.890 Other specified postprocedural states (principal); Z90.49 Acquired absence of other specified parts of digestive tract | CPT/HCPCS: 99215 ==

== ENCOUNTER → 2021-12-11 02:42 | Outpatient (CLI) | payer MEDICARE, SELFPAY ==
--- NOTE | 2021-12-11 06:45 | DI.MAMMO_ITS ---
Exam(s) MAMMO SCREENING EXAM: MAMMO SCREENING CLINICAL HISTORY: screening,Z12.39 TECHNIQUE: Mammograms were interpreted according to the usual protocol including computer analysis w [employer] CAD system, tomosynthesis and C-view imaging. COMPARISON: 2012 through 2020 FINDINGS: The breasts are composed of scattered fibroglandular densities, Breast Density category B. No suspicious masses or suspicious microcalcifications are seen. Stable bilateral areas of nodularit y. No skin thickening or abnormal axillary lymph nodes are seen. There has been no significant change from prior exams. IMPRESSION: BI-RADS Cat 2 - Benign Findings Yearly screening mammography is recommended. Breast Density - Category B, scattered fibroglandular densities. A negative radiographic report should not delay biopsy if a dominant or clinically suspicious mass is present. Up to ten percent of cancers are not identified on mammography. A negative report may reinforce clinical impression. Adenosis and dense breasts may obscure an underlying neoplasm. False positive reports average 6 to 10%. Patient will receive a letter notifying them of these results.
== END ==
PROVIDERS: PCP Nurse Practitioner Adult Health; Visit Provider Nurse Practitioner Adult Health
DX: Z12.31 Encounter for screening mammogram for malignant neoplasm of breast (principal)
CPT/HCPCS: 77063; 77067

== ENCOUNTER 2021-12-29 09:21 | Emergency (ER) | payer MEDICARE, SELFPAY ==
[2021-12-29] VITALS (20 sets, daily range): BP systolic 132–172; BP diastolic 78–110; PULSE 68–102; RESP 12–22; TEMP 36.7; O2SAT 96
--- NOTE | 2021-12-29 09:30 | RT.EKG_ITS ---
APPROVED REPORT Exam: Resting ECG Reason for Exam: HIGH BP Patient Location: E HR:91 bpm ECG Measurements Heart Rate 91 AXIS UT 262 P 60 QRSd 107 QRS -33 QT 368 T 51 QTc 453 Conclusion Sinus rhythm...normal P axis, V-rate 60- 99 Prolonged UT interval...UT >215, V-rate 91-120 Left axis deviation...QRS axis (-30,-90)
--- NOTE | 2021-12-29 09:44 | DI.CT_ITS ---
Exam(s) CT THORAX ABD/PEL CTA EXAM: CT THORAX ABD/PEL CTA TECHNIQUE: CT angiography of the chest, abdomen and pelvis was performed with bolus infusion of 125 cc of Omnipaque 350. Axial CT angiography was performed with multi-slice acquisition and multi-planar and/or 3D reconstruc tions. COMPARISON: CT CT ABDOMEN PELVIS WO from 08/02/2021 FINDINGS: The lungs are clear. No pleural effusion. No evidence of pulmonary embolic disease. No thoracic aort ic dissection or aneurysm. Major branches of the thoracic aorta appear normal. No pleural effusion. No mediastinal or hilar adenopathy. Tracheobronchial tree appears intact. No focal hepatic abnormality seen. No evidence of hydronephrosis or nephrolithiasis. Gallbladder and bile ducts are CT normal. Pancreas is unremarkable. Spleen is unremarkable. Prior small bowel anastomosis noted, no evidence of obstruction or perforation. No abdominal aortic aneurysm or dissection. Major branches of the abdominal aorta appear normal. No a bdominal or pelvic adenopathy. Normal appendix. No significant abdominal wall hernia. No focal bowel pathology. IMPRESSION: No evidence of acute vascular abnormality of the chest, abdomen or pelvis. No other acute abnormaliti es are seen. RADIATION DOSE DELIVERED: 1,156.05mGy.cm Total DLP 1,156.05mGy.cm Total DLP DATA REPOSITORY: All CT scans at this facility are submitted to the National Radiology Data Registry (NRDR) Dose Index Registry (DIR) with the [employer] [place] [employer] (ACR). RADIATION OPTIMIZATION: All CT scans at this facility use at least one of these dose optimization te chniques: automated exposure control; mA and/or kV adjustment per patient size (includes targeted exa ms where dose is matched to clinical indication); or iterative reconstruction.
[2021-12-29 10:04] LABS: Abs Immature Grans 0.01 10^3/uL (0.0-0.06); Absolute Basophil Count 0.02 10^3/uL (0.0-0.2); Absolute Eosinophil Count 0.03 10^3/uL (0.0-0.7); Absolute Lymphocyte Count 1.13 10^3/uL (1.2-3.4); Absolute Monocyte Count 0.36 10^3/uL (0.1-0.8); Absolute Neutrophil Count 3.48 10^3/uL (1.2-6.7); Basophils % 0.4; Eosinophils % 0.6; HCT 43.8 % (36.0-46.0); HGB 14.6 g/dL (11.2-15.7); Immature Grans % 0.2; Lymphocytes % 22.5; MCH 30.5 pg (27.0-33.0); MCHC 33.3 % (32.0-36.0); MCV 91 fL (80-95); MPV 10.9 fL (8.0-11.0); Monocytes % 7.2; Neutrophils % 69.1; Platelet Count 178 10^3/uL (130-400); RBC 4.79 10^6/uL (3.93-5.22); RDW 12.6 % (11.7-14.6); RDW-SD 42.6 fL; WBC 5.03 10^3/uL (4.4-10.8)
[2021-12-29 10:20] LABS: PTT Activated 25.2 sec (21.0-27.5)
[2021-12-29 10:25] LABS: ALT 16 U/L (14-59); AST 13 U/L (15-37); Albumin 3.9 g/dL (3.4-5.0); Alkaline Phosphatase 80 U/L (46-116); Anion Gap 6.8 mmol/L (3-11); BUN 18 mg/dL (7-18); Bilirubin, Total 0.9 mg/dL (0.2-1.0); CO2 29.2 mmol/L (21.0-32.0); CREATININE 0.9 mg/dL (0.55-1.02); Calcium 9.3 mg/dL (8.5-10.1); Chloride 104 mmol/L (98-107); Estimated GFR 64.23 (mL/min/1.73m2); Glucose 157 mg/dL (74-106); Magnesium 1.9 mg/dL (1.8-2.4); Potassium 3.5 mmol/L (3.5-5.1); Sodium 140 mmol/L (136-145); Total Protein 7.5 g/dL (6.4-8.2); Troponin I < 50 ng/L (<or=60)
--- NOTE | 2021-12-29 11:26 | DI.VRAD_ITS ---
PROCEDURE INFORMATION: Exam: CTA Chest With Contrast CTA Abdomen and Pelvis With Contrast Exam date and time: 12/29/2021 10:37 AM Age: 81 years old Clinical indication: Other: HTN, chest pain radiating to back TECHNIQUE: Imaging protocol: Computed tomographic angiography of the chest with contrast. Computed tomographic angiography of the abdomen and pelvis with contrast. 3D rendering (Not supervised by radiologist): MIP and/or 3D reconstructed images were created by the technologist. Radiation optimization: All CT scans at this facility use at least one of these dose optimization techniques: automated exposure control; mA and/or kV adjustment per patient size (includes targeted exams where dose is matched to clinical indication); or iterative reconstruction. Contrast material: OMNIPAQUE 350; Contrast volume: 125 ml; Contrast route: INTRAVENOUS (IV); COMPARISON: CT CHEST FOR PULMONARY EMBOLUS 04/21/2016 4:42 PM FINDINGS: VASCULATURE: Pulmonary arteries: Normal. No pulmonary emboli. Aorta: No aortic aneurysm. No aortic dissection. Celiac trunk and mesenteric arteries: No occlusion or significant stenosis. Renal arteries: No occlusion or significant stenosis. Right iliac arteries: No occlusion or significant stenosis. Left iliac arteries: No occlusion or significant stenosis. Thyroid: 8 mm complex cyst right thyroid lobe CHEST: Lungs: Scarring in the right upper lobe, unchanged. left basilar atelectasis or scarring. Mild right basilar atelectasis or scarring. No acute consolidation Pleural spaces: Unremarkable. No pneumothorax. No pleural effusion. Heart: Left ventricular and right ventricular enlargement Diaphragm: Moderate hiatal hernia ABDOMEN AND PELVIS: Liver: No mass. Gallbladder and bile ducts: Unremarkable. No calcified stones. No ductal dilation. Pancreas: Unremarkable. No mass. No ductal dilation. Spleen: Unremarkable. No splenomegaly. Adrenal glands: Unremarkable. No mass. Kidneys and ureters: Unremarkable. No solid mass. No hydronephrosis. Stomach and bowel: Surgical suture line in the right mid small bowel. Adjacent loops are mildly dilated, possible mild obstruction or ileus Appendix: No evidence of appendicitis. Intraperitoneal space: Unremarkable. No free air. No significant fluid collection. Urinary bladder: Unremarkable. No mass. Reproductive: Unremarkable as visualized. Lymph nodes: Unremarkable. No enlarged lymph nodes. Bones/joints: Chronic compression fractures within the thoracic spine. Multilevel degenerative disc disease Soft tissues: Nodules in the inferior right breast unchanged IMPRESSION: 1. No evidence of acute pulmonary embolism 2. Dilated small bowel loops adjacent to previous resection, possible focal ileus or partial small bowel obstruction Dictated and Authenticated by: Queenie Dexter MD. Ordering:MARGY Vivas MD
--- NOTE | 2021-12-29 11:45 | W.ED.GENAD ---
Discharge Plan Disposition Patient Disposition: Home Condition: Stable Discharge Details Clinical Impression: Hypertensive urgency, Ileus Primary Care Provider: Renetta Limon ED Provider: Ortega Diaz Home Meds and New Rx's Prescriptions: New amlodipine [Norvasc] 5 mg tablet 5 mg PO DAILY Qty: 30 0RF Continued cholecalciferol (vitamin D3) [Vitamin D3] 50 mcg (2,000 unit) capsule See Rx Instructions PO DAILY Label Comments: Vit D deficiency & bone health Rx Instructions: 2 caps orally daily occuvite 1 tab PO DAILY CENTRUM SILVER TABLET 1 EACH tablet 1 ea PO DAILY (DME) lancets 1 EACH misc 1 ea Miscellaneous TID Qty: 400 Label Comments: pt .checked blood sugar this AM 125 Rx Instructions: FOR METER. PT USES INSULIN. DIAGNOSIS CODE 250.0__ (DME) Contour Test Strips Strip See Rx Instructions .ROUTE .MEDSUPPLY Qty: 100 3RF Rx Instructions: Test daily to maintain A1C less than 7 dx code E11.9 albuterol sulfate [Proventil HFA] 90 mcg/actuation HFA aerosol inhaler 2 puff Inhalation Q4H PRN MDD 10 inh/24 hr PRN losartan 25 mg tablet 75 mg PO DAILY Label Comments: TAKE 2 TABLETS IN THE MORNING AND 1 TABLET IN THE EVENING. MAY INCREASE TO 100 MG DAILY FOR GOAL BLOOD PRESSURE LESS THAN 140/90 Discharge Instructions Instructions: Amlodipine (By mouth), Hypertension (ED), Ileus (ED) Additional Instructions: Maintain bowel rest today. Clear liquid diet only. Advance your diet to soft bland foods like rice tomorrow as tolerated. Please contact your primary care physician to arrange follow-up. Please follow-up with general surgery. Return to the ER immediately for any worsening or new concerning symptoms. Referrals: [facility] [Provider Group] Renetta Limon, COMPLETIONS MANAGER [Primary Care Provider] - Medical Decision Making 81-year-old female here with chest and neck discomfort, elevated blood pressure, generally not feeling well over the past couple days. Patient hypertensive. She did take her losartan today as prescribed 75 mg. I initiated second antihypertensive, amlodipine 5 mg PO. Considered ACS. EKG was reviewed and interpreted by me: Please see report, sinus rhythm 91 bpm, GA interval 262 which is prolonged. I compared to prior EKG from 09/14/2020 and patient had prolonged GA interval at that time as well. Labs reviewed and nondiagnostic. Troponin and delta troponin negative. CTA of the chest, abd, pelv to assess for pulmonary embolism was interpreted by radiology: IMPRESSION: 1. No evidence of acute pulmonary embolism 2. Dilated small bowel loops adjacent to previous resection, possible focal ileus or partial small bowel obstruction Patient was reassessed after prolonged ED observation and blood pressure significantly improved. Patient has no abdominal pain or nausea/vomiting. She notes she is feeling much better. I contacted Dr. Garcia and reviewed ED presentation and course including diagnostics. He reviewed CT imaging. He feels dilatation is appropriate and presentation not consistent with acute surgical process. He will follow-up with patient this week. Presentation consistent with hypertensive urgency. I will prescribe amlodipine as a second antihypertensive agent. All results were discussed with the patient. She understood the importance of timely follow-up. Disposition decision was made weighing the risks and benefits of hospitalization versus outpatient treatment, the risk for further decompensation, and the patient's wishes. The patient was stable and requested discharge. Prior to discharge, my usual and customary return precautions were reviewed with the patient - this included follow-up instructions and reason to return to the emergency department if condition worsens, does not improve as expected, or other new concerns arise. Lab Data Lab results reviewed: Yes I reviewed the patient's lab results. Labs: Laboratory Tests Range/Units 12/29/21 12/29/21 12/29/21 09:56 09:56 09:56 WBC (4.4-10.8) 10^3/uL 5.03 RBC (3.93-5.22) 10^6/uL 4.79 Hgb (11.2-15.7) g/dL 14.6 Hct (36.0-46.0) % 43.8 MCV (80-95) fL 91 MCH (27.0-33.0) pg 30.5 MCHC (32.0-36.0) % 33.3 RDW (11.7-14.6) % 12.6 Plt Count (130-400) 10^3/uL 178 MPV (8.0-11.0) fL 10.9 Immature Gran % 0.2 Neutrophils % 69.1 Lymphocytes % 22.5 Monocytes % 7.2 Eosinophils % 0.6 Basophils % 0.4 Nucleated RBC % (0.0-0.3) % 0.0 Absolute Neutrophils (1.2-6.7) 10^3/uL 3.48 Absolute Lymphocytes (1.2-3.4) 10^3/uL 1.13 L Absolute Monocytes (0.1-0.8) 10^3/uL 0.36 Absolute Eosinophils (0.0-0.7) 10^3/uL 0.03 Absolute Basophils (0.0-0.2) 10^3/uL 0.02 APTT (21.0-27.5) sec 25.2 Sodium (136-145) mmol/L 140 Potassium (3.5-5.1) mmol/L 3.5 Chloride (98-107) mmol/L 104 Carbon Dioxide (21.0-32.0) mmol/L 29.2 Anion Gap (3-11) mmol/L 6.8 BUN (7-18) mg/dL 18 Creatinine (0.55-1.02) mg/dL 0.9 Est GFR (CKD-EPI 2020) (mL/min/1.73m2) 64.23 Glucose (74-106) mg/dL 157 H Calcium (8.5-10.1) mg/dL 9.3 Magnesium (1.8-2.4) mg/dL 1.9 Total Bilirubin (0.2-1.0) mg/dL 0.9 AST (15-37) U/L 13 L ALT (14-59) U/L 16 Alkaline Phosphatase (46-116) U/L 80 Troponin I (<or=60) ng/L < 50 Total Protein (6.4-8.2) g/dL 7.5 Albumin (3.4-5.0) g/dL 3.9 Range/Units 12/29/21 12:55 WBC (4.4-10.8) 10^3/uL RBC (3.93-5.22) 10^6/uL Hgb (11.2-15.7) g/dL Hct (36.0-46.0) % MCV (80-95) fL MCH (27.0-33.0) pg MCHC (32.0-36.0) % RDW (11.7-14.6) % Plt Count (130-400) 10^3/uL MPV (8.0-11.0) fL Immature Gran % Neutrophils % Lymphocytes % Monocytes % Eosinophils % Basophils % Nucleated RBC % (0.0-0.3) % Absolute Neutrophils (1.2-6.7) 10^3/uL Absolute Lymphocytes (1.2-3.4) 10^3/uL Absolute Monocytes (0.1-0.8) 10^3/uL Absolute Eosinophils (0.0-0.7) 10^3/uL Absolute Basophils (0.0-0.2) 10^3/uL APTT (21.0-27.5) sec Sodium (136-145) mmol/L Potassium (3.5-5.1) mmol/L Chloride (98-107) mmol/L Carbon Dioxide (21.0-32.0) mmol/L Anion Gap (3-11) mmol/L BUN (7-18) mg/dL Creatinine (0.55-1.02) mg/dL Est GFR (CKD-EPI 2020) (mL/min/1.73m2) Glucose (74-106) mg/dL Calcium (8.5-10.1) mg/dL Magnesium (1.8-2.4) mg/dL Total Bilirubin (0.2-1.0) mg/dL AST (15-37) U/L ALT (14-59) U/L Alkaline Phosphatase (46-116) U/L Troponin I (<or=60) ng/L < 50 Total Protein (6.4-8.2) g/dL Albumin (3.4-5.0) g/dL Sign Out No HPI General Date/Time Provider Initiated Documentation: 12/29/21 09:44. Limitations to Documentation: no limitations. Information obtained by: patient. HPI Narrative: 81-year-old female with history of hypertension, diabetes, COPD, status post partial bowel resection in August, here with chief complaint of elevated blood pressure. Patient notes that Thursday she was not feeling too well. She notes feeling generally sick. Yesterday she felt better and then this morning again she is not feeling well. She notes she has been monitoring her blood pressure and it is much higher than usual. She has had blood pressure 190/110 this morning. She notes some discomfort in her upper chest radiating into her neck. Discomfort in her chest is described as intermittent light pressure. She has no associated shortness of breath. Patient has had some loose stool. She does note some mild intermittent twinges of discomfort in her lower abdomen over the past few weeks. No pain in her abdomen at this time. Related Data Home Medications Medication Instructions Recorded Confirmed Centrum Silver Tablet 1 ea PO DAILY 11/15/12 12/29/21 lancets 28 gauge #400 ea 01/17/15 11/25/21 blood sugar diagnostic (Contour #100 ea 07/19/19 11/25/21 Test Strips) occuvite 1 tab PO DAILY 05/13/21 12/29/21 albuterol sulfate 90 mcg/actuation 2 puff inhalation Q4H PRN PRN 06/22/21 12/29/21 aerosol inhaler (Proventil HFA) cholecalciferol (vitamin D3) 50 See Rx Instructions PO DAILY 11/25/21 12/29/21 mcg (2,000 unit) capsule (Vitamin D3) losartan 25 mg tablet 75 mg PO DAILY 11/25/21 12/29/21 amlodipine 5 mg tablet (Norvasc) 5 mg PO DAILY #30 tabs 12/29/21 Previous Rx's Medication Instructions Recorded blood sugar diagnostic (Contour #100 ea 07/19/19 Test Strips) amlodipine 5 mg tablet (Norvasc) 5 mg PO DAILY #30 tabs 12/29/21 Allergies Allergy/AdvReac Type Severity Reaction Status Date / Time No Known Allergies Allergy Verified 12/29/21 09:53 General Stated Complaint: Chest Pain RHEA: 2 Review of Systems All systems reviewed & are unremarkable except as noted in HPI and below Constitutional Constitutional: Denies fever(s) Cardiovascular Cardiovascular: Reports as per HPI Gastrointestinal Gastrointestinal: Reports as per HPI PFSH All Active Problems Hypertensive urgency (Acute) Ileus (Acute) Type 2 diabetes mellitus without complication (Chronic 10/23/14) DX [facility] Adm: A1c 6.5 X 2 in 2014; h/o impaired FBS 2010 Hypertension (Chronic ~10/2019) Dx'ed 10/2019--RX Losartan; goal <130/80 ideally (but 140/90 acceptable) COPD, 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 Colon cancer Successfully treated Supranuclear palsy Diabetes Daughter Age: 52 Breast cancer Dx'ed ~44yo s/p mastectomy Hypertension Daughter Bone cancer Sister No problems noted. Father , COD unknown No problems noted. Maternal Grandmother Breast cancer Social History Smoking/Tobacco Use Status: Never Smoking risk assessment performed?: Yes Alcohol Intake: current Alcohol Intake frequency: a few times a week Alcohol type: beer and hard liquor Drug use: Never Substance use type: does not use Adopted: No Caregiver/Support person: No Foster care: No Household members: none Housing: house Number of Children: 2 number of grandchildren: 2 Communication Needs: Corrective Lenses Education Level: college Details: Bachelor's Degree Do you need help understanding health information?: Never current occupation: Homemaker Pets and animals: No Sexually active: No Do you think of yourself as: straight/heterosexual Current gender identity: female What is your relationship status?: How often do you talk on the phone with friends or family?: three or more times per week How often do you get together with friends or relatives?: once per week Do you belong to any clubs or organized social groups?: yes Panel score (0-1 are the most socially isolated patients): 2 What type of physical activity do you participate in: other Details: yardwork/gardening Duration: 45-60 minutes/day Frequency: 3-4 times per week Seatbelt use: always Helmet use: No (Never) Drive intox or ride w/intox regional dedicated truck driver: No Do you feel safe at home: Yes Do you feel safe in your relationship?: Yes Exam Const General: cooperative and no acute distress HENMT Mouth: moist mucous membranes Eyes Conjunctivae: normal conjunctivae Sclera: normal sclerae Neck Neck: trachea midline and supple Resp Auscultation: clear to auscultation bilaterally, no rales, no rhonchi and no wheezes Cardio Rate: regular rate and not tachycardic Rhythm: regular rhythm GI Palpation: soft, not firm, no guarding, no masses, not rigid and nontender Skin General skin exam: no rashes or lesions noted Neuro General: patient alert, patient awake, patient oriented x3 and tone normal Cranial Nerves: CN's II-XI intact bilaterally Cognition: normal cognition Speech: speech normal Gait: normal gait Motor: muscle tone normal throughout and other (Strength normal) Extrem General: no edema Psych Appearance: grossly normal Mental Status: mental status grossly normal Speech and Movement: speech and movement normal Course Vital Signs Vital signs: Vital Signs Temperature 36.7 C 12/29/21 09:27 Pulse 102 H 12/29/21 09:27 Respiratory Rate 20 12/29/21 09:27 Blood Pressure 172/94 H 12/29/21 09:27 Pulse Oximetry 96 12/29/21 09:27 Temperature 36.7 C 12/29/21 09:27 Pulse 89 12/29/21 11:28 Pulse 90 12/29/21 11:30 Respiratory Rate 17 12/29/21 11:30 Respiratory Effort Non-Labored 12/29/21 09:57 Respiratory Depth Normal 12/29/21 09:57 Respiratory Pattern Normal 12/29/21 09:57 Blood Pressure 147/83 H 12/29/21 11:28 Blood Pressure Position Sitting 12/29/21 09:27 Pulse Oximetry 96 12/29/21 11:28 Oxygen Delivery Method Room Air 12/29/21 11:28 Oxygen Flow Rate 0 12/29/21 11:28 Pain Level 0 12/29/21 09:27 Lab/Test Results Lab/Test Results: Laboratory Tests Range/Units 12/29/21 12/29/21 12/29/21 09:56 09:56 09:56 WBC (4.4-10.8) 10^3/uL 5.03 RBC (3.93-5.22) 10^6/uL 4.79 Hgb (11.2-15.7) g/dL 14.6 Hct (36.0-46.0) % 43.8 MCV (80-95) fL 91 MCH (27.0-33.0) pg 30.5 MCHC (32.0-36.0) % 33.3 RDW (11.7-14.6) % 12.6 Plt Count (130-400) 10^3/uL 178 MPV (8.0-11.0) fL 10.9 Immature Gran % 0.2 Neutrophils % 69.1 Lymphocytes % 22.5 Monocytes % 7.2 Eosinophils % 0.6 Basophils % 0.4 Nucleated RBC % (0.0-0.3) % 0.0 Absolute Neutrophils (1.2-6.7) 10^3/uL 3.48 Absolute Lymphocytes (1.2-3.4) 10^3/uL 1.13 L Absolute Monocytes (0.1-0.8) 10^3/uL 0.36 Absolute Eosinophils (0.0-0.7) 10^3/uL 0.03 Absolute Basophils (0.0-0.2) 10^3/uL 0.02 APTT (21.0-27.5) sec 25.2 Sodium (136-145) mmol/L 140 Potassium (3.5-5.1) mmol/L 3.5 Chloride (98-107) mmol/L 104 Carbon Dioxide (21.0-32.0) mmol/L 29.2 Anion Gap (3-11) mmol/L 6.8 BUN (7-18) mg/dL 18 Creatinine (0.55-1.02) mg/dL 0.9 Est GFR (CKD-EPI 2020) (mL/min/1.73m2) 64.23 Glucose (74-106) mg/dL 157 H Calcium (8.5-10.1) mg/dL 9.3 Magnesium (1.8-2.4) mg/dL 1.9 Total Bilirubin (0.2-1.0) mg/dL 0.9 AST (15-37) U/L 13 L ALT (14-59) U/L 16 Alkaline Phosphatase (46-116) U/L 80 Troponin I (<or=60) ng/L < 50 Total Protein (6.4-8.2) g/dL 7.5 Albumin (3.4-5.0) g/dL 3.9 PAWSS Have you Been Recently Intoxicated or Drunk Within the Last 30 days?: No Have you Ever Experienced Previous Episodes of Alcohol Withdrawal?: No Have you ever Experienced Withdrawal Seizures?: No Have you ever Experienced Delirium Tremens(DT)s?: No Have you ever undergone Alcohol Rehabilitation Treatment (i.e, inpt ot outpatient treatment programs)?: No Have you ever Experienced Blackouts?: No Have you ever Combined Alcohol with other Downers within the last 90 days?: No Have you ever Combined Alcohol with any other Substance of Abuse during the last 90 days?: No Positive Blood Alcohol level on Presentation? [PCS.BAL]: No Evidence of Increased Autonomic Activity (i.e. HR>120, tremor, sweating, agitation, nausea)?: No Result: 0
[2021-12-29] MEDS: amLODIPine 5 MG TAB PO ×2 (12:51→14:49)
[2021-12-29 13:19] LABS: Troponin I < 50 ng/L (<or=60)
== END 2021-12-29 14:50 | disposition home or self-care (01) ==
PROVIDERS: Emergency Provider Student in an Organized Health Care Education/Training Program; PCP Nurse Practitioner Adult Health
DX: I16.0 Hypertensive urgency (principal); K56.7 Ileus, unspecified; M54.2 Cervicalgia; R07.9 Chest pain, unspecified
CPT/HCPCS: 36415; 71275; 80053; 93005; 99285; 74174; 83735; 84484; 85025; 85730; 93010; 99284

== ENCOUNTER 2022-05-29 03:37 | Outpatient (CLI) | payer MEDICARE, SELFPAY ==
[2022-05-29 10:04] LABS: Anion Gap 7.5 mmol/L (3-11); BUN 17 mg/dL (7-18); CO2 29.5 mmol/L (21.0-32.0); Calcium 9.4 mg/dL (8.5-10.1); Chloride 105 mmol/L (98-107); Glucose 149 mg/dL (74-106); Potassium 3.7 mmol/L (3.5-5.1); Sodium 142 mmol/L (136-145)
[2022-05-29 11:14] LABS: Lab Add On Test DONE
== END 2022-05-29 03:38 | disposition home or self-care (01) ==
LOC: LBO 03:38
PROVIDERS: PCP Nurse Practitioner Adult Health; Visit Provider Nurse Practitioner Adult Health
DX: I10 Essential (primary) hypertension (principal); E55.9 Vitamin D deficiency, unspecified; M85.88 Other specified disorders of bone density and structure, other site
CPT/HCPCS: 36415; 80048; 82306

== ENCOUNTER → 2022-07-21 08:37 | Outpatient (BNVA) | payer MEDICARE, SELFPAY | PROVIDERS: PCP Nurse Practitioner Adult Health; Referring Provider Nurse Practitioner Adult Health; Visit Provider Student in an Organized Health Care Education/Training Program | DX: M65.341 Trigger finger, right ring finger (principal) | CPT/HCPCS: 99213 ==

== ENCOUNTER 2022-08-26 06:10 | Day surgery (SDC) | payer MEDICARE, SELFPAY ==
[2022-08-26 06:22] VITALS: BP 122/67; PULSE 82; RESP 16; TEMP 36.6; O2SAT 96
--- NOTE | 2022-08-26 07:12 | W.PM.DSUDISC ---
Date of service: 08/26/22 Time of Service: 07:13 Discharge Plan Disposition Patient Disposition: Home Condition: Good Discharge Details Reason For Visit: RRF Trigger Finger Attending Provider: Juan Bowens Primary Care Provider: Renetta Limon Home Meds and New Rx's Prescriptions: Continued magnesium 250 mg tablet 250 mg PO DAILY losartan 25 mg tablet 75 mg PO DAILY Qty: 270 3RF Rx Instructions: Blood pressure cholecalciferol (vitamin D3) [Vitamin D3] 50 mcg (2,000 unit) capsule See Rx Instructions PO DAILY Patient Comments: Vit D deficiency & bone health Rx Instructions: 2 caps orally daily occuvite 1 tab PO DAILY CENTRUM SILVER TABLET 1 EACH tablet 1 ea PO DAILY (DME) lancets 1 EACH misc 1 ea Miscellaneous TID Qty: 400 Patient Comments: pt .checked blood sugar this AM 125 Rx Instructions: FOR METER. PT USES INSULIN. DIAGNOSIS CODE 250.0__ (DME) Contour Test Strips Strip See Rx Instructions .ROUTE .MEDSUPPLY Qty: 100 3RF Rx Instructions: Test daily to maintain A1C less than 7 dx code E11.9 amlodipine [Norvasc] 5 mg tablet 5 mg PO DAILY Qty: 90 3RF Rx Instructions: For blood pressure goal <130/80 albuterol sulfate [Proventil HFA] 90 mcg/actuation HFA aerosol inhaler 2 puff Inhalation Q4H PRN MDD 10 inh/24 hr PRN Discharge Instructions Stand Alone Forms: [place] Myriam. Finger Release Activity:: Activity as Tolerated Remove Dressings/Wound Care:: 48 hours Shower/Bathe:: 48 hours Diet:: As Tolerated Discharge Orders Discharge Orders: Discharge Order (Routine); Ordered 08/26/22 Ordered By: Flora Craft DS: Diagnosis Discharge Diagnosis (1) Trigger finger, right ring finger: Status: Acute
[2022-08-26 07:55] VITALS: BP 116/89; PULSE 85; RESP 16; TEMP 36.5; O2SAT 95
[2022-08-26] MEDS: Lidocaine 1% Multi-Dose W/EPI 1/100,000 50 ML VIAL (08:00)
[2022-08-26] MEDS: Sodium Bicarbonate 50 MEQ/50 ML VIAL (08:01)
--- NOTE | 2022-08-26 09:44 | ROE_ITS ---
Date of service: 08/26/22 Time of Service: 07:50 Operative Note Operative Note DATE OF PROCEDURE: 08/26/22 PRE-OP DIAGNOSIS: Right Ring Finger Trigger Finger POST-OP DIAGNOSIS: same PROCEDURE: Trigger Finger Release - Right Ring Finger SURGEON: Juan Bowens ANESTHESIA TYPE: Local By Surgeon Refer to Anesthesia Record ESTIMATED BLOOD LOSS: 0 PATHOLOGY: none sent COMPLICATIONS: None Patient was transported to: same day Patient's condition: stable Indications: I have seen Katie in clinic for symptoms of a trigger finger. The catching, c licking, locking, and pain limited function. The diagnosis of trigger finger was evident. The symptoms had not responded to conservative measures. I discussed trigger finger release with the patient. I reviewed the risks of the procedure to include, but not limited to, bleeding, infection, pain, stiffness, incomplete release, damage to nerves or vessels, continued catching, recurrence. Despite these risks, the patient elected to proceed. Findings: There was a tightened A1 trang which was released. The flexor tendons were inspected and the patient was able to move the finger without any catching, clicking, or locking. Procedure Description: Katie was greeted in the preoperative holding area where the correct side was identified and marked. The consent was reviewed with the patient and signed. All questions were answered. She was taken back to the operating room. The patient was placed into the supine position on the operating room table with the right arm on an arm board. All bony prominences were well padded. No prophylactic antibiotics were administered since this was a clean, elective hand surgical case. The right arm was then prepped with Chloraprep and draped in a standard fashion with stockinette and extremity drape. A timeout to confirm correct identity, side and site, procedure, allergies, anesthesia, and medical concerns was performed. The surgical site was marked as a longitudinal incision directly over the A1 trang of the involved digit. This was confirmed with palpation during finger flexion. This area, overlying the metacarpal head, was then anesthetized with 1% Lidocaine. The patient tolerated this well and once the anesthetic had setup, the procedure began. A longitudinal incision was made through skin only, approximately 1cm. The deep tissues were dissected bluntly. Once the A1 trang and flexor tendons were identified the soft tissue including neurovascular structures were retracted medially and laterally. There were no crossing structures over the A1 trang. The proximal edge of the trang was identified and the trang was incised with tenotomy scissors. There was a release of the tendons once this was fully released. The tendons were then removed from the wound and inspected. Excess synovium was resected. There was some fraying of the FDP tendon which was debrided. The tendons were then returned and the patient was asked to move the finger into deep flexion and back to extension. There was no recreation of the pre-operative symptoms. The hand was then once more inspected for any A0 trang or area of possible constriction. The wound was then irrigated and the skin was closed with a 4-0 Nylon. This was dressed with gauze and a Conform dressing. The patient tolerated the procedure well and was returned to the Same Day Surgery area in a stable condition suffering no known complication.
== END 2022-08-26 08:09 | disposition home or self-care (01) ==
PROVIDERS: PCP Nurse Practitioner Adult Health; Visit Provider Student in an Organized Health Care Education/Training Program
PROC: (CPT 26055; principal; 2022-08-26 07:30)
DX: M65.341 Trigger finger, right ring finger (principal)
CPT/HCPCS: 26055

== ENCOUNTER → 2022-09-04 08:40 | Outpatient (BNVA) | payer MEDICARE, SELFPAY | PROVIDERS: PCP Nurse Practitioner Adult Health; Referring Provider Nurse Practitioner Adult Health; Visit Provider Student in an Organized Health Care Education/Training Program | DX: Z47.89 Encounter for other orthopedic aftercare (principal); M79.641 Pain in right hand ==

== ENCOUNTER 2022-12-29 14:14 | Outpatient (CLI) | payer MEDICARE, SELFPAY ==
--- NOTE | 2022-12-29 14:00 | RT.EKG_ITS ---
APPROVED REPORT Exam: Resting ECG Reason for Exam: assess rhythm Patient Location: O HR:68 bpm ECG Measurements Heart Rate 68 AXIS UT 244 P 1 QRSd 112 QRS -20 QT 412 T 37 QTc 439 Conclusion Sinus rhythm...normal P axis, V-rate 50- 99 Prolonged UT interval...UT >220, V-rate 50- 90 Borderline intraventricular conduction delay...QRSd >112mS Low voltage, precordial leads...precordial leads <1.0mV Partial missing lead(s): V3
== END 2022-12-29 14:15 | disposition home or self-care (01) ==
LOC: DI.KIM 14:15
PROVIDERS: PCP Nurse Practitioner Adult Health; Visit Provider Nurse Practitioner Adult Health
DX: I49.49 Other premature depolarization (principal)
CPT/HCPCS: 93010

== ENCOUNTER → 2023-01-13 01:17 | Outpatient (CLI) | payer MEDICARE, SELFPAY ==
--- NOTE | 2023-01-13 08:45 | DI.MAMMO_ITS ---
Exam(s) MAMMO SCREENING EXAM: MAMMO SCREENING CLINICAL HISTORY: screening,z12.39 TECHNIQUE: Mammograms were interpreted according to the usual protocol including computer analysis w [employer] CAD system, tomosynthesis and C-view imaging. COMPARISON: 2013 through 2021 FINDINGS: The breasts are composed of scattered fibroglandular densities, Breast Density category B. No suspicious masses or suspicious microcalcifications are seen. An area of nodularity seen in the i nferior right breast has decreased in size. An area of nodularity is again noted in the subareolar r egion of the right breast. Previously noted nodules in the left breast have decreased in size. No skin thickening or abnormal axillary lymph nodes are seen. IMPRESSION: BI-RADS Category 2 - Negative Mammogram with benign findings. Continued annual screening should be b ased on patient's clinical status given age. Breast Density - Category B, scattered fibroglandular densities. A negative radiographic report should not delay biopsy if a dominant or clinically suspicious mass is present. Up to ten percent of cancers are not identified on mammography. A negative report may reinforce clinical impression. Adenosis and dense breasts may obscure an underlying neoplasm. False positive reports average 6 to 10%. Patient will receive a letter notifying them of these results.
== END ==
PROVIDERS: PCP Nurse Practitioner Adult Health; Visit Provider Nurse Practitioner Adult Health
DX: Z12.31 Encounter for screening mammogram for malignant neoplasm of breast (principal); R92.323 Mammographic fibroglandular density, bilateral breasts
CPT/HCPCS: 77063; 77067

== ENCOUNTER 2023-06-10 05:31 | Outpatient (CLI) | payer MEDICARE, SELFPAY ==
[2023-06-10 09:16] LABS: Hemoglobin A1C 6.6 % (<5.7)
[2023-06-10 09:18] LABS: Anion Gap 7.5 mmol/L (3-11); BUN 24 mg/dL (7-18); CO2 28.5 mmol/L (21.0-32.0); CREATININE 0.9 mg/dL (0.55-1.02); Calcium 9.5 mg/dL (8.5-10.1); Chloride 108 mmol/L (98-107); Estimated GFR 63.83 (mL/min/1.73m2); Glucose 151 mg/dL (74-106); Sodium 144 mmol/L (136-145)
[2023-06-10 10:09] LABS: COMMENT (LAB VIEW ONLY) 102.08 mg/dL; Microalb ug/mg Crea 4.8 ug/mg Cr
== END 2023-06-10 05:32 | disposition home or self-care (01) ==
LOC: LBO 05:32
PROVIDERS: Absent Provider Nurse Practitioner Adult Health; PCP Nurse Practitioner Adult Health; Visit Provider Nurse Practitioner Adult Health
DX: E11.9 Type 2 diabetes mellitus without complications (principal); I10 Essential (primary) hypertension
CPT/HCPCS: 36415; 80048; 82043; 82570; 83036

== ENCOUNTER 2023-12-09 10:23 | Outpatient (CLI) | payer MEDICARE, SELFPAY ==
[2023-12-09 08:59] LABS: Abs Immature Grans 0.01 10^3/uL (0.0-0.06); Absolute Basophil Count 0.02 10^3/uL (0.0-0.2); Absolute Eosinophil Count 0.04 10^3/uL (0.0-0.7); Absolute Lymphocyte Count 0.96 10^3/uL (1.2-3.4); Absolute Monocyte Count 0.34 10^3/uL (0.1-0.8); Absolute Neutrophil Count 3.35 10^3/uL (1.2-6.7); Basophils % 0.4 %; Eosinophils % 0.8 %; HCT 44.3 % (36.0-46.0); HGB 14.9 g/dL (11.2-15.7); Immature Grans % 0.2 %; Lymphocytes % 20.3 %; MCH 31.3 pg (27.0-33.0); MCHC 33.6 % (32.0-36.0); MCV 93 fL (80-95); MPV 10.5 fL (8.0-11.0); Monocytes % 7.2 %; Neutrophils % 71.1 %; Platelet Count 197 10^3/uL (130-400); RBC 4.76 10^6/uL (3.93-5.22); RDW 12.7 % (11.7-14.6); RDW-SD 43.6 fL; WBC 4.72 10^3/uL (4.4-10.8)
[2023-12-09 09:25] LABS: ALT 14 U/L (14-59); AST 18 U/L (15-37); Albumin 3.8 g/dL (3.4-5.0); Alkaline Phosphatase 80 U/L (46-116); Anion Gap 10.3 mmol/L (3-11); BUN 15 mg/dL (7-18); Bilirubin, Total 1.11 mg/dL (0.2-1.0); CO2 26.7 mmol/L (21.0-32.0); CREATININE 0.9 mg/dL (0.55-1.02); Calcium 9.6 mg/dL (8.5-10.1); Chloride 108 mmol/L (98-107); Estimated GFR 63.43 (mL/min/1.73m2); Glucose 126 mg/dL (74-106); Potassium 3.7 mmol/L (3.5-5.1); Sodium 145 mmol/L (136-145); Total Protein 7.3 g/dL (6.4-8.2)
[2023-12-09 09:49] LABS: Hemoglobin A1C 6.6 % (<5.7)
[2023-12-09 10:16] LABS: Calculated LDL 45 mg/dL (<100); Cholesterol 136 mg/dL (<200); HDL Cholesterol 84 mg/dL (40-60); Triglyceride 38 mg/dL (<150)
[2023-12-10 12:54] LABS: Lyme Ab w Rflx to Lyme Confirm Negative (Negative)
[2023-12-12 16:39] LABS: Anaplasma phagocytophilum Negative (Negative); B. miyamotoi PCR Negative (Negative); Babesia divergens/MO-1 Negative (Negative); Babesia duncani Negative (Negative); Babesia microti Negative (Negative); Ehrlichia chaffeensis Negative (Negative); Ehrlichia ewingii/canis Negative (Negative); Ehrlichia muris eauclairensis Negative (Negative)
== END 2023-12-09 10:24 | disposition home or self-care (01) ==
LOC: LBO 10:25
PROVIDERS: PCP Nurse Practitioner Adult Health; Visit Provider Physician Assistant
DX: E11.9 Type 2 diabetes mellitus without complications (principal); A77.49 Other ehrlichiosis; R68.89 Other general symptoms and signs
CPT/HCPCS: 36415; 80053; 80061; 87798; 83036; 85025; 86618

== ENCOUNTER 2024-01-26 01:57 | Outpatient (CLI) | payer MEDICARE, SELFPAY ==
--- NOTE | 2024-01-26 09:08 | DI.MAMMO_ITS ---
Exam(s) MAMMO SCREENING EXAM: MAMMO SCREENING CLINICAL HISTORY: screening,Z12.39 TECHNIQUE: Bilateral full field digital CC and MLO mammographic images were obtained with 3D tomosyn thesis and utilizing computer aided detection (CAD). COMPARISON: Available for comparison. FINDINGS: Masses/Architectural Distortion: There again seen nodules in the 6 o'clock position of the right laurie st which appears stable. The nodular density in the retroareolar region of the right breast has show n slight interval increase in size measuring 1.7 cm compared to 1.3 cm on the prior examination. The re are no areas of architectural distortion. Microcalcifications: No suspicious pleomorphic-type are seen. Skin Thickening/Nipple Retraction: None. IMPRESSION: 1. Interval increase in size of the retroareolar nodule in the right breast. 2. This area should be further evaluated with a spot compression view. Limited right breast ultrasou nd may be indicated at that time. BI-RADS Category 0 - Incomplete: Need additional imaging evaluation Breast Density - Category B - Scattered areas of fibroglandular density Breast density category C or D implies that the patient has dense breast tissue. Dense breast tissue is very common and is not abnormal but dense breast tissue can make it harder to find cancer on a ma mmogram. Also, dense breast tissue may increase their breast cancer risk. This information about the result of the mammogram report was provided to the patient to raise their awareness. Use this report when you speak with the patient about their risks for breast cancer, which includes their family hist ory. At that time, you may recommend for more screening tests (Ultrasound or MRI) as they might be us eful based on their risk. A negative radiographic report should not delay biopsy if a dominant or clinically suspicious mass is present. Up to ten percent of cancers are not identified on mammography. A negative report may reinforce clinical impression. Adenosis and dense breasts may obscure an underlying neoplasm. False positive reports average 6 to 10%. Patient will receive a letter notifying them of these results.
== END 2024-01-26 02:17 ==
LOC: DI 01:57
PROVIDERS: PCP Nurse Practitioner Adult Health; Visit Provider Nurse Practitioner Adult Health
DX: Z12.31 Encounter for screening mammogram for malignant neoplasm of breast (principal); N94.6 Dysmenorrhea, unspecified; R92.323 Mammographic fibroglandular density, bilateral breasts
CPT/HCPCS: 77063; 77067

== ENCOUNTER 2024-02-19 00:11 | Outpatient (CLI) | payer MEDICARE, SELFPAY ==
--- NOTE | 2024-02-19 | DI.US_ITS ---
Exam(s) MG MAMMO SCREEN CALL BACK UNI US BREAST RT LIMITED EXAM: MG MAMMO SCREEN CALL BACK UNI and U/S breast RT limited CLINICAL HISTORY: INTERVAL INCREASE IN SIZE RETROAREOLAR RT BREAST R92.8 ABNL MAMMO. TECHNIQUE: Craniocaudal and mediolateral oblique Full Field Digital Mammography views of the right b reast with Computer Aided Diagnosis followed by Tomosynthesis and limited right breast ultrasound. COMPARISON: Comparison is made with prior examinations. FINDINGS: Mammography/Tomosynthesis: Masses/Architectural Distortion: The bilobed nodule in the retroareolar region of the right breast is again seen. There are no areas of architectural distortion. No associated microcalcifications are seen. Microcalcifictions: No suspicious pleomorphic-type are seen. Skin Thickening/Nipple Retraction: None. Limited right breast US: Echotexture: Normal appearance of the glandular tissue. Shadowing: No suspicious foci. Cyst: None. Solid lesions: None seen. Ductal dilation: The area of clinical concern appears represent a dilated duct in the retroareolar re gion of the right breast at 11 o'clock. There is internal soft tissue in the duct anteriorly measuri ng 0.9 x 0.5 cm. There is a 2nd area within a duct which contains isoechoic soft tissue. This area measures 0.4 x 0.7 cm. It is also retroareolar. IMPRESSION: 1. Intraductal soft tissue masses which may represent papillomas. 2. Further evaluation with ductography or MRI should be considered. 3. The findings were discussed with the patient on the date of the examination. BI-RADS Category 4 - Suspicious Abnormality: Biopsy should be considered Breast Density - Category B - Scattered areas of fibroglandular density Breast density Category C or D implies that the patient has dense breast tissue. Dense breast tissue can make it harder to find cancer on a mammogram. Dense breast tissue is also associated with an incr eased risk of breast cancer. This information about the result of the mammogram report was provided to the patient to raise their awareness. Use this report when you speak with the patient about their risks for breast cancer, which includes their family history. At that time, you may recommend additional screening tests (Ultrasoun d or MRI) as these tests may add significant information. A negative radiographic report should not delay biopsy if a dominant or clinically suspicious mass is present. Up to ten percent of cancers are not identified on mammography. A negative report may reinforce clinical impression. Adenosis and dense breasts may obscure an underlying neoplasm. False positive reports average 6 to 10%. Patient will receive a letter notifying them of these results.
== END 2024-02-19 00:31 ==
LOC: DI 00:12
PROVIDERS: PCP Nurse Practitioner Adult Health; Visit Provider Nurse Practitioner Adult Health
DX: R05.9 Cough, unspecified (principal)
CPT/HCPCS: 76642; 77063; 77067

== ENCOUNTER 2024-02-19 10:21 | Emergency (ER) | payer MEDICARE, OTHER, SELFPAY ==
[2024-02-19] VITALS (22 sets, daily range): BP systolic 98–162; BP diastolic 49–101; PULSE 75–118; RESP 14–26; TEMP 36.8; O2SAT 88–97
--- NOTE | 2024-02-19 10:45 | RT.EKG_ITS ---
APPROVED REPORT Exam: Resting ECG Reason for Exam: Tachycardia Patient Location: E HR:105 bpm ECG Measurements Heart Rate 105 AXIS IA 222 P 66 QRSd 100 QRS -63 QT 334 T 53 QTc 440 Conclusion Sinus tachycardia...rate> 99 Prolonged IA interval...IA >215, V-rate 91-120 Left anterior fascicular block...axis(240,-40), init forces inf Consider anterior infarct...Q >30mS in V2-V5
--- NOTE | 2024-02-19 11:22 | DI.RAD_ITS ---
Exam(s) XR CHEST 2V PA LATERAL EXAM: XR CHEST 2V PA LATERAL CLINICAL HISTORY: cough TECHNIQUE: 2D digital imaging was performed of the chest. Two images were obtained. PA and lateral views were obtained. COMPARISON: CR XR CHEST 2V PA LATERAL from 10/04/2019 CR XR PORTABLE CHEST AP from 08/02/2021 CR,XR XR CHEST 1V IN [facility] DEPT from 08/03/2021 CR,XR XR PORTABLE CHEST AP from 08/18/2021 FINDINGS: MEDIASTINUM: Normal. HEART: Normal. PULMONARY VASCULATURE: Normal. LUNGS: Clear. PLEURAL SPACE: No pleural effusion or pneumothorax. BONE:Within normal limits for the patient's age. There is a stable old mild compression of T7. OTHER FINDINGS:Normal. IMPRESSION: No acute pulmonary findings. DATA REPOSITORY: RADIATION DOSE DELIVERED:
[2024-02-19 11:30] LABS: COVID-19 PCR Negative (Negative); Influenza A PCR Negative (Negative); Influenza B PCR Negative (Negative); RSV PCR Negative (Negative)
[2024-02-19 11:31] LABS: Source Nasopharynx
--- NOTE | 2024-02-19 11:33 | W.ED.GENAD ---
Discharge Plan Disposition Patient Disposition: Home Condition: Stable Discharge Details Clinical Impression: Cough Primary Care Provider: Renetta Limon ED Provider: Javier Ott Home Meds and New Rx's Prescriptions: Continued magnesium 250 mg tablet 250 mg PO DAILY amlodipine [Norvasc] 5 mg tablet 5 mg PO DAILY Qty: 90 3RF Rx Instructions: For blood pressure goal <130/80 cholecalciferol (vitamin D3) [Vitamin D3] 50 mcg (2,000 unit) capsule See Rx Instructions PO DAILY Patient Comments: Vit D deficiency & bone health Rx Instructions: Pt takes 1 tab daily occuvite 1 tab PO DAILY albuterol sulfate [Proventil HFA] 90 mcg/actuation HFA aerosol inhaler 2 puff Inhalation Q4H PRN PRN (Reason: shortness of breath or wheezing) Qty: 8.5 2RF psyllium husk [Fiber (psyllium husk)] 1.5 tsp PO .Daily Rx Instructions: 1/2 tsp tumeric 1 cap PO DAILY rosuvastatin 5 mg tablet 5 mg PO HS Qty: 90 3RF CENTRUM SILVER TABLET 1 EACH tablet 1 ea PO DAILY (DME) lancets 1 EACH misc 1 ea Miscellaneous TID Qty: 400 Patient Comments: pt .checked blood sugar this AM 125 Rx Instructions: FOR METER. PT USES INSULIN. DIAGNOSIS CODE 250.0__ (DME) blood-glucose meter [FreeStyle Lite Meter] Kit See Rx Instructions .Route Qty: 1 0RF Rx Instructions: DX: E11.9. Keep A1c below 7 .Check blood sugar daily (DME) lancets [FreeStyle Lancets] 28 gauge misc See Rx Instructions .Route Qty: 100 3RF Rx Instructions: DX:E11.9.Keep A1c below 7. Check blood sugar daily. (DME) FreeStyle Lite Strips Strip See Rx Instructions .Route Qty: 100 3RF Rx Instructions: DX: E11.9 Keep A1c below 7. Check blood sugars daily losartan 25 mg tablet See Rx Instructions .ROUTE .COMPLEX Qty: 270 3RF Dose Instruction: TAKE 3 TABLETS BY MOUTH EVERY DAY Rx Instructions: TAKE 3 TABLETS BY MOUTH EVERY DAY Discharge Instructions Instructions: Cough, Adult ED Additional Instructions: Your workup today was reassuring. No evidence of RSV, flu, COVID, or pneumonia. You did not have an elevated white count. Your cardiac enzymes were within normal limits. No evidence of congestive heart failure. Lastly, your age-adjusted D-dimer was within normal limits as well. This is likely a viral illness and to your point your symptoms are improving. Likely time and clih-rnc-lehtfjy medications for symptomatic control will be all you need. Please watch for new or worsening symptoms and please return immediately to the ER. Otherwise please contact your primary care provider to make aware of your ER visit, ongoing symptoms, and outpatient follow-up need next week. Discharge Data Discharge Date/Time-TO BE ENTERED AT DEPARTURE: 02/19/24 13:24 HPI General Mode of arrival: ambulatory. Date/Time Provider Initiated Documentation: 02/19/24 10:27. Limitations to Documentation: no limitations. Information obtained by: patient. History of Present Illness 83 year old F presents to the emergency department with the chief complaint of cough, described as moderate, with intensity rated at 4. Quality is described as other (no pain), and is localized to the chest. Patient reports no radiation. Patient started experiencing this day(s) (11) and it has been constant. No relieving factors improve symptom(s), No exacerbating factors reported . Patient notes malaise and shortness of breath. Patient did receive the following treatments prior to arrival, none Related Data Home Medications ?Medication ?Instructions ?Recorded ?Confirmed Centrum Silver Tablet 1 ea PO DAILY 11/15/12 02/19/24 lancets 28 gauge #400 ea 01/17/15 02/19/24 occuvite 1 tab PO DAILY 05/13/21 02/19/24 magnesium 250 mg tablet 250 mg PO DAILY 06/05/22 02/19/24 blood sugar diagnostic (FreeStyle #100 ea 11/24/22 02/19/24 Lite Strips) blood-glucose meter (FreeStyle #1 ea 11/24/22 02/19/24 Lite Meter kit) lancets 28 gauge (FreeStyle #100 ea 11/24/22 02/19/24 Lancets) albuterol sulfate 90 mcg/actuation 2 puff inhalation Q4H PRN PRN 12/29/22 02/19/24 aerosol inhaler (Proventil HFA) shortness of breath or wheezing #8.5 grams losartan 25 mg tablet See Rx Instructions .Route 06/08/23 02/19/24 .COMPLEX #270 tabs cholecalciferol (vitamin D3) 50 See Rx Instructions PO DAILY 06/22/23 02/19/24 mcg (2,000 unit) capsule (Vitamin D3) psyllium husk 1.5 tsp PO .Daily 06/22/23 02/19/24 rosuvastatin 5 mg tablet 5 mg PO HS #90 tabs 06/22/23 02/19/24 tumeric 1 cap PO DAILY 06/22/23 02/19/24 amlodipine 5 mg tablet (Norvasc) 5 mg PO DAILY #90 tabs 01/21/24 02/19/24 Previous Rx's ?Medication ?Instructions ?Recorded blood sugar diagnostic (FreeStyle #100 ea 11/24/22 Lite Strips) blood-glucose meter (FreeStyle #1 ea 11/24/22 Lite Meter kit) lancets 28 gauge (FreeStyle #100 ea 11/24/22 Lancets) albuterol sulfate 90 mcg/actuation 2 puff inhalation Q4H PRN PRN 12/29/22 aerosol inhaler (Proventil HFA) shortness of breath or wheezing #8.5 grams losartan 25 mg tablet See Rx Instructions .Route 06/08/23 .COMPLEX #270 tabs rosuvastatin 5 mg tablet 5 mg PO HS #90 tabs 06/22/23 amlodipine 5 mg tablet (Norvasc) 5 mg PO DAILY #90 tabs 01/21/24 Allergies Allergy/AdvReac Type Severity Reaction Status Date / Time No Known Allergies Allergy Verified 02/19/24 10:29 General Stated Complaint: RespSymp RHEA: 3 Review of Systems Constitutional Constitutional: Denies fever(s), Denies headache(s), Reports malaise and Reports weakness (Generalized) ENT Ears, Nose, Mouth, and Throat: Denies headache(s) Cardiovascular Cardiovascular: Denies chest pain at rest and Reports dyspnea Respiratory Respiratory: Reports cough and Reports dyspnea Gastrointestinal Gastrointestinal: Denies abdominal pain, Denies nausea and Denies vomiting Musculoskeletal Musculoskeletal: Denies back pain Integumentary/Breasts Skin/Breast: Denies rash Neurologic Neurologic: Denies headache(s) and Reports weakness (Generalized) Hematologic/Lymphatic Hematologic/Lymphatic: Denies easy bleeding and Denies easy bruising Exam Const General: cooperative, healthy appearing, comfortable and no acute distress Orientation: alert, awake and oriented x3 [facility] Head: normal to inspection, normocephalic and atraumatic General nose exam: external nose normal Face and sinus: normal facial exam Mouth: oral mucosae normal and moist mucous membranes Eyes General: appearance normal, both eyes and all related structures Conjunctivae: conjunctivae normal Neck Neck: normal visual inspection, full ROM, no lymphadenopathy, no meningeal signs, trachea midline and supple Resp Effort & Inspection: normal respiratory effort and able to speak in complete sentences Auscultation: wheezes (A few scattered throughout, clear with cough) Cardio Rate: tachycardic (112) Rhythm: regular rhythm GI Palpation: soft, not firm, no guarding and nontender Back/Spine/Pelvis Back: no CVA tenderness and No back tenderness Skin General skin exam: no rashes or lesions noted Neuro General: patient alert, patient awake, moves all extremities and no focal motor deficits Cognition: normal cognition Speech: speech normal Gait: normal gait Motor: muscle tone normal throughout Extrem General: normal to inspection, full ROM, capillary refill normal, no pedal edema, no calf tenderness, normal gait and amputation noted Psych Appearance: grossly normal Mental Status: mental status grossly normal Course Vital Signs Vital signs: Vital Signs Temperature 36.8 C 02/19/24 10:26 Pulse 118 H 02/19/24 10:26 Respiratory Rate 18 02/19/24 10:26 Blood Pressure 162/101 H 02/19/24 10:26 Pulse Oximetry 92 02/19/24 10:26 Temperature 36.8 C 02/19/24 10:26 Temperature Source Oral 02/19/24 10:26 Pulse 113 H 02/19/24 11:02 Respiratory Rate 18 02/19/24 11:02 Blood Pressure 108/59 L 02/19/24 11:02 Blood Pressure Position Sitting 02/19/24 10:26 Pulse Oximetry 93 02/19/24 11:02 Oxygen Delivery Method Room Air 02/19/24 11:02 Oxygen Flow Rate 0 02/19/24 11:02 Pain Level 0 02/19/24 10:26 Lab/Test Results Lab/Test Results: Laboratory Tests Range/Units 02/19/24 10:45 COVID-19 Source Nasopharynx SARS-CoV-2 (PCR) (Negative) Negative Influenza Type A (PCR) (Negative) Negative Influenza Type B (PCR) (Negative) Negative RSV (PCR) (Negative) Negative Medical Decision Making 83-year-old female, never a smoker, past medical history includes diabetes, hypertension, osteopenia, mild COPD, presenting for 11-day history of mildly productive cough, general fatigue and malaise. Does admit to some shortness of breath with exertion. Denies fever, sore throat, chest pain, or GI symptoms. She does admit that her symptoms today are much improved when compared to the week ago but they have simply not resolved. Her primary concern today is that of a lingering pneumonia. Clinically she appears well, nontoxic. She does present with hypertension of 162/101 and pulse of 118 in triage although during my initial evaluation her heart rate was in the 90s. Respirations of 18, she is afebrile, and her O2 sat is 92% on room air. While her symptoms are most consistent with a resolving viral syndrome, certainly concerning for acute bacterial pneumonia, ACS, PE, CHF, etc. Plan to obtain IV access, initiate cardiac workup including BNP and D-dimer. Will obtain Fluvid as well. Patient is agreeable to this plan. Workup is very reassuring. Normal white count, no evidence of anemia. D-dimer is 719 which is normal when age-adjusted. Will not pursue CTA of the chest. Electrolytes are normal. Creatinine 0.9 with a GFR of 63.43. Glucose of 160. Troponin of 7. BNP of 18. Lipase 15. Negative flu, RSV, and COVID. Chest x-ray negative. Repeat vital signs reveal blood pressure now 111/53, pulse in the 70s, patient remains afebrile, respirations of 15, O2 sat now 96% on room air. Resting comfortably. Delta troponin is 7. Discussed presentation, symptoms, and workup here in the ER. No evidence of acute bacterial infection, ACS, PE, CHF, etc. Patient is very relieved. Encouraged conservative measures such as rest, plenty of fluids, kmxl-naz-gkcyoxh medications for symptomatic control. Recommended watching for new, worsening, evolving symptoms and returning immediately to the ER. Otherwise I recommend follow-up with her PCP next week regarding the ongoing symptoms and need for reevaluation. Repeat chest x-ray could be indicated depending on her symptoms. Patient is comfortable with this plan and has no additional questions or concerns. Standard discharge and return precautions were provided. Patient understands, is agreeable to this plan, and has no additional questions or concerns upon discharge. This documentation was generated using [employer] dictation system, please disregard any oddities of phrase or misspellings. Medical Records Medical records reviewed: Yes I reviewed the patient's medical records. Imaging Data Radiologic Study: Attestation: I personally reviewed and interpreted this imaging study as follows: Imaging: X-Ray Radiologist's impression: No acute pulmonary finding Lab Data Lab results reviewed: Yes I reviewed the patient's lab results. Labs: Laboratory Tests Range/Units 02/19/24 02/19/24 02/19/24 10:45 11:42 12:40 WBC (4.4-10.8) 10^3/uL 8.68 RBC (3.93-5.22) 10^6/uL 4.95 Hgb (11.2-15.7) g/dL 15.4 Hct (36.0-46.0) % 45.8 MCV (80-95) fL 93 MCH (27.0-33.0) pg 31.1 MCHC (32.0-36.0) % 33.6 RDW (11.7-14.6) % 12.6 Plt Count (130-400) 10^3/uL 192 MPV (8.0-11.0) fL 10.5 Immature Gran % % 0.2 Neutrophils % % 82.4 Lymphocytes % % 9.7 Monocytes % % 6.2 Eosinophils % % 1.0 Basophils % % 0.5 Nucleated RBC % (0.0-0.3) % 0.0 Absolute Neutrophils (1.2-6.7) 10^3/uL 7.15 H Absolute Lymphocytes (1.2-3.4) 10^3/uL 0.84 L Absolute Monocytes (0.1-0.8) 10^3/uL 0.54 Absolute Eosinophils (0.0-0.7) 10^3/uL 0.09 Absolute Basophils (0.0-0.2) 10^3/uL 0.04 PT (9.1-11.1) sec 10.9 INR (0.9-1.1) 1.1 APTT (20.6-30.2) sec 28.5 D-Dimer (<500) ng/mlFEU 719 H Sodium (136-145) mmol/L 144 Potassium (3.5-5.1) mmol/L 4.0 Chloride (98-107) mmol/L 103 Carbon Dioxide (21.0-32.0) mmol/L 31.2 Anion Gap (3-11) mmol/L 9.8 BUN (7-18) mg/dL 19 H Creatinine (0.55-1.02) mg/dL 0.9 Est GFR (CKD-EPI 2020) (mL/min/1.73m2) 63.43 Glucose (74-106) mg/dL 160 H Calcium (8.5-10.1) mg/dL 9.9 Magnesium (1.8-2.4) mg/dL 2.0 Total Bilirubin (0.2-1.0) mg/dL 0.89 AST (15-37) U/L 13 L ALT (14-59) U/L 17 Alkaline Phosphatase (46-116) U/L 103 Troponin I (<or=51) ng/L 7 7 NT-Pro-B Natriuret Pep (<300) pg/mL 18 Total Protein (6.4-8.2) g/dL 7.5 Albumin (3.4-5.0) g/dL 4.0 Lipase (<78) U/L 15 COVID-19 Source Nasopharynx SARS-CoV-2 (PCR) (Negative) Negative Influenza Type A (PCR) (Negative) Negative Influenza Type B (PCR) (Negative) Negative RSV (PCR) (Negative) Negative Range/Units 02/19/24 14:30 WBC (4.4-10.8) 10^3/uL RBC (3.93-5.22) 10^6/uL Hgb (11.2-15.7) g/dL Hct (36.0-46.0) % MCV (80-95) fL MCH (27.0-33.0) pg MCHC (32.0-36.0) % RDW (11.7-14.6) % Plt Count (130-400) 10^3/uL MPV (8.0-11.0) fL Immature Gran % % Neutrophils % % Lymphocytes % % Monocytes % % Eosinophils % % Basophils % % Nucleated RBC % (0.0-0.3) % Absolute Neutrophils (1.2-6.7) 10^3/uL Absolute Lymphocytes (1.2-3.4) 10^3/uL Absolute Monocytes (0.1-0.8) 10^3/uL Absolute Eosinophils (0.0-0.7) 10^3/uL Absolute Basophils (0.0-0.2) 10^3/uL PT (9.1-11.1) sec INR (0.9-1.1) APTT (20.6-30.2) sec D-Dimer (<500) ng/mlFEU Sodium (136-145) mmol/L Potassium (3.5-5.1) mmol/L Chloride (98-107) mmol/L Carbon Dioxide (21.0-32.0) mmol/L Anion Gap (3-11) mmol/L BUN (7-18) mg/dL Creatinine (0.55-1.02) mg/dL Est GFR (CKD-EPI 2020) (mL/min/1.73m2) Glucose (74-106) mg/dL Calcium (8.5-10.1) mg/dL Magnesium (1.8-2.4) mg/dL Total Bilirubin (0.2-1.0) mg/dL AST (15-37) U/L ALT (14-59) U/L Alkaline Phosphatase (46-116) U/L Troponin I (<or=51) ng/L Cancelled NT-Pro-B Natriuret Pep (<300) pg/mL Total Protein (6.4-8.2) g/dL Albumin (3.4-5.0) g/dL Lipase (<78) U/L COVID-19 Source SARS-CoV-2 (PCR) (Negative) Influenza Type A (PCR) (Negative) Influenza Type B (PCR) (Negative) RSV (PCR) (Negative) ECG Data Attestation: I personally reviewed and interpreted this ECG (s) as follows: Interpretation: Sinus tachycardia, ventricular rate of 105. No STEMI. Please see official report by Dr. Diaz Quality: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) FEV1 2.07 (78%pred; 61% FVC), mild obstr, else normal Family history of breast cancer (Chronic) Daughter Hypertension (Chronic ~10/2019) Dx'ed 10/2019--RX Losartan; goal <130/80 ideally (but 140/90 acceptable) Medical History COVID (~11/01/21) 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 Schmorl's nodes of the thoracic region Category 3 mammography result with short follow-up interval suggested for probably benign finding [facility] [place] second read cat 2, but [facility] cat 3 with repeat imaging in 6 month recommended Hypokalemia Resolved with dietary supplementation (bananas, strawberries) Foraminal stenosis of cervical region +Radiculopathy; [facility] ER 07/2019--prednisone + methocarbamol + PT = effective Obesity (11/08/12) Nuclear sclerotic cataract of left eye Right corneal scar with opacity Nuclear sclerotic cataract of right eye 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 (may not even be polyps!), but due to + FH mother colon cancer <60, rec 5 yr interval; 2020: Katie declines further colonoscopy 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 Colon cancer Successfully treated Supranuclear palsy Diabetes Daughter Age: 54 Breast cancer Dx'ed ~44yo s/p mastectomy Hypertension Daughter Bone cancer Sister No problems noted. Father , COD unknown No problems noted. Maternal Grandmother Breast cancer Social History Smoking/Tobacco Use Status: Never Smoking risk assessment performed?: Yes Alcohol Intake: current Alcohol Intake frequency: a few times a week Alcohol type: beer and hard liquor Drug use: Never Substance use type: does not use Adopted: No Caregiver/Support person: No Foster care: No Household members: none Housing: house Number of Children: 2 number of grandchildren: 2 Communication Needs: Corrective Lenses Education Level: college Details: Bachelor's Degree Do you need help understanding health information?: Never current occupation: Homemaker Pets and animals: No Sexually active: No Do you think of yourself as: straight/heterosexual Current gender identity: female What is your relationship status?: How often do you talk on the phone with friends or family?: three or more times per week How often do you get together with friends or relatives?: three or more times per week How often do you attend scientologist or oriental orthodox services?: decline to answer Do you belong to any clubs or organized social groups?: yes Panel score (0-1 are the most socially isolated patients): 2 What type of physical activity do you participate in: walking and other Details: yardwork/gardening Duration: 15-30 minutes/day Frequency: 1-2 times per week Special emanuel needs: No Seatbelt use: always Helmet use: No (Never) Drive intox or ride w/intox transport truck driver: No Do you feel safe at home: Yes Do you feel safe in your relationship?: Yes
[2024-02-19 11:49] LABS: Abs Immature Grans 0.02 10^3/uL (0.0-0.06); Absolute Basophil Count 0.04 10^3/uL (0.0-0.2); Absolute Eosinophil Count 0.09 10^3/uL (0.0-0.7); Absolute Lymphocyte Count 0.84 10^3/uL (1.2-3.4); Absolute Monocyte Count 0.54 10^3/uL (0.1-0.8); Absolute Neutrophil Count 7.15 10^3/uL (1.2-6.7); Basophils % 0.5 %; HCT 45.8 % (36.0-46.0); HGB 15.4 g/dL (11.2-15.7); Immature Grans % 0.2 %; Lymphocytes % 9.7 %; MCH 31.1 pg (27.0-33.0); MCHC 33.6 % (32.0-36.0); MCV 93 fL (80-95); MPV 10.5 fL (8.0-11.0); Monocytes % 6.2 %; Neutrophils % 82.4 %; Platelet Count 192 10^3/uL (130-400); RBC 4.95 10^6/uL (3.93-5.22); RDW 12.6 % (11.7-14.6); RDW-SD 42.7 fL; WBC 8.68 10^3/uL (4.4-10.8)
[2024-02-19 12:04] LABS: INR 1.1 (0.9-1.1); PTT Activated 28.5 sec (20.6-30.2); Prothrombin Time 10.9 sec (9.1-11.1)
[2024-02-19 12:14] LABS: ALT 17 U/L (14-59); AST 13 U/L (15-37); Alkaline Phosphatase 103 U/L (46-116); Anion Gap 9.8 mmol/L (3-11); BUN 19 mg/dL (7-18); Bilirubin, Total 0.89 mg/dL (0.2-1.0); CO2 31.2 mmol/L (21.0-32.0); CREATININE 0.9 mg/dL (0.55-1.02); Calcium 9.9 mg/dL (8.5-10.1); Chloride 103 mmol/L (98-107); Estimated GFR 63.43 (mL/min/1.73m2); Glucose 160 mg/dL (74-106); Lipase 15 U/L (<78); NT-proBNP 18 pg/mL (<300); Sodium 144 mmol/L (136-145); Total Protein 7.5 g/dL (6.4-8.2); Troponin I 7 ng/L (<or=51)
[2024-02-19 12:38] LABS: D-Dimer 719 ng/mlFEU (<500)
[2024-02-19 13:15] LABS: Troponin I 7 ng/L (<or=51)
== END 2024-02-19 13:24 | disposition home or self-care (01) ==
PROVIDERS: Emergency Provider Physician Assistant; PCP Nurse Practitioner Adult Health
DX: R05.9 Cough, unspecified (principal); I10 Essential (primary) hypertension; E11.9 Type 2 diabetes mellitus without complications; J44.9 Chronic obstructive pulmonary disease, unspecified; R53.81 Other malaise
CPT/HCPCS: 80053; 83690; 87637; 93005; 99284; 71046; 83735; 83880; 84484; 85025; 85379; 85610; 85730; 93010

== ENCOUNTER 2025-01-28 07:38 | Emergency (ER) | payer MEDICARE, OTHER, SELFPAY ==
[2025-01-28 07:42] VITALS: BP 154/64; PULSE 112; TEMP 35.9; O2SAT 97
[2025-01-28 07:46] VITALS: BP 154/64; PULSE 112; TEMP 35.9; O2SAT 97
--- NOTE | 2025-01-28 07:56 | W.ED.GENAD ---
Discharge Plan Disposition Patient Disposition: Home Condition: Stable Discharge Details Clinical Impression: Otitis externa of left ear Primary Care Provider: Renetta Limon ED Provider: Korin Carey Home Meds and New Rx's Prescriptions: New ciprofloxacin-dexamethasone 0.3-0.1 % Drops,Suspension 150 drp BID Qty: 0 0RF No Action magnesium 250 mg tablet 250 mg PO DAILY amlodipine [Norvasc] 5 mg tablet 5 mg PO DAILY Qty: 90 3RF Rx Instructions: For blood pressure goal <130/80 cholecalciferol (vitamin D3) [Vitamin D3] 50 mcg (2,000 unit) capsule See Rx Instructions PO DAILY Patient Comments: Vit D deficiency & bone health Rx Instructions: Pt takes 1 tab daily albuterol sulfate [Proventil HFA] 90 mcg/actuation HFA aerosol inhaler 2 puff Inhalation Q4H PRN PRN (Reason: shortness of breath or wheezing) Qty: 8.5 2RF psyllium husk [Fiber (psyllium husk)] 1.5 tsp PO .Daily Rx Instructions: 1/2 tsp tumeric 1 cap PO .qod multivitamin Tablet 1 tab PO DAILY Patient Comments: centrum with no iron PreserVision AREDS 2 Plus MV 200 mcg-15 mcg- 5 mg-1 mg capsule 1 cap PO DAILY diclofenac sodium [Voltaren Arthritis Pain] 1 % gel 4 g topical QID PRN Rx Instructions: apply to single knee, ankle, foot; for foot includes sole/toes/top of foot (DME) lancets 1 EACH misc 1 ea Miscellaneous TID Qty: 400 Patient Comments: pt .checked blood sugar this AM 125 Rx Instructions: FOR METER. PT USES INSULIN. DIAGNOSIS CODE 250.0__ (DME) blood-glucose meter [FreeStyle Lite Meter] Kit See Rx Instructions .Route Qty: 1 0RF Rx Instructions: DX: E11.9. Keep A1c below 7 .Check blood sugar daily (DME) lancets [FreeStyle Lancets] 28 gauge misc See Rx Instructions .Route Qty: 100 3RF Rx Instructions: DX:E11.9.Keep A1c below 7. Check blood sugar daily. (DME) FreeStyle Lite Strips Strip See Rx Instructions .Route Qty: 100 3RF Rx Instructions: DX: E11.9 Keep A1c below 7. Check blood sugars daily losartan 25 mg tablet See Rx Instructions .ROUTE .COMPLEX Qty: 270 3RF Dose Instruction: TAKE 3 TABLETS BY MOUTH EVERY DAY Rx Instructions: TAKE 3 TABLETS BY MOUTH EVERY DAY rosuvastatin 5 mg tablet See Rx Instructions .ROUTE .COMPLEX Qty: 90 3RF Dose Instruction: TAKE 1 TABLET BY MOUTH AT BEDTIME Rx Instructions: TAKE 1 TABLET BY MOUTH AT BEDTIME Discharge Instructions Instructions: Outer Ear Infection ED Additional Instructions: You were seen in the emergency department today for evaluation of a foreign body sensation in your left ear. In our department you had a full physical examination, and there is some irritation to the tissue at the very base of your left ear canal. I did not visualize any foreign bodies in the ear that required removal, I have started you on a eardrop called Ciprodex, which you need to use twice a day, 4 drops in the left ear, for the next 5 to 7 days or until your symptoms improved. You need to be reevaluated by your primary care provider in the next few days to ensure that you are improving as expected. If you develop any fever, change in hearing, or any other symptoms that cause you concern you can always return to the emergency department for reevaluation. Please follow-up with your primary care provider in the next few days to discuss this visit and any symptoms that change, worsen, or persist. Thank you for allowing us to be part of your care. Stand Alone Forms: Portal Information HPI General Mode of arrival: ambulatory. Date/Time Provider Initiated Documentation: 01/28/25 07:42. Limitations to Documentation: no limitations. Information obtained by: patient and old records reviewed. HPI Narrative: This is an 84-year-old female patient with a past medical history significant for diabetes, COPD, hypertension, presenting for evaluation of a foreign body sensation in her left ear. She reports that this has been present for the last day to a few days, she reached into grab something and said that it hurt when she tried to pull it out, and felt like it was attached. She cannot think of any foreign bodies that have entered her ear canal, does not have hearing aids in, denies changes in hearing. She has otherwise been in her normal state of health without fever, chills, recent illness or injury. Related Data Home Medications ?Medication ?Instructions ?Recorded ?Confirmed lancets 28 gauge #400 ea 01/17/15 01/28/25 magnesium 250 mg tablet 250 mg PO DAILY 06/05/22 01/28/25 blood sugar diagnostic (FreeStyle #100 ea 11/24/22 01/28/25 Lite Strips) blood-glucose meter (FreeStyle #1 ea 11/24/22 01/28/25 Lite Meter kit) lancets 28 gauge (FreeStyle #100 ea 11/24/22 01/28/25 Lancets) albuterol sulfate 90 mcg/actuation 2 puff inhalation Q4H PRN PRN 12/29/22 01/28/25 aerosol inhaler (Proventil HFA) shortness of breath or wheezing #8.5 grams cholecalciferol (vitamin D3) 50 See Rx Instructions PO DAILY 06/22/23 01/28/25 mcg (2,000 unit) capsule (Vitamin D3) psyllium husk 1.5 tsp PO .Daily 06/22/23 01/28/25 amlodipine 5 mg tablet (Norvasc) 5 mg PO DAILY #90 tabs 01/21/24 01/28/25 losartan 25 mg tablet See Rx Instructions .Route 06/09/24 01/28/25 .COMPLEX #270 tabs rosuvastatin 5 mg tablet See Rx Instructions .Route 06/09/24 01/28/25 .COMPLEX #90 tabs diclofenac sodium 1 % topical gel 4 g topical QID PRN 07/25/24 01/28/25 (Voltaren Arthritis Pain) multivitamin 1 tab PO DAILY 07/25/24 01/28/25 mv-mn-folic 200 mcg-vit K 15 1 cap PO DAILY 07/25/24 01/28/25 mcg-lutein 5 mg-zeaxanthin 1 mg capsule (PreserVision AREDS 2 Plus Multivit) tumeric 1 cap PO .qod 07/25/24 01/28/25 ciprofloxacin 0.3 %-dexamethasone 150 drp BID #0 mL 01/28/25 0.1 % ear drops,suspension Previous Rx's ?Medication ?Instructions ?Recorded blood sugar diagnostic (FreeStyle #100 ea 11/24/22 Lite Strips) blood-glucose meter (FreeStyle #1 ea 11/24/22 Lite Meter kit) lancets 28 gauge (FreeStyle #100 ea 10/16/23 Lancets) albuterol sulfate 90 mcg/actuation 2 puff inhalation Q4H PRN PRN 12/29/22 aerosol inhaler (Proventil HFA) shortness of breath or wheezing #8.5 grams amlodipine 5 mg tablet (Norvasc) 5 mg PO DAILY #90 tabs 01/21/24 losartan 25 mg tablet See Rx Instructions .Route 06/09/24 .COMPLEX #270 tabs rosuvastatin 5 mg tablet See Rx Instructions .Route 06/09/24 .COMPLEX #90 tabs ciprofloxacin 0.3 %-dexamethasone 150 drp BID #0 mL 01/28/25 0.1 % ear drops,suspension Allergies Allergy/AdvReac Type Severity Reaction Status Date / Time No Known Allergies Allergy Verified 01/28/25 07:45 General Stated Complaint: EarProblem RHEA: 4 Exam Narrative Exam Narrative: Gen: Awake and alert, in no apparent distress HEENT: Non-icteric sclera, PERRL. Left TM is visualized, intact, with no effusion, purulence, or bulging. There is no foreign body visualized in the left ear canal, but I do note an area of irritated tissue in the inferior aspect of the external ear canal. No significant edema or swelling, no tenderness with manipulation of the pinna, no mastoid swelling or tenderness Neck: Supple Lungs: No apparent respiratory distress, normal respiratory effort. CV: Appears well perfused Abdomen: Non-distended MSK: Moves 4 extremities without apparent limitation in ROM Skin: Visualized skin without rashes, cyanosis. Neuro: Normal Gait, no obvious focal deficits or facial asymmetry. Speaks in full, clear sentences. Psych: Appropriate for situation. Course Vital Signs Vital signs: Vital Signs Temperature 35.9 C L 01/28/25 07:42 Pulse 112 H 01/28/25 07:42 Blood Pressure 154/64 H 01/28/25 07:42 Pulse Oximetry 97 01/28/25 07:42 Temperature 35.9 C L 01/28/25 07:46 Temperature Source Tympanic 01/28/25 07:46 Pulse 112 H 01/28/25 07:46 Blood Pressure 154/64 H 01/28/25 07:46 Pulse Oximetry 97 01/28/25 07:46 Medical Decision Making This is an 84-year-old female patient presenting for evaluation of left ear foreign body sensation. My differential includes but is not limited to skin irritation, otitis externa (mild), certainly considered foreign body that has resolved prior to arrival but there is no foreign body visualized today. No evidence on my physical examination for otitis media, mastoiditis. The patient does not have a history of atopic dermatitis, but dermatitis was considered given the appearance of the skin in that area. Given the irritation and foreign body sensation suggestive of some swelling, it is not unreasonable to proceed with treatment for otitis externa. I provided the patient with a bottle of Ciprodex, and counseled her on its use. She will follow-up with her primary care provider for reassessment. Initial heart rate slightly elevated, patient endorsing concern that there was something alive in her ear, repeat reassuring and I have a low concern for systemic illness based on the patient's history and exam. At this time, the patient has had a full medical evaluation and is safe for discharge to home. They are hemodynamically stable, ambulatory, and tolerating PO. They are understanding of the follow-up plan and return precautions. They left our facility without incident. 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) FEV1 2.07 (78%pred; 61% FVC), mild obstr, else normal Family history of breast cancer (Chronic) Daughter Hypertension (Chronic ~10/2019) Dx'ed 10/2019--RX Losartan; goal <130/80 ideally (but 140/90 acceptable) Medical History COVID (~11/01/21) 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 Schmorl's nodes of the thoracic region Category 3 mammography result with short follow-up interval suggested for probably benign finding [facility] [place] cat 2, but [facility] cat 3 with repeat imaging in 6 month recommended Hypokalemia Resolved with dietary supplementation (bananas, strawberries) Foraminal stenosis of cervical region +Radiculopathy; [facility] ER 07/2019--prednisone + methocarbamol + PT = effective Obesity (11/08/12) Nuclear sclerotic cataract of left eye Right corneal scar with opacity Nuclear sclerotic cataract of right eye 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 (may not even be polyps!), but due to + FH mother colon cancer <60, rec 5 yr interval; 2019: Katie declines further colonoscopy 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 Colon cancer Successfully treated Supranuclear palsy Diabetes Daughter Age: 55 Breast cancer Dx'ed ~44yo s/p mastectomy Hypertension Daughter Bone cancer Sister No problems noted. Father , COD unknown No problems noted. Maternal Grandmother Breast cancer Social History Smoking/Tobacco Use Status: Never Smoking risk assessment performed?: Yes Alcohol Intake: current Alcohol Intake frequency: a few times a week Alcohol type: beer and hard liquor Drug use: Never Substance use type: does not use Adopted: No Caregiver/Support person: No Foster care: No Household members: none Housing: house Number of Children: 2 number of grandchildren: 2 Communication Needs: Corrective Lenses Education Level: college Details: Bachelor's Degree Do you need help understanding health information?: Never current occupation: Homemaker Pets and animals: No Sexually active: No Do you think of yourself as: straight/heterosexual Current gender identity: female What is your relationship status?: How often do you talk on the phone with friends or family?: three or more times per week How often do you get together with friends or relatives?: three or more times per week How often do you attend mosque or quaker services?: decline to answer Do you belong to any clubs or organized social groups?: yes Panel score (0-1 are the most socially isolated patients): 2 What type of physical activity do you participate in: walking and other Details: yardwork/gardening Duration: 15-30 minutes/day Frequency: 1-2 times per week Special emanuel needs: No Seatbelt use: always Helmet use: No (Never) Drive intox or ride w/intox rickshaw driver: No Do you feel safe at home: Yes Do you feel safe in your relationship?: Yes
[2025-01-28] MEDS: Ciprofloxacin/Dexameth. 7.5 ML BTL AS (08:03)
[2025-01-28 08:10] VITALS: PULSE 94; RESP 18; O2SAT 95
== END 2025-01-28 08:14 | disposition home or self-care (01) ==
PROVIDERS: Emergency Provider Emergency Medicine; PCP Nurse Practitioner Adult Health
DX: H60.92 Unspecified otitis externa, left ear (principal)
CPT/HCPCS: 99283 ×2